=== PATIENT | male | born 1965 | race Caucasian/White ===

== ENCOUNTER 2016-11-13 10:00 | Emergency (ER) | payer OTHER ==
[~2016-11-13] VITALS: Ht 175.3 cm; Wt 70.5 kg
[~2016-11-13 10:00] MED LIST: ALBUAER2 INH; CLC100 PO; DXY100 PO; FLUT0.15 NAE; GLIP5TAB11 PO; IPRASOL4 INH; METF500T PO; METO25TA3 PO; PRD20 PO; PRED20TA PO; RXC5 PO; ZOLP10TA6 PO
[2016-11-13] MEDS ORDERED: VNTHFA/IN INH (10:03)
[2016-11-13 10:04] VITALS: TEMP 36.8; Ht 175.3 cm; Wt 70.5 kg
[2016-11-13] MEDS ORDERED: SODIUM CHLORIDE 0.9% 1000ML 1,000 ML IV STA ×2 (10:20→12:25)
[2016-11-13 10:32] LABS: BASO % 0.1 %; BASO ABS # 0.02 K/uL (0-0.2); COMPLETE YES; EOS % 1.1 %; HEMATOCRIT 50.4 % (42-52); IG% 0.7 %; LYMPH % 2.1 %; LYMPH ABS # 0.29 K/uL (1.2-3.4); MEAN CELL VOLUME 89.5 fL (80-100); MEAN CORPUSCULAR HEMOGLOBIN 30.2 pg (25-34); MEAN CORPUSCULAR HGB CONC 33.7 g/dl (32-36); MEAN PLATELET VOLUME 9.2 fL (7.4-10.4); MONO % 2.4 %; NEUT % 93.6 %; PLATELET COUNT 340 K/uL (130-400); RED BLOOD COUNT 5.63 M/uL (4.7-6.1); WHITE BLOOD COUNT 13.79 K/uL (4.8-10.8)
[2016-11-13 10:53] LABS: BUN/CREATININE RATIO 13.2 (10-20); CALCIUM 9.1 mg/dl (8.5-10.1); CREATININE 0.74 mg/dl (0.60-1.40); POTASSIUM 3.5 mmol/L (3.5-5.1)
[2016-11-13] MEDS ORDERED: VANCOMYCIN HCL 250 MG/5 ML SOLN PO STA (12:25)
[2016-11-13] MEDS ORDERED: RASPBERRY SYRUP 5 ML UDP PO ONE (12:45)
[2016-11-13] MEDS ORDERED: VANC5CAP PO (15:38)
--- NOTE | 2016-11-13 15:39 | EMERGENCY ROOM VISIT NOTE ---
History Report prepared by Nickie: Tamra Aguirre Under the Supervision of: Dr. Peter Sparks M.D. First contact with patient: 10:10 Chief Complaint: DIARRHEA Stated Complaint: DIARRHEA X 1 WEEK, DEHYDRATION, WEAKNESS Nursing Triage Summary: Pt reports diarrhea. Pt states, "I have some type of bacterial infection in my stomach. Now I have diarrhea. I am just so run down that I can hardly move. I got this infection when I was in the hospital in Dec and I haven't gotten rid of it since." History of Present Illness The patient is a 51 year old male who presents to the Emergency Room with complaints of persistent diarrhea over the past week. He has had diarrhea every hour. The patient just finished a course of Flagyl 500 mg TID for C diff. The diarrhea never completely resolved. He has been having diarrhea for the past 6 months. He reports RUQ pain. He reports that he has had that pain since he had a lung biopsy in December 2015. He denies any bloody stools, nausea, vomiting, or fever. He has been trying to drink a lot of water. He denies any well water or stream water. He denies any history of abdominal surgery. He is on prednisone and took 20 mg this morning. He is chronically on oxygen and on the list for a lung transplant. It is normal for his heart rate to be elevated at times. He notes that he was admitted at [facility] last week. He had CTs at that time. Source of History: patient Onset: past week Position: other (global) Quality: other (diarrhea) Timing: other (persistent) Associated Symptoms: + abdominal pain, No fevers, No nausea, No vomiting, No melena, No hematochezia Review of Systems See HPI for pertinent positives & negatives. A total of 10 systems reviewed and were otherwise negative. Past Medical & Surgical Medical Problems: (1) DM2 (diabetes mellitus, type 2) (2) GERD (gastroesophageal reflux disease) (3) HTN (hypertension) (4) Hypoxia (5) Pneumothorax of right lung after biopsy Surgical Problems: (1) H/O colonoscopy (2) H/O esophagogastroduodenoscopy (3) History of nasal surgery Family History No pertinent family history Social History Smoking Status: Current Every Day Smoker Alcohol Use: none Drug Use: none Marital Status: single, in relationship Housing Status: lives with significant other Occupation Status: employed Current/Historical Medications Scheduled Albuterol Hfa (Ventolin Hfa), 2-4 PUFFS INH Q6H Docusate Sodium (Docusate Sodium), 100 MG PO BID Fluticasone Propionate (Nasal) (Flonase Allergy Relief), 2 SPRAYS MELISSA QAM Glipizide (Glucotrol), 5 MG PO QAM Metformin Hcl (Glucophage), 1,000 MG PO BID Metoprolol Succ (Toprol Xl) (Toprol-Xl), 25 MG PO DAILY Prednisone (Prednisone), 20 MG PO DAILY Vancomycin Hcl (Vancomycin), 1 TAB PO DIRECTED Scheduled PRN Ipratropium-Albuterol (Duoneb), 1 TREATMENT INH QID PRN for Severe Dyspnea Oxycodone HCl (Oxycodone HCl), 5 MG PO Q6 PRN for Pain Zolpidem Tartrate (Zolpidem Tartrate), 10 MG PO HS PRN for Sleep Allergies Coded Allergies: Omeprazole (Verified Allergy, Unknown, TOLERATES PROTONIX, 11/13/16) Paroxetine (Verified Adverse Reaction, Mild, GI UPSET, 11/13/16) Physical Exam Vital Signs Date Time Temp Pulse Resp B/P (MAP) Pulse Ox O2 Delivery O2 Flow Rate FiO2 11/13/16 15:49 72 18 128/84 98 11/13/16 15:05 84 18 118/88 96 Room Air 11/13/16 13:12 94 11/13/16 12:55 92 18 146/90 99 Room Air 11/13/16 10:34 102 12 128/86 94 Nasal Cannula 2.0 11/13/16 10:17 112 11/13/16 10:04 36.8 117 24 149/91 87 Room Air Physical Exam GENERAL: Patient is chronically unwell appearing and in no acute distress. HEENT: No acute trauma, normocephalic atraumatic, mucous membranes dry, no nasal congestion, no scleral icterus. NECK: No stridor, no adenopathy, no meningismus, trachea is midline. LUNGS: Poor air movement throughout, minimally dyspneic which patient states is baseline. HEART: Tachycardic rate and regular rhythm. No murmurs, rubs, gallops appreciated. ABDOMEN: Soft, point tenderness to the RUQ which he states is chronic, bowel sounds positive, no masses appreciated, no peritonitis. BACK: No midline tenderness, no CVA tenderness EXTREMITIES: Normal motion all extremities, no cyanosis, no edema. NEUROLOGIC: Alert and oriented, no acute motor or sensory deficits, no focal weakness, cranial nerves grossly intact. SKIN: Dry with poor turgor, also consistent with chronic prednisone use. Medical Decision & Procedures Laboratory Results 11/13/16 10:15 Red Blood Count 5.63, Mean Corpuscular Volume 89.5, Mean Corpuscular Hemoglobin 30.2, Mean Corpuscular Hemoglobin Concent 33.7, Mean Platelet Volume 9.2, Neutrophils (%) (Auto) 93.6, Lymphocytes (%) (Auto) 2.1, Monocytes (%) (Auto) 2.4, Eosinophils (%) (Auto) 1.1, Basophils (%) (Auto) 0.1, Neutrophils # (Auto) 12.91, Lymphocytes # (Auto) 0.29, Monocytes # (Auto) 0.33, Eosinophils # (Auto) 0.15, Basophils # (Auto) 0.02 11/13/16 10:15 Test 11/13/16 10:15 White Blood Count 13.79 K/uL (4.8-10.8) Red Blood Count 5.63 M/uL (4.7-6.1) Hemoglobin 17.0 g/dL (14.0-18.0) Hematocrit 50.4 % (42-52) Mean Corpuscular Volume 89.5 fL (80-100) Mean Corpuscular Hemoglobin 30.2 pg (25-34) Mean Corpuscular Hemoglobin Concent 33.7 g/dl (32-36) Platelet Count 340 K/uL (130-400) Mean Platelet Volume 9.2 fL (7.4-10.4) Neutrophils (%) (Auto) 93.6 % Lymphocytes (%) (Auto) 2.1 % Monocytes (%) (Auto) 2.4 % Eosinophils (%) (Auto) 1.1 % Basophils (%) (Auto) 0.1 % Neutrophils # (Auto) 12.91 K/uL (1.4-6.5) Lymphocytes # (Auto) 0.29 K/uL (1.2-3.4) Monocytes # (Auto) 0.33 K/uL (0.11-0.59) Eosinophils # (Auto) 0.15 K/uL (0-0.5) Basophils # (Auto) 0.02 K/uL (0-0.2) RDW Standard Deviation 47.6 fL (36.4-46.3) RDW Coefficient of Variation 14.6 % (11.5-14.5) Immature Granulocyte % (Auto) 0.7 % Immature Granulocyte # (Auto) 0.09 K/uL (0.00-0.02) Anion Gap 6.0 mmol/L (3-11) Est Creatinine Clear Calc Drug Dose 115.1 ml/min Estimated GFR () 122.1 Estimated GFR (Non- 105.3 BUN/Creatinine Ratio 13.2 (10-20) Calcium Level 9.1 mg/dl (8.5-10.1) Total Bilirubin 0.5 mg/dl (0.2-1) Direct Bilirubin 0.1 mg/dl (0-0.2) Aspartate Amino Transf (AST/SGOT) 24 U/L (15-37) Alanine Aminotransferase (ALT/SGPT) 39 U/L (12-78) Alkaline Phosphatase 78 U/L (45-117) Total Creatine Kinase 46 U/L (39-308) Total Protein 6.6 gm/dl (6.4-8.2) Albumin 3.0 gm/dl (3.4-5.0) Lipase 79 U/L (73-393) Date/Time Source Procedure Growth Status 11/13/16 00:00 Stool C.difficile Toxin B Gene (PCR) - Final Positive for C. difficile toxin B gene Complete Laboratory results as reviewed by me. Medications Administered Medications (Trade) Dose Ordered Sig/Abigail Route Start Time Stop Time Status Last Admin Dose Admin Sodium Chloride 1,000 ml @ 999 mls/hr Q1H1M STAT IV 11/13/16 10:20 11/13/16 11:20 DC 11/13/16 10:33 999 MLS/HR Vancomycin HCl (Vancomycin Oral Soln) 250 mg NOW STAT PO 11/13/16 12:25 11/13/16 12:27 DC 11/13/16 12:53 250 MG Sodium Chloride 1,000 ml @ 999 mls/hr Q1H1M STAT IV 11/13/16 12:25 11/13/16 13:25 DC 11/13/16 12:31 999 MLS/HR Raspberry (Raspberry Syrup 5ml Cup) 5 ml ONE ONCE PO 11/13/16 12:45 11/13/16 12:46 DC 11/13/16 12:53 5 ML ED Course 1012: The patient was evaluated in room A10. A complete history and physical exam was performed. 1020: NSS 1000 ml @ 999 mls/hr IV. 1113: I reevaluated the patient. He feels much better. 1139: I discussed the patient's case with RYAN Ramírez gastroenterology. She recommends a vancomycin taper if C diff is positive. 1224: I reevaluated the patient. He is feeling better. He needs more fluids. He has not had a bowel movement yet. I discussed the pros and cons of antibiotics empirically for C diff and he says he would like to just start antibiotics. His is leaving and will not be able to return until 1600. He will receive more fluids and wait until then. 1225: NSS 1000 ml @ 999 mls/hr IV, Vancomycin HCl 250 mg PO. 1245: Raspberry 5 mg PO. 1541: I reevaluated the patient. I discussed results and discharge instructions : He verbalized understanding and agreement. The patient is ready for discharge. Medical Decision Differential: Viral, Bacterial, Parasitic, Iatrogenic, C-Diff, Malabsorption, Irritable Bowel Disease, IBS, Ischemic Bowel, amongst other pathologies entertained. 51 yr old male arrives with diarrhea starting 1 week post stopping Flagyl for his persistent cdiff infection. He's been treated twice with abx for cdiff thus far. He is dehydrated and feels much better after 2 L. Eventually gave stool sample which is positive. Feeling well and looks comfortable. Discussed with GI who gave advice on intermediate project manager taper Vanco. Patient comfortable with this plan. In ED for many hours secondary to awaiting his mother to return to take him home. Contact precautions in place. Medication Reconcilliation Current Medication List: was personally reviewed by me Blood Pressure Screening Patient's blood pressure: Normal blood pressure Blood pressure disposition: Did not require urgent referral Consults Time Called: 1052 Consulting Physician: RYAN Ramírez gastroenterology Returned Call: [phone] I discussed the patient's case with her. She recommends a vancomycin taper if C diff is positive. Impression Primary Impression: Clostridium difficile diarrhea Additional Impression: Dehydration Scribe Attestation The scribe's documentation has been prepared under my direction and personally reviewed by me in its entirety. I confirm that the note above accurately reflects all work, treatment, procedures, and medical decision making performed by me. Departure Information Dispostion Home / Self-Care Prescriptions Vancomycin Hcl (Vancomycin) 125 Mg Cap 1 TAB PO DIRECTED, #88 TAB Take 1 tab; QID 2 wks, BID 1 wk, 1 daily for 1 wk, 1 every other day 1 wk, 1 every 3rd day 2 wks. Prov: Peter Sparks M.D. 11/13/16 Referrals Suzanne Bautista CRNP Patient Instructions Clostridium Difficile Infec, My [facility] Additional Instructions Your prescription should be at the Pharmacy. Problem Qualifiers
[2016-11-13 15:49] VITALS: BP 128/84; PULSE 72; O2SAT 98
[2016-12-04] MEDS ORDERED: SULF-183 PO (09:38)
[2016-12-04] MEDS ORDERED: PRZ1 PO (09:38)
[2016-12-04] MEDS ORDERED: POTTAB2 PO (09:38)
[2016-12-04] MEDS ORDERED: CRD60 PO (09:38)
[2016-12-04] MEDS ORDERED: CALCTAB7 PO (09:38)
[2016-12-04] MEDS ORDERED: FURO-85 PO (09:44)
[2016-12-04] MEDS ORDERED: MCRK20 PO (09:44)
[2016-12-04] MEDS ORDERED: OXGN (09:47)
== END 2016-11-13 15:52 | disposition home or self-care (01) ==
LOC: C.EDB 10:01 → C.EDA 15:52
DX: A04.7 Enterocolitis due to Clostridium difficile (principal); E86.0 Dehydration; E11.9 Type 2 diabetes mellitus without complications; K21.9 Gastro-esophageal reflux disease without esophagitis; I10 Essential (primary) hypertension; F17.210 Nicotine dependence, cigarettes, uncomplicated; Z79.2 Long term (current) use of antibiotics; Z79.52 Long term (current) use of systemic steroids; Z79.899 Other long term (current) drug therapy; Z99.81 Dependence on supplemental oxygen

== ENCOUNTER 2016-11-25 13:58 | Inpatient (IN) | payer OTHER ==
[2016-11-25] VITALS (19 sets, daily range): BP systolic 100–201; BP diastolic 58–116; PULSE 88–128; TEMP 36.5; O2SAT 50–99; Ht 172.7 cm; Wt 75.2 kg
[~2016-11-25] VITALS: Ht 172.7 cm; Wt 75.2 kg
[~2016-11-25 13:58] MED LIST changes: -ALBUAER2 INH; -DXY100 PO; +ETOMIDATE 2 MG/ML 20 ML VIAL IV ONE; +MIDAZOLAM HCL 5 MG/ML 1 ML VIAL IV ONE; -PRD20 PO; +SUCCINYLCHOLINE CHLORIDE 20 MG/ML 10 ML VIAL IV ONE; +VANC5CAP PO; +VNTHFA/IN INH
[2016-11-25] MEDS ORDERED: ALBUT/IPRATROP 3MG/0.5MG NEB 3 ML VIAL INH STA (14:15)
[2016-11-25] MEDS ORDERED: METHYLPREDNISOLONE 125 MG VIAL IV STA (14:15)
[2016-11-25] MEDS ORDERED: SODIUM CHLORIDE 0.9% 1000ML 1,000 ML IV STA ×2 (14:15→16:39)
--- NOTE | 2016-11-25 14:23 | EMERGENCY ROOM VISIT NOTE ---
History Report prepared by Topheribabdulaziz: Angi Nguyễn Under the Supervision of: Dr. Sanjya Patel D.O. First contact with patient: 14:11 Chief Complaint: SHORTNESS OF BREATH Stated Complaint: SHORTNESS OF BREATH History of Present Illness The patient is a 51 year old male who presents to the Emergency Room with complaints of worsening shortness of breath for the past 3 days. He was brought to the ED via EMS. He has a history of COPD and emphysema. He was 88% on 2.5 L at home and notes he has been short of breath even at rest. Oxygen has provided minimal relief. He also complains of increased pain with breathing. The patient admits to experiencing recent fevers as well as a productive cough with yellow sputum. He denies any abdominal pain. History is limited secondary to respiratory distress. Source of History: patient, EMS Onset: 3 days [employer]CH[employer]IC[employer] Position: chest Quality: other (shortness of breath) Timing: worsening Modifying Factors (Relieving): oxygen Associated Symptoms: + fevers, + cough, No abdominal pain Review of Systems See HPI for pertinent positives & negatives. ROS is limited secondary to respiratory distress. Past Medical & Surgical Medical Problems: (1) DM2 (diabetes mellitus, type 2) (2) GERD (gastroesophageal reflux disease) (3) HTN (hypertension) (4) Hypoxia (5) Pneumothorax of right lung after biopsy Surgical Problems: (1) H/O colonoscopy (2) H/O esophagogastroduodenoscopy (3) History of nasal surgery Family History No pertinent family history Social History Smoking Status: Current Every Day Smoker Alcohol Use: none Drug Use: none Marital Status: single, in relationship Housing Status: lives with significant other Occupation Status: employed Current/Historical Medications Scheduled Albuterol Hfa (Ventolin Hfa), 2-4 PUFFS INH Q6H Docusate Sodium (Docusate Sodium), 100 MG PO BID Fluticasone Propionate (Nasal) (Flonase Allergy Relief), 2 SPRAYS MELISSA QAM Glipizide (Glucotrol), 5 MG PO QAM Metformin Hcl (Glucophage), 1,000 MG PO BID Metoprolol Succ (Toprol Xl) (Toprol-Xl), 25 MG PO DAILY Prednisone (Prednisone), 20 MG PO DAILY Vancomycin Hcl (Vancomycin), 1 TAB PO DIRECTED Scheduled PRN Ipratropium-Albuterol (Duoneb), 1 TREATMENT INH QID PRN for Severe Dyspnea Oxycodone HCl (Oxycodone HCl), 5 MG PO Q6 PRN for Pain Zolpidem Tartrate (Zolpidem Tartrate), 10 MG PO HS PRN for Sleep Allergies Coded Allergies: Omeprazole (Verified Allergy, Unknown, TOLERATES PROTONIX, 11/25/16) Paroxetine (Verified Adverse Reaction, Mild, GI UPSET, 11/25/16) Physical Exam Vital Signs Date Time Temp Pulse Resp B/P (MAP) Pulse Ox O2 Delivery O2 Flow Rate FiO2 11/25/16 17:09 128 98 50 11/25/16 17:06 128 20 50 BiPAP/CPAP 11/25/16 17:00 101 26 140/76 100 Mechanical Ventilator 50 11/25/16 16:57 101 26 98/73 99 Mechanical Ventilator 50 11/25/16 16:27 112/75 11/25/16 16:05 104/71 11/25/16 16:00 111 102/69 97 Mechanical Ventilator 50 11/25/16 15:55 118/78 11/25/16 15:50 124/77 11/25/16 15:45 110 135/87 99 11/25/16 15:43 129/88 11/25/16 15:40 124/97 11/25/16 15:35 158/108 11/25/16 15:30 120 196/119 99 11/25/16 15:25 155/97 11/25/16 15:21 155/101 11/25/16 15:15 126 100 11/25/16 15:14 157/104 11/25/16 15:11 157/133 11/25/16 15:00 130 99 11/25/16 14:52 128 38 151/97 99 BiPAP 40 11/25/16 14:48 128 38 99 BiPAP 40 11/25/16 14:47 BiPAP 11/25/16 14:47 BiPAP 11/25/16 14:13 96 Non-Rebreather 4.0 11/25/16 14:11 88 11/25/16 14:11 36.4 122 38 159/99 88 Nasal Cannula 11/25/16 14:08 133 11/25/16 14:06 132 Physical Exam GENERAL: Patient is awake, alert, very anxious appearing, and appears to be in significant distress. History is limited secondary to respiratory distress. EYES: The conjunctivae are clear. The pupils are round and reactive. EARS, NOSE, MOUTH AND THROAT: The nose is without any evidence of any deformity. Mucous membranes are dry, tongue is midline NECK: The neck is nontender and supple. RESPIRATORY: Shallow respirations were noted with severe tachypnea and conversational dyspnea. Shallow and ineffective respirations were noted. CARDIOVASCULAR: Heart sounds were tachycardic but regular. No definite murmur noted to auscultation. GASTROINTESTINAL: The abdomen is soft. Bowel sounds are present in all quadrants. Abdomen is nontender MUSCULOSKELETAL/EXTREMITIES: There is no evidence of gross deformity full range of motion is noted in the hips and shoulders SKIN: Skin is warm and dry. Pedal edema bilaterally. There is no obvious evidence of any rash. There are no petechiae, pallor or cyanosis noted. NEUROLOGIC: Patient is awake alert and oriented x3 Medical Decision & Procedures ER Provider Diagnostic Interpretation: Radiology results as stated below per my review and radiologist interpretation: CHEST ONE VIEW PORTABLE CLINICAL HISTORY: Respiratory distress COMPARISON STUDY: 01/17/2016 FINDINGS: The heart is normal in size. There is underlying pulmonary emphysema. There is right midlung zone interstitial scarring. There is interstitial thickening, similar to the prior study. There is no lobar consolidation. There are no pleural effusions. IMPRESSION: Right midlung zone scarring. Interstitial thickening likely chronic. No evidence of acute lobar consolidation. Electronically signed by: Jeremi Garzon M.D. 11/25/2016 2:41 PM CHEST ONE VIEW PORTABLE CLINICAL HISTORY: S/P intubation RESPIRATORY FAILURE COMPARISON STUDY: 11/25/2016 FINDINGS: The cardiac and mediastinal contours remain stable. There is been interval insertion of the endotracheal tube 52 mm above the td. There is persistent interstitial thickening. There is no lobar consolidation. There is a linear scarlike opacity within the right midlung zone. There are no significant pleural effusions. IMPRESSION: Interval insertion of an endotracheal tube 52 mm above the td. Electronically signed by: Jeremi Garzon M.D. 11/25/2016 4:[address] ANGIOGRAM OF THE CHEST CLINICAL HISTORY: Shortness of breath. Respiratory failure. COMPARISON STUDY: 12/27/2015, chest x-ray dated 11/25/2016 TECHNIQUE: Following the IV administration of 116 mL of Optiray-320, CT angiogram of the thorax was performed from the thoracic inlet to the lung bases utilizing the pulmonary embolus protocol. Images are reviewed in the axial, sagittal, and coronal planes. IV contrast was administered without complication. MIP imaging was performed. A dose lowering technique was utilized adhering to the principles of ALARA. CT DOSE: 556.46 mGy.cm FINDINGS: No pathologically enlarged axillary mediastinal or hilar lymph nodes were visualized. There was no evidence of thoracic aortic dilatation. There were no pulmonary artery filling defects to indicate acute pulmonary embolism. No pleural effusions are visualized. There is respiratory motion artifact. There are multiple lung cysts, slightly progressive when compared to the prior study. This again has a wide differential but again lymphocytic interstitial pneumonitis must be considered. There is a tubular structure within the right middle lobe, likely representing a fluid-filled bronchus. There is scattered bilateral pulmonary nodules, likely inflammatory. The largest left lung nodule measures 1 cm and is visualized in image #230/[id number]. The largest right lung nodule measures 9 mm and is visualized on image #[id number]. There is an indwelling endotracheal tube. There are multiple thoracic compression deformities. IMPRESSION: 1. No evidence of acute pulmonary embolism 2. Multiple bilateral lung cysts, slightly progressive when compared the prior study 3. Scattered bilateral pulmonary nodules. These are statistically inflammatory/infectious. A 1-2 month follow-up study subsequent to antibiotic therapy is recommended. Electronically signed by: Jeremi Garzon M.D. 11/25/2016 4:33 PM Laboratory Results 11/25/16 14:52 Red Blood Count 5.42, Mean Corpuscular Volume 90.4, Mean Corpuscular Hemoglobin 29.2, Mean Corpuscular Hemoglobin Concent 32.2, Mean Platelet Volume 9.0, Neutrophils (%) (Auto) 83.0, Lymphocytes (%) (Auto) 8.2, Monocytes (%) (Auto) 4.0, Eosinophils (%) (Auto) 3.4, Basophils (%) (Auto) 0.4, Neutrophils # (Auto) 23.77, Lymphocytes # (Auto) 2.36, Monocytes # (Auto) 1.14, Eosinophils # (Auto) 0.96, Basophils # (Auto) 0.11 11/25/16 14:52 Test 11/25/16 14:52 11/25/16 16:33 11/25/16 16:38 White Blood Count 28.63 K/uL (4.8-10.8) Red Blood Count 5.42 M/uL (4.7-6.1) Hemoglobin 15.8 g/dL (14.0-18.0) Hematocrit 49.0 % (42-52) Mean Corpuscular Volume 90.4 fL (80-100) Mean Corpuscular Hemoglobin 29.2 pg (25-34) Mean Corpuscular Hemoglobin Concent 32.2 g/dl (32-36) Platelet Count 357 K/uL (130-400) Mean Platelet Volume 9.0 fL (7.4-10.4) Neutrophils (%) (Auto) 83.0 % Lymphocytes (%) (Auto) 8.2 % Monocytes (%) (Auto) 4.0 % Eosinophils (%) (Auto) 3.4 % Basophils (%) (Auto) 0.4 % Neutrophils # (Auto) 23.77 K/uL (1.4-6.5) Lymphocytes # (Auto) 2.36 K/uL (1.2-3.4) Monocytes # (Auto) 1.14 K/uL (0.11-0.59) Eosinophils # (Auto) 0.96 K/uL (0-0.5) Basophils # (Auto) 0.11 K/uL (0-0.2) RDW Standard Deviation 45.3 fL (36.4-46.3) RDW Coefficient of Variation 13.8 % (11.5-14.5) Immature Granulocyte % (Auto) 1.0 % Immature Granulocyte # (Auto) 0.29 K/uL (0.00-0.02) Red Blood Cell Morphology Unremarkable Anion Gap 9.0 mmol/L (3-11) Est Creatinine Clear Calc Drug Dose 100.8 ml/min Estimated GFR () 117.0 Estimated GFR (Non- 101.0 BUN/Creatinine Ratio 17.1 (10-20) Calcium Level 8.7 mg/dl (8.5-10.1) Magnesium Level 1.7 mg/dl (1.8-2.4) Total Bilirubin 0.6 mg/dl (0.2-1) Aspartate Amino Transf (AST/SGOT) 33 U/L (15-37) Alanine Aminotransferase (ALT/SGPT) 38 U/L (12-78) Alkaline Phosphatase 112 U/L (45-117) Total Creatine Kinase 289 U/L (39-308) Creatine Kinase MB 9.5 ng/ml (0.5-3.6) Creatine Kinase MB Ratio 3.3 (0-3.0) Troponin I 0.072 ng/ml (0-0.045) Pro-B-Type Natriuretic Peptide 192 pg/ml (0-900) Total Protein 6.7 gm/dl (6.4-8.2) Albumin 3.0 gm/dl (3.4-5.0) Globulin 3.7 gm/dl (2.5-4.0) Albumin/Globulin Ratio 0.8 (0.9-2) Bedside Blood Gas pH (LAB) 7.21 (7.35-7.45) Bedside Blood Gas pCO2 (LAB) 82 mmHg (35-46) Bedside Blood Gas pO2 (LAB) 109 mmHg (80-95) Bedside Blood Gas HCO3 (LAB) 33 meq/L (19-24) Bedside Blood Gas Total CO2 35 mEq/l (24-31) Bedside Blood Gas Base Excess (LAB) 5.0 meq/L (-9-1.8) Bedside Blood Gas O2 Saturation 97.0 % (90-95) Urine Color DK YELLOW Urine Appearance CLOUDY (CLEAR) Urine pH 5.0 (4.5-7.5) Urine Specific [place] 1.045 (1.000-1.030) Urine Protein 2+ (NEG) Urine Glucose (UA) 1+ (NEG) Urine Ketones 1+ (NEG) Urine Occult Blood TRACE (NEG) Urine Nitrite NEG (NEG) Urine Bilirubin 2+ (NEG) Urine Urobilinogen NEG (NEG) Urine Leukocyte Esterase NEG (NEG) Laboratory results per my review. Medications Administered Medications (Trade) Dose Ordered Sig/Abigail Route Start Time Stop Time Status Last Admin Dose Admin Methylprednisolone Sodium Succinate (Solu-Medrol IV) 125 mg NOW STAT IV 11/25/16 14:15 11/25/16 14:17 DC 11/25/16 14:21 125 MG Sodium Chloride 1,000 ml @ 999 mls/hr Q1H1M STAT IV 11/25/16 14:15 11/25/16 15:15 DC 11/25/16 14:21 999 MLS/HR Albuterol/ Ipratropium (Duoneb) 3 ml NOW STAT INH 11/25/16 14:15 11/25/16 14:17 DC 11/25/16 14:21 3 ML Levofloxacin (Levaquin / D5W) 750 mg NOW STAT IV 11/25/16 15:11 11/25/16 15:13 DC 11/25/16 15:33 750 MG Propofol (Diprivan Iv Emulsion 100ml Vial) 1 dose STK-MED ONCE IV 11/25/16 15:25 11/25/16 15:26 DC 11/25/16 15:32 1 DOSE Morphine Sulfate (MoRPHine SULFATE INJ) 8 mg NOW STAT IV 11/25/16 15:38 11/25/16 15:39 DC 11/25/16 15:53 8 MG Midazolam HCl (Versed Inj) 4 mg NOW STAT IV 11/25/16 15:38 11/25/16 15:47 DC 11/25/16 15:52 4 MG Sodium Chloride 1,000 ml @ 999 mls/hr Q1H1M STAT IV 11/25/16 16:39 11/25/16 17:39 11/25/16 16:46 999 MLS/HR Magnesium Sulfate (Magnesium Sulfate) 2 gm NOW STAT IV 11/25/16 16:39 11/25/16 16:40 DC 11/25/16 16:50 2 GM Procedure Endotracheal Intubation Indication: Respiratory Failure The patient was on 100% oxygen via NRB prior to the procedure. Suction, airway equipment, RSI drugs, respiratory equipment, and appropriate personnel were prepared prior to the initiation of the procedure. A time out was taken. Induction was performed with Etomidate and Succinylcholine. After observing the clinical benefit of the medications, the airway was easily visualized utilizing a glide scope. A 7.5 size ETT tube was placed atraumatically to 22 cm using standard technique. The cuff inflated without signs of malfunction. There were bilateral breath sounds, positive colormetric change, no gastric sounds, a good capnography waveform, and post procedure pulse oximetry was 99%. Post intubation sedation and paralysis was administered using Propofol. There were no complications. ECG Indication: SOB/dyspnea Rate (beats per minute): 131 Rhythm: sinus tachycardia Findings: nonspecific-ST abn (Diffuse ST segment abnormalities noted), PVC ( Frequent PVC noted), other Comparison ECG Date: Changes are new when compared to EKG from December 28, 2015 ED Course 1414: The patient was evaluated in room B4. A complete history and physical examination were performed. 1415: DuoNeb 3 ml INH, NSS 1000 ml @ 999 mls/hr IV, Solu-Medrol 125 mg IV. 1525: Propofol 100 ml IV. 1538: Versed 4 mg IV, Morphine Sulfate 8 mg IV. 1639: Magnesium Sulfate 2 gm IV, NSS 1000 ml @ 999 mls/hr IV. 1647: I discussed the patients case with Dr. Miranda [facility] Pul[facility]. He recommends I contact the hospital medicine team. 1650: I reevaluated the patient. He is resting. I discussed his results with the family and my recommendation he remain in the hospital for further evaluation and management and they verbalized complete understanding and agreement. 1652: I discussed the patients case with Dr. Richards, [facility]. The patient will be further evaluated. 1653: I discussed the [facility] The patient will be further evaluated. Medical Decision Prior records/ancillary studies reviewed. Triage Nursing notes reviewed. Additional history obtained from the family. The patient's history was concerning for respiratory difficulties. Differential diagnosis: Etiologies such as infections, reactive airway disease, pneumonia, pneumothorax , COPD, CHF, cardiac ischemia, pulmonary embolism, musculoskeletal, gastrointestinal, as well as others were entertained. The patient is a 51-year-old male who presented to the emergency department with severe respiratory distress. 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 He is currently managed by one of our pulmonary physician. The patient had a DuoNeb prior to arrival. He received IV steroids and a continuous DuoNeb in the emergency department. His condition continued to worsen so he was placed on BiPAP. The patient was not able to tolerate BiPAP well. He was treated with sedation in the emergency department but he still continued to tolerate the BiPAP poorly. The decision was made to intubate the patient. I discussed his case with his primary global sales director. I also discussed his case with the vice principal as well as the on-call [facility] is. The patient was treated with IV fluids. He was also given IV antibiotics for presumed pulmonary infection. I discussed his case with his family members. They're aware of his significant condition at this time. Medication Reconcilliation Current Medication List: was personally reviewed by me Blood Pressure Screening Patient's blood pressure: Elevated blood pressure Blood pressure disposition: Elevated BP felt to be situational Consults Time Called: 1600 Consulting Physician: [facility] Returned Call: 164 I discussed the patients case with CLEMENTE Thomas Pulmonology. He recommends I contact the hospital medicine team. Additional Consults: Time Called: 1650 Consulted Physician: Dr. Richards [facility] Returned Call: 165 Additional Comments: I discussed the patients case with Dr. Richards [facility]. The patient will be further evaluated. Time Called: 165 Consulted Physician: RYAN Serrano [facility] Returned Call: 165 Additional Comments: I discussed the patients case with RYAN Serrano [facility]ist. The patient will be further evaluated. Impression Primary Impression: Respiratory failure Additional Impressions: Bronchitis Respiratory acidosis Hypoxia Critical Care I have personally spent greater than 60 minutes of critical care time in the direct management of this patient. This includes bedside care, interpretation of diagnostic studies, and testing, discussion with consultants, patient, and family members, and other required patient management activities. This 60 minutes is in excess of all separately billable procedures. Scribe Attestation The scribe's documentation has been prepared under my direction and personally reviewed by me in its entirety. I confirm that the note above accurately reflects all work, treatment, procedures, and medical decision making performed by me. Departure Information Dispostion Being Evaluated By Hospitalist Referrals Cj Butt M.D.([facility]) (PCP) Patient Instructions My [facility] Problem Qualifiers Primary Impression: Respiratory failure Chronicity: acute Respiratory failure complication: hypoxia and hypercapnia Qualified Codes: J96.01 - Acute respiratory failure with hypoxia; J96.02 - Acute respiratory failure with hypercapnia
[2016-11-25] MEDS ORDERED: RAPID SEQUENCE INDUCTION BAG ONE (14:34)
--- NOTE | 2016-11-25 14:43 | DIAGNOSTIC IMAGING REPORT ---
CHEST ONE VIEW PORTABLE CLINICAL HISTORY: Respiratory distress COMPARISON STUDY: 01/17/2016 FINDINGS: The heart is normal in size. There is underlying pulmonary emphysema. There is right midlung zone interstitial scarring. There is interstitial thickening, similar to the prior study. There is no lobar consolidation. There are no pleural effusions.[ IMPRESSION: Right midlung zone scarring. Interstitial thickening likely chronic. No evidence of acute lobar consolidation. Electronically signed by: Jeremi Garzon M.D. 11/25/2016 2:41 PM Dictated Date/Time: 11/25/2016 2:40 PM
[2016-11-25] MEDS ORDERED: KETAMINE HCL INJ 500 MG in SODIUM CHLORIDE 0.9% 500ML 490 ML IV PRN (15:00)
[2016-11-25 15:07] LABS: MEAN CELL VOLUME 90.4 fL (80-100); MEAN CORPUSCULAR HEMOGLOBIN 29.2 pg (25-34); MEAN CORPUSCULAR HGB CONC 32.2 g/dl (32-36); PLATELET COUNT 357 K/uL (130-400); RED BLOOD COUNT 5.42 M/uL (4.7-6.1); WHITE BLOOD COUNT 28.63 K/uL (4.8-10.8)
[2016-11-25 15:08] LABS: ISTAT ARTERIAL BLOOD GAS HCO3 35 meq/L (19-24); ISTAT ARTERIAL BLOOD GAS PCO2 83 mmHg (35-46); ISTAT ARTERIAL BLOOD GAS PO2 109 mmHg (80-95); ISTAT ARTERIAL BLOOD GAS pH 7.23 (7.35-7.45); ISTAT CARBON DIOXIDE 37 mEq/l (24-31)
[2016-11-25] MEDS ORDERED: LEVAQUIN 750MG / 150ML D5W IV STA (15:11)
[2016-11-25 15:24] LABS: BUN/CREATININE RATIO 17.1 (10-20); CALCIUM 8.7 mg/dl (8.5-10.1); CREATININE 0.82 mg/dl (0.60-1.40); POTASSIUM 3.5 mmol/L (3.5-5.1)
[2016-11-25] MEDS ORDERED: PROPOFOL IV EMULSION 10 MG/ML 100 ML VIAL IV ONE (15:25)
[2016-11-25 15:33] LABS: ALB/GLOB RATIO 0.8 (0.9-2); CKMB/CK RATIO 3.3 (0-3.0)
[2016-11-25] MEDS ORDERED: MoRPHine SULFATE 10 MG/ML CARP/VIAL IV STA (15:38)
[2016-11-25] MEDS ORDERED: MIDAZOLAM HCL 5 MG/ML 1 ML VIAL IV STA (15:38)
[2016-11-25] MEDS ORDERED: MIDAZOLAM HCL 5 MG/ML 2ML VIAL IV STA (15:38)
[2016-11-25 15:41] LABS: BASO % 0.4 %; BASO ABS # 0.11 K/uL (0-0.2); COMPLETE YES; EOS % 3.4 %; LYMPH % 8.2 %; LYMPH ABS # 2.36 K/uL (1.2-3.4)
[2016-11-25] MEDS ORDERED: OPTIRAY 320 IV PRN (15:45)
--- NOTE | 2016-11-25 16:03 | DIAGNOSTIC IMAGING REPORT ---
CHEST ONE VIEW PORTABLE CLINICAL HISTORY: S/P intubation RESPIRATORY FAILURE COMPARISON STUDY: 11/25/2016 FINDINGS: The cardiac and mediastinal contours remain stable. There is been interval insertion of the endotracheal tube 52 mm above the td. There is persistent interstitial thickening. There is no lobar consolidation. There is a linear scarlike opacity within the right midlung zone. There are no significant pleural effusions.[ IMPRESSION: Interval insertion of an endotracheal tube 52 mm above the td. Electronically signed by: Jeremi Garzon M.D. 11/25/2016 4:02 PM Dictated Date/Time: 11/25/2016 4:00 PM
[2016-11-25] MEDS: PROPOFOL IV EMULSION 10 MG/ML 100 ML VIAL IV PRN (16:05)
--- NOTE | 2016-11-25 16:35 | DIAGNOSTIC IMAGING REPORT ---
CT ANGIOGRAM OF THE CHEST CLINICAL HISTORY: Shortness of breath. Respiratory failure. COMPARISON STUDY: 12/27/2015, chest x-ray dated 11/25/2016 TECHNIQUE: Following the IV administration of 116 mL of Optiray-320, CT angiogram of the thorax was performed from the thoracic inlet to the lung bases utilizing the pulmonary embolus protocol. Images are reviewed in the axial, sagittal, and coronal planes. IV contrast was administered without complication. MIP imaging was performed. A dose lowering technique was utilized adhering to the principles of ALARA. CT DOSE: 556.46 mGy.cm FINDINGS: No pathologically enlarged axillary mediastinal or hilar lymph nodes were visualized. There was no evidence of thoracic aortic dilatation. There were no pulmonary artery filling defects to indicate acute pulmonary embolism. No pleural effusions are visualized. There is respiratory motion artifact. There are multiple lung cysts, slightly progressive when compared to the prior study. This again has a wide differential but again lymphocytic interstitial pneumonitis must be considered. There is a tubular structure within the right middle lobe, likely representing a fluid-filled bronchus. There is scattered bilateral pulmonary nodules, likely inflammatory. The largest left lung nodule measures 1 cm and is visualized in image #230/[id number]. The largest right lung nodule measures 9 mm and is visualized on image #219/[id number]. There is an indwelling endotracheal tube. There are multiple thoracic compression deformities. IMPRESSION: 1. No evidence of acute pulmonary embolism 2. Multiple bilateral lung cysts, slightly progressive when compared the prior study 3. Scattered bilateral pulmonary nodules. These are statistically inflammatory/infectious. A 1-2 month follow-up study subsequent to antibiotic therapy is recommended. Electronically signed by: Jeremi Garzon M.D. 11/25/2016 4:33 PM Dictated Date/Time: 11/25/2016 4:25 PM
[2016-11-25] MEDS ORDERED: MAGNESIUM SULFATE 1GM / D5W 1 GM BAG IV STA (16:39)
[2016-11-25 17:06] LABS: URINE APPEARANCE CLOUDY (CLEAR); URINE COLOR DK YELLOW; URINE EPITHELIAL CELL AUTO >30 /lpf (0-5); URINE NITRITE NEG (NEG); URINE SPECIFIC GRAVITY 1.045 (1.000-1.030); UROBILINOGEN NEG (NEG)
[2016-11-25 17:11] LABS: ISTAT ARTERIAL BLOOD GAS HCO3 33 meq/L (19-24); ISTAT ARTERIAL BLOOD GAS PCO2 82 mmHg (35-46); ISTAT ARTERIAL BLOOD GAS PO2 109 mmHg (80-95); ISTAT ARTERIAL BLOOD GAS pH 7.21 (7.35-7.45); ISTAT CARBON DIOXIDE 35 mEq/l (24-31)
[2016-11-25 17:13] LABS: MANUAL MICROSCOPIC REQUIRED? NO; REVIEW REQ? YES
[2016-11-25 17:21] LABS: URINE BILIRUBIN NEG (NEG)
[2016-11-25 17:40] LABS: URINE MUCUS PRESENT (NONE PRSENT)
[2016-11-25 17:41] LABS: URINE PATH CASTS 0-3 GRANULAR CASTS /lpf (0)
[2016-11-25 17:44] LABS: ZZURINE CULT IF INDIC CATH YES
[2016-11-25] MEDS ORDERED: VECURONIUM BROMIDE 10 MG VIAL IV STA (18:03)
[2016-11-25 18:04] LABS: ISTAT ARTERIAL BLOOD GAS HCO3 31 meq/L (19-24); ISTAT ARTERIAL BLOOD GAS PCO2 85 mmHg (35-46); ISTAT ARTERIAL BLOOD GAS PO2 222 mmHg (80-95); ISTAT ARTERIAL BLOOD GAS pH 7.18 (7.35-7.45); ISTAT CARBON DIOXIDE 34 mEq/l (24-31)
[2016-11-25] MEDS ORDERED: VECURONIUM BROMIDE 10 MG VIAL ONE (18:04)
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
--- NOTE | 2016-11-25 20:03 | History and Physical ---
History & Physical Date & Time of Service: Nov 25, 2016 at ~ 17:30 Chief Complaint: Shortness of Breath Primary Care Physician: Cj Butt M.D.(ZINA) History of Present Illness 51 year old male who presented to the ER with shortness of breath. History is limited since patient is currently intubated and sedated. Information obtained from ED documentation and review of outpatient records. Patient has history of very severe COPD, currently being followed at [facility] for possible lung transplant. Also history of QUOC lung infection, unclear if patient is taking antibiotics. Patient was diagnosed with C. Diff a couple of weeks ago, currently on vancomycin. Patient presenting today with worsening shortness of breath x 3 days. In the ED, was in severe respiratory distress requiring intubation. Past Medical/Surgical History Medical Problems: (1) C. difficile diarrhea Status: Chronic (2) COPD, very severe Status: Chronic (3) Depressive disorder Status: Chronic (4) DM2 (diabetes mellitus, type 2) Status: Chronic (5) GERD (gastroesophageal reflux disease) Status: Chronic (6) HTN (hypertension) Status: Chronic (7) QUOC (mycobacterium avium-intracellulare) Status: Chronic (8) Pneumothorax of right lung after biopsy Status: Chronic Surgical Problems: (1) H/O adenoidectomy Status: Chronic (2) History of nasal surgery Status: Chronic Family History CVA GRANDFATHER FH: myocardial infarction GRANDFATHER Social History Smoking Status: Unknown if Ever Smoked Alcohol Use: unknown Immunizations History of Influenza Vaccine: Yes Influenza Vaccine Date: Feb 12, 2012 History of Tetanus Vaccine?: Yes Tetanus Immunization Date: Feb 25, 2008 History of Pneumococcal: Yes Pneumococcal Date: Jan 22, 2011 History of Hepatitis B Vaccine: No Multi-Drug Resistant Organisms History of MDRO: No Allergies Coded Allergies: Omeprazole (Verified Allergy, Unknown, TOLERATES PROTONIX, 11/25/16) Paroxetine (Verified Adverse Reaction, Mild, GI UPSET, 11/25/16) Home Medications Scheduled Albuterol Hfa (Ventolin Hfa), 2-4 PUFFS INH Q6H Docusate Sodium (Docusate Sodium), 100 MG PO BID Fluticasone Propionate (Nasal) (Flonase Allergy Relief), 2 SPRAYS MELISSA QAM Glipizide (Glucotrol), 5 MG PO QAM Metformin Hcl (Glucophage), 1,000 MG PO BID Metoprolol Succ (Toprol Xl) (Toprol-Xl), 25 MG PO DAILY Prednisone (Prednisone), 20 MG PO DAILY Vancomycin Hcl (Vancomycin), 1 TAB PO DIRECTED Scheduled PRN Ipratropium-Albuterol (Duoneb), 1 TREATMENT INH QID PRN for Severe Dyspnea Oxycodone HCl (Oxycodone HCl), 5 MG PO Q6 PRN for Pain Zolpidem Tartrate (Zolpidem Tartrate), 10 MG PO HS PRN for Sleep Review of Systems unable to be completed with patient due to sedation Physical Exam Vital Signs Date Time Temp Pulse Resp B/P (MAP) Pulse Ox O2 Delivery O2 Flow Rate FiO2 11/25/16 18:25 90 28 102/77 100 11/25/16 17:59 93 28 110/80 100 Mechanical Ventilator 50 11/25/16 17:00 101 26 140/76 100 Mechanical Ventilator 50 11/25/16 16:57 101 26 98/73 99 Mechanical Ventilator 50 11/25/16 16:27 112/75 11/25/16 16:05 104/71 11/25/16 16:00 111 102/69 97 Mechanical Ventilator 50 11/25/16 15:55 118/78 11/25/16 15:50 50 11/25/16 15:50 124/77 11/25/16 15:45 110 135/87 99 11/25/16 15:43 129/88 11/25/16 15:40 124/97 11/25/16 15:35 158/108 11/25/16 15:30 128 20 50 BiPAP/CPAP 11/25/16 15:30 128 98 50 11/25/16 15:30 120 196/119 99 11/25/16 15:25 155/97 11/25/16 15:21 155/101 11/25/16 15:15 126 100 11/25/16 15:14 157/104 11/25/16 15:11 157/133 11/25/16 15:00 130 99 11/25/16 14:52 128 38 151/97 99 BiPAP 40 11/25/16 14:48 128 38 99 BiPAP 40 11/25/16 14:47 BiPAP 11/25/16 14:47 BiPAP 11/25/16 14:13 96 Non-Rebreather 4.0 8/15/17 14:11 88 11/25/16 14:11 36.4 122 38 159/99 88 Nasal Cannula 11/25/16 14:08 133 11/25/16 14:06 132 General Appearance: + pertinent finding (resting in bed, currently intubated and sedated) Head: normocephalic Eyes: normal inspection Neck: supple, no JVD Respiratory/Chest: + crackles (BL bases), + wheezing (expiratory), + pertinent finding (intubated; PS 34, TV 250, 50%FiO2, 15 PEEP) Cardiovascular: regular rate, rhythm, + pertinent finding (+2 pitting edema BLLE) Abdomen/GI: normal bowel sounds, non tender, soft, + distended Genitourinary - Male: + pertinent finding (hsu in place draining dark yellow urine) Extremities/Musculoskelatal: normal inspection, no calf tenderness Neurologic/Psych: + pertinent finding (sedated) Skin: normal color, warm/dry Diagnostics Laboratory Results Results Past 24 Hours Test 11/25/16 14:52 11/25/16 14:54 11/25/16 16:33 11/25/16 16:38 Range/Units White Blood Count 28.63 4.8-10.8 K/uL Red Blood Count 5.42 4.7-6.1 M/uL Hemoglobin 15.8 14.0-18.0 g/dL Hematocrit 49.0 42-52 % Mean Corpuscular Volume 90.4 80-100 fL Mean Corpuscular Hemoglobin 29.2 25-34 pg Mean Corpuscular Hemoglobin Concent 32.2 32-36 g/dl Platelet Count 357 130-400 K/uL Mean Platelet Volume 9.0 7.4-10.4 fL Neutrophils (%) (Auto) 83.0 % Lymphocytes (%) (Auto) 8.2 % Monocytes (%) (Auto) 4.0 % Eosinophils (%) (Auto) 3.4 % Basophils (%) (Auto) 0.4 % Neutrophils # (Auto) 23.77 1.4-6.5 K/uL Lymphocytes # (Auto) 2.36 1.2-3.4 K/uL Monocytes # (Auto) 1.14 0.11-0.59 K/uL Eosinophils # (Auto) 0.96 0-0.5 K/uL Basophils # (Auto) 0.11 0-0.2 K/uL RDW Standard Deviation 45.3 36.4-46.3 fL RDW Coefficient of Variation 13.8 11.5-14.5 % Immature Granulocyte % (Auto) 1.0 % Immature Granulocyte # (Auto) 0.29 0.00-0.02 K/uL Red Blood Cell Morphology Unremarkable Sodium Level 137 136-145 mmol/L Potassium Level 3.5 3.5-5.1 mmol/L Chloride Level 97 98-107 mmol/L Carbon Dioxide Level 31 21-32 mmol/L Anion Gap 9.0 3-11 mmol/L Blood Urea Nitrogen 14 7-18 mg/dl Creatinine 0.82 0.60-1.40 mg/dl Est Creatinine Clear Calc Drug Dose 100.8 ml/min Estimated GFR () 117.0 Estimated GFR (Non- 101.0 BUN/Creatinine Ratio 17.1 10-20 Random Glucose 212 70-99 mg/dl Calcium Level 8.7 8.5-10.1 mg/dl Magnesium Level 1.7 1.8-2.4 mg/dl Total Bilirubin 0.6 0.2-1 mg/dl Aspartate Amino Transf (AST/SGOT) 33 15-37 U/L Alanine Aminotransferase (ALT/SGPT) 38 12-78 U/L Alkaline Phosphatase 112 45-117 U/L Total Creatine Kinase 289 39-308 U/L Creatine Kinase MB 9.5 0.5-3.6 ng/ml Creatine Kinase MB Ratio 3.3 0-3.0 Troponin I 0.072 0-0.045 ng/ml Pro-B-Type Natriuretic Peptide 192 0-900 pg/ml Total Protein 6.7 6.4-8.2 gm/dl Albumin 3.0 3.4-5.0 gm/dl Globulin 3.7 2.5-4.0 gm/dl Albumin/Globulin Ratio 0.8 0.9-2 Bedside Blood Gas pH (LAB) 7.23 7.21 7.35-7.45 Bedside Blood Gas pCO2 (LAB) 83 82 35-46 mmHg Bedside Blood Gas pO2 (LAB) 109 109 80-95 mmHg Bedside Blood Gas HCO3 (LAB) 35 33 19-24 meq/L Bedside Blood Gas Total CO2 37 35 24-31 mEq/l Bedside Blood Gas Base Excess (LAB) 7.0 5.0 -9-1.8 meq/L Bedside Blood Gas O2 Saturation 97.0 97.0 90-95 % Urine Color DK YELLOW Urine Appearance CLOUDY CLEAR Urine pH 5.0 4.5-7.5 Urine Specific [place] 1.045 1.000-1.030 Urine Protein 2+ NEG Urine Glucose (UA) 1+ NEG Urine Ketones 1+ NEG Urine Occult Blood TRACE NEG Urine Nitrite NEG NEG Urine Bilirubin NEG NEG Urine Urobilinogen NEG NEG Urine Leukocyte Esterase NEG NEG Urine WBC (Auto) 5-10 0-5 /hpf Urine RBC (Auto) 0-4 0-4 /hpf Urine Hyaline Casts (Auto) >30 0-5 /lpf Urine Epithelial Cells (Auto) >30 0-5 /lpf Urine Bacteria (Auto) 1+ NEG Urine Renal Epithelial Cells 0-5 /lpf Urine Pathogenic Casts 0-3 GRANULAR CASTS 0 /lpf Urine Mucus PRESENT NONE PRSENT Test 11/25/16 17:42 11/25/16 19:00 Range/Units Bedside Blood Gas pH (LAB) 7.18 7.35-7.45 Bedside Blood Gas pCO2 (LAB) 85 35-46 mmHg Bedside Blood Gas pO2 (LAB) 222 80-95 mmHg Bedside Blood Gas HCO3 (LAB) 31 19-24 meq/L Bedside Blood Gas Total CO2 34 24-31 mEq/l Bedside Blood Gas Base Excess (LAB) 3.0 -9-1.8 meq/L Bedside Blood Gas O2 Saturation 100.0 90-95 % Microbiology Results 11/25/16 Blood Culture, Received Pending 11/25/16 Blood Culture, Received Pending 11/25/16 MRSA DNA Surveillance Screen, Received Pending 11/25/16 Urine Culture, Received Pending Diagnostic Radiology CXR IMPRESSION: Right midlung zone scarring. Interstitial thickening likely chronic. No evidence of acute lobar consolidation. CXR IMPRESSION: Interval insertion of an endotracheal tube 52 mm above the td. CTA CHEST IMPRESSION: 1. No evidence of acute pulmonary embolism 2. Multiple bilateral lung cysts, slightly progressive when compared the prior study 3. Scattered bilateral pulmonary nodules. These are statistically inflammatory/infectious. A 1-2 month follow-up study subsequent to antibiotic therapy is recommended. Impression Assessment and Plan RESPIRATORY FAILURE, SEVERE COPD, HX QUOC INFECTION - admit to ICU - patient presenting with 3 days of worsening shortness of breath; in severe respiratory distress in the ED requiring intubation, ABG demonstrates respiratory acidosis - management as per commissary steward - noted hx of QUOC infection - patient had been on azithromycin and ethambutol in the past - unclear when the last doses were; follows with Dr. Doyle - follows with Dr. Miranda and [facility] for transplant evaluation C. DIFF - second occurrence diagnosed 11/12 - currently on vanco taper - vanco via NG vs. IV Flagyl as per commissary steward DM - hgb a1c 9.3 07/2016 - hold oral agents and utilize SSI HTN - on metoprolol - BP stable DVT PROPHYLAXIS - SQ Lovenox DISPO - In my clinical judgment this beneficiary meets acute admission criteria, established by [facility], that includes being hospitalized through two midnights. VTE Prophylaxis VTE Risk Assessment Done? Y/N: Yes Risk Level: Moderate Given or contraindicated: Enoxaparin (Lovenox)SQ Note ATTENDING ADDENDUM Record reviewed. Patient examined in ED. Care coordinated with RYAN Serrano. Please refer to her documentation for patient's history. Briefly, 51 YO male with severe steroid-dependent COPD, QUOC, currently being treated for C diff. Presented to ED with respiratory distress and required intubation + mechanical ventilation EXAM: General- sedated, appears to be comfortable VS- as noted HEENT- PERRL, EOMI, anicteric; oral ETT Neck- supple; + JVD Lungs- diffuse wheezing Heart- RRR Abdomen- soft, nontender Extremities- 2+ pretibial edema Neuro- sedated DATA: Item Value Date Time Bedside Blood Gas pO2 (LAB) 109 mmHg H 11/25/16 1454 Bedside Blood Gas pCO2 (LAB) 83 mmHg H 11/25/16 1454 Bedside Blood Gas HCO3 (LAB) 35 meq/L H 11/25/16 1454 Bedside Blood Gas pH (LAB) 7.23 L 11/25/16 1454 Other lab studies as noted. CXR- no acute infiltrates, no pneumothorax. CTA chest- (1) negative for PE, (2) progressive cystic disease, (3) scattered bilateral pulmonary nodules. ASSESSMENT AND PLAN: Acute on chronic hypoxic and hypercapnic respiratory failure. Hx of QUOC. No apparent infiltrates on chest x-ray. Intubated in ED. Received IV steroids and antibiotics. Critical Care Medicine consulted and evaluated patient in ED. Please refer to BURT Garland's documentation for discussion of other issues. Rush Panda MD .
--- NOTE | 2016-11-25 20:38 | Procedure Note ---
Procedure Note Procedure Date Nov 25, 2016. Procedure Description Procedure Name: Right Radial Arterial Catheterization Procedure time out: side/site verified, patient ID confirmed, correct procedure Consent obtained: written Time of procedure: 20:30 Performed by: physician service station helper Indications: diagnostic, therapeutic Contraindications: none Description: Using sterile technique; the right radial artery was cleaned with a chloro- hexadine scrub after adequate palpation and visualization with the ultrasound, a finder needle with overlaying catheter was then used with approach at a 45* angle until a flash was obtained with direct visualization on ultrasound. Using Seldinger technique, there was initially no difficulty passing the guide wire, on the second attempt the guide wire was then passed successfully into the artery and the catheter was threaded over the guide wire; which was then removed intact. Arterial blood was seen pulsating from catheter tip and a luer lock valve was attached to the catheter. The A-line catheter was then secured using a stat-lock and covered with a sterile surgical dressing. Pt was reassessed and no evidence of hematoma was appreciated. The tubing was placed between the first and second fingers and taped to the forearm. Pt tolerated the procedure well with no complications. Consent was obtained by Dr. Jere Richards Complications: none Patient tolerated procedure: well Post-procedure vital signs: reviewed and stable
[2016-11-25 20:54] LABS: PROTHROMBIN TIME (PATIENT) 10.6 SECONDS (9.0-12.0)
--- NOTE | 2016-11-25 21:34 | DIAGNOSTIC IMAGING REPORT ---
CHEST ONE VIEW PORTABLE CLINICAL HISTORY: Og Tube Placement tube position COMPARISON STUDY: 11/25/2016 at 3:52 PM FINDINGS: Nasogastric gastric tube positioned in the mid stomach. Study is otherwise similar. IMPRESSION: Nasogastric tube placed in the mid stomach. The above report was generated using voice recognition software. It may contain grammatical, syntax or spelling errors. Electronically signed by: Neal Blesdoe M.D. 11/25/2016 9:32 PM Dictated Date/Time: 11/25/2016 9:32 PM
[2016-11-25 21:47] LABS: ISTAT ARTERIAL BLOOD GAS HCO3 30 meq/L (19-24); ISTAT ARTERIAL BLOOD GAS PCO2 74 mmHg (35-46); ISTAT ARTERIAL BLOOD GAS PO2 90 mmHg (80-95); ISTAT ARTERIAL BLOOD GAS pH 7.21 (7.35-7.45); ISTAT CARBON DIOXIDE 32 mEq/l (24-31); ISTAT DELIVERY SYSTEM Ventilator; ISTAT FIO2 50 %; ISTAT PEEP 10; ISTAT RATE 28; ISTAT SITE Art Line; Vt 400
[2016-11-25] MEDS: VANCOMYCIN HCL 125 MG/2.5ML SOLN PO SCH (22:47)
[2016-11-25] MEDS: METRONIDAZOLE / NSS 500 MG in PREMIXED NSS 100 ML IV SCH (22:47)
[2016-11-25] MEDS: METHYLPREDNISOLONE IV 40 MG in SYRINGE 0 ML IV SCH (22:47)
[2016-11-26] VITALS (43 sets, daily range): BP systolic 21–181; BP diastolic 20–108; PULSE 62–190; TEMP 36.4–37.1; O2SAT 30–100
[2016-11-26] MEDS: LINEZOLID / D5W 600 MG in PREMIXED IN D5W 300 ML IV SCH ×3 (00:04→22:17)
[2016-11-26] MEDS: PROPOFOL IV EMULSION 10 MG/ML 100 ML VIAL IV PRN ×3 (00:10→06:04)
[2016-11-26] MEDS: CISATRACURIUM BESYLATE IV SOLN 2 MG/ML 10 ML VIAL IV PRN ×3 (00:12→06:03)
[2016-11-26 00:26] LABS: ISTAT ARTERIAL BLOOD GAS HCO3 32 meq/L (19-24); ISTAT ARTERIAL BLOOD GAS PCO2 67 mmHg (35-46); ISTAT ARTERIAL BLOOD GAS PO2 132 mmHg (80-95); ISTAT ARTERIAL BLOOD GAS pH 7.28 (7.35-7.45); ISTAT CARBON DIOXIDE 34 mEq/l (24-31); ISTAT DELIVERY SYSTEM Ventilator; ISTAT FIO2 50 %; ISTAT PEEP 10; ISTAT RATE 28; ISTAT SITE R Radial; Vt 400
[2016-11-26] MEDS ORDERED: DEXTROSE 50% 50 ML SYR IV PRN (01:00)
[2016-11-26] MEDS ORDERED: GLUCAGON FOR INJ 1 MG VIAL SQ PRN (01:00)
[2016-11-26] MEDS ORDERED: GLUCOSE 40% GEL 15 GM TUBE PO PRN (01:00)
[2016-11-26] MEDS ORDERED: GLUCOSE 10 TABS/TUBE PO PRN (01:00)
[2016-11-26] MEDS ORDERED: PHARMACY GLYCEMIC MGMT CONSULT PRN (01:23)
[2016-11-26] MEDS ORDERED: INSULIN GLARGINE SOLOSTAR 100 UNITS/ML 3 ML PEN SC SCH (01:30)
[2016-11-26] MEDS: INSULIN ASPART 100 UNITS/ML 3 ML PEN SC SCH ×6 (01:47→21:00)
[2016-11-26] MEDS ORDERED: FENTANYL CITRATE INJ 50 MCG/1 ML 2 ML VIAL IV PRN (02:15)
[2016-11-26] MEDS ORDERED: FENTANYL CITRATE INJ 50 MCG/1 ML 2 ML VIAL ONE (02:17)
[2016-11-26] MEDS: RANITIDINE IV 50 MG in DEXTROSE 5% 100ML 100 ML IV SCH ×3 (03:35→19:41)
[2016-11-26] MEDS: ALBUTEROL HFA 8 GM INHALER INH SCH ×6 (03:35→23:38)
[2016-11-26] MEDS: IPRATROPIUM BROMIDE HFA INHALER INH SCH ×6 (03:35→23:38)
[2016-11-26 04:03] LABS: ISTAT ARTERIAL BLOOD GAS HCO3 31 meq/L (19-24); ISTAT ARTERIAL BLOOD GAS PCO2 90 mmHg (35-46); ISTAT ARTERIAL BLOOD GAS PO2 128 mmHg (80-95); ISTAT ARTERIAL BLOOD GAS pH 7.15 (7.35-7.45); ISTAT CARBON DIOXIDE 34 mEq/l (24-31); ISTAT DELIVERY SYSTEM Ventilator; ISTAT FIO2 40 %; ISTAT PEEP 10; ISTAT RATE 28; ISTAT SITE Art Line; Vt 400
[2016-11-26] MEDS ORDERED: SODIUM BICARB 8.4% INJ 50 MEQ/50 ML SYR IV STA (04:52)
[2016-11-26] MEDS ORDERED: SODIUM BICARB 8.4% INJ 50 MEQ/50 ML SYR IV ONE (04:55)
[2016-11-26 05:07] LABS: HEMATOCRIT 43.3 % (42-52); MEAN CELL VOLUME 89.5 fL (80-100); MEAN CORPUSCULAR HEMOGLOBIN 29.8 pg (25-34); MEAN CORPUSCULAR HGB CONC 33.3 g/dl (32-36); MEAN PLATELET VOLUME 8.7 fL (7.4-10.4); PLATELET COUNT 302 K/uL (130-400); RED BLOOD COUNT 4.84 M/uL (4.7-6.1)
[2016-11-26 05:12] LABS: ISTAT ARTERIAL BLOOD GAS HCO3 34 meq/L (19-24); ISTAT ARTERIAL BLOOD GAS PCO2 95 mmHg (35-46); ISTAT ARTERIAL BLOOD GAS PO2 339 mmHg (80-95); ISTAT ARTERIAL BLOOD GAS pH 7.16 (7.35-7.45); ISTAT CARBON DIOXIDE 37 mEq/l (24-31); ISTAT DELIVERY SYSTEM Ventilator; ISTAT FIO2 100 %; ISTAT PEEP 10; ISTAT RATE 28; ISTAT SITE Art Line; Vt 440
[2016-11-26] MEDS: ENOXAPARIN 40 MG/0.4 ML SYR SQ SCH (05:20)
[2016-11-26] MEDS: METRONIDAZOLE / NSS 500 MG in PREMIXED NSS 100 ML IV SCH ×3 (05:25→21:33)
[2016-11-26] MEDS: METHYLPREDNISOLONE IV 40 MG in SYRINGE 0 ML IV SCH ×3 (05:25→22:17)
[2016-11-26 05:31] LABS: BASO ABS # 0.01 K/uL (0-0.2); COMPLETE YES; IG% 0.5 %; LYMPH % 1.4 %; LYMPH ABS # 0.35 K/uL (1.2-3.4); MONO % 2.2 %; NEUT % 95.9 %
[2016-11-26 05:46] LABS: BUN/CREATININE RATIO 16.1 (10-20); CALCIUM 7.9 mg/dl (8.5-10.1); CREATININE 0.63 mg/dl (0.60-1.40); PHOSPHORUS 3.7 mg/dl (2.5-4.9); POTASSIUM 4.2 mmol/L (3.5-5.1)
[2016-11-26 06:21] LABS: ISTAT ARTERIAL BLOOD GAS HCO3 35 meq/L (19-24); ISTAT ARTERIAL BLOOD GAS PCO2 67 mmHg (35-46); ISTAT ARTERIAL BLOOD GAS PO2 183 mmHg (80-95); ISTAT ARTERIAL BLOOD GAS pH 7.33 (7.35-7.45); ISTAT CARBON DIOXIDE 37 mEq/l (24-31); ISTAT DELIVERY SYSTEM Ventilator; ISTAT FIO2 100 %; ISTAT PEEP 10; ISTAT RATE 30; ISTAT SITE Art Line; Vt 440
--- NOTE | 2016-11-26 06:35 | DIAGNOSTIC IMAGING REPORT ---
CHEST ONE VIEW PORTABLE CLINICAL HISTORY: Respiratory failure COMPARISON STUDY: 11/25/2016 FINDINGS: There is an endotracheal tube 73 mm above the td. There is a nasogastric tube which passes into the stomach. The heart is normal in size. There is stable interstitial thickening. There is area of presumed atelectasis/scarring within the right midlung zone. There is no lobar consolidation.[ IMPRESSION: 1. Endotracheal tube 73 mm above the td 2. Interstitial thickening. 3. No evidence of lobar consolidation Electronically signed by: Jeremi Garzon M.D. 11/26/2016 6:34 AM Dictated Date/Time: 11/26/2016 6:33 AM
[2016-11-26] MEDS ORDERED: INSULIN HUMAN REGULAR IV BOLUS 2.5 UNIT in SYRINGE 0 ML IV SCH (07:45)
[2016-11-26] MEDS: INSULIN REGULAR 250 UNITS in SODIUM CHLORIDE 0.9% 250ML 250 ML IV SCH (07:57)
[2016-11-26] MEDS ORDERED: LEVAQUIN 750MG / 150ML D5W IV STA (08:25)
[2016-11-26] MEDS: NORMOSOL R 1,000 ML IV SCH ×2 (08:30→18:58)
--- NOTE | 2016-11-26 08:35 | Progress Note ---
Internal Med Progress Note Date of Service: Nov 26, 2016. Provider Documentation: SUBJECTIVE: Seen and examined at bedside. Currently sedated and intubated No diarrhea per staff Afebrile No family at bedside OBJECTIVE: Vital Signs-as noted below Physical Exam: General Appearance:Moderately built and nourished, sedated and intubated Head: normocephalic, Atraumatic Eyes: normal inspection, Anicteric Respiratory/Chest: Decreased breath sounds, B/L wheezing Cardiovascular: S1, S2, +Tachycardia, No murmur Abdomen/GI:Soft, Non tender, Bowel sounds present Extremities/Musculoskelatal:normal inspection, 2+ edema Neurologic/Psych:Sedated and Intubated Skin: normal color, warm Lab data as noted below. ASSESSMENT & PLAN: Acute on chronic hypoxic and hypercapnic respiratory failure H/O Steroid dependent COPD H/O QUOC follows with as outpatient (Treated with zithromycin and ethambutol) S/P wedge resection of R middle, upper and lower lobes by Dr. Andreas Estrella on 01/02/16 S/P Bronchoscopy on 11/25/16 CTA: negative for PE. Showed multiple b/l lung cysts and pulmonary nodules likely infectious process Continue IV solu-medrol, Bronchodilators IV antibiotics: Zyvox, Levaquin. also on Vanco and IV flagyl Bronchial washings studies pending Blood/Urine culture pending MRSA screen negative Vent management per ICU team Also follows with Dr. Miranda and [facility] for transplant evaluation Pulmonology consulted Poor prognosis C. diff colitis second occurrence diagnosed 11/12: On vancomycin taper as outpatient Continue PO vanco and IV flagyl ID consulted DM II A1C: 9.3 07/2016 hold oral agents SSI, Accu checks HTN metoprolol on hold On Cardizem monitor Hypomagnesemia: Monitor DVT Px: SQ Lovenox Code Status: DNR PROCEDURES: CTA: 1. No evidence of acute pulmonary embolism 2. Multiple bilateral lung cysts, slightly progressive when compared the prior study 3. Scattered bilateral pulmonary nodules. These are statistically inflammatory/infectious. A 1-2 month follow-up study subsequent to antibiotic therapy is recommended. Vital Signs: Date Time Temp Pulse Resp B/P (MAP) Pulse Ox O2 Delivery O2 Flow Rate FiO2 11/26/16 06:30 92 30 90/66 (75) 100 97/65 11/26/16 06:26 40 11/26/16 06:23 92 30 84/61 (64) 100 84/55 11/26/16 06:00 96 6 82/69 (87) 99 112/73 11/26/16 05:30 101 30 107/71 (83) 100 11/26/16 05:30 101 30 109/80 (83) 100 107/71 11/26/16 05:00 108 28 141/88 (105) 97 11/26/16 05:00 108 28 141/88 (98) 97 179/87 11/26/16 04:30 92 25 99/73 (80) 98 111/67 11/26/16 04:30 92 25 111/67 (82) 98 11/26/16 04:30 92 25 111/67 (82) 98 11/26/16 04:00 96 Mechanical Ventilator 50 11/26/16 04:00 40 11/26/16 04:00 36.4 97 24 125/72 (89) 96 Mechanical Ventilator 40 11/26/16 04:00 97 24 116/82 (88) 96 125/72 11/26/16 03:37 40 11/26/16 03:30 91 28 103/63 (76) 96 11/26/16 03:30 91 28 100/66 (74) 96 103/63 11/26/16 03:00 91 28 91/61 (71) 95 95/61 11/26/16 03:00 91 28 95/61 (72) 95 11/26/16 02:39 93 28 92/61 (71) 94 11/26/16 02:39 93 28 92/61 (68) 94 87/55 11/26/16 02:39 93 28 92/61 (68) 94 87/55 11/26/16 02:30 92 28 78/55 (56) 93 74/48 11/26/16 02:30 92 28 74/48 (57) 93 11/26/16 02:28 92 28 69/44 (52) 93 11/26/16 02:28 92 28 75/53 (52) 93 69/44 11/26/16 02:00 103 28 140/94 (110) 94 159/85 11/26/16 02:00 103 28 140/94 (110) 94 159/85 11/26/16 02:00 103 28 159/85 (109) 94 Mechanical Ventilator 40 11/26/16 01:30 105 28 172/99 (123) 95 11/26/16 01:30 105 28 149/105 (127) 95 172/99 11/26/16 01:30 105 28 149/105 (127) 95 172/99 11/26/16 01:00 104 28 155/108 (124) 96 169/96 11/26/16 01:00 104 28 155/108 (124) 96 169/96 11/26/16 01:00 104 28 169/96 (120) 96 Mechanical Ventilator 40 11/26/16 00:57 40 11/26/16 00:30 106 28 160/106 (124) 98 175/95 11/26/16 00:30 106 28 160/106 (124) 98 175/95 11/26/16 00:30 106 28 175/95 (121) 98 Mechanical Ventilator 40 11/26/16 00:15 40 11/26/16 00:00 36.5 91 29 105/60 (75) 98 Mechanical Ventilator 50 11/26/16 00:00 91 29 100/72 (73) 98 105/60 11/26/16 00:00 91 29 100/72 (73) 98 105/60 11/25/16 23:59 96 Mechanical Ventilator 50 11/25/16 23:59 50 11/25/16 23:30 92 29 110/62 (78) 98 Mechanical Ventilator 50 11/25/16 23:30 92 29 101/75 (76) 98 110/62 11/25/16 23:15 95 29 (77) 98 119/62 11/25/16 23:00 102 15 138/116 (123) 96 Mechanical Ventilator 50 11/25/16 22:45 92 28 (75) 97 108/63 11/25/16 22:30 92 28 106/61 (76) 96 Mechanical Ventilator 50 11/25/16 22:30 92 28 100/75 (73) 96 106/61 11/25/16 22:15 92 28 (74) 95 106/61 11/25/16 22:00 93 28 102/58 (73) 95 Mechanical Ventilator 50 11/25/16 22:00 93 28 104/78 (70) 95 102/58 11/25/16 21:45 92 28 (80) 95 118/66 8/15/17 21:45 92 28 118/66 (83) 95 Mechanical Ventilator 50 8/15/17 21:30 97 28 114/64 (81) 96 Mechanical Ventilator 50 8/15/17 21:30 97 28 104/77 (78) 96 114/64 8/15/17 21:15 100 28 126/64 (84) 98 Mechanical Ventilator 50 8/15/17 21:00 106 28 157/97 (121) 99 201/93 8/15/17 21:00 106 28 201/93 (129) 99 Mechanical Ventilator 50 8/15/17 20:46 50 8/15/17 20:33 102 28 151/99 (120) 96 195/91 8/15/17 20:33 102 28 195/91 (125) 96 Mechanical Ventilator 50 8/15/17 20:30 100 28 145/89 (118) 94 8/15/17 20:30 100 28 145/89 (107) 94 Mechanical Ventilator 50 8/15/17 20:00 96 28 147/95 (120) 97 8/15/17 20:00 36.5 96 28 147/95 (112) 97 Mechanical Ventilator 100 815/17 20:00 50 8/15/17 20:00 97 Mechanical Ventilator 50 815/17 19:49 50 8/15/17 19:23 88 28 115/83 97 Mechanical Ventilator 815/17 18:25 90 28 102/77 100 815/17 17:59 93 28 110/80 100 Mechanical Ventilator 50 8/15/17 17:00 101 26 140/76 100 Mechanical Ventilator 50 815/17 16:57 101 26 98/73 99 Mechanical Ventilator 50 815/17 16:27 112/75 815/17 16:05 104/71 815/17 16:00 111 102/69 97 Mechanical Ventilator 50 8/15/17 15:55 118/78 815/17 15:50 50 8/15/17 15:50 124/77 815/17 15:45 110 135/87 99 8/15/17 15:43 129/88 15/17 15:40 124/97 815/17 15:35 158/108 815/17 15:30 128 20 50 BiPAP/CPAP 815/17 15:30 128 98 50 8/15/17 15:30 120 196/119 99 11/25/16 15:25 155/97 11/25/16 15:21 155/101 11/25/16 15:15 126 100 11/25/16 15:14 157/104 11/25/16 15:11 157/133 11/25/16 15:00 130 99 11/25/16 14:52 128 38 151/97 99 BiPAP 40 11/25/16 14:48 128 38 99 BiPAP 40 11/25/16 14:47 BiPAP 11/25/16 14:47 BiPAP 11/25/16 14:13 96 Non-Rebreather 4.0 11/25/16 14:11 88 11/25/16 14:11 36.4 122 38 159/99 88 Nasal Cannula 11/25/16 14:08 133 11/25/16 14:06 132 Lab Results: Results Past 24 Hours Test 11/25/16 14:51 11/25/16 14:52 11/25/16 14:54 11/25/16 16:33 Range/Units Prothrombin Time 10.6 9.0-12.0 SECONDS Prothromb Time International Ratio 1.0 0.9-1.1 White Blood Count 28.63 4.8-10.8 K/uL Red Blood Count 5.42 4.7-6.1 M/uL Hemoglobin 15.8 14.0-18.0 g/dL Hematocrit 49.0 42-52 % Mean Corpuscular Volume 90.4 80-100 fL Mean Corpuscular Hemoglobin 29.2 25-34 pg Mean Corpuscular Hemoglobin Concent 32.2 32-36 g/dl Platelet Count 357 130-400 K/uL Mean Platelet Volume 9.0 7.4-10.4 fL Neutrophils (%) (Auto) 83.0 % Lymphocytes (%) (Auto) 8.2 % Monocytes (%) (Auto) 4.0 % Eosinophils (%) (Auto) 3.4 % Basophils (%) (Auto) 0.4 % Neutrophils # (Auto) 23.77 1.4-6.5 K/uL Lymphocytes # (Auto) 2.36 1.2-3.4 K/uL Monocytes # (Auto) 1.14 0.11-0.59 K/uL Eosinophils # (Auto) 0.96 0-0.5 K/uL Basophils # (Auto) 0.11 0-0.2 K/uL RDW Standard Deviation 45.3 36.4-46.3 fL RDW Coefficient of Variation 13.8 11.5-14.5 % Immature Granulocyte % (Auto) 1.0 % Immature Granulocyte # (Auto) 0.29 0.00-0.02 K/uL Red Blood Cell Morphology Unremarkable Sodium Level 137 136-145 mmol/L Potassium Level 3.5 3.5-5.1 mmol/L Chloride Level 97 98-107 mmol/L Carbon Dioxide Level 31 21-32 mmol/L Anion Gap 9.0 3-11 mmol/L Blood Urea Nitrogen 14 7-18 mg/dl Creatinine 0.82 0.60-1.40 mg/dl Est Creatinine Clear Calc Drug Dose 100.8 ml/min Estimated GFR () 117.0 Estimated GFR (Non- 101.0 BUN/Creatinine Ratio 17.1 10-20 Random Glucose 212 70-99 mg/dl Calcium Level 8.7 8.5-10.1 mg/dl Magnesium Level 1.7 1.8-2.4 mg/dl Total Bilirubin 0.6 0.2-1 mg/dl Aspartate Amino Transf (AST/SGOT) 33 15-37 U/L Alanine Aminotransferase (ALT/SGPT) 38 12-78 U/L Alkaline Phosphatase 112 45-117 U/L Total Creatine Kinase 289 39-308 U/L Creatine Kinase MB 9.5 0.5-3.6 ng/ml Creatine Kinase MB Ratio 3.3 0-3.0 Troponin I 0.072 0-0.045 ng/ml Pro-B-Type Natriuretic Peptide 192 0-900 pg/ml Total Protein 6.7 6.4-8.2 gm/dl Albumin 3.0 3.4-5.0 gm/dl Globulin 3.7 2.5-4.0 gm/dl Albumin/Globulin Ratio 0.8 0.9-2 Bedside Blood Gas pH (LAB) 7.23 7.21 7.35-7.45 Bedside Blood Gas pCO2 (LAB) 83 82 35-46 mmHg Bedside Blood Gas pO2 (LAB) 109 109 80-95 mmHg Bedside Blood Gas HCO3 (LAB) 35 33 19-24 meq/L Bedside Blood Gas Total CO2 37 35 24-31 mEq/l Bedside Blood Gas Base Excess (LAB) 7.0 5.0 -9-1.8 meq/L Bedside Blood Gas O2 Saturation 97.0 97.0 90-95 % Test 11/25/16 16:38 11/25/16 17:42 11/25/16 21:33 11/26/16 00:14 Range/Units Urine Color DK YELLOW Urine Appearance CLOUDY CLEAR Urine pH 5.0 4.5-7.5 Urine Specific [place] 1.045 1.000-1.030 Urine Protein 2+ NEG Urine Glucose (UA) 1+ NEG Urine Ketones 1+ NEG Urine Occult Blood TRACE NEG Urine Nitrite NEG NEG Urine Bilirubin NEG NEG Urine Urobilinogen NEG NEG Urine Leukocyte Esterase NEG NEG Urine WBC (Auto) 5-10 0-5 /hpf Urine RBC (Auto) 0-4 0-4 /hpf Urine Hyaline Casts (Auto) >30 0-5 /lpf Urine Epithelial Cells (Auto) >30 0-5 /lpf Urine Bacteria (Auto) 1+ NEG Urine Renal Epithelial Cells 0-5 /lpf Urine Pathogenic Casts 0-3 GRANULAR CASTS 0 /lpf Urine Mucus PRESENT NONE PRSENT Bedside Blood Gas pH (LAB) 7.18 7.21 7.28 7.35-7.45 Bedside Blood Gas pCO2 (LAB) 85 74 67 35-46 mmHg Bedside Blood Gas pO2 (LAB) 222 90 132 80-95 mmHg Bedside Blood Gas HCO3 (LAB) 31 30 32 19-24 meq/L Bedside Blood Gas Total CO2 34 32 34 24-31 mEq/l Bedside Blood Gas Base Excess (LAB) 3.0 2.0 5.0 -9-1.8 meq/L Bedside Blood Gas O2 Saturation 100.0 95.0 98.0 90-95 % Blood Gas Sample Site Art Line R Radial Jose Test NA NA Oxygen Delivery Device Ventilator Ventilator Bedside Oxygen Rate (breaths/min) 28 28 Bedside FiO2 50 50 % Blood Gas Tidal Volume 400 400 Blood Gas PEEP 10 10 Test 11/26/16 00:43 11/26/16 01:38 11/26/16 03:51 11/26/16 04:58 Range/Units Bedside Glucose 240 70-99 mg/dl Troponin I 0.034 0-0.045 ng/ml Procalcitonin 1.31 0-0.5 ng/ml Blood Gas Sample Site Art Line Art Line Bedside Blood Gas pH (LAB) 7.15 7.16 7.35-7.45 Bedside Blood Gas pCO2 (LAB) 90 95 35-46 mmHg Bedside Blood Gas pO2 (LAB) 128 339 80-95 mmHg Bedside Blood Gas HCO3 (LAB) 31 34 19-24 meq/L Bedside Blood Gas Total CO2 34 37 24-31 mEq/l Bedside Blood Gas Base Excess (LAB) 2.0 6.0 -9-1.8 meq/L Bedside Blood Gas O2 Saturation 98.0 100.0 90-95 % Jose Test NA NA Oxygen Delivery Device Ventilator Ventilator Bedside Oxygen Rate (breaths/min) 28 28 Bedside FiO2 40 100 % Blood Gas Tidal Volume 400 440 Blood Gas PEEP 10 10 Test 11/26/16 05:00 11/26/16 06:10 11/26/16 08:58 Range/Units White Blood Count 25.50 4.8-10.8 K/uL Red Blood Count 4.84 4.7-6.1 M/uL Hemoglobin 14.4 14.0-18.0 g/dL Hematocrit 43.3 42-52 % Mean Corpuscular Volume 89.5 80-100 fL Mean Corpuscular Hemoglobin 29.8 25-34 pg Mean Corpuscular Hemoglobin Concent 33.3 32-36 g/dl Platelet Count 302 130-400 K/uL Mean Platelet Volume 8.7 7.4-10.4 fL Neutrophils (%) (Auto) 95.9 % Lymphocytes (%) (Auto) 1.4 % Monocytes (%) (Auto) 2.2 % Eosinophils (%) (Auto) 0.0 % Basophils (%) (Auto) 0.0 % Neutrophils # (Auto) 24.46 1.4-6.5 K/uL Lymphocytes # (Auto) 0.35 1.2-3.4 K/uL Monocytes # (Auto) 0.56 0.11-0.59 K/uL Eosinophils # (Auto) 0.00 0-0.5 K/uL Basophils # (Auto) 0.01 0-0.2 K/uL RDW Standard Deviation 45.2 36.4-46.3 fL RDW Coefficient of Variation 13.7 11.5-14.5 % Immature Granulocyte % (Auto) 0.5 % Immature Granulocyte # (Auto) 0.12 0.00-0.02 K/uL Sodium Level 147 136-145 mmol/L Potassium Level 4.2 3.5-5.1 mmol/L Chloride Level 102 98-107 mmol/L Carbon Dioxide Level 42 21-32 mmol/L Anion Gap 3.0 3-11 mmol/L Blood Urea Nitrogen 10 7-18 mg/dl Creatinine 0.63 0.60-1.40 mg/dl Est Creatinine Clear Calc Drug Dose 131.2 ml/min Estimated GFR () 130.4 Estimated GFR (Non- 112.5 BUN/Creatinine Ratio 16.1 10-20 Random Glucose 224 70-99 mg/dl Calcium Level 7.9 8.5-10.1 mg/dl Phosphorus Level 3.7 2.5-4.9 mg/dl Magnesium Level 2.1 1.8-2.4 mg/dl Blood Gas Sample Site Art Line Bedside Blood Gas pH (LAB) 7.33 7.35-7.45 Bedside Blood Gas pCO2 (LAB) 67 35-46 mmHg Bedside Blood Gas pO2 (LAB) 183 80-95 mmHg Bedside Blood Gas HCO3 (LAB) 35 19-24 meq/L Bedside Blood Gas Total CO2 37 24-31 mEq/l Bedside Blood Gas Base Excess (LAB) 9.0 -9-1.8 meq/L Bedside Blood Gas O2 Saturation 99.0 90-95 % Jose Test NA Oxygen Delivery Device Ventilator Bedside Oxygen Rate (breaths/min) 30 Bedside FiO2 100 % Blood Gas Tidal Volume 440 Blood Gas PEEP 10 Microbiology Results 11/25/16 Blood Culture, Received Pending 11/25/16 Blood Culture, Received Pending 11/25/16 Gram Stain - Final, Resulted 11/25/16 Bronchoalveolar Lavage Culture, Resulted Pending 11/25/16 Fungal Smear - Final, Resulted 11/25/16 Fungal Culture, Resulted Pending 11/25/16 Acid Fast Stain, Received Pending 11/25/16 Mycobacterial Culture, Received Pending 11/25/16 Gram Stain - Final, Resulted 11/25/16 Bronchoalveolar Lavage Culture, Resulted Pending 11/25/16 Urine Culture, Received Pending
[2016-11-26] MEDS: DILTIAZEM HCL 30 MG TAB PO SCH ×4 (09:00→21:33)
[2016-11-26] MEDS ORDERED: MIDAZOLAM 125MG/250ML D5W 250 ML IV PRN (09:00)
[2016-11-26] MEDS: VANCOMYCIN HCL 125 MG/2.5ML SOLN PO SCH ×4 (09:00→21:34)
--- NOTE | 2016-11-26 10:14 | Medical Consult ---
Consultation Date of Consultation: Nov 26, 2016. Attending Physician: Dominic Garcia MD Reason for Consultation: Pulmonary consult with Zyvox History of Present Illness 51-year-old male with long history of steroid-dependent COPD, O2 dependent, with more recently diagnosed chronic QUOC infection being treated with combination of azithromycin and ethambutol, although compliance unclear. He was admitted with relatively acute onset of acute respiratory failure with severe shortness of breath, and has required intubation for management. He has undergone bronchoscopy with results pending. Patient has been started on combination of Zyvox and levofloxacin. AFB smears are pending. No other history obtainable from patient as he is sedated on ventilator. Past Medical/Surgical History Medical Problems: (1) Clostridium difficile diarrhea Status: Acute (2) COPD exacerbation Status: Acute (3) Dehydration Status: Acute (4) Elevated white blood cell count Status: Acute (5) Hypoxemia Status: Acute (6) Non-cardiac chest pain Status: Acute Social History Problems: (1) Cellulitis of hand, right Status: Acute (2) Cellulitis of hand, right Status: Acute Medical Problems: (1) C. difficile diarrhea (2) Compensated respiratory acidosis (3) COPD, very severe (4) Depressive disorder (5) DM2 (diabetes mellitus, type 2) (6) GERD (gastroesophageal reflux disease) (7) HTN (hypertension) (8) QUOC (mycobacterium avium-intracellulare) (9) Pneumothorax of right lung after biopsy (10) Respiratory distress Surgical Problems: (1) H/O adenoidectomy (2) History of nasal surgery Family History CVA GRANDFATHER FH: myocardial infarction GRANDFATHER Social History Smoking Status: Unknown if Ever Smoked Smokeless Tobacco Use: Yes Alcohol Use: unknown Housing Status: lives with significant other Allergies Coded Allergies: Omeprazole (Verified Allergy, Unknown, TOLERATES PROTONIX, 11/25/16) Paroxetine (Verified Adverse Reaction, Mild, GI UPSET, 11/25/16) Current Inpatient Medications Current Inpatient Medications Medications (Trade) Dose Ordered Sig/Abigail Route Start Time Stop Time Status Last Admin Dose Admin Ioversol (Optiray 320) 100 ml UD PRN IV 11/25/16 15:45 11/29/16 15:44 Propofol (Diprivan Iv Emulsion 100ml Vial) 1 dose UD PRN IV 11/25/16 16:00 11/28/16 15:59 11/26/16 06:04 1 DOSE Enoxaparin Sodium (Lovenox Inj) 40 mg Q24H SQ 11/26/16 06:00 12/26/16 05:59 11/26/16 05:20 40 MG Vancomycin HCl (Vancomycin Oral Soln) 125 mg QID PO 11/25/16 22:00 12/09/16 21:59 11/25/16 22:47 125 MG Methylprednisolone Sodium Succinate 40 mg/Syringe 0.64 ml @ 1.5 mls/min Q8H IV 11/25/16 22:00 12/25/16 21:59 11/26/16 05:25 1.5 MLS/MIN Metronidazole 500 mg/Prmx 100 ml @ 100 mls/hr Q8H IV 11/25/16 22:00 12/09/16 21:59 11/26/16 05:25 100 MLS/HR Linezolid 600 mg/ Prmx 300 ml @ 300 mls/hr Q12H IV 11/25/16 23:00 12/02/16 22:59 11/26/16 00:04 300 MLS/HR Glucose (Glucose 40% Gel) 15-30 GRAMS 15 GRAMS... UD PRN PO 11/26/16 01:00 12/26/16 00:59 Glucose (Glucose Chew Tab) 4-8 Tablets 4 Tabl... UD PRN PO 11/26/16 01:00 12/26/16 00:59 Dextrose (Dextrose 50% 50ML Syringe) 25-50ML OF 50% DW IV FOR... UD PRN IV 11/26/16 01:00 12/26/16 00:59 Glucagon (Glucagon Inj) 1 mg UD PRN SQ 11/26/16 01:00 12/26/16 00:59 Miscellaneous Information (Consult Glycemic Management Pharmacy) 1 ea UD PRN N/A 11/26/16 01:23 12/26/16 01:22 Ranitidine HCl 50 mg/Dextrose 102 ml @ 200 mls/hr Q8H IV 11/26/16 02:00 12/26/16 01:59 11/26/16 03:35 200 MLS/HR Albuterol (Ventolin Hfa Inhaler) 4 puffs Q4R INH 11/26/16 04:00 12/26/16 03:59 11/26/16 07:22 4 PUFFS Ipratropium [place] (Atrovent Hfa Inhaler) 4 puffs Q4R INH 11/26/16 04:00 12/26/16 03:59 11/26/16 07:22 4 PUFFS Fentanyl Citrate (Fentanyl Inj) 50 mcg Q1H PRN IV 11/26/16 02:15 12/10/16 02:14 11/26/16 03:54 25 MCG Insulin Human Regular 250 units/ Sodium Chloride 252.5 ml @ 0 mls/hr DAILY@1130 IV 11/26/16 07:45 12/26/16 07:44 11/26/16 07:57 2.9 MLS/HR Insulin Aspart (novoLOG ASPART) SLIDING SCALE PCHS SC 11/26/16 08:00 12/26/16 07:59 Diltiazem HCl (Cardizem Tab) 30 mg QID PO 11/26/16 09:00 12/26/16 08:59 Parenteral Electrolyte Solution 1,000 ml @ 100 mls/hr Q10H IV 11/26/16 08:30 12/26/16 08:29 Magnesium Sulfate 1 gm/Prmx 100 ml @ 100 mls/hr Q1H IV 11/26/16 09:00 11/26/16 10:59 Levofloxacin 750 mg/Prmx 150 ml @ 100 mls/hr Q24H IV 11/26/16 16:00 12/03/16 15:59 Midazolam HCl 250 ml @ 0 mls/hr Q0M PRN IV 11/26/16 09:00 12/26/16 08:59 Enteral Nutritional Formula (Peptamen Intense VHP) 1,000 ml UD PRN OG 11/26/16 10:00 12/26/16 09:59 Review of Systems Not obtainable because patient is sedated on ventilator Physical Exam Date Time Temp Pulse Resp B/P (MAP) Pulse Ox O2 Delivery O2 Flow Rate FiO2 11/26/16 09:44 Mechanical Ventilator 40 11/26/16 06:30 92 30 90/66 (75) 100 97/65 11/26/16 06:26 40 11/26/16 06:23 92 30 84/61 (64) 100 84/55 11/26/16 06:00 96 6 82/69 (87) 99 112/73 11/26/16 05:30 101 30 107/71 (83) 100 11/26/16 05:30 101 30 109/80 (83) 100 107/71 11/26/16 05:00 108 28 141/88 (105) 97 11/26/16 05:00 108 28 141/88 (98) 97 179/87 11/26/16 04:30 92 25 99/73 (80) 98 111/67 11/26/16 04:30 92 25 111/67 (82) 98 11/26/16 04:30 92 25 111/67 (82) 98 11/26/16 04:00 96 Mechanical Ventilator 50 11/26/16 04:00 40 11/26/16 04:00 36.4 97 24 125/72 (89) 96 Mechanical Ventilator 40 11/26/16 04:00 97 24 116/82 (88) 96 125/72 11/26/16 03:37 40 11/26/16 03:30 91 28 103/63 (76) 96 11/26/16 03:30 91 28 100/66 (74) 96 103/63 11/26/16 03:00 91 28 91/61 (71) 95 95/61 11/26/16 03:00 91 28 95/61 (72) 95 11/26/16 02:39 93 28 92/61 (71) 94 11/26/16 02:39 93 28 92/61 (68) 94 87/55 11/26/16 02:39 93 28 92/61 (68) 94 87/55 11/26/16 02:30 92 28 78/55 (56) 93 74/48 11/26/16 02:30 92 28 74/48 (57) 93 11/26/16 02:28 92 28 69/44 (52) 93 11/26/16 02:28 92 28 75/53 (52) 93 69/44 11/26/16 02:00 103 28 140/94 (110) 94 159/85 11/26/16 02:00 103 28 140/94 (110) 94 159/85 11/26/16 02:00 103 28 159/85 (109) 94 Mechanical Ventilator 40 11/26/16 01:30 105 28 172/99 (123) 95 11/26/16 01:30 105 28 149/105 (127) 95 172/99 8/16/17 01:30 105 28 149/105 (127) 95 172/99 11/26/16 01:00 104 28 155/108 (124) 96 169/96 11/26/16 01:00 104 28 155/108 (124) 96 169/96 11/26/16 01:00 104 28 169/96 (120) 96 Mechanical Ventilator 40 11/26/16 00:57 40 11/26/16 00:30 106 28 160/106 (124) 98 175/95 11/26/16 00:30 106 28 160/106 (124) 98 175/95 11/26/16 00:30 106 28 175/95 (121) 98 Mechanical Ventilator 40 11/26/16 00:15 40 11/26/16 00:00 36.5 91 29 105/60 (75) 98 Mechanical Ventilator 50 11/26/16 00:00 91 29 100/72 (73) 98 105/60 11/26/16 00:00 91 29 100/72 (73) 98 105/60 11/25/16 23:59 96 Mechanical Ventilator 50 11/25/16 23:59 50 11/25/16 23:30 92 29 110/62 (78) 98 Mechanical Ventilator 50 11/25/16 23:30 92 29 101/75 (76) 98 110/62 11/25/16 23:15 95 29 (77) 98 119/62 11/25/16 23:00 102 15 138/116 (123) 96 Mechanical Ventilator 50 11/25/16 22:45 92 28 (75) 97 108/63 11/25/16 22:30 92 28 106/61 (76) 96 Mechanical Ventilator 50 11/25/16 22:30 92 28 100/75 (73) 96 106/61 11/25/16 22:15 92 28 (74) 95 106/61 11/25/16 22:00 93 28 102/58 (73) 95 Mechanical Ventilator 50 11/25/16 22:00 93 28 104/78 (70) 95 102/58 11/25/16 21:45 92 28 (80) 95 118/66 11/25/16 21:45 92 28 118/66 (83) 95 Mechanical Ventilator 50 11/25/16 21:30 97 28 114/64 (81) 96 Mechanical Ventilator 50 8/15/17 21:30 97 28 104/77 (78) 96 114/64 8/15/17 21:15 100 28 126/64 (84) 98 Mechanical Ventilator 50 815/17 21:00 106 28 157/97 (121) 99 201/93 8/15/17 21:00 106 28 201/93 (129) 99 Mechanical Ventilator 50 815/17 20:46 50 815/17 20:33 102 28 151/99 (120) 96 195/91 8/15/17 20:33 102 28 195/91 (125) 96 Mechanical Ventilator 50 815/17 20:30 100 28 145/89 (118) 94 8/15/17 20:30 100 28 145/89 (107) 94 Mechanical Ventilator 50 815/17 20:00 96 28 147/95 (120) 97 8/15/17 20:00 36.5 96 28 147/95 (112) 97 Mechanical Ventilator 100 15/17 20:00 50 815/17 20:00 97 Mechanical Ventilator 50 11/25/17 19:49 50 815/17 19:23 88 28 115/83 97 Mechanical Ventilator 815/17 18:25 90 28 102/77 100 815/17 17:59 93 28 110/80 100 Mechanical Ventilator 50 15/17 17:00 101 26 140/76 100 Mechanical Ventilator 50 15/17 16:57 101 26 98/73 99 Mechanical Ventilator 50 15/17 16:27 112/75 15/17 16:05 104/71 15/17 16:00 111 102/69 97 Mechanical Ventilator 50 15/17 15:55 118/78 15/17 15:50 50 15/17 15:50 124/77 815/17 15:45 110 135/87 99 15/17 15:43 129/88 15/17 15:40 124/97 815/17 15:35 158/108 815/17 15:30 128 20 50 BiPAP/CPAP 15/17 15:30 128 98 50 815/17 15:30 120 196/119 99 15/17 15:25 155/97 815/17 15:21 155/101 15/17 15:15 126 100 8/15/17 15:14 157/104 11/25/16 15:11 157/133 11/25/16 15:00 130 99 11/25/16 14:52 128 38 151/97 99 BiPAP 40 11/25/16 14:48 128 38 99 BiPAP 40 11/25/16 14:47 BiPAP 11/25/16 14:47 BiPAP 11/25/16 14:13 96 Non-Rebreather 4.0 11/25/16 14:11 88 11/25/16 14:11 36.4 122 38 159/99 88 Nasal Cannula 11/25/16 14:08 133 11/25/16 14:06 132 General Appearance: WD/WN, + pertinent finding (Sedated on ventilator) Head: normocephalic, atraumatic Eyes: normal inspection, sclerae normal ENT: normal ENT inspection, + pertinent finding (Endotracheal tube in place) Neck: supple, no adenopathy, trachea midline Respiratory/Chest: chest non-tender, no respiratory distress, + wheezing Cardiovascular: regular rate, rhythm, no gallop, no murmur Abdomen/GI: normal bowel sounds, non tender, soft, no organomegaly Extremities/Musculoskelatal: no calf tenderness, normal capillary refill Neurologic/Psych: + pertinent finding (Sedated on ventilator, no obvious focal deficits) Skin: normal color, warm/dry, no rash Lymphatic: no adenopathy Laboratory Results Date/Time Source Procedure Growth Status 11/25/16 14:25 Blood Blood Culture Pending Received 11/25/16 14:25 Blood Blood Culture Pending Received 11/25/16 18:30 Bronchial Washings Right Lower Lobe Gram Stain - Final Resulted 11/25/16 18:30 Bronchial Washings Right Lower Lobe Bronchoalveolar Lavage Culture Pending Resulted 11/25/16 18:30 Bronchial Washings Right Middle Lobe Fungal Smear - Final Resulted 11/25/16 18:30 Bronchial Washings Right Middle Lobe Fungal Culture Pending Resulted 11/25/16 18:30 Bronchial Washings Right Middle Lobe Acid Fast Stain Pending Received 11/25/16 18:30 Bronchial Washings Right Middle Lobe Mycobacterial Culture Pending Received 11/25/16 18:30 Bronchial Washings Right Middle Lobe Gram Stain - Final Resulted 11/25/16 18:30 Bronchial Washings Right Middle Lobe Bronchoalveolar Lavage Culture Pending Resulted 11/25/16 16:38 Urine,Catheterized Urine Culture Pending Received Last 24 Hours Test 11/25/16 14:51 11/25/16 14:52 11/25/16 14:54 11/25/16 16:33 Prothrombin Time 10.6 SECONDS Prothromb Time International Ratio 1.0 White Blood Count 28.63 K/uL Red Blood Count 5.42 M/uL Hemoglobin 15.8 g/dL Hematocrit 49.0 % Mean Corpuscular Volume 90.4 fL Mean Corpuscular Hemoglobin 29.2 pg Mean Corpuscular Hemoglobin Concent 32.2 g/dl Platelet Count 357 K/uL Mean Platelet Volume 9.0 fL Neutrophils (%) (Auto) 83.0 % Lymphocytes (%) (Auto) 8.2 % Monocytes (%) (Auto) 4.0 % Eosinophils (%) (Auto) 3.4 % Basophils (%) (Auto) 0.4 % Neutrophils # (Auto) 23.77 K/uL Lymphocytes # (Auto) 2.36 K/uL Monocytes # (Auto) 1.14 K/uL Eosinophils # (Auto) 0.96 K/uL Basophils # (Auto) 0.11 K/uL RDW Standard Deviation 45.3 fL RDW Coefficient of Variation 13.8 % Immature Granulocyte % (Auto) 1.0 % Immature Granulocyte # (Auto) 0.29 K/uL Red Blood Cell Morphology Unremarkable Sodium Level 137 mmol/L Potassium Level 3.5 mmol/L Chloride Level 97 mmol/L Carbon Dioxide Level 31 mmol/L Anion Gap 9.0 mmol/L Blood Urea Nitrogen 14 mg/dl Creatinine 0.82 mg/dl Est Creatinine Clear Calc Drug Dose 100.8 ml/min Estimated GFR () 117.0 Estimated GFR (Non- 101.0 BUN/Creatinine Ratio 17.1 Random Glucose 212 mg/dl Calcium Level 8.7 mg/dl Magnesium Level 1.7 mg/dl Total Bilirubin 0.6 mg/dl Aspartate Amino Transf (AST/SGOT) 33 U/L Alanine Aminotransferase (ALT/SGPT) 38 U/L Alkaline Phosphatase 112 U/L Total Creatine Kinase 289 U/L Creatine Kinase MB 9.5 ng/ml Creatine Kinase MB Ratio 3.3 Troponin I 0.072 ng/ml Pro-B-Type Natriuretic Peptide 192 pg/ml Total Protein 6.7 gm/dl Albumin 3.0 gm/dl Globulin 3.7 gm/dl Albumin/Globulin Ratio 0.8 Bedside Blood Gas pH (LAB) 7.23 7.21 Bedside Blood Gas pCO2 (LAB) 83 mmHg 82 mmHg Bedside Blood Gas pO2 (LAB) 109 mmHg 109 mmHg Bedside Blood Gas HCO3 (LAB) 35 meq/L 33 meq/L Bedside Blood Gas Total CO2 37 mEq/l 35 mEq/l Bedside Blood Gas Base Excess (LAB) 7.0 meq/L 5.0 meq/L Bedside Blood Gas O2 Saturation 97.0 % 97.0 % Test 11/25/16 16:38 11/25/16 17:42 11/25/16 21:33 11/26/16 00:14 Urine Color DK YELLOW Urine Appearance CLOUDY Urine pH 5.0 Urine Specific [place] 1.045 Urine Protein 2+ Urine Glucose (UA) 1+ Urine Ketones 1+ Urine Occult Blood TRACE Urine Nitrite NEG Urine Bilirubin NEG Urine Urobilinogen NEG Urine Leukocyte Esterase NEG Urine WBC (Auto) 5-10 /hpf Urine RBC (Auto) 0-4 /hpf Urine Hyaline Casts (Auto) >30 /lpf Urine Epithelial Cells (Auto) >30 /lpf Urine Bacteria (Auto) 1+ Urine Renal Epithelial Cells /lpf Urine Pathogenic Casts 0-3 GRANULAR CASTS /lpf Urine Mucus PRESENT Bedside Blood Gas pH (LAB) 7.18 7.21 7.28 Bedside Blood Gas pCO2 (LAB) 85 mmHg 74 mmHg 67 mmHg Bedside Blood Gas pO2 (LAB) 222 mmHg 90 mmHg 132 mmHg Bedside Blood Gas HCO3 (LAB) 31 meq/L 30 meq/L 32 meq/L Bedside Blood Gas Total CO2 34 mEq/l 32 mEq/l 34 mEq/l Bedside Blood Gas Base Excess (LAB) 3.0 meq/L 2.0 meq/L 5.0 meq/L Bedside Blood Gas O2 Saturation 100.0 % 95.0 % 98.0 % Blood Gas Sample Site Art Line R Radial Jose Test NA NA Oxygen Delivery Device Ventilator Ventilator Bedside Oxygen Rate (breaths/min) 28 28 Bedside FiO2 50 % 50 % Blood Gas Tidal Volume 400 400 Blood Gas PEEP 10 10 Test 11/26/16 00:43 11/26/16 01:38 11/26/16 03:51 11/26/16 04:58 Bedside Glucose 240 mg/dl Troponin I 0.034 ng/ml Procalcitonin 1.31 ng/ml Blood Gas Sample Site Art Line Art Line Bedside Blood Gas pH (LAB) 7.15 7.16 Bedside Blood Gas pCO2 (LAB) 90 mmHg 95 mmHg Bedside Blood Gas pO2 (LAB) 128 mmHg 339 mmHg Bedside Blood Gas HCO3 (LAB) 31 meq/L 34 meq/L Bedside Blood Gas Total CO2 34 mEq/l 37 mEq/l Bedside Blood Gas Base Excess (LAB) 2.0 meq/L 6.0 meq/L Bedside Blood Gas O2 Saturation 98.0 % 100.0 % Jose Test NA NA Oxygen Delivery Device Ventilator Ventilator Bedside Oxygen Rate (breaths/min) 28 28 Bedside FiO2 40 % 100 % Blood Gas Tidal Volume 400 440 Blood Gas PEEP 10 10 Test 11/26/16 05:00 11/26/16 06:10 11/26/16 08:58 White Blood Count 25.50 K/uL Red Blood Count 4.84 M/uL Hemoglobin 14.4 g/dL Hematocrit 43.3 % Mean Corpuscular Volume 89.5 fL Mean Corpuscular Hemoglobin 29.8 pg Mean Corpuscular Hemoglobin Concent 33.3 g/dl Platelet Count 302 K/uL Mean Platelet Volume 8.7 fL Neutrophils (%) (Auto) 95.9 % Lymphocytes (%) (Auto) 1.4 % Monocytes (%) (Auto) 2.2 % Eosinophils (%) (Auto) 0.0 % Basophils (%) (Auto) 0.0 % Neutrophils # (Auto) 24.46 K/uL Lymphocytes # (Auto) 0.35 K/uL Monocytes # (Auto) 0.56 K/uL Eosinophils # (Auto) 0.00 K/uL Basophils # (Auto) 0.01 K/uL RDW Standard Deviation 45.2 fL RDW Coefficient of Variation 13.7 % Immature Granulocyte % (Auto) 0.5 % Immature Granulocyte # (Auto) 0.12 K/uL Sodium Level 147 mmol/L Potassium Level 4.2 mmol/L Chloride Level 102 mmol/L Carbon Dioxide Level 42 mmol/L Anion Gap 3.0 mmol/L Blood Urea Nitrogen 10 mg/dl Creatinine 0.63 mg/dl Est Creatinine Clear Calc Drug Dose 131.2 ml/min Estimated GFR () 130.4 Estimated GFR (Non- 112.5 BUN/Creatinine Ratio 16.1 Random Glucose 224 mg/dl Calcium Level 7.9 mg/dl Phosphorus Level 3.7 mg/dl Magnesium Level 2.1 mg/dl Blood Gas Sample Site Art Line Bedside Blood Gas pH (LAB) 7.33 Bedside Blood Gas pCO2 (LAB) 67 mmHg Bedside Blood Gas pO2 (LAB) 183 mmHg Bedside Blood Gas HCO3 (LAB) 35 meq/L Bedside Blood Gas Total CO2 37 mEq/l Bedside Blood Gas Base Excess (LAB) 9.0 meq/L Bedside Blood Gas O2 Saturation 99.0 % Jose Test NA Oxygen Delivery Device Ventilator Bedside Oxygen Rate (breaths/min) 30 Bedside FiO2 100 % Blood Gas Tidal Volume 440 Blood Gas PEEP 10 Troponin I 0.021 ng/ml Patient Name: FRANCISCO CHAN Unit Number: [id number] Dictated: 11/25/161624 Transcribed: 11/25/161624 ARG Printed Date/Time: [~ rep prt dt]/[~ rep prt tm] [~ rep ct labl] - [~ rep ct ivnm] [facility] [place] [address] Dictated: 11/25/161624 Transcribed: 11/25/161624 ARG Printed Date/Time: [~ rep prt dt]/[~ rep prt tm] [~ rep ct labl] - [~ rep ct ivnm] CT ANGIOGRAM OF THE CHEST CLINICAL HISTORY: Shortness of breath. Respiratory failure. COMPARISON STUDY: 12/27/2015, chest x-ray dated 11/25/2016 TECHNIQUE: Following the IV administration of 116 mL of Optiray-320, CT angiogram of the thorax was performed from the thoracic inlet to the lung bases utilizing the pulmonary embolus protocol. Images are reviewed in the axial, sagittal, and coronal planes. IV contrast was administered without complication. MIP imaging was performed. A dose lowering technique was utilized adhering to the principles of ALARA. CT DOSE: 556.46 mGy.cm FINDINGS: No pathologically enlarged axillary mediastinal or hilar lymph nodes were visualized. There was no evidence of thoracic aortic dilatation. There were no pulmonary artery filling defects to indicate acute pulmonary embolism. No pleural effusions are visualized. There is respiratory motion artifact. There are multiple lung cysts, slightly progressive when compared to the prior study. This again has a wide differential but again lymphocytic interstitial pneumonitis must be considered. There is a tubular structure within the right middle lobe, likely representing a fluid-filled bronchus. There is scattered bilateral pulmonary nodules, likely inflammatory. The largest left lung nodule measures 1 cm and is visualized in image #[id number]. The largest right lung nodule measures 9 mm and is visualized on image #[id number]. There is an indwelling endotracheal tube. There are multiple thoracic compression deformities. IMPRESSION: 1. No evidence of acute pulmonary embolism 2. Multiple bilateral lung cysts, slightly progressive when compared the prior study 3. Scattered bilateral pulmonary nodules. These are statistically inflammatory/infectious. A 1-2 month follow-up study subsequent to antibiotic therapy is recommended. Electronically signed by: Jeremi Garzon M.D. 11/25/2016 4:33 PM Dictated Date/Time: 11/25/2016 4:25 PM The status of this report is Signed. Draft = Not yet reviewed or approved by Radiologist. Signed = Reviewed and approved by Radiologist. <AttendingPhy></AttendingPhy> <FamilyPhy>Cj Butt M.D.(ZINA)</ FamilyPhy> <PrimaryPhy>Cj Butt M.D.(ZINA)</PrimaryPhy> <UnitNumber> [id number]</UnitNumber> <VisitNumber>[id number]</VisitNumber> <PatientName> FRANCISCO CHAN</PatientName> <DateOfBirth>1965</DateOfBirth> <Location> C.EDB</Location> <ServiceDate>11/25/16</ServiceDate> <MNE>ESINDI</MNE> < OrderingPhy>Sanjay Patel D.O.</OrderingPhy> <OrderingPhyMNE>f rep ord dr cole</OrderingPhyMNE> <DictatingPhyMNE>f rep dict dr cole</DictatingPhyMNE> < CCListMNE>f rep ct kelsey</CCListMNE> <AdmittingPhyMNE>f pt admit dr cole</ AdmittingPhyMNE> <AttendingPhyMNE>f pt attend dr cole</AttendingPhyMNE> <ConsultingPhyMNE>f pt consult dr cole</ConsultingPhyMNE> <FamilyPhyMNE>f pt fam dr cole</FamilyPhyMNE> <OtherPhyMNE>f pt other dr mne</OtherPhyMNE> < PrimaryPhyMNE>f pt prim care dr cole</PrimaryPhyMNE> <ReferringPhyMNE>f pt referring dr cole</ReferringPhyMNE> Assessment & Plan acute respiratory failure in patient with longstanding steroid dependent COPD as well as chronic QUOC infection. Agree with withholding QUOC therapy until results of bronchoscopy are available. Continue on broad-spectrum antibiotics until cultures are available. Will follow.
[2016-11-26] MEDS: MAGNESIUM SULFATE 1GM / D5W 1 GM in PREMIXED IN D5W 100 ML IV SCH ×2 (11:04→11:07)
[2016-11-26] MEDS: PEPTAMEN INTENSE VHP 1000ML BAG OG PRN (11:04)
[2016-11-26 11:06] LABS: ISTAT ARTERIAL BLOOD GAS HCO3 33 meq/L (19-24); ISTAT ARTERIAL BLOOD GAS PCO2 55 mmHg (35-46); ISTAT ARTERIAL BLOOD GAS PO2 74 mmHg (80-95); ISTAT ARTERIAL BLOOD GAS pH 7.39 (7.35-7.45); ISTAT CARBON DIOXIDE 35 mEq/l (24-31); ISTAT DELIVERY SYSTEM Ventilator; ISTAT FIO2 30 %; ISTAT PEEP 10; ISTAT RATE 30; ISTAT SITE Art Line; VE 12.5; Vt 440
--- NOTE | 2016-11-26 12:34 | Pharmacy Progress Note ---
Glycemic Control Intl Consult Date of Service Nov 26, 2016. Scope Glycemic Pharmacist consulted by Mirna Mcbride PA-C on 11/26/16 for glycemic control and to write orders per [facility] inpatient glycemic control protocol Objective Weight (Kilograms): 71.000 Accuchecks BSG (last 24hrs): Test 11/25/16 14:52 11/26/16 00:43 11/26/16 05:00 Random Glucose 212 mg/dl (70-99) 224 mg/dl (70-99) Bedside Glucose 240 mg/dl (70-99) Laboratory Data (last 24hrs) Test 11/25/16 14:52 11/26/16 05:00 Anion Gap 9.0 mmol/L 3.0 mmol/L BUN/Creatinine Ratio 17.1 16.1 Blood Urea Nitrogen 14 mg/dl 10 mg/dl Creatinine 0.82 mg/dl 0.63 mg/dl Potassium Level 3.5 mmol/L 4.2 mmol/L Sodium Level 137 mmol/L 147 mmol/L White Blood Count 28.63 K/uL 25.50 K/uL Red Blood Count 5.42 M/uL 4.84 M/uL Hemoglobin 15.8 g/dL 14.4 g/dL Hematocrit 49.0 % 43.3 % Mean Corpuscular Volume 90.4 fL 89.5 fL Mean Corpuscular Hemoglobin 29.2 pg 29.8 pg Mean Corpuscular Hemoglobin Concent 32.2 g/dl 33.3 g/dl Platelet Count 357 K/uL 302 K/uL Mean Platelet Volume 9.0 fL 8.7 fL Neutrophils (%) (Auto) 83.0 % 95.9 % Lymphocytes (%) (Auto) 8.2 % 1.4 % Monocytes (%) (Auto) 4.0 % 2.2 % Eosinophils (%) (Auto) 3.4 % 0.0 % Basophils (%) (Auto) 0.4 % 0.0 % Neutrophils # (Auto) 23.77 K/uL 24.46 K/uL Lymphocytes # (Auto) 2.36 K/uL 0.35 K/uL Monocytes # (Auto) 1.14 K/uL 0.56 K/uL Eosinophils # (Auto) 0.96 K/uL 0.00 K/uL Basophils # (Auto) 0.11 K/uL 0.01 K/uL Recent Pertinent Medications Outpatient Anti-diabetic Regimen: * Oral agents only * A1c = 7.4 % 12/28/15 The patient is currently receiving: * Basal insulin: Lantus 18 units every 12 hours * Correctional Insulin: Novolog Correction per scale ACHS Goal Range: Low 140 mg/dL - High 180 mg/dL Correction Factor: 25 mg/dL/unit * Prandial insulin: Per carb ratio of 1 unit per 8 grams CHO consumed Risk Factors for Insulin Resistance: * Steroids: Solumedrol 40 mg IV Q8hr * Infection: Zyvox, Flagyl, Levaquin, Vanco PO (Pulmonary source + Cdiff trx) * IVF: Normosol * Diet: NPO; trickle feeds possibly to start today * Mechanical Ventilation: YES Assessment & Plan ASSESSMENT: * 51 yo M admitted to ICU with significant pulmonary history, intubated and initiated on high dose steroids and broad spectrum antibiotics * Patient is a diabetic at baseline, with last A1c in 2016 indicative of good glycemic control on oral agents only * Repeat A1c pending for tomorrow with AM labs * We have followed his BSGs during past admissions, most recently in 2016, and patient was insulin sensitive, requiring wt-based/stress of 1 for IV steroids at that time * With the initiation of steroids, BSGs climbed as expected and since BSGs > 180 mg/dL X 2, basal/bolus regimen discontinued this AM and patient started on insulin drip per high stress protocol * Per nurse, patient is already within goal range at lunch time * Given current critical status requiring ongoing steroids, antibiotics, mechanical ventilation and tube feeds, I prefer to maintain insulin drip for at least 24 hours * ADA & AACE recommend a goal blood sugar range 140-180 mg/dl for the majority of critically ill & non-critically ill patients. However, more stringent targets may be selected in individual cases. I will loosen drip goal range to 100-200 mg/dL in attempt to lessen BSGs checks. PLAN FOR INPATIENT GLYCEMIC CONTROL: * Starting IV insulin infusion per severe stress protocol * Goal Range 100 - 200 mg/dl * In the critical care setting, continuous IV insulin infusion has been shown to be the best method for achieving glycemic targets. * Holding outpatient oral diabetes medications * A1c pending with AM labs * Please note that the plan above was derived based on current level of insulin resistance and hospital stress. These recommendations are appropriate for inpatient admission only. Plan of care upon discharge will need to be reassessed to avoid potential outpatient hypo/hyperglycemia. Thank you.
[2016-11-26] MEDS ORDERED: DEXTROSE 50% 50 ML SYR IV STA (12:50)
[2016-11-26] MEDS ORDERED: LEVOFLOXACIN 750MG / D5W IV SCH (16:00)
--- NOTE | 2016-11-26 16:17 | Critical Care Progress Note ---
Critical Care Progress Note Date of Service Nov 26, 2016. ICU Day ICU Day Number: [address] Richards Subjective Patient is a 51 year-old that was admitted to the ICU overnight secondary to respiratory distress requiring intubation. The patient has a long-standing history of chronic lung disease. Overnight, the patient did have difficulty with ventilator settings. Eventually, this morning, a balanced setting was achieved which provided adequate ventilatory support and improvement of patient' s respiratory acidosis. He has been provided sedation in the form of Versed most recently as well as fentanyl as needed. In conversation with pulmonology, they were to discuss the case the patient's senior assistant manager at [facility] for further guidance. He has had no fevers. There were no other significant events overnight. Patient unable to contribute to history of present illness secondary to current state of intubation and sedation. Objective VITAL SIGNS - Vital signs and nursing notes were reviewed. GENERAL - 51-year-old male appearing his stated age. Intubated and sedated. Will spontaneously open his eyes. MOUTH/OROPHARYNX - Endotracheal tube in place. Without perioral cyanosis. NECK - Neck with FROM. Supple to palpation. LUNGS - Intubated. Chest wall symmetric without accessory muscle use. Breath sounds decreased throughout. CARDIAC - RRR with S1/S2. No murmur, rubs, or gallops appreciated. ABDOMEN - Abdominal contour flat and without pulsations or visible masses. BS normoactive all four quadrants. No tenderness, palpable masses, hepatosplenomegaly, or ascites noted. EXTREMITIES - No clubbing or peripheral cyanosis. NEUROLOGIC/PSYCHIATRIC - Unable to assess secondary to sedation. Current SOFA Score SOFA Score Response (Comments) Value PaO2/FiO2 (mmHg) < 300 2 SaO2 / FIO2 221 - 301 1 Platelets (x10) > 150 0 Bilirubin (mg/dL) < 1.2 0 [place] Coma Score 6 - 9 3 Level of Hypotension No Hypotension 0 Creatinine (mg/dL) < 1.2 0 Total 6 Assessment & Plan (1) Respiratory distress (2) Compensated respiratory acidosis (3) QUOC (mycobacterium avium-intracellulare) (4) DM2 (diabetes mellitus, type 2) (5) C. difficile diarrhea (6) COPD, very severe (7) GERD (gastroesophageal reflux disease) (8) HTN (hypertension) (9) Depressive disorder Reason Critically Ill: 51-year-old male in acute hypercapnic respiratory distress requiring intubation and continued sedation. Neuro - * CAM ICU: POSITIVE * Sedation - Discontinued Propofol * Will Add Versed gtt titrated to a RASS of -1. * Fentanyl PRN Cardiac - * Elevated Troponin: * Have since normalized (0.021). * A.M. EKG demonstrates normal sinus rhythm at a rate of 93 bpm with a QT of 842. No acute ischemic findings otherwise per my interpretation. * In the setting of an otherwise normal EKG, this may represent demand ischemia. * Last Echo 2010 - Will repeat today. * Hypertension * Added Diltiazem. * Will avoid BBs at this point. * Will continue to monitor on telemetry. Respiratory - * Acute on Chronic Hypercapnic Respiratory Failure. * Remains intubated * PRVC - 440/30/10/30% * Will continue to treat COPD Exacerbation: * Solu-Medrol 40mp IV TID * DuoNebs q3h * Bronch cultures pending. Will treat as necessary. * Conversation with Dr. Miranda: * Dr. Miranda spoke with the patient's senior assistant manager at [facility], Dr. Ashley Gottlieb. The patient is not currently on the transplant list, however he is going through the process of doing so. His current condition as well as C. difficile infection and QUOC infections DO NOT exclude him from being added to the list, however, his infections will need to be treated prior to receiving transplantation. It was recommended that the patient remain on antibiotics for management of his infections. They will follow with him in the outpatient setting and set him up with infectious disease at [facility] for continued treatment as needed. * QUOC * Bronch washings pending. * Will continue treatment with Linezolid/Levaquin. * Of note -- will monitor daily EKGs while on Levaquin with his QTc of 482. * Will Keep Mag above 2.2. * C. diff - Continue Vancomycin/Flagyl combination. * Will titrate O2 to 88-92% w/ PCO2 in the 50s. * Continue to monitor ABGs closely. GI - * C, diff infection - See ID section. * Trickle feeds started. Will continue as tolerated through OG tube. * Continue Zantac IV q8 for GI prophylaxis. Will reassess when extubated. RENAL/LYTES - * Will monitor Lytes daily - Will correct appropriately. * 2 g Mag provided this AM * Currently receiving 100 mL/hr of Normosol. * 3L Positive Cumulatively. - * Villanueva Catheter in place for strict I&Os. ENDO - * T2DM. * ISS with Lantus. * Patient had episode of hypoglycemia with BSG of 45. Was added 1/2Amp Dextrose. Will continue to monitor. HEME - * Stable H&H. * Will monitor daily. ID - * QUOC infection in the setting of possible transplant patient. * Will treat with Linezolid and Levaquin as discussed previously. * This infection will need to be treated to eradication prior to the patient being eligible for transplantation. * C. Diff infection. * Continue Vancomycin/Flagyl. * Appreciate ID consultation. * Will trend daily Procalcitonin. LINES/IV ACCESS - * PIVs intact. * PICC line in place in LUE. * RIGHT Radial Artery Line Intact DVT PROPHYLAXIS - * Lovenox 40mg sq daily. I have personally spent 60 minutes of critical care time in the direct management of this patient. This is a life/limb threatening event. This includes time spent evaluating patient, direct bedside care, chart review, placing orders, interpretation of diagnostic studies, discussion with consultants, patient, and family members, as well as other required patient management activities. This time is exclusive of all separately billable procedures, and teaching time and separate from and in addition to any other critical care service time. Of note, I did speak with the patient's daughter, Andreea ([phone]) at 1308 , in regards to her father's care. She did accurately provide the patient's code word. She is the patient's caregiver for coordination planning. She provided me the name of the patient's preliminary coordinator for lung transplantation at [facility]. I did speak with the transplant services and Tanmay was paged. He did confirm that the patient is not currently on any transplantation list. He confirms that the patient does follow with Dr. Ashley Gottlieb at [facility]. At this point, the patient will be treated for his acute respiratory distress and likely COPD exacerbation. His QUOC and C. difficile infections will be managed acutely in the ICU setting. Further treatments if required. Will be provided by [facility] per Dr. Miranda's input. Thank you for this consultation allow us to be part of this patient's care. Please refer to my attending physician's documentation for any further recommendations. ADDENDUM At 1640, I did speak with the patient's daughter Andreea again. I explained the patient's situation and his current state of respiratory failure. I discussed the conversations that were had with specialists from [facility] concerning continued treatment of underlying infections prior to being considered for a surgical candidate. Explained that we will continue to treat these infections and aggressively manage his respiratory status. I did have a jaclyn conversation with her concerning patient's wishes if he were to be extubated. She reports that he would not wish to be reintubated. In addition, I did ask the daughter if he would wish to have a tracheostomy placed for chronicity of treatment which she adamantly declined. At this point, I did encourage the daughter, Andreea, to present to this facility so she might be able to see her father's current state and participate actively in planning. She reports that she will be in route to the hospital by tomorrow morning at the latest. I have personally evaluated and examined this patient. I agree with assessment and plan of Cedrick Villagran PA-C. Improvement in patient's ventilation, appears to be less reactive component. Would move towards extubation as patient appears to become agitated with decreasing sedation, however and concern the patient is at high risk for recurrence of respiratory failure. Given the above conversations with family, sitting terrific and needs of antibiotic treatment prior to being eligible for lung transplantation we will refrain from extubation until the patient's daughter has the ability to presents at this [facility]. At that time the plan to confirm post extubation plans which may include expectant management should the patient decompensate. Consults & Procedures Consultants: Dr. Villanueva - Pulmonology Dr. Lobo - Infectious Disease Procedures: PICC - LUE Rad Art Line - RUE Echo Pending. Data Medications: Current Inpatient Medications Medications (Trade) Dose Ordered Sig/Abigail Route Start Time Stop Time Status Last Admin Dose Admin Ioversol (Optiray 320) 100 ml UD PRN IV 11/25/16 15:45 11/29/16 15:44 Propofol (Diprivan Iv Emulsion 100ml Vial) 1 dose UD PRN IV 11/25/16 16:00 11/28/16 15:59 11/26/16 06:04 1 DOSE Enoxaparin Sodium (Lovenox Inj) 40 mg Q24H SQ 11/26/16 06:00 12/26/16 05:59 11/26/16 05:20 40 MG Vancomycin HCl (Vancomycin Oral Soln) 125 mg QID PO 11/25/16 22:00 12/09/16 21:59 11/26/16 12:38 125 MG Methylprednisolone Sodium Succinate 40 mg/Syringe 0.64 ml @ 1.5 mls/min Q8H IV 11/25/16 22:00 12/25/16 21:59 11/26/16 12:38 1.5 MLS/MIN Metronidazole 500 mg/Prmx 100 ml @ 100 mls/hr Q8H IV 11/25/16 22:00 12/09/16 21:59 11/26/16 12:38 100 MLS/HR Linezolid 600 mg/ Prmx 300 ml @ 300 mls/hr Q12H IV 11/25/16 23:00 12/02/16 22:59 11/26/16 11:04 300 MLS/HR Glucose (Glucose 40% Gel) 15-30 GRAMS 15 GRAMS... UD PRN PO 11/26/16 01:00 12/26/16 00:59 Glucose (Glucose Chew Tab) 4-8 Tablets 4 Tabl... UD PRN PO 11/26/16 01:00 12/26/16 00:59 Dextrose (Dextrose 50% 50ML Syringe) 25-50ML OF 50% DW IV FOR... UD PRN IV 11/26/16 01:00 12/26/16 00:59 Glucagon (Glucagon Inj) 1 mg UD PRN SQ 11/26/16 01:00 12/26/16 00:59 Miscellaneous Information (Consult Glycemic Management Pharmacy) 1 ea UD PRN N/A 11/26/16 01:23 12/26/16 01:22 Ranitidine HCl 50 mg/Dextrose 102 ml @ 200 mls/hr Q8H IV 11/26/16 02:00 12/26/16 01:59 11/26/16 11:05 200 MLS/HR Albuterol (Ventolin Hfa Inhaler) 4 puffs Q4R INH 11/26/16 04:00 12/26/16 03:59 11/26/16 10:55 4 PUFFS Ipratropium [place] (Atrovent Hfa Inhaler) 4 puffs Q4R INH 11/26/16 04:00 12/26/16 03:59 11/26/16 10:55 4 PUFFS Insulin Human Regular 250 units/ Sodium Chloride 252.5 ml @ 0 mls/hr DAILY@1130 IV 11/26/16 07:45 12/26/16 07:44 11/26/16 07:57 2.9 MLS/HR Insulin Aspart (novoLOG ASPART) SLIDING SCALE PCHS SC 11/26/16 08:00 12/26/16 07:59 Diltiazem HCl (Cardizem Tab) 30 mg QID PO 11/26/16 09:00 12/26/16 08:59 11/26/16 12:37 30 MG Parenteral Electrolyte Solution 1,000 ml @ 100 mls/hr Q10H IV 11/26/16 08:30 12/26/16 08:29 11/26/16 08:30 100 MLS/HR Levofloxacin 750 mg/Prmx 150 ml @ 100 mls/hr Q24H IV 11/26/16 16:00 12/03/16 15:59 Midazolam HCl 250 ml @ 0 mls/hr Q0M PRN IV 11/26/16 09:00 12/26/16 08:59 Enteral Nutritional Formula (Peptamen Intense VHP) 1,000 ml UD PRN OG 11/26/16 10:00 12/26/16 09:59 11/26/16 11:04 1,000 ML Fentanyl Citrate (Fentanyl Inj) 100 mcg Q1H PRN IV 11/26/16 13:15 12/10/16 02:14 Heparin Sodium (Porcine) (Heparin 10 Unit/ ml 5 ml Flush) 5 ml PRN PRN FLUSH 11/26/16 13:00 12/26/16 12:59 I & O: 24-Hour Column 11/27/16 08:00 Intake Total 1391 ml Output Total 100 ml Balance 1291 ml Vital Signs: Date Time Temp Pulse Resp B/P (MAP) Pulse Ox O2 Delivery O2 Flow Rate FiO2 11/26/16 14:00 36.4 97 17 103/73 (72) 94 102/58 11/26/16 14:00 74 24 84/56 (61) 96 21/20 11/26/16 13:45 79 24 (64) 95 97/51 11/26/16 13:30 95 20 143/85 (108) 95 142/83 11/26/16 13:15 82 24 (72) 95 113/57 11/26/16 13:00 85 97/63 (70) 90 105/55 11/26/16 13:00 36.4 97 17 103/73 (72) 94 102/58 17 12:30 97 103/73 (72) 94 102/58 11/26/16 12:00 95 Mechanical Ventilator 40 11/26/16 12:00 105 17 146/81 (113) 92 180/82 11/26/16 11:36 40 11/26/16 11:30 103 19 136/90 (105) 93 168/76 11/26/16 11:24 99 18 131/82 (96) 152/71 11/26/16 11:00 190 (47) 93 62/41 11/26/16 10:55 40 11/26/16 10:30 87 (46) 99 60/40 11/26/16 10:00 95 (74) 100 91/66 11/26/16 09:44 Mechanical Ventilator 40 11/26/16 09:30 97 30 (86) 92 112/75 11/26/16 09:00 93 30 105/79 (82) 100 113/69 11/26/16 08:30 93 30 107/71 (81) 98 111/69 11/26/16 08:00 40 11/26/16 08:00 92 30 97/75 (80) 98 110/68 11/26/16 08:00 97 Mechanical Ventilator 40 11/26/16 07:57 40 11/26/16 07:30 93 30 110/83 (91) 98 121/76 11/26/16 07:00 90 30 89/62 (75) 99 100/63 1617 06:30 92 30 90/66 (75) 100 97/65 11/26/16 06:26 40 11/26/16 06:23 92 30 84/61 (64) 100 84/55 11/26/16 06:00 96 6 82/69 (87) 99 112/73 11/26/16 05:30 101 30 107/71 (83) 100 11/26/16 05:30 101 30 109/80 (83) 100 107/71 11/26/16 05:00 108 28 141/88 (105) 97 11/26/16 05:00 108 28 141/88 (98) 97 179/87 11/26/16 04:30 92 25 99/73 (80) 98 111/67 11/26/16 04:30 92 25 111/67 (82) 98 11/26/16 04:30 92 25 111/67 (82) 98 11/26/16 04:00 96 Mechanical Ventilator 50 11/26/16 04:00 40 11/26/16 04:00 36.4 97 24 125/72 (89) 96 Mechanical Ventilator 40 11/26/16 04:00 97 24 116/82 (88) 96 125/72 11/26/16 03:37 40 11/26/16 03:30 91 28 103/63 (76) 96 11/26/16 03:30 91 28 100/66 (74) 96 103/63 11/26/16 03:00 91 28 91/61 (71) 95 95/61 11/26/16 03:00 91 28 95/61 (72) 95 11/26/16 02:39 93 28 92/61 (71) 94 11/26/16 02:39 93 28 92/61 (68) 94 87/55 11/26/16 02:39 93 28 92/61 (68) 94 87/55 11/26/16 02:30 92 28 78/55 (56) 93 74/48 11/26/16 02:30 92 28 74/48 (57) 93 11/26/16 02:28 92 28 69/44 (52) 93 11/26/16 02:28 92 28 75/53 (52) 93 69/44 11/26/16 02:00 103 28 140/94 (110) 94 159/85 11/26/16 02:00 103 28 140/94 (110) 94 159/85 11/26/16 02:00 103 28 159/85 (109) 94 Mechanical Ventilator 40 11/26/16 01:30 105 28 172/99 (123) 95 11/26/16 01:30 105 28 149/105 (127) 95 172/99 11/26/16 01:30 105 28 149/105 (127) 95 172/99 11/26/16 01:00 104 28 155/108 (124) 96 169/96 8/16/17 01:00 104 28 155/108 (124) 96 169/96 11/26/16 01:00 104 28 169/96 (120) 96 Mechanical Ventilator 40 11/26/16 00:57 40 11/26/16 00:30 106 28 160/106 (124) 98 175/95 11/26/16 00:30 106 28 160/106 (124) 98 175/95 11/26/16 00:30 106 28 175/95 (121) 98 Mechanical Ventilator 40 11/26/16 00:15 40 11/26/16 00:00 36.5 91 29 105/60 (75) 98 Mechanical Ventilator 50 11/26/16 00:00 91 29 100/72 (73) 98 105/60 11/26/16 00:00 91 29 100/72 (73) 98 105/60 11/25/16 23:59 96 Mechanical Ventilator 50 11/25/16 23:59 50 11/25/16 23:30 92 29 110/62 (78) 98 Mechanical Ventilator 50 11/25/16 23:30 92 29 101/75 (76) 98 110/62 11/25/16 23:15 95 29 (77) 98 119/62 11/25/16 23:00 102 15 138/116 (123) 96 Mechanical Ventilator 50 11/25/16 22:45 92 28 (75) 97 108/63 11/25/16 22:30 92 28 106/61 (76) 96 Mechanical Ventilator 50 11/25/16 22:30 92 28 100/75 (73) 96 106/61 11/25/16 22:15 92 28 (74) 95 106/61 11/25/16 22:00 93 28 102/58 (73) 95 Mechanical Ventilator 50 11/25/16 22:00 93 28 104/78 (70) 95 102/58 11/25/16 21:45 92 28 (80) 95 118/66 11/25/16 21:45 92 28 118/66 (83) 95 Mechanical Ventilator 50 11/25/16 21:30 97 28 114/64 (81) 96 Mechanical Ventilator 50 11/25/16 21:30 97 28 104/77 (78) 96 114/64 11/25/16 21:15 100 28 126/64 (84) 98 Mechanical Ventilator 50 8/15/17 21:00 106 28 157/97 (121) 99 201/93 815/17 21:00 106 28 201/93 (129) 99 Mechanical Ventilator 50 815/17 20:46 50 815/17 20:33 102 28 151/99 (120) 96 195/91 815/17 20:33 102 28 195/91 (125) 96 Mechanical Ventilator 50 815/17 20:30 100 28 145/89 (118) 94 815/17 20:30 100 28 145/89 (107) 94 Mechanical Ventilator 50 815/17 20:00 96 28 147/95 (120) 97 815/17 20:00 36.5 96 28 147/95 (112) 97 Mechanical Ventilator 100 15/17 20:00 50 815/17 20:00 97 Mechanical Ventilator 50 15/17 19:49 50 15/17 19:23 88 28 115/83 97 Mechanical Ventilator 15/17 18:25 90 28 102/77 100 15/17 17:59 93 28 110/80 100 Mechanical Ventilator 50 15/17 17:00 101 26 140/76 100 Mechanical Ventilator 50 15/17 16:57 101 26 98/73 99 Mechanical Ventilator 50 15/17 16:27 112/75 15/17 16:05 104/71 15/17 16:00 111 102/69 97 Mechanical Ventilator 50 15/17 15:55 118/78 15/17 15:50 50 15/17 15:50 124/77 15/17 15:45 110 135/87 99 15/17 15:43 129/88 15/17 15:40 124/97 15/17 15:35 158/108 15/17 15:30 128 20 50 BiPAP/CPAP 15/17 15:30 128 98 50 15/17 15:30 120 196/119 99 15/17 15:25 155/97 15/17 15:21 155/101 15/17 15:15 126 100 15/17 15:14 157/104 15/17 15:11 157/133 15/17 15:00 130 99 15/17 14:52 128 38 151/97 99 BiPAP 40 Laboratory Results: Last 24 Hours Test 11/25/16 14:51 11/25/16 14:52 11/25/16 14:54 11/25/16 16:33 Prothrombin Time 10.6 SECONDS Prothromb Time International Ratio 1.0 White Blood Count 28.63 K/uL Red Blood Count 5.42 M/uL Hemoglobin 15.8 g/dL Hematocrit 49.0 % Mean Corpuscular Volume 90.4 fL Mean Corpuscular Hemoglobin 29.2 pg Mean Corpuscular Hemoglobin Concent 32.2 g/dl Platelet Count 357 K/uL Mean Platelet Volume 9.0 fL Neutrophils (%) (Auto) 83.0 % Lymphocytes (%) (Auto) 8.2 % Monocytes (%) (Auto) 4.0 % Eosinophils (%) (Auto) 3.4 % Basophils (%) (Auto) 0.4 % Neutrophils # (Auto) 23.77 K/uL Lymphocytes # (Auto) 2.36 K/uL Monocytes # (Auto) 1.14 K/uL Eosinophils # (Auto) 0.96 K/uL Basophils # (Auto) 0.11 K/uL RDW Standard Deviation 45.3 fL RDW Coefficient of Variation 13.8 % Immature Granulocyte % (Auto) 1.0 % Immature Granulocyte # (Auto) 0.29 K/uL Red Blood Cell Morphology Unremarkable Sodium Level 137 mmol/L Potassium Level 3.5 mmol/L Chloride Level 97 mmol/L Carbon Dioxide Level 31 mmol/L Anion Gap 9.0 mmol/L Blood Urea Nitrogen 14 mg/dl Creatinine 0.82 mg/dl Est Creatinine Clear Calc Drug Dose 100.8 ml/min Estimated GFR () 117.0 Estimated GFR (Non- 101.0 BUN/Creatinine Ratio 17.1 Random Glucose 212 mg/dl Calcium Level 8.7 mg/dl Magnesium Level 1.7 mg/dl Total Bilirubin 0.6 mg/dl Aspartate Amino Transf (AST/SGOT) 33 U/L Alanine Aminotransferase (ALT/SGPT) 38 U/L Alkaline Phosphatase 112 U/L Total Creatine Kinase 289 U/L Creatine Kinase MB 9.5 ng/ml Creatine Kinase MB Ratio 3.3 Troponin I 0.072 ng/ml Pro-B-Type Natriuretic Peptide 192 pg/ml Total Protein 6.7 gm/dl Albumin 3.0 gm/dl Globulin 3.7 gm/dl Albumin/Globulin Ratio 0.8 Bedside Blood Gas pH (LAB) 7.23 7.21 Bedside Blood Gas pCO2 (LAB) 83 mmHg 82 mmHg Bedside Blood Gas pO2 (LAB) 109 mmHg 109 mmHg Bedside Blood Gas HCO3 (LAB) 35 meq/L 33 meq/L Bedside Blood Gas Total CO2 37 mEq/l 35 mEq/l Bedside Blood Gas Base Excess (LAB) 7.0 meq/L 5.0 meq/L Bedside Blood Gas O2 Saturation 97.0 % 97.0 % Test 11/25/16 16:38 11/25/16 17:42 11/25/16 21:33 11/26/16 00:14 Urine Color DK YELLOW Urine Appearance CLOUDY Urine pH 5.0 Urine Specific [place] 1.045 Urine Protein 2+ Urine Glucose (UA) 1+ Urine Ketones 1+ Urine Occult Blood TRACE Urine Nitrite NEG Urine Bilirubin NEG Urine Urobilinogen NEG Urine Leukocyte Esterase NEG Urine WBC (Auto) 5-10 /hpf Urine RBC (Auto) 0-4 /hpf Urine Hyaline Casts (Auto) >30 /lpf Urine Epithelial Cells (Auto) >30 /lpf Urine Bacteria (Auto) 1+ Urine Renal Epithelial Cells /lpf Urine Pathogenic Casts 0-3 GRANULAR CASTS /lpf Urine Mucus PRESENT Bedside Blood Gas pH (LAB) 7.18 7.21 7.28 Bedside Blood Gas pCO2 (LAB) 85 mmHg 74 mmHg 67 mmHg Bedside Blood Gas pO2 (LAB) 222 mmHg 90 mmHg 132 mmHg Bedside Blood Gas HCO3 (LAB) 31 meq/L 30 meq/L 32 meq/L Bedside Blood Gas Total CO2 34 mEq/l 32 mEq/l 34 mEq/l Bedside Blood Gas Base Excess (LAB) 3.0 meq/L 2.0 meq/L 5.0 meq/L Bedside Blood Gas O2 Saturation 100.0 % 95.0 % 98.0 % Blood Gas Sample Site Art Line R Radial Jose Test NA NA Oxygen Delivery Device Ventilator Ventilator Bedside Oxygen Rate (breaths/min) 28 28 Bedside FiO2 50 % 50 % Blood Gas Tidal Volume 400 400 Blood Gas PEEP 10 10 Test 11/26/16 00:43 11/26/16 01:38 11/26/16 03:51 11/26/16 04:58 Bedside Glucose 240 mg/dl Troponin I 0.034 ng/ml Procalcitonin 1.31 ng/ml Blood Gas Sample Site Art Line Art Line Bedside Blood Gas pH (LAB) 7.15 7.16 Bedside Blood Gas pCO2 (LAB) 90 mmHg 95 mmHg Bedside Blood Gas pO2 (LAB) 128 mmHg 339 mmHg Bedside Blood Gas HCO3 (LAB) 31 meq/L 34 meq/L Bedside Blood Gas Total CO2 34 mEq/l 37 mEq/l Bedside Blood Gas Base Excess (LAB) 2.0 meq/L 6.0 meq/L Bedside Blood Gas O2 Saturation 98.0 % 100.0 % Jose Test NA NA Oxygen Delivery Device Ventilator Ventilator Bedside Oxygen Rate (breaths/min) 28 28 Bedside FiO2 40 % 100 % Blood Gas Tidal Volume 400 440 Blood Gas PEEP 10 10 Test 11/26/16 05:00 11/26/16 06:10 11/26/16 08:57 11/26/16 08:58 White Blood Count 25.50 K/uL Red Blood Count 4.84 M/uL Hemoglobin 14.4 g/dL Hematocrit 43.3 % Mean Corpuscular Volume 89.5 fL Mean Corpuscular Hemoglobin 29.8 pg Mean Corpuscular Hemoglobin Concent 33.3 g/dl Platelet Count 302 K/uL Mean Platelet Volume 8.7 fL Neutrophils (%) (Auto) 95.9 % Lymphocytes (%) (Auto) 1.4 % Monocytes (%) (Auto) 2.2 % Eosinophils (%) (Auto) 0.0 % Basophils (%) (Auto) 0.0 % Neutrophils # (Auto) 24.46 K/uL Lymphocytes # (Auto) 0.35 K/uL Monocytes # (Auto) 0.56 K/uL Eosinophils # (Auto) 0.00 K/uL Basophils # (Auto) 0.01 K/uL RDW Standard Deviation 45.2 fL RDW Coefficient of Variation 13.7 % Immature Granulocyte % (Auto) 0.5 % Immature Granulocyte # (Auto) 0.12 K/uL Sodium Level 147 mmol/L Potassium Level 4.2 mmol/L Chloride Level 102 mmol/L Carbon Dioxide Level 42 mmol/L Anion Gap 3.0 mmol/L Blood Urea Nitrogen 10 mg/dl Creatinine 0.63 mg/dl Est Creatinine Clear Calc Drug Dose 131.2 ml/min Estimated GFR () 130.4 Estimated GFR (Non- 112.5 BUN/Creatinine Ratio 16.1 Random Glucose 224 mg/dl Calcium Level 7.9 mg/dl Phosphorus Level 3.7 mg/dl Magnesium Level 2.1 mg/dl Blood Gas Sample Site Art Line Art Line Bedside Blood Gas pH (LAB) 7.33 7.39 Bedside Blood Gas pCO2 (LAB) 67 mmHg 55 mmHg Bedside Blood Gas pO2 (LAB) 183 mmHg 74 mmHg Bedside Blood Gas HCO3 (LAB) 35 meq/L 33 meq/L Bedside Blood Gas Total CO2 37 mEq/l 35 mEq/l Bedside Blood Gas Base Excess (LAB) 9.0 meq/L 8.0 meq/L Bedside Blood Gas O2 Saturation 99.0 % 94.0 % Jose Test NA NA Oxygen Delivery Device Ventilator Ventilator Bedside Oxygen Rate (breaths/min) 30 30 Bedside FiO2 100 % 30 % Blood Gas Tidal Volume 440 440 Blood Gas PEEP 10 10 Blood Gas Minute Ventilation 12.5 Troponin I 0.021 ng/ml Test 11/26/16 09:03 11/26/16 11:23 11/26/16 12:47 11/26/16 13:21 Bedside Glucose (other) 204 mg/dl 101 mg/dl 45 mg/dl 273 mg/dl
[2016-11-26] MEDS: FENTANYL CITRATE INJ 50 MCG/1 ML 2 ML VIAL IV PRN ×2 (16:47→23:24)
--- NOTE | 2016-11-26 18:05 | ECHOCARDIOGRAM REPORT ---
*NOTICE TO RECEIVING [employer] This information is strictly Confidential and protected under [place] law. [place] law prohibits you from making any further disclosure of this information unless further disclosure is expressly permitted by the written consent of the person to whom it pertains or is authorized by law. A general authorization for the release of medical or other information is not sufficient for this purpose. Hospital accepts no responsibility if the information is made available to any other person, INCLUDING THE PATIENT. Interpretation Summary * Name: FRANCISCO CHAN Study Date: 11/26/2016 03:00 PM BP: 97/65 mmHg * Patient Location: .[facility]ICU\S\E110\S\1 HR: 92 * : 1965 (M/d/yyyy) Gender: Male Height: 68 in * Age: 51 yrs Ethnicity: CA Weight: 156 lb * Ordering Physician: Beck Villagran * Referring Physician: Self, Referred * Performed By: Berna Rhodes RDCS * * Reason For Study: Chest pain * BSA: 1.8 m2 * The study was technically difficult. * -- Conclusions -- * The left ventricular wall motion is normal. * Left ventricular systolic function is normal. * The LV Ejection Fraction = 55-60%. * The right ventricle is mildly dilated. * The right ventricular systolic function is mild to moderately reduced. * Dilated inferior vena cava with reduced collapsability with sniff indicates an elevated right atrial pressure of 15 mmHg * There is no significant tricuspid regurgitation, and therefore the pulmonary artery systolic pressure cannot be calculated. * The aortic valve was not visualized sufficiently to determine the number of cusps. * The prior echocardiogram report dated 10/05/10, described possible bicuspid AV. * There is no significant aortic regurgitation. * Aortic stenosis is absent. Procedure Details * A complete two-dimensional transthoracic echocardiogram was performed (2D, M-mode, Doppler and color flow Doppler). * The study was technically limited. * The study was technically difficult. * There were technical limitations due to patient'ssupine positioning while on mechanical ventilation * A contrast injection of Definity was performed to improve assessment of LV function. * Contrast was injected into an intravenous site in the left arm. * One vial of Definity ultrasound contrast was diluted in normal saline to a total volume of 10 ml. A total of '3' ml of solution was administered during imaging. * Lot # [id number] of Definity utilized for procedure. * Expiration date NOV 28. * The attending nurse who injected the contrast agent was Kadie Borja RN. Left Ventricle * The left ventricle is normal in size. * There is normal left ventricular wall thickness. * Left ventricular systolic function is normal. * Ejection Fraction = 55-60%. * The left ventricular wall motion is normal. Right Ventricle * The right ventricle is mildly dilated. * The right ventricular systolic function is mild to moderately reduced. Atria * The left atrial size is normal. * Right atrial size is normal. * There is no evidence of atrial septal defect, but resolution does not allow assessment for a patent foramen ovale. Mitral Valve * The mitral valve is normal. * There is no mitral valve stenosis. * Significant mitral regurgitation is absent. Tricuspid Valve * The tricuspid valve is normal. * There is no tricuspid stenosis. * Significant tricuspid regurgitation is absent. * There is no significant tricuspid regurgitation, and therefore the pulmonary artery systolic pressure cannot be calculated. Aortic Valve * The aortic valve was not visualized sufficiently to determine the number of cusps. The prior echocardiogram report dated 10/05/10, described possible bicuspid AV. * Aortic stenosis is absent. * There is no significant aortic regurgitation. Pulmonic Valve * The pulmonary valve is not well seen, but the Doppler examination is normal without significant regurgitation or stenosis. Great Vessels * The aortic root and proximal ascending aorta are normal sized. Pericardium/Pleural * There is an echodensity in the pericardial space consistent with pericardial fat. * There is no pericardial effusion. Great Vessels * Dilated inferior vena cava with reduced collapsability with sniff indicates an elevated right atrial pressure of 15 mmHg Left Ventricular Diastolic Function * Grade I diastolic dysfunction, (abnormal relaxation pattern). MMode 2D Measurements and Calculations IVSd 0.99 cm LVIDd 3.6 cm LVIDs 2.4 cm LVPWd 1.2 cm IVS/LVPW 0.79 FS 33.8 % EDV(Teich) 54.8 ml ESV(Teich) 19.9 ml EF(Teich) 63.7 % EDV(cubed) 47.1 ml ESV(cubed) 13.6 ml EF(cubed) 71.1 % LV mass(C)d 128.0 grams LV mass(C)dI 69.6 grams/m\S\2 SV(Teich) 34.9 ml SI(Teich) 19.0 ml/m\S\2 SV(cubed) 33.5 ml SI(cubed) 18.2 ml/m\S\2 Ao root diam 4.0 cm Ao root area 12.8 cm\S\2 ACS 1.9 cm asc Aorta Diam 3.2 cm LVOT diam 2.0 cm LVOT area 3.2 cm\S\2 LVAd ap4 31.0 cm\S\2 LVLd ap4 8.3 cm EDV(MOD-sp4) 93.9 ml EDV(sp4-el) 97.8 ml LVAs ap4 15.4 cm\S\2 LVLs ap4 6.4 cm ESV(MOD-sp4) 30.3 ml ESV(sp4-el) 31.7 ml EF(MOD-sp4) 67.8 % EF(sp4-el) 67.5 % LVAd ap2 29.2 cm\S\2 LVLd ap2 7.5 cm EDV(MOD-sp2) 92.3 ml EDV(sp2-el) 96.7 ml LVAs ap2 14.9 cm\S\2 LVLs ap2 5.9 cm ESV(MOD-sp2) 30.3 ml ESV(sp2-el) 32.1 ml EF(MOD-sp2) 67.2 % EF(sp2-el) 66.8 % LVLd %diff -11.35 % EDV(MOD-bp) 93.5 ml LVLs %diff -8.34 % ESV(MOD-bp) 31.3 ml EF(MOD-bp) 66.5 % SV(MOD-sp4) 63.6 ml SI(MOD-sp4) 34.6 ml/m\S\2 SV(MOD-sp2) 62.0 ml SI(MOD-sp2) 33.7 ml/m\S\2 SV(MOD-bp) 62.2 ml SI(MOD-bp) 33.8 ml/m\S\2 SV(sp4-el) 66.0 ml SI(sp4-el) 35.9 ml/m\S\2 SV(sp2-el) 64.6 ml SI(sp2-el) 35.1 ml/m\S\2 Doppler Measurements and Calculations MV E max petra 58.2 cm/sec MV A max petra 69.6 cm/sec MV E/A 0.84 MV dec time 0.23 sec Ao V2 max 88.4 cm/sec Ao max PG 3.1 mmHg Ao max PG (full) 1.7 mmHg SYLVIA(V,A) 2.2 cm\S\2 SYLVIA(V,D) 2.2 cm\S\2 LV V1 max PG 1.4 mmHg LV V1 max 59.7 cm/sec PA V2 max 58.4 cm/sec PA max PG 1.4 mmHg PA acc slope 227.8 cm/sec\S\2 PA acc time 0.17 sec PA pr(Accel) 2.9 mmHg
--- NOTE | 2016-11-26 19:02 | Pulmonary Consultation ---
History General Date of Service: Nov 26, 2016. Stated Complaint: Respiratory Failure HPI The patient is a 51 year old male who presents to [facility] with complaints of Respiratory Failure. The patient's primary care provider is Cj Butt M.D.(ZINA). Patient intubated and sedated. History obtained from chart review and discussion with care providers Mr. Jordan is a 51 year old male who holds the diagnosis of very Severe COPD ( FEV1 21%, 11/06/2016) and QUOC who was brought to [facility] via ambulance on 11/25/2016 with 3 day history of worsening shortness of breath. He noted to be 88% on 2.5 L of home oxygen with increased dyspnea at rest. Oxygen provided minimal relieve and breathing was associated with pleuritic chest pain. He also was recently diagnosed with c.difficile infection and was on oral vancomycin. Per chart, he was experiencing fevers as well as increasing cough with productive yellow sputum. Upon arrival to the ER his VS were 36.4, P 133, RR 38, BP 159/99 , SaO2 88% on nasal canula. He was switched over to NRM and then to BIPAP 40% with improvement of SaO2 to 99%. CXR showed right midlung zone scarring and chronic interstitial changes. In the ER, his respiratory further decompensated and he was intubated. Initial labs were significant for WBC 28, HGB 15.8, Platelet count 357, Na 137, K 3,7m Cl 97, HCO3 31, BUN 14, Cr 0.14, and Glucose of 212. ABG 7.23/83/109/35/ 97%. CT chest was done for further evaluation of the lung parenchyma and to rule out pulmonary embolism. It showed no evidence of pulmonary embolic, however showed multiple bilateral lung cysts that had slightly progressed associated with scatter bilateral pulmonary nodules. He was continued on vancomycin po, levoquin, linezolid and flagyl for empirically for sepsis and he was admitted to ICU for further management of acute on chronic hypercapnic respiratory failure secondary to pneumonia. He underwent bedside bronchoscopy which is now growing gram negative bacilli from bronchial washings of the right middle lobe. AFB is pending. From a pulmonary standpoint, his pulmonary symptoms initially started in the early 1999. He was being followed by Dr. Meade, now doctor Dr. Miranda from a pulmonary standpoint. CT scan of chest from 2010 showed emphysematous changes with minimal cystic changes along right middle lobe. Previous bronchoscopy done in November 2006 grew rodo albicans. Due to his age and severity of his disease , his history of nonsmoking he underwent right thoroscopy with wedge biopsies of right middle, right lower and right upper lobes, by Dr. Estrella for possible tissue diagnosis. Pathology was consistent with emphysematous changes, scatter dilated bronchi with mucous plugging. Microbiology grew mycobacterium avium complex from AFB culture. He was being treated with ethambutol and azithromycin per Infectious Disease, his compliance with antibiotic therapy is questionable. His home medications include albuterol 2-4 puffs inh q6h, fluticase proprionate 2 sprays MELISSA QAM, Duoneb inh q4h prn, Prednisone 20 mg tab, Vancomycin 125 mg, Zolipdem 10 mg . He is a nonsmoker. 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 His overall functional status has been declining and he is currently being worked up by [facility] for Lung transplantation. Outpatient records from [facility] include spirometry and a 6 minute walk on 11/06/2016. Spirometry: FVC: Predicted 4.63 / Pre 1.29 / % Pre Predicted 28 / FVC Post 1.87 / % Post Predicted 40 / % Change 45 FEV1: Predicted 3.38 / Pre 0.59 / % Pre Predicted 17 / FEV1 Post 0.72 / % Post Predicted 21 / % Change 22 FEV1/FVC: Predicted 73 / Pre 46 / % / FEV1/FVC Post 38 / % Change -17 6MWT: Pt walked 415 feet, resting twice, SPO2 fell to 81% on room air and pt was placed on 2.4L. SPO2 was 87% at conclusion of six minutes and heart rate was 125. Pt was noted to be very short of breath. Onset: yesterday Severity: severe Complaint Status: worsened Quality of Pain: other (unknown) Method of Injury: unknown Modifying Factors: other (oxygen) Review of Systems Constitutional: reports: as stated in HPI Eyes: reports: as stated in HPI ENT: reports: as stated in HPI Cardiovascular: reports: as stated in HPI Respiratory: reports: as stated in HPI Gastrointestinal: reports: as stated in HPI Genitourinary - Male: reports: as stated in HPI Musculoskeletal: reports: as stated in HPI Integumentary: reports: as stated in HPI Neurologic: reports: as stated in HPI Endocrine: as stated in HPI Hematologic / Lymphatic: as stated in HPI Allergic / Immunologic: as stated in HPI Past Medical History Past Medical History: 1. Acid fast bacillus (A31.9) 2. Acid reflux disease (K21.9) 3. COPD, very severe (J44.9) 4. Depressive disorder (F32.9) 5. DM type 2 (diabetes mellitus, type 2) (E11.9) 6. Hypertension (I10) 7. Hypoxemia (R09.02) 8. Leukocytosis (D72.829) 9. Lumbago (M54.5) 10. 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 Personal history of nicotine dependence (Z87.891) 12. Pneumonitis (J18.9) 13. Pulmonary emphysema (J43.9) 14. Restrictive lung disease (J98.4) 15. Wound infection (T14.8,L08.9) 16. C. difficile infection Past Surgical History: 1. History of Lung Surgery 2. History of Sinus Surgery Family History CVA GRANDFATHER FH: myocardial infarction GRANDFATHER CVA and HI in grandfather. Social History Current Smokeless Tobacco User ?? Never smoker Hx Tobacco Use In Past Year?: Yes Smoking Status: Unknown if Ever Smoked Alcohol: occasional Drug Use: none Immunizations History of Influenza Vaccine: Yes Influenza Vaccine Date: Feb 12, 2012 History of Tetanus Vaccine?: Yes Tetanus Immunization Date: Feb 25, 2008 History of Pneumococcal: Yes Pneumococcal Date: Jan 22, 2011 History of Hepatitis B Vaccine: No History of MDRO History of MDRO: No Allergies Coded Allergies: Omeprazole (Verified Allergy, Unknown, TOLERATES PROTONIX, 11/25/16) Paroxetine (Verified Adverse Reaction, Mild, GI UPSET, 11/25/16) Current Medications Reported Home Medications Medications Dose Route/Sig Max Daily Dose Days Date Category Dose Instructions Vancomycin (Vancomycin HCl) 125 Mg Cap 1 Tab PO DIRECTED 11/13/16 Rx Take 1 tab; QID 2 wks, BID 1 wk, 1 daily for 1 wk, 1 every other day 1 wk, 1 every 3rd day 2 wks. Ventolin Hfa (Albuterol) 200 Puffs/96077 Mcg Aers 2-4 Puffs INH Q6H 11/13/16 Reported Oxycodone HCl 5 Mg Tab 5 Mg PO Q6 PRN 01/07/16 Rx Docusate Sodium 100 Mg Cap 100 Mg PO BID 01/05/16 Rx over the counter while taking narcotic pain medications Duoneb (Ipratropium-Albuterol) 3 Ml Nebu 1 Treatment INH QID PRN 12/27/15 Reported Flonase Allergy Relief (Fluticasone Propionate (Nasal)) 50 Mcg/Act Spr 2 Sprays MELISSA QAM 12/27/15 Reported Zolpidem Tartrate 10 Mg Tab 10 Mg PO HS PRN 12/27/15 Reported TAKE THIS MEDICATION 30-60 MINUTES BEFORE SLEEP Toprol-Xl (Metoprolol Succinate) 25 Mg Tabcr 25 Mg PO DAILY 12/27/15 Reported Glucotrol (Glipizide) 5 Mg Tab 5 Mg PO QAM 12/27/15 Reported TAKE THIS MEDICATION WITH FOOD Glucophage (Metformin Hcl) 500 Mg Tab 1,000 Mg PO BID 02/25/15 Reported Prednisone 20 Mg Tab 20 Mg PO DAILY 07/03/12 Reported Physical Physical Exam Vital Signs: Date Time Temp Pulse Resp B/P (MAP) Pulse Ox O2 Delivery O2 Flow Rate FiO2 11/26/16 14:20 30 11/26/16 14:00 36.4 97 17 103/73 (72) 94 102/58 11/26/16 14:00 74 24 84/56 (61) 96 21/20 11/26/16 13:45 79 24 (64) 95 97/51 11/26/16 13:30 95 20 143/85 (108) 95 142/83 11/26/16 13:15 82 24 (72) 95 113/57 11/26/16 13:00 85 97/63 (70) 90 105/55 11/26/16 13:00 36.4 97 17 103/73 (72) 94 102/58 11/26/16 12:30 97 103/73 (72) 94 102/58 11/26/16 12:00 95 Mechanical Ventilator 40 11/26/16 12:00 105 17 146/81 (113) 92 180/82 11/26/16 11:36 30 11/26/16 11:30 103 19 136/90 (105) 93 168/76 11/26/16 11:24 99 18 131/82 (96) 152/71 8/16/17 11:00 190 (47) 93 62/41 11/26/16 10:55 40 11/26/16 10:30 87 (46) 99 60/40 11/26/16 10:00 95 (74) 100 91/66 11/26/16 09:44 Mechanical Ventilator 40 11/26/16 09:30 97 30 (86) 92 112/75 11/26/16 09:00 93 30 105/79 (82) 100 113/69 11/26/16 08:30 93 30 107/71 (81) 98 111/69 11/26/16 08:00 40 11/26/16 08:00 92 30 97/75 (80) 98 110/68 11/26/16 08:00 97 Mechanical Ventilator 40 11/26/16 07:57 30 11/26/16 07:30 93 30 110/83 (91) 98 121/76 11/26/16 07:00 90 30 89/62 (75) 99 100/63 11/26/16 06:30 92 30 90/66 (75) 100 97/65 11/26/16 06:26 40 11/26/16 06:23 92 30 84/61 (64) 100 84/55 11/26/16 06:00 96 6 82/69 (87) 99 112/73 11/26/16 05:30 101 30 107/71 (83) 100 11/26/16 05:30 101 30 109/80 (83) 100 107/71 11/26/16 05:00 108 28 141/88 (105) 97 11/26/16 05:00 108 28 141/88 (98) 97 179/87 11/26/16 04:30 92 25 99/73 (80) 98 111/67 11/26/16 04:30 92 25 111/67 (82) 98 11/26/16 04:30 92 25 111/67 (82) 98 11/26/16 04:00 96 Mechanical Ventilator 50 11/26/16 04:00 40 11/26/16 04:00 36.4 97 24 125/72 (89) 96 Mechanical Ventilator 40 11/26/16 04:00 97 24 116/82 (88) 96 125/72 11/26/16 03:37 40 11/26/16 03:30 91 28 103/63 (76) 96 11/26/16 03:30 91 28 100/66 (74) 96 103/63 11/26/16 03:00 91 28 91/61 (71) 95 95/61 11/26/16 03:00 91 28 95/61 (72) 95 11/26/16 02:39 93 28 92/61 (71) 94 11/26/16 02:39 93 28 92/61 (68) 94 87/55 11/26/16 02:39 93 28 92/61 (68) 94 87/55 11/26/16 02:30 92 28 78/55 (56) 93 74/48 11/26/16 02:30 92 28 74/48 (57) 93 11/26/16 02:28 92 28 69/44 (52) 93 11/26/16 02:28 92 28 75/53 (52) 93 69/44 11/26/16 02:00 103 28 140/94 (110) 94 159/85 11/26/16 02:00 103 28 140/94 (110) 94 159/85 11/26/16 02:00 103 28 159/85 (109) 94 Mechanical Ventilator 40 11/26/16 01:30 105 28 172/99 (123) 95 11/26/16 01:30 105 28 149/105 (127) 95 172/99 11/26/16 01:30 105 28 149/105 (127) 95 172/99 11/26/16 01:00 104 28 155/108 (124) 96 169/96 11/26/16 01:00 104 28 155/108 (124) 96 169/96 11/26/16 01:00 104 28 169/96 (120) 96 Mechanical Ventilator 40 11/26/16 00:57 40 11/26/16 00:30 106 28 160/106 (124) 98 175/95 11/26/16 00:30 106 28 160/106 (124) 98 175/95 11/26/16 00:30 106 28 175/95 (121) 98 Mechanical Ventilator 40 11/26/16 00:15 40 11/26/16 00:00 36.5 91 29 105/60 (75) 98 Mechanical Ventilator 50 11/26/16 00:00 91 29 100/72 (73) 98 105/60 11/26/16 00:00 91 29 100/72 (73) 98 105/60 8 23:59 96 Mechanical Ventilator 50 11/25/16 23:59 50 8 23:30 92 29 110/62 (78) 98 Mechanical Ventilator 50 1517 23:30 92 29 101/75 (76) 98 110/62 81517 23:15 95 29 (77) 98 119/62 11/25/16 23:00 102 15 138/116 (123) 96 Mechanical Ventilator 50 11/25/16 22:45 92 28 (75) 97 108/63 11/25/16 22:30 92 28 106/61 (76) 96 Mechanical Ventilator 50 11/25/16 22:30 92 28 100/75 (73) 96 106/61 11/25/16 22:15 92 28 (74) 95 106/61 11/25/16 22:00 93 28 102/58 (73) 95 Mechanical Ventilator 50 11/25/16 22:00 93 28 104/78 (70) 95 102/58 11/25/16 21:45 92 28 (80) 95 118/66 11/25/16 21:45 92 28 118/66 (83) 95 Mechanical Ventilator 50 11/25/16 21:30 97 28 114/64 (81) 96 Mechanical Ventilator 50 11/25/16 21:30 97 28 104/77 (78) 96 114/64 11/25/16 21:15 100 28 126/64 (84) 98 Mechanical Ventilator 50 11/25/16 21:00 106 28 157/97 (121) 99 201/93 11/25/16 21:00 106 28 201/93 (129) 99 Mechanical Ventilator 50 11/25/16 20:46 50 11/25/16 20:33 102 28 151/99 (120) 96 195/91 11/25/16 20:33 102 28 195/91 (125) 96 Mechanical Ventilator 50 11/25/16 20:30 100 28 145/89 (118) 94 15 20:30 100 28 145/89 (107) 94 Mechanical Ventilator 50 11/25/16 20:00 96 28 147/95 (120) 97 11/25/16 20:00 36.5 96 28 147/95 (112) 97 Mechanical Ventilator 100 11/25/16 20:00 50 11/25/16 20:00 97 Mechanical Ventilator 50 11/25/16 19:49 50 11/25/16 19:23 88 28 115/83 97 Mechanical Ventilator 11/25/16 18:25 90 28 102/77 100 11/25/16 17:59 93 28 110/80 100 Mechanical Ventilator 50 General Appearance: other (Intubated and sedated) Head: NORMOCEPHALIC, ATRAUMATIC Eyes: PERRLA (pinpoint), EOMI, SCLERAE NORMAL, CONJUNCTIVAE NORMAL ENT: other (ET tube and OG tube in place) Neck: NO TENDERNESS Respiratory: other (Coarse breath sounds bilaterally, no crackles, no wheezes) Cardiovasular: REGULAR RATE/RHYTHM, NORMAL S1S2, NO M/G/R Abdomen: NON TENDER, NORMAL BOWEL SOUNDS Genitourinary - Male: EXTERNAL GENITALIA NORMAL Edema: Bilateral LE (2+) Pulses: dorsalis pedis (R) (2+), dorsalis pedis (L) (2+) Neuro: other (Sedated) Psychiatric: other (unable to access) Diagnostics Labs Results Past 24 Hours Test 11/25/16 17:42 11/25/16 21:33 11/26/16 00:14 11/26/16 00:43 Range/Units Bedside Blood Gas pH (LAB) 7.18 7.21 7.28 7.35-7.45 Bedside Blood Gas pCO2 (LAB) 85 74 67 35-46 mmHg Bedside Blood Gas pO2 (LAB) 222 90 132 80-95 mmHg Bedside Blood Gas HCO3 (LAB) 31 30 32 19-24 meq/L Bedside Blood Gas Total CO2 34 32 34 24-31 mEq/l Bedside Blood Gas Base Excess (LAB) 3.0 2.0 5.0 -9-1.8 meq/L Bedside Blood Gas O2 Saturation 100.0 95.0 98.0 90-95 % Blood Gas Sample Site Art Line R Radial Jose Test NA NA Oxygen Delivery Device Ventilator Ventilator Bedside Oxygen Rate (breaths/min) 28 28 Bedside FiO2 50 50 % Blood Gas Tidal Volume 400 400 Blood Gas PEEP 10 10 Bedside Glucose 240 70-99 mg/dl Test 11/26/16 01:38 11/26/16 03:51 11/26/16 04:58 11/26/16 05:00 Range/Units Troponin I 0.034 0-0.045 ng/ml Procalcitonin 1.31 0-0.5 ng/ml Blood Gas Sample Site Art Line Art Line Bedside Blood Gas pH (LAB) 7.15 7.16 7.35-7.45 Bedside Blood Gas pCO2 (LAB) 90 95 35-46 mmHg Bedside Blood Gas pO2 (LAB) 128 339 80-95 mmHg Bedside Blood Gas HCO3 (LAB) 31 34 19-24 meq/L Bedside Blood Gas Total CO2 34 37 24-31 mEq/l Bedside Blood Gas Base Excess (LAB) 2.0 6.0 -9-1.8 meq/L Bedside Blood Gas O2 Saturation 98.0 100.0 90-95 % Jose Test NA NA Oxygen Delivery Device Ventilator Ventilator Bedside Oxygen Rate (breaths/min) 28 28 Bedside FiO2 40 100 % Blood Gas Tidal Volume 400 440 Blood Gas PEEP 10 10 White Blood Count 25.50 4.8-10.8 K/uL Red Blood Count 4.84 4.7-6.1 M/uL Hemoglobin 14.4 14.0-18.0 g/dL Hematocrit 43.3 42-52 % Mean Corpuscular Volume 89.5 80-100 fL Mean Corpuscular Hemoglobin 29.8 25-34 pg Mean Corpuscular Hemoglobin Concent 33.3 32-36 g/dl Platelet Count 302 130-400 K/uL Mean Platelet Volume 8.7 7.4-10.4 fL Neutrophils (%) (Auto) 95.9 % Lymphocytes (%) (Auto) 1.4 % Monocytes (%) (Auto) 2.2 % Eosinophils (%) (Auto) 0.0 % Basophils (%) (Auto) 0.0 % Neutrophils # (Auto) 24.46 1.4-6.5 K/uL Lymphocytes # (Auto) 0.35 1.2-3.4 K/uL Monocytes # (Auto) 0.56 0.11-0.59 K/uL Eosinophils # (Auto) 0.00 0-0.5 K/uL Basophils # (Auto) 0.01 0-0.2 K/uL RDW Standard Deviation 45.2 36.4-46.3 fL RDW Coefficient of Variation 13.7 11.5-14.5 % Immature Granulocyte % (Auto) 0.5 % Immature Granulocyte # (Auto) 0.12 0.00-0.02 K/uL Sodium Level 147 136-145 mmol/L Potassium Level 4.2 3.5-5.1 mmol/L Chloride Level 102 98-107 mmol/L Carbon Dioxide Level 42 21-32 mmol/L Anion Gap 3.0 3-11 mmol/L Blood Urea Nitrogen 10 7-18 mg/dl Creatinine 0.63 0.60-1.40 mg/dl Est Creatinine Clear Calc Drug Dose 131.2 ml/min Estimated GFR () 130.4 Estimated GFR (Non- 112.5 BUN/Creatinine Ratio 16.1 10-20 Random Glucose 224 70-99 mg/dl Calcium Level 7.9 8.5-10.1 mg/dl Phosphorus Level 3.7 2.5-4.9 mg/dl Magnesium Level 2.1 1.8-2.4 mg/dl Test 11/26/16 06:10 11/26/16 08:57 11/26/16 08:58 11/26/16 09:03 Range/Units Blood Gas Sample Site Art Line Art Line Bedside Blood Gas pH (LAB) 7.33 7.39 7.35-7.45 Bedside Blood Gas pCO2 (LAB) 67 55 35-46 mmHg Bedside Blood Gas pO2 (LAB) 183 74 80-95 mmHg Bedside Blood Gas HCO3 (LAB) 35 33 19-24 meq/L Bedside Blood Gas Total CO2 37 35 24-31 mEq/l Bedside Blood Gas Base Excess (LAB) 9.0 8.0 -9-1.8 meq/L Bedside Blood Gas O2 Saturation 99.0 94.0 90-95 % Jose Test NA NA Oxygen Delivery Device Ventilator Ventilator Bedside Oxygen Rate (breaths/min) 30 30 Bedside FiO2 100 30 % Blood Gas Tidal Volume 440 440 Blood Gas PEEP 10 10 Blood Gas Minute Ventilation 12.5 Troponin I 0.021 0-0.045 ng/ml Bedside Glucose (other) 204 70-99 mg/dl Test 11/26/16 11:23 11/26/16 12:47 11/26/16 13:21 11/26/16 14:40 Range/Units Bedside Glucose (other) 101 45 273 193 70-99 mg/dl Test 11/26/16 16:02 11/26/16 16:53 11/26/16 16:56 Range/Units Bedside Glucose 146 155 70-99 mg/dl Microbiology Results 11/25/16 Gram Stain - Final, Resulted 11/25/16 Bronchoalveolar Lavage Culture - Preliminary, Resulted Gram Negative Bacilli 11/25/16 Fungal Smear - Final, Resulted 11/25/16 Fungal Culture, Resulted Pending 11/25/16 Acid Fast Stain, Received Pending 11/25/16 Mycobacterial Culture, Received Pending 11/25/16 Gram Stain - Final, Resulted 11/25/16 Bronchoalveolar Lavage Culture - Preliminary, Resulted Gram Negative Bacilli Diagnostic Radiology CXR 11/26/2016 IMPRESSION: 1. Endotracheal tube 73 mm above the td 2. Interstitial thickening. 3. No evidence of lobar consolidation CTA chest 11/25/2016 IMPRESSION: 1. No evidence of acute pulmonary embolism 2. Multiple bilateral lung cysts, slightly progressive when compared the prior study 3. Scattered bilateral pulmonary nodules. These are statistically inflammatory/infectious. A 1-2 month follow-up study subsequent to antibiotic therapy is recommended. 12/27/2015 IMPRESSION: 1. No CT evidence of acute pulmonary embolism 2. No evidence of pathologic adenopathy 3. Multiple lung cysts, a finding which is progressive. This has a wide differential, but certainly lymphocytic interstitial pneumonitis must be considered 4. Right lung pulmonary nodules, the largest of which measures 12 mm. Nonemergent pelvic consultation is recommended. Impression Assessment and Plan Acute on chronic hypoxic respiratory failure Vent dependent respiratory failure Severe COPD Bronchiectasis Pneumonia Mr. Jordan has had progressive decline in his respiratory status over the last several years. Despite his young age and nonsmoking history he has very severe obstructive lung disease. He does have exposures to other gases and noxious fumes which may have contributed to his symptoms. Alpha anti-trypsin is negative on previous work up. Biopsy confirmed emphysematous changes. He does have bronchiectasis on imaging with mucous plugging, which may be secondary to recurrent infections in childhood, but most recent imaging shows a nodularity pattern as well. The differential still does include LIP, Brimson-Barry Juan Daniel, Langerhans cell histiocytosis. I have had long discussions today with, Dr. Garcia, Hospitalist, Dr. Richards, regulation supervisor and ICU PA Beck Villagran and Dr. Miranda, outpatient manager track regarding his care. At the present time, preliminary gram stain is growing gram negative bacilli. I would treat this as pneumonia. Due to his chronic steroid use and decompensated respiratory state I would continue to cover for MRSA and Pseudomonas. AFB is still pending and ID is on board. Continue with IV corticosteroid. His mechanical ventilation is being managed by Dr. Richards. Respiratory acidosis has improved with current vent settings. In regards to his transplantation at [facility], Dr. Miranda,who was in contact with Dr. Ashley Gottlieb at [facility], has informed me that despite his current infections he still remains a possible candidate for lung transplantation, once his infections are treated and gets over this critical illness. He is currently not on the list at this time. He will be re-evaluated at [facility] pending his discharge. His overall prognosis at this time is guarded. I will leave all other care to the management of the ICU team. I appreciate the consult. Advanced Directives Living Will: none Durable Power of Reconciling Clerk: none
[2016-11-27] VITALS (22 sets, daily range): BP systolic 82–195; BP diastolic 54–100; PULSE 54–102; TEMP 36.4–37.1; O2SAT 30–99
[2016-11-27] MEDS: FENTANYL CITRATE INJ 50 MCG/1 ML 2 ML VIAL IV PRN ×5 (01:03→21:50)
[2016-11-27] MEDS: RANITIDINE IV 50 MG in DEXTROSE 5% 100ML 100 ML IV SCH ×3 (02:31→18:12)
[2016-11-27] MEDS: IPRATROPIUM BROMIDE HFA INHALER INH SCH ×6 (02:50→23:13)
[2016-11-27] MEDS: ALBUTEROL HFA 8 GM INHALER INH SCH ×6 (02:50→23:13)
[2016-11-27] MEDS: NORMOSOL R 1,000 ML IV SCH ×3 (04:46→23:47)
--- NOTE | 2016-11-27 05:17 | Procedure Note ---
Procedure Note Date of Service Nov 25, 2016. Procedure Note Procedure date: 11/25/2016 Procedure: fiberoptic bronchoscopy Pre-procedure Diagnosis: Street of chronic QUOC infection, acute on chronic respiratory failure Post-procedure Diagnosis: same as above Prior to Procedure: Informed Consent: The risks, benefits, indications, potential complications, and alternatives were explained to the patient/family, patient's mother, and informed consent obtained. Attending Staff: Laron Richards DO Resident/APC: Johny Mcbride Skin Prep: Not applicable Anesthesia: 10 ML's of 1% lidocaine, Versed and fentanyl Indications: Patient is a 51-year-old male with a significant history for end- stage COPD who is being worked up by [facility] for lung transplantation. He has a history of QUOC who has not completed a full treatment course.. The identity of the patient was confirmed and a bedside time out was performed. Description of Procedure: Fiberoptic bronchoscopy was performed via endotracheal tube. Bronchioalveolar lavage of the right middle and lower lobes were performed. Findings included: Significant dynamic airway collapse during exhalation, minimal secretions were obtained from the right middle lobe however there is significant collapse of the airways with lavage. There were minimal amounts of thick mucopurulent secretions of the right lower lobe. Complications: None Specimens: Bronchial washings sent for culture and Gram stain, cytology, fungal elements, and AFB stain and culture, from both the right middle and right lower lobes Estimated blood loss: Zero
[2016-11-27 06:05] LABS: HEMATOCRIT 39.8 % (42-52); MEAN CORPUSCULAR HEMOGLOBIN 28.7 pg (25-34); MEAN CORPUSCULAR HGB CONC 31.9 g/dl (32-36); MEAN PLATELET VOLUME 8.9 fL (7.4-10.4); PLATELET COUNT 296 K/uL (130-400); RED BLOOD COUNT 4.42 M/uL (4.7-6.1); WHITE BLOOD COUNT 28.88 K/uL (4.8-10.8)
[2016-11-27] MEDS: METHYLPREDNISOLONE IV 40 MG in SYRINGE 0 ML IV SCH ×3 (06:07→21:26)
[2016-11-27] MEDS: ENOXAPARIN 40 MG/0.4 ML SYR SQ SCH (06:07)
[2016-11-27] MEDS: METRONIDAZOLE / NSS 500 MG in PREMIXED NSS 100 ML IV SCH (06:07)
[2016-11-27 06:08] LABS: ISTAT ARTERIAL BLOOD GAS HCO3 35 meq/L (19-24); ISTAT ARTERIAL BLOOD GAS PCO2 56 mmHg (35-46); ISTAT ARTERIAL BLOOD GAS PO2 77 mmHg (80-95); ISTAT CARBON DIOXIDE 36 mEq/l (24-31); ISTAT HEMATOCRIT 36 % (42-52); ISTAT HEMOGLOBIN 12.2 g/dl (14.0-18.0); ISTAT SODIUM 138 mEq/L (135-144)
[2016-11-27 06:38] LABS: BUN/CREATININE RATIO 25.3 (10-20); CALCIUM 8.2 mg/dl (8.5-10.1); CREATININE 0.49 mg/dl (0.60-1.40); MAGNESIUM 2.5 mg/dl (1.8-2.4); POTASSIUM 3.8 mmol/L (3.5-5.1)
[2016-11-27 06:39] LABS: BASO ABS # 0.01 K/uL (0-0.2); COMPLETE YES; IG% 0.5 %; LYMPH % 2.2 %; LYMPH ABS # 0.63 K/uL (1.2-3.4); MONO % 0.7 %; NEUT % 96.6 %; PHOSPHORUS 2.6 mg/dl (2.5-4.9)
--- NOTE | 2016-11-27 07:11 | DIAGNOSTIC IMAGING REPORT ---
CHEST ONE VIEW PORTABLE CLINICAL HISTORY: intubated tube position COMPARISON STUDY: 11/26/2016 FINDINGS: Endotracheal tube 5 cm above the td. Prominent pulmonary vasculature. Diaphragms are smooth. Central catheters superior vena cava. IMPRESSION: Endotracheal tube 5 cm above the td. Prominent pulmonary vasculature. No focal infiltrate. The above report was generated using voice recognition software. It may contain grammatical, syntax or spelling errors. Electronically signed by: Neal Bledsoe M.D. 11/27/2016 7:10 AM Dictated Date/Time: 11/27/2016 7:09 AM
--- NOTE | 2016-11-27 07:58 | Critical Care Progress Note ---
Critical Care Progress Note Date of Service Nov 27, 2016. ICU Day ICU Day Number: [address] Richards Subjective Patient is a 51-year-old male admitted for respiratory failure. He remained on the ventilator throughout the night 2/2 continued need for support. No noted events throughout the night. Patient's daughter and mother should present to the ICU as discussed yesterday for conversation regarding continued care. Patient unable to contribute to HPI 2/2 current state of intubation with sedation. Objective VITAL SIGNS - Vital signs and nursing notes were reviewed. GENERAL - 51-year-old male appearing his stated age. Intubated and sedated. MOUTH/OROPHARYNX - Endotracheal tube in place. Without perioral cyanosis. NECK - Neck with FROM. Supple to palpation. LUNGS - Intubated. Chest wall symmetric without accessory muscle use. Breath sounds decreased throughout. CARDIAC - RRR with S1/S2. No murmur, rubs, or gallops appreciated. ABDOMEN - Abdominal contour flat and without pulsations or visible masses. BS normoactive all four quadrants. No tenderness, palpable masses, hepatosplenomegaly, or ascites noted. EXTREMITIES - No clubbing or peripheral cyanosis. NEUROLOGIC/PSYCHIATRIC - Unable to assess secondary to sedation. Current SOFA Score SOFA Score Response (Comments) Value PaO2/FiO2 (mmHg) < 300 2 SaO2 / FIO2 221 - 301 1 Platelets (x10) > 150 0 Bilirubin (mg/dL) < 1.2 0 Dex Coma Score 6 - 9 3 Level of Hypotension No Hypotension 0 Creatinine (mg/dL) < 1.2 0 Total 6 Previous SOFA Scores 6 Assessment & Plan (1) Respiratory distress (2) Compensated respiratory acidosis (3) QUOC (mycobacterium avium-intracellulare) (4) DM2 (diabetes mellitus, type 2) (5) C. difficile diarrhea (6) COPD, very severe (7) GERD (gastroesophageal reflux disease) (8) HTN (hypertension) (9) Depressive disorder Reason Critically Ill: 51-year-old male in acute hypercapnic respiratory distress requiring intubation and continued sedation. Neuro - * CAM ICU: POSITIVE * RASS: -3 * Continue sedation with Versed and occasional for all as needed. * After conversation with family this morning, will convert to Precedex drip to help wean sedation for attempt at extubation. Cardiac - * Elevated Troponin: * Have since normalized (0.021). * QTc Prolongation of 475 secondary to Medication (Levaquin). * Echo Report: * -- Conclusions -- * The left ventricular wall motion is normal. * Left ventricular systolic function is normal. * The LV Ejection Fraction = 55-60%. * The right ventricle is mildly dilated. * The right ventricular systolic function is mild to moderately reduced. * Dilated inferior vena cava with reduced collapsability with sniff indicates an elevated right atrial pressure of 15 mmHg * There is no significant tricuspid regurgitation, and therefore the pulmonary artery systolic pressure cannot be calculated. * The aortic valve was not visualized sufficiently to determine the number of cusps. * The prior echocardiogram report dated 10/05/10, described possible bicuspid AV. * There is no significant aortic regurgitation. * Aortic stenosis is absent. * Hypertension * Increased Diltiazem dose to 60 mg QID. * Will avoid BBs at this point. * Will continue to monitor on telemetry. Respiratory - * Acute on Chronic Hypercapnic Respiratory Failure. * Remains intubated * PRVC - 440/30/8/30% * Will continue to treat COPD Exacerbation: * Solu-Medrol 40mp IV TID * DuoNebs q3h * Bronch cultures - Gram NEGATIVE Bacilli, E Coli, Staph Aureus, Strep Pneumoniae. * Will treat with PRIMAXIN for the next 14 days (of note, PICC line in place). Due to local pseudomonal sensitivities and lack of multidrug resistant pseudomonal infections in the community, we will not dual cover for pseudomonas at this time. * Continue to await further sensitivities. Will adjust antibiotic regime as needed. * QUOC * Bronch washings pending. * Will discontinue Levaquin at this point. * C. diff - Continue Vancomycin/Flagyl combination. * Will titrate O2 to 88-92% w/ PCO2 in the 50s. * Continue to monitor ABGs closely. GI - * C. diff infection - See ID section. * Trickle feeds continue via OG - tolerating well. * Continue Zantac IV q8 for GI prophylaxis. Will reassess when extubated. * Senokot added as no BM for >24 hours. RENAL/LYTES - * Will monitor Lytes daily - Will correct appropriately. * Decreased Normosol to 75 mL/hr. * 4563 mL Positive Cumulatively. - * Villanueva Catheter in place for strict I&Os. ENDO - * T2DM. * ISS with Lantus. * Transient episode of hypoglycemia. No further issues overnight. HEME - * Stable H&H. * Will monitor daily. ID - * QUOC infection in the setting of possible transplant patient. * Will treat with Linezolid and Levaquin per Dr. Miranda's recommendation. * This infection will need to be treated to eradication prior to the patient being eligible for transplantation. * C. Diff infection. * Continue Vancomycin/Flagyl. * Appreciate ID consultation. * Procalcitonin decreasing. LINES/IV ACCESS - * PIVs intact. * PICC line in place in LUE. * RIGHT Radial Artery Line Intact. * OG in place. DVT PROPHYLAXIS - * Lovenox 40mg sq daily. We had an extensive discussion with the patient's family. His daughter, Andreea , was present for this conversation. She explains that currently, her mother ( the patient's ex-) is the POA. The ex- did present to the hospital and deferred her decision-making capacity to her daughter Andreea. The patient's mother is present and is in agreement with the daughter making decisions. There was no paperwork in place at this time. Andreea will be making any further decisions for the patient's care. We had a lengthy conversation regarding the patient's wishes. At this point, it was felt that the patient would not wish to undergo repeat intubation or insertion of tracheostomy. We had a discussion regarding continued treatment with aggressive antibiotics as well as attempting to maximize the patient's baseline poor capacity. They were in agreement with treatment plan outlined above. All questions were addressed and answered appropriately. Case management and palliative care were crucial in decision making process. At this time, we will attempt to wean the patient on Precedex, however this is unlikely today. We will attempt to achieve ideal conditions given patient's lung disease for extubation as this will only be attempted one time. I have personally spent 60 minutes of critical care time in the direct management of this patient. This is a life/limb threatening event. This includes time spent evaluating patient, direct bedside care, chart review, placing orders, interpretation of diagnostic studies, discussion with consultants, patient, and family members, as well as other required patient management activities. This time is exclusive of all separately billable procedures, and teaching time and separate from and in addition to any other critical care service time. Thank you for this consultation allow us to be part of this patient's care. Please refer to my attending physician's documentation for any further recommendations. I have personally evaluated and examined this patient. I agree with assessment and plan of Cedrick Villagran PA-C. Extensive family discussion as noted above. Our current goal is to extubate the patient and we will not re-intubate the patient, therefore we are trying to achieve the best possible conditions for success of liberation for mechanical ventilation. This is discussed with the patient's eldest daughter, mother, and ex- who is legally from the patient. The ex- does not want to be involved in the ultimate medical decisions. Consults & Procedures Consultants: Dr. Villanueva - Pulmonology Dr. Lobo - Infectious Disease Procedures: PICC - GURINDER Banks Line - RUE Echo Pending. Data Medications: Current Inpatient Medications Medications (Trade) Dose Ordered Sig/Abigail Route Start Time Stop Time Status Last Admin Dose Admin Ioversol (Optiray 320) 100 ml UD PRN IV 11/25/16 15:45 11/29/16 15:44 Propofol (Diprivan Iv Emulsion 100ml Vial) 1 dose UD PRN IV 11/25/16 16:00 11/28/16 15:59 11/26/16 06:04 1 DOSE Enoxaparin Sodium (Lovenox Inj) 40 mg Q24H SQ 11/26/16 06:00 12/26/16 05:59 11/27/16 06:07 40 MG Vancomycin HCl (Vancomycin Oral Soln) 125 mg QID PO 11/25/16 22:00 12/09/16 21:59 11/26/16 21:34 125 MG Methylprednisolone Sodium Succinate 40 mg/Syringe 0.64 ml @ 1.5 mls/min Q8H IV 11/25/16 22:00 12/25/16 21:59 11/27/16 06:07 1.5 MLS/MIN Metronidazole 500 mg/Prmx 100 ml @ 100 mls/hr Q8H IV 11/25/16 22:00 12/09/16 21:59 11/27/16 06:07 100 MLS/HR Linezolid 600 mg/ Prmx 300 ml @ 300 mls/hr Q12H IV 11/25/16 23:00 12/02/16 22:59 11/26/16 22:17 300 MLS/HR Glucose (Glucose 40% Gel) 15-30 GRAMS 15 GRAMS... UD PRN PO 11/26/16 01:00 12/26/16 00:59 Glucose (Glucose Chew Tab) 4-8 Tablets 4 Tabl... UD PRN PO 11/26/16 01:00 12/26/16 00:59 Dextrose (Dextrose 50% 50ML Syringe) 25-50ML OF 50% DW IV FOR... UD PRN IV 11/26/16 01:00 12/26/16 00:59 Glucagon (Glucagon Inj) 1 mg UD PRN SQ 11/26/16 01:00 12/26/16 00:59 Miscellaneous Information (Consult Glycemic Management Pharmacy) 1 ea UD PRN N/A 11/26/16 01:23 12/26/16 01:22 Ranitidine HCl 50 mg/Dextrose 102 ml @ 200 mls/hr Q8H IV 11/26/16 02:00 12/26/16 01:59 11/27/16 02:31 200 MLS/HR Albuterol (Ventolin Hfa Inhaler) 4 puffs Q4R INH 11/26/16 04:00 12/26/16 03:59 11/27/16 07:00 4 PUFFS Ipratropium Breese (Atrovent Hfa Inhaler) 4 puffs Q4R INH 11/26/16 04:00 12/26/16 03:59 11/27/16 07:00 4 PUFFS Insulin Human Regular 250 units/ Sodium Chloride 252.5 ml @ 0 mls/hr DAILY@1130 IV 11/26/16 07:45 12/26/16 07:44 11/26/16 07:57 2.9 MLS/HR Insulin Aspart (novoLOG ASPART) SLIDING SCALE HS SC 11/26/16 08:00 12/26/16 07:59 Diltiazem HCl (Cardizem Tab) 30 mg QID PO 11/26/16 09:00 12/26/16 08:59 11/26/16 21:33 30 MG Parenteral Electrolyte Solution 1,000 ml @ 100 mls/hr Q10H IV 11/26/16 08:30 12/26/16 08:29 11/27/16 04:46 100 MLS/HR Levofloxacin 750 mg/Prmx 150 ml @ 100 mls/hr Q24H IV 11/26/16 16:00 12/03/16 15:59 11/26/16 16:15 100 MLS/HR Midazolam HCl 250 ml @ 0 mls/hr Q0M PRN IV 11/26/16 09:00 12/26/16 08:59 11/27/16 03:57 16 MLS/HR Enteral Nutritional Formula (Peptamen Intense VHP) 1,000 ml UD PRN OG 11/26/16 10:00 12/26/16 09:59 11/26/16 11:04 1,000 ML Fentanyl Citrate (Fentanyl Inj) 100 mcg Q1H PRN IV 11/26/16 13:15 12/10/16 02:14 11/27/16 04:39 25 MCG Heparin Sodium (Porcine) (Heparin 10 Unit/ ml 5 ml Flush) 5 ml PRN PRN FLUSH 11/26/16 13:00 12/26/16 12:59 Vital Signs: Date Time Temp Pulse Resp B/P (MAP) Pulse Ox O2 Delivery O2 Flow Rate FiO2 11/27/16 07:00 30 11/27/16 06:01 30 11/27/16 06:00 84 30 112/74 (87) 95 Mechanical Ventilator 30 11/27/16 06:00 84 30 112/74 (84) 95 105/66 11/27/16 05:00 102 28 (128) 88 195/94 11/27/16 04:00 30 11/27/16 04:00 37.1 92 25 171/89 (116) 94 Mechanical Ventilator 30 11/27/16 04:00 92 25 158/99 (119) 94 171/89 11/27/16 04:00 30 Mechanical Ventilator 11/27/16 03:00 72 30 (91) 97/84 11/27/16 02:50 30 11/27/16 02:00 64 30 87/59 (68) 99 Mechanical Ventilator 30 11/27/16 02:00 64 30 83/60 (67) 99 87/59 11/27/16 01:00 97 30 161/93 (106) 91 186/100 11/27/16 00:01 37.0 70 30 82/54 (63) 96 Mechanical Ventilator 30 11/27/16 00:01 70 30 (62) 96 82/54 11/26/16 23:59 30 Mechanical Ventilator 11/26/16 23:59 30 11/26/16 23:38 30 11/26/16 23:00 92 30 125/79 (98) 95 42/39 11/26/16 22:00 101 29 181/85 (117) 91 11/26/16 20:36 83 30 139/78 (98) 98 11/26/16 20:22 30 11/26/16 20:00 40 11/26/16 20:00 97 Mechanical Ventilator 40 11/26/16 20:00 37.1 62 30 81/56 (64) 96 Mechanical Ventilator 40 11/26/16 18:35 30 11/26/16 18:00 67 30 91/60 (70) 97 Mechanical Ventilator 40 11/26/16 17:00 76 30 87/64 (72) 92 11/26/16 16:00 92 Mechanical Ventilator 40 11/26/16 16:00 36.9 98 30 173/81 (111) 92 Mechanical Ventilator 40 11/26/16 16:00 40 11/26/16 14:20 30 11/26/16 14:00 36.4 97 17 103/73 (72) 94 102/58 11/26/16 14:00 74 24 84/56 (61) 96 21/20 11/26/16 13:45 79 24 (64) 95 97/51 11/26/16 13:30 95 20 143/85 (108) 95 142/83 11/26/16 13:15 82 24 (72) 95 113/57 11/26/16 13:00 85 97/63 (70) 90 105/55 11/26/16 13:00 36.4 97 17 103/73 (72) 94 102/58 11/26/16 12:30 97 103/73 (72) 94 102/58 11/26/16 12:00 95 Mechanical Ventilator 40 11/26/16 12:00 105 17 146/81 (113) 92 180/82 11/26/16 11:36 30 11/26/16 11:30 103 19 136/90 (105) 93 168/76 11/26/16 11:24 99 18 131/82 (96) 152/71 11/26/16 11:00 190 (47) 93 62/41 11/26/16 10:55 40 11/26/16 10:30 87 (46) 99 60/40 11/26/16 10:00 95 (74) 100 91/66 11/26/16 09:44 Mechanical Ventilator 40 11/26/16 09:30 97 30 (86) 92 112/75 11/26/16 09:00 93 30 105/79 (82) 100 113/69 11/26/16 08:30 93 30 107/71 (81) 98 111/69 11/26/16 08:00 40 11/26/16 08:00 92 30 97/75 (80) 98 110/68 11/26/16 08:00 97 Mechanical Ventilator 40 11/26/16 07:57 30 Laboratory Results: Last 24 Hours Test 11/26/16 08:57 11/26/16 08:58 11/26/16 09:03 11/26/16 11:23 Blood Gas Sample Site Art Line Bedside Blood Gas pH (LAB) 7.39 Bedside Blood Gas pCO2 (LAB) 55 mmHg Bedside Blood Gas pO2 (LAB) 74 mmHg Bedside Blood Gas HCO3 (LAB) 33 meq/L Bedside Blood Gas Total CO2 35 mEq/l Bedside Blood Gas Base Excess (LAB) 8.0 meq/L Bedside Blood Gas O2 Saturation 94.0 % Jose Test NA Oxygen Delivery Device Ventilator Bedside Oxygen Rate (breaths/min) 30 Blood Gas Minute Ventilation 12.5 Bedside FiO2 30 % Blood Gas Tidal Volume 440 Blood Gas PEEP 10 Troponin I 0.021 ng/ml Bedside Glucose (other) 204 mg/dl 101 mg/dl Test 11/26/16 12:47 11/26/16 13:21 11/26/16 14:40 11/26/16 16:02 Bedside Glucose (other) 45 mg/dl 273 mg/dl 193 mg/dl Bedside Glucose 146 mg/dl Test 11/26/16 16:53 11/26/16 16:56 11/26/16 18:08 11/26/16 19:10 Troponin I 0.016 ng/ml Bedside Glucose 155 mg/dl 172 mg/dl 148 mg/dl Test 11/26/16 21:02 11/26/16 22:57 11/27/16 01:09 11/27/16 03:20 Bedside Glucose 148 mg/dl 136 mg/dl 126 mg/dl 122 mg/dl Test 11/27/16 05:39 11/27/16 05:57 White Blood Count 28.88 K/uL Red Blood Count 4.42 M/uL Hemoglobin 12.7 g/dL Hematocrit 39.8 % Mean Corpuscular Volume 90.0 fL Mean Corpuscular Hemoglobin 28.7 pg Mean Corpuscular Hemoglobin Concent 31.9 g/dl Platelet Count 296 K/uL Mean Platelet Volume 8.9 fL Neutrophils (%) (Auto) 96.6 % Lymphocytes (%) (Auto) 2.2 % Monocytes (%) (Auto) 0.7 % Eosinophils (%) (Auto) 0.0 % Basophils (%) (Auto) 0.0 % Neutrophils # (Auto) 27.89 K/uL Lymphocytes # (Auto) 0.63 K/uL Monocytes # (Auto) 0.20 K/uL Eosinophils # (Auto) 0.01 K/uL Basophils # (Auto) 0.01 K/uL RDW Standard Deviation 45.2 fL RDW Coefficient of Variation 13.8 % Immature Granulocyte % (Auto) 0.5 % Immature Granulocyte # (Auto) 0.14 K/uL Sodium Level 140 mmol/L Potassium Level 3.8 mmol/L Chloride Level 102 mmol/L Carbon Dioxide Level 35 mmol/L Anion Gap 3.0 mmol/L Blood Urea Nitrogen 12 mg/dl Creatinine 0.49 mg/dl Est Creatinine Clear Calc Drug Dose 168.7 ml/min Estimated GFR () 144.6 Estimated GFR (Non- 124.8 BUN/Creatinine Ratio 25.3 Random Glucose 153 mg/dl Calcium Level 8.2 mg/dl Phosphorus Level 2.6 mg/dl Magnesium Level 2.5 mg/dl Procalcitonin 0.56 ng/ml Bedside Hemoglobin 12.2 g/dl Bedside Hematocrit 36 % Bedside Blood Gas pH (LAB) 7.40 Bedside Blood Gas pCO2 (LAB) 56 mmHg Bedside Blood Gas pO2 (LAB) 77 mmHg Bedside Blood Gas HCO3 (LAB) 35 meq/L Bedside Blood Gas Total CO2 36 mEq/l Bedside Blood Gas Base Excess (LAB) 10.0 meq/L Bedside Blood Gas O2 Saturation 95.0 % Bedside Sodium 138 mEq/L Bedside Potassium 3.8 mEq/L
[2016-11-27 07:59] LABS: ESTIMATED AVERAGE GLUCOSE 163 mg/dl; HA1C FLAG Normal (Normal)
[2016-11-27] MEDS: INSULIN ASPART 100 UNITS/ML 3 ML PEN SC SCH ×4 (08:00→21:00)
[2016-11-27] MEDS: VANCOMYCIN HCL 125 MG/2.5ML SOLN PO SCH ×4 (08:02→21:25)
[2016-11-27] MEDS: DILTIAZEM HCL 30 MG TAB PO SCH (08:03)
--- NOTE | 2016-11-27 08:49 | Progress Note ---
Internal Med Progress Note Date of Service: Nov 27, 2016. Provider Documentation: SUBJECTIVE: Seen and examined at bedside. Remains Intubated No diarrhea, Afebrile On trickle tube feeds No family at bedside May consider weaning trial per staff OBJECTIVE: Vital Signs-as noted below Physical Exam: General Appearance:Moderately built and nourished, sedated and intubated Head: normocephalic, Atraumatic Eyes: normal inspection, Anicteric Respiratory/Chest: Decreased breath sounds, B/L wheezing Cardiovascular: S1, S2, +Tachycardia, No murmur Abdomen/GI:Firm, Non tender, Bowel sounds diminished Extremities/Musculoskelatal:normal inspection, +edema Neurologic/Psych:Sedated and Intubated Skin: normal color, warm Lab data as noted below. ASSESSMENT & PLAN: Acute on chronic hypoxic and hypercapnic respiratory failure H/O Steroid dependent COPD Bronchiectasis H/O QUOC follows with as outpatient (Treated with zithromycin and ethambutol) S/P wedge resection of R middle, upper and lower lobes by Dr. Andreas Estrella on 01/02/16 S/P Bronchoscopy on 11/25/16 CTA: negative for PE. Showed multiple b/l lung cysts and pulmonary nodules likely infectious process Continue IV solu-medrol, Bronchodilators IV antibiotics: Zyvox, Levaquin. also on Vanco and IV flagyl Bronchial washings studies: Gram negative bacilli Blood/Urine culture: No growth to date AFB pending Procalcitonin trending down MRSA screen negative Vent management per ICU team Also follows with Dr. Miranda and [facility] for transplant evaluation Appreciate Pulmonology, ID Input Prognosis is guarded Needs reevaluation at [facility], for possible lung transplantation upon discharge QUOC C. diff colitis second occurrence diagnosed 11/12: On vancomycin taper as outpatient Continue PO vanco and IV flagyl Appreciate ID Input withholding QUOC therapy pending bronchoscopy results Abdomen firm: check KUB DM II A1C: 9.3 07/2016 hold oral agents SSI, Accu checks HTN metoprolol on hold On Cardizem monitor Hypomagnesemia: Resolved Monitor DVT Px: SQ Lovenox Code Status: DNR PROCEDURES: CTA: 1. No evidence of acute pulmonary embolism 2. Multiple bilateral lung cysts, slightly progressive when compared the prior study 3. Scattered bilateral pulmonary nodules. These are statistically inflammatory/infectious. A 1-2 month follow-up study subsequent to antibiotic therapy is recommended. ECHO: * The left ventricular wall motion is normal. * Left ventricular systolic function is normal. * The LV Ejection Fraction = 55-60%. * The right ventricle is mildly dilated. * The right ventricular systolic function is mild to moderately reduced. * Dilated inferior vena cava with reduced collapsability with sniff indicates an elevated right atrial pressure of 15 mmHg * There is no significant tricuspid regurgitation, and therefore the pulmonary artery systolic pressure cannot be calculated. * The aortic valve was not visualized sufficiently to determine the number of cusps. * The prior echocardiogram report dated 10/05/10, described possible bicuspid AV. * There is no significant aortic regurgitation. * Aortic stenosis is absent. Vital Signs: Date Time Temp Pulse Resp B/P (MAP) Pulse Ox O2 Delivery O2 Flow Rate FiO2 11/27/16 07:00 30 11/27/16 06:01 30 11/27/16 06:00 84 30 112/74 (87) 95 Mechanical Ventilator 30 11/27/16 06:00 84 30 112/74 (84) 95 105/66 11/27/16 05:00 102 28 (128) 88 195/94 11/27/16 04:00 30 11/27/16 04:00 37.1 92 25 171/89 (116) 94 Mechanical Ventilator 30 11/27/16 04:00 92 25 158/99 (119) 94 171/89 11/27/16 04:00 30 Mechanical Ventilator 11/27/16 03:00 72 30 (91) 97/84 11/27/16 02:50 30 11/27/16 02:00 64 30 87/59 (68) 99 Mechanical Ventilator 30 11/27/16 02:00 64 30 83/60 (67) 99 87/59 11/27/16 01:00 97 30 161/93 (106) 91 186/100 11/27/16 00:01 37.0 70 30 82/54 (63) 96 Mechanical Ventilator 30 11/27/16 00:01 70 30 (62) 96 82/54 11/26/16 23:59 30 Mechanical Ventilator 11/26/16 23:59 30 11/26/16 23:38 30 11/26/16 23:00 92 30 125/79 (98) 95 42/39 11/26/16 22:00 101 29 181/85 (117) 91 11/26/16 20:36 83 30 139/78 (98) 98 11/26/16 20:22 30 11/26/16 20:00 40 11/26/16 20:00 97 Mechanical Ventilator 40 11/26/16 20:00 37.1 62 30 81/56 (64) 96 Mechanical Ventilator 40 11/26/16 18:35 30 11/26/16 18:00 67 30 91/60 (70) 97 Mechanical Ventilator 40 11/26/16 17:00 76 30 87/64 (72) 92 11/26/16 16:00 92 Mechanical Ventilator 40 11/26/16 16:00 36.9 98 30 173/81 (111) 92 Mechanical Ventilator 40 11/26/16 16:00 40 11/26/16 14:20 30 11/26/16 14:00 36.4 97 17 103/73 (72) 94 102/58 11/26/16 14:00 74 24 84/56 (61) 96 21/20 11/26/16 13:45 79 24 (64) 95 97/51 11/26/16 13:30 95 20 143/85 (108) 95 142/83 11/26/16 13:15 82 24 (72) 95 113/57 11/26/16 13:00 85 97/63 (70) 90 105/55 11/26/16 13:00 36.4 97 17 103/73 (72) 94 102/58 11/26/16 12:30 97 103/73 (72) 94 102/58 11/26/16 12:00 95 Mechanical Ventilator 40 11/26/16 12:00 105 17 146/81 (113) 92 180/82 11/26/16 11:36 30 11/26/16 11:30 103 19 136/90 (105) 93 168/76 11/26/16 11:24 99 18 131/82 (96) 152/71 11/26/16 11:00 190 (47) 93 62/41 11/26/16 10:55 40 11/26/16 10:30 87 (46) 99 60/40 11/26/16 10:00 95 (74) 100 91/66 Lab Results: Results Past 24 Hours Test 11/26/16 11:23 11/26/16 12:47 11/26/16 13:21 11/26/16 14:40 Range/Units Bedside Glucose (other) 101 45 273 193 70-99 mg/dl Test 11/26/16 16:02 11/26/16 16:53 11/26/16 16:56 11/26/16 18:08 Range/Units Bedside Glucose 146 155 172 70-99 mg/dl Troponin I 0.016 0-0.045 ng/ml Test 11/26/16 19:10 11/26/16 21:02 11/26/16 22:57 11/27/16 01:09 Range/Units Bedside Glucose 148 148 136 126 70-99 mg/dl Test 11/27/16 03:20 11/27/16 05:39 11/27/16 05:57 11/27/16 07:55 Range/Units Bedside Glucose 122 112 70-99 mg/dl White Blood Count 28.88 4.8-10.8 K/uL Red Blood Count 4.42 4.7-6.1 M/uL Hemoglobin 12.7 14.0-18.0 g/dL Hematocrit 39.8 42-52 % Mean Corpuscular Volume 90.0 80-100 fL Mean Corpuscular Hemoglobin 28.7 25-34 pg Mean Corpuscular Hemoglobin Concent 31.9 32-36 g/dl Platelet Count 296 130-400 K/uL Mean Platelet Volume 8.9 7.4-10.4 fL Neutrophils (%) (Auto) 96.6 % Lymphocytes (%) (Auto) 2.2 % Monocytes (%) (Auto) 0.7 % Eosinophils (%) (Auto) 0.0 % Basophils (%) (Auto) 0.0 % Neutrophils # (Auto) 27.89 1.4-6.5 K/uL Lymphocytes # (Auto) 0.63 1.2-3.4 K/uL Monocytes # (Auto) 0.20 0.11-0.59 K/uL Eosinophils # (Auto) 0.01 0-0.5 K/uL Basophils # (Auto) 0.01 0-0.2 K/uL RDW Standard Deviation 45.2 36.4-46.3 fL RDW Coefficient of Variation 13.8 11.5-14.5 % Immature Granulocyte % (Auto) 0.5 % Immature Granulocyte # (Auto) 0.14 0.00-0.02 K/uL Sodium Level 140 136-145 mmol/L Potassium Level 3.8 3.5-5.1 mmol/L Chloride Level 102 98-107 mmol/L Carbon Dioxide Level 35 21-32 mmol/L Anion Gap 3.0 3-11 mmol/L Blood Urea Nitrogen 12 7-18 mg/dl Creatinine 0.49 0.60-1.40 mg/dl Est Creatinine Clear Calc Drug Dose 168.7 ml/min Estimated GFR () 144.6 Estimated GFR (Non- 124.8 BUN/Creatinine Ratio 25.3 10-20 Random Glucose 153 70-99 mg/dl Estimated Average Glucose 163 mg/dl Hemoglobin A1c 7.3 4.5-5.6 % Calcium Level 8.2 8.5-10.1 mg/dl Phosphorus Level 2.6 2.5-4.9 mg/dl Magnesium Level 2.5 1.8-2.4 mg/dl Procalcitonin 0.56 0-0.5 ng/ml Bedside Hemoglobin 12.2 14.0-18.0 g/dl Bedside Hematocrit 36 42-52 % Bedside Blood Gas pH (LAB) 7.40 7.35-7.45 Bedside Blood Gas pCO2 (LAB) 56 35-46 mmHg Bedside Blood Gas pO2 (LAB) 77 80-95 mmHg Bedside Blood Gas HCO3 (LAB) 35 19-24 meq/L Bedside Blood Gas Total CO2 36 24-31 mEq/l Bedside Blood Gas Base Excess (LAB) 10.0 -9-1.8 meq/L Bedside Blood Gas O2 Saturation 95.0 90-95 % Bedside Sodium 138 135-144 mEq/L Bedside Potassium 3.8 3.3-5.0 mEq/L
--- NOTE | 2016-11-27 10:17 | DIAGNOSTIC IMAGING REPORT ---
KUB HISTORY: Firm abdomen, decreased bowel sounds COMPARISON: KUB 02/25/2015. FINDINGS: NG tube terminates in the body of the stomach. The lung bases are clear. A few gas-filled nondilated loops of bowel within the abdomen. Small bowel measures up to 2.9 cm in diameter. No renal calculi. No ureteral calculi. No pneumoperitoneum or pneumatosis. Old, healed right lower rib fractures. IMPRESSION: 1. The NG tube terminates in the body of the stomach. 2. A few nondilated gas-filled loops of large and small bowel seen within the abdomen. No evidence for bowel obstruction. Electronically signed by: Andreas Godinez M.D. 11/27/2016 10:16 AM Dictated Date/Time: 11/27/2016 10:14 AM
[2016-11-27] MEDS ORDERED: SENNA 8.8 MG/5 ML UDP PO ONE (11:42)
[2016-11-27] MEDS: LINEZOLID / D5W 600 MG in PREMIXED IN D5W 300 ML IV SCH ×2 (12:12→22:43)
[2016-11-27] MEDS ORDERED: IMIPENEM/CILASTATIN IV 500 MG in DEXTROSE 5% 100ML 100 ML IV ONE (12:30)
[2016-11-27] MEDS: INSULIN REGULAR 250 UNITS in SODIUM CHLORIDE 0.9% 250ML 250 ML IV SCH (12:35)
[2016-11-27] MEDS: DexMEDEtomidine HCL INJ 200 MCG in SODIUM CHLORIDE 0.9% 50ML 48 ML IV PRN ×3 (12:44→21:26)
[2016-11-27] MEDS ORDERED: DILTIAZEM HCL 30 MG TAB PO SCH (13:00)
--- NOTE | 2016-11-27 14:22 | Palliative Care Consultation ---
Consultation Date of Consultation: Nov 27, 2016. Requesting Physician: Beck Villagran PA-C Attending Physician: Dr. Garcia, Dr. Richards Reason for Consultation: Goals of care History of Present Illness This 51 year old male patient with a history of end-stage COPD, QUOC, C. difficile colitis and many others listed below, presented to the ED two days ago with worsening SOB. This patient is unfortunately quite debilitated from his chronic and severe disease, even has difficulty ambulating. He has been following with [facility] for possible lung transplant, recently was in [place] with his daughter for work-up. In the ED here, was in respiratory distress requiring intubation. Imaging results from 11/25/16: "CXR IMPRESSION: Right midlung zone scarring. Interstitial thickening likely chronic. No evidence of acute lobar consolidation. CXR IMPRESSION: Interval insertion of an endotracheal tube 52 mm above the td. CTA CHEST IMPRESSION: 1. No evidence of acute pulmonary embolism 2. Multiple bilateral lung cysts, slightly progressive when compared the prior study 3. Scattered bilateral pulmonary nodules. These are statistically inflammatory/infectious. A 1-2 month follow-up study subsequent to antibiotic therapy is recommended." Patient admitted to ICU with respiratory failure, severe COPD exacerbation and hx QUOC. Being followed by infectious disease, pulmonology and cardiology. Given patient's advanced lung disease, proper management of his illness would require trach. Patient's family is adamant that patient would not want a trach. Patient has verbalized to his family several times over the years that he would not want a trach or to be living on machines. Palliative care consulted to be extra layer of care for patient and family. I met with the patient and family in room 110. Patient intubated and sedated. Family at bedside- daughter Andreea, mother Lis, aunt Windy. The goal at this point is to continue full treatment. When/if patient is able to be extubated, there will be NO REINTUBATION. There was some question of who is the decision maker/POA, as there is an ex- Avi Reich who was his POA during marriage. It was determined and agreed upon by all family members, including Avi, that Andreea would now be the primary decision maker. See plan below. Past Medical/Surgical History Medical History: C. difficile diarrhea COPD, very severe Depressive disorder DM2 (diabetes mellitus, type 2) GERD (gastroesophageal reflux disease) HTN (hypertension) QUOC (mycobacterium avium-intracellulare) Pneumothorax of right lung after biopsy Nicotine addiction secondary to oral tobacco Surgical Problems: H/O adenoidectomy History of nasal surgery History of right upper, lower, and middle pulmonary wedge resection History of right thoracostomy with biopsy Social History Smoking Status: Unknown if Ever Smoked History of Alcohol Use: No Review of Systems unable to obtain ROS Allergies Coded Allergies: Omeprazole (Verified Allergy, Unknown, TOLERATES PROTONIX, 11/25/16) Paroxetine (Verified Adverse Reaction, Mild, GI UPSET, 11/25/16) Medications Current Inpatient Medications Medications (Trade) Dose Ordered Sig/Abigail Route Start Time Stop Time Status Last Admin Dose Admin Ioversol (Optiray 320) 100 ml UD PRN IV 11/25/16 15:45 11/29/16 15:44 Propofol (Diprivan Iv Emulsion 100ml Vial) 1 dose UD PRN IV 11/25/16 16:00 11/28/16 15:59 11/26/16 06:04 1 DOSE Enoxaparin Sodium (Lovenox Inj) 40 mg Q24H SQ 11/26/16 06:00 12/26/16 05:59 11/27/16 06:07 40 MG Vancomycin HCl (Vancomycin Oral Soln) 125 mg QID PO 11/25/16 22:00 12/09/16 21:59 11/27/16 12:36 125 MG Methylprednisolone Sodium Succinate 40 mg/Syringe 0.64 ml @ 1.5 mls/min Q8H IV 11/25/16 22:00 11/27/16 23:59 11/27/16 12:37 1.5 MLS/MIN Linezolid 600 mg/ Prmx 300 ml @ 300 mls/hr Q12H IV 11/25/16 23:00 12/02/16 22:59 11/27/16 12:12 300 MLS/HR Glucose (Glucose 40% Gel) 15-30 GRAMS 15 GRAMS... UD PRN PO 11/26/16 01:00 12/26/16 00:59 Glucose (Glucose Chew Tab) 4-8 Tablets 4 Tabl... UD PRN PO 11/26/16 01:00 12/26/16 00:59 Dextrose (Dextrose 50% 50ML Syringe) 25-50ML OF 50% DW IV FOR... UD PRN IV 11/26/16 01:00 12/26/16 00:59 Glucagon (Glucagon Inj) 1 mg UD PRN SQ 11/26/16 01:00 12/26/16 00:59 Miscellaneous Information (Consult Glycemic Management Pharmacy) 1 ea UD PRN N/A 11/26/16 01:23 12/26/16 01:22 Ranitidine HCl 50 mg/Dextrose 102 ml @ 200 mls/hr Q8H IV 11/26/16 02:00 12/26/16 01:59 11/27/16 08:26 200 MLS/HR Albuterol (Ventolin Hfa Inhaler) 4 puffs Q4R INH 11/26/16 04:00 12/26/16 03:59 11/27/16 11:49 4 PUFFS Ipratropium [place] (Atrovent Hfa Inhaler) 4 puffs Q4R INH 11/26/16 04:00 12/26/16 03:59 11/27/16 11:49 4 PUFFS Insulin Human Regular 250 units/ Sodium Chloride 252.5 ml @ 0 mls/hr DAILY@1130 IV 11/26/16 07:45 12/26/16 07:44 11/27/16 12:35 0.9 MLS/HR Insulin Aspart (novoLOG ASPART) SLIDING SCALE HS SC 11/26/16 08:00 12/26/16 07:59 Parenteral Electrolyte Solution 1,000 ml @ 100 mls/hr Q10H IV 11/26/16 08:30 12/26/16 08:29 11/27/16 12:37 100 MLS/HR Midazolam HCl 250 ml @ 0 mls/hr Q0M PRN IV 11/26/16 09:00 12/26/16 08:59 11/27/16 03:57 16 MLS/HR Enteral Nutritional Formula (Peptamen Intense VHP) 1,000 ml UD PRN OG 11/26/16 10:00 12/26/16 09:59 11/26/16 11:04 1,000 ML Fentanyl Citrate (Fentanyl Inj) 100 mcg Q1H PRN IV 11/26/16 13:15 12/10/16 02:14 11/27/16 07:56 100 MCG Heparin Sodium (Porcine) (Heparin 10 Unit/ ml 5 ml Flush) 5 ml PRN PRN FLUSH 11/26/16 13:00 12/26/16 12:59 Diltiazem HCl (Cardizem Tab) 60 mg QID PO 11/27/16 13:00 12/26/16 08:59 Future Hold Imipenem/ Cilastatin Sodium 500 mg/Dextrose 110 ml @ 100 mls/hr Q6H IV 11/27/16 18:00 12/11/16 17:59 Methylprednisolone Sodium Succinate 40 mg/Syringe 0.64 ml @ 1.5 mls/min BID IV 11/28/16 09:00 12/28/16 08:59 Senna (Senokot Syrup) 8.8 mg QAM PO 11/28/16 09:00 12/28/16 08:59 Dexmedetomidine HCl 200 mcg/ Sodium Chloride 50 ml @ 0 mls/hr Q0M PRN IV 11/27/16 12:30 12/01/16 12:29 11/27/16 12:44 3.5 MLS/HR Physical Exam Date Time Temp Pulse Resp B/P (MAP) Pulse Ox O2 Delivery O2 Flow Rate FiO2 11/27/16 11:49 30 11/27/16 09:37 Mechanical Ventilator 30 11/27/16 09:00 86 30 159/94 (115) 98 Mechanical Ventilator 30 11/27/16 08:30 76 30 131/75 (93) 93 Mechanical Ventilator 30 11/27/16 08:03 80 30 135/71 (92) 93 Mechanical Ventilator 30 11/27/16 08:00 Mechanical Ventilator 30 11/27/16 08:00 30 11/27/16 08:00 36.4 94 30 179/94 (122) 93 Mechanical Ventilator 30 11/27/16 07:00 30 11/27/16 06:01 30 11/27/16 06:00 84 30 112/74 (87) 95 Mechanical Ventilator 30 11/27/16 06:00 84 30 112/74 (84) 95 105/66 11/27/16 05:00 102 28 (128) 88 195/94 11/27/16 04:00 30 11/27/16 04:00 37.1 92 25 171/89 (116) 94 Mechanical Ventilator 30 11/27/16 04:00 92 25 158/99 (119) 94 171/89 11/27/16 04:00 30 Mechanical Ventilator 11/27/16 03:00 72 30 (91) 97/84 11/27/16 02:50 30 11/27/16 02:00 64 30 87/59 (68) 99 Mechanical Ventilator 30 11/27/16 02:00 64 30 83/60 (67) 99 87/59 11/27/16 01:00 97 30 161/93 (106) 91 186/100 11/27/16 00:01 37.0 70 30 82/54 (63) 96 Mechanical Ventilator 30 11/27/16 00:01 70 30 (62) 96 82/54 11/26/16 23:59 30 Mechanical Ventilator 11/26/16 23:59 30 11/26/16 23:38 30 11/26/16 23:00 92 30 125/79 (98) 95 42/39 11/26/16 22:00 101 29 181/85 (117) 91 11/26/16 20:36 83 30 139/78 (98) 98 11/26/16 20:22 30 11/26/16 20:00 40 11/26/16 20:00 97 Mechanical Ventilator 40 11/26/16 20:00 37.1 62 30 81/56 (64) 96 Mechanical Ventilator 40 11/26/16 18:35 30 11/26/16 18:00 67 30 91/60 (70) 97 Mechanical Ventilator 40 11/26/16 17:00 76 30 87/64 (72) 92 11/26/16 16:00 92 Mechanical Ventilator 40 11/26/16 16:00 36.9 98 30 173/81 (111) 92 Mechanical Ventilator 40 11/26/16 16:00 40 11/26/16 14:20 30 11/26/16 14:00 36.4 97 17 103/73 (72) 94 102/58 11/26/16 14:00 74 24 84/56 (61) 96 21/20 General Appearance: no apparent distress Neck: no JVD Respiratory: no respiratory distress, no accessory muscle use, + pertinent finding (on mechanical ventilator) Cardiovascular: regular rate, rhythm, + pertinent finding (trace edema to bilatral feet and ankles) Abdomen: normal bowel sounds, + distended Neurologic/Psychiatric: + pertinent finding (sedated on ventilator) Skin: normal color Laboratory Results Last 24 Hours Test 11/26/16 14:40 11/26/16 16:02 11/26/16 16:53 11/26/16 16:56 Bedside Glucose (other) 193 mg/dl Bedside Glucose 146 mg/dl 155 mg/dl Troponin I 0.016 ng/ml Test 11/26/16 18:08 11/26/16 19:10 11/26/16 21:02 11/26/16 22:57 Bedside Glucose 172 mg/dl 148 mg/dl 148 mg/dl 136 mg/dl Test 11/27/16 01:09 11/27/16 03:20 11/27/16 05:39 11/27/16 05:57 Bedside Glucose 126 mg/dl 122 mg/dl White Blood Count 28.88 K/uL Red Blood Count 4.42 M/uL Hemoglobin 12.7 g/dL Hematocrit 39.8 % Mean Corpuscular Volume 90.0 fL Mean Corpuscular Hemoglobin 28.7 pg Mean Corpuscular Hemoglobin Concent 31.9 g/dl Platelet Count 296 K/uL Mean Platelet Volume 8.9 fL Neutrophils (%) (Auto) 96.6 % Lymphocytes (%) (Auto) 2.2 % Monocytes (%) (Auto) 0.7 % Eosinophils (%) (Auto) 0.0 % Basophils (%) (Auto) 0.0 % Neutrophils # (Auto) 27.89 K/uL Lymphocytes # (Auto) 0.63 K/uL Monocytes # (Auto) 0.20 K/uL Eosinophils # (Auto) 0.01 K/uL Basophils # (Auto) 0.01 K/uL RDW Standard Deviation 45.2 fL RDW Coefficient of Variation 13.8 % Immature Granulocyte % (Auto) 0.5 % Immature Granulocyte # (Auto) 0.14 K/uL Sodium Level 140 mmol/L Potassium Level 3.8 mmol/L Chloride Level 102 mmol/L Carbon Dioxide Level 35 mmol/L Anion Gap 3.0 mmol/L Blood Urea Nitrogen 12 mg/dl Creatinine 0.49 mg/dl Est Creatinine Clear Calc Drug Dose 168.7 ml/min Estimated GFR () 144.6 Estimated GFR (Non- 124.8 BUN/Creatinine Ratio 25.3 Random Glucose 153 mg/dl Estimated Average Glucose 163 mg/dl Hemoglobin A1c 7.3 % Calcium Level 8.2 mg/dl Phosphorus Level 2.6 mg/dl Magnesium Level 2.5 mg/dl Procalcitonin 0.56 ng/ml Bedside Hemoglobin 12.2 g/dl Bedside Hematocrit 36 % Bedside Blood Gas pH (LAB) 7.40 Bedside Blood Gas pCO2 (LAB) 56 mmHg Bedside Blood Gas pO2 (LAB) 77 mmHg Bedside Blood Gas HCO3 (LAB) 35 meq/L Bedside Blood Gas Total CO2 36 mEq/l Bedside Blood Gas Base Excess (LAB) 10.0 meq/L Bedside Blood Gas O2 Saturation 95.0 % Bedside Sodium 138 mEq/L Bedside Potassium 3.8 mEq/L Test 11/27/16 07:55 11/27/16 12:11 11/27/16 13:12 Bedside Glucose 112 mg/dl 82 mg/dl 86 mg/dl Assessment & Plan Problem list: Acute respiratory failure- intubated/ventilated at this time COPD, steroid-dependent Bronchiectasis H/o QUOC S/p right wedge resection 01/02/16 Bilateral lung cysts/nodules C. diff colitis Goals of care (Z51.5) Palliative care recs: discussed with patient's daughter, Andreea, mother Lis, aunt Windy. Also in room during conversation- Marilee RN, case making machine operator; Jossy RN , in room providing patient care. -Most of conversation was focused on deciding who was primary medical decision maker. Andreea stated that her mother Avi Wray, who is now the patient's ex -, was the POA when they were . However, Avi now does not want to be the POA. -According to law, decision making automatically defers to the next-of-kin, Andreea, who is the patient's oldest child. -Avi Wray was called and put on speaker phone with all the above people in the room. Avi confirmed that she once was the POA when she was , but show now is willfully revoking her POA and DOES NOT want to make decisions for the patient. She confirmed that the decision maker will now be Andreea. Andreea accepted this responsibility. The patient's mother, Lis, also agreed with this. -It was explained to family that if patient does wake up and is oriented enough to make decisions, we would then ask him to formally name a surrogate decision maker/POA/health care agent. -Pranay asked if this was a "hospice situation." We discussed and she verbalized understanding that we were still fully treating patient's medical conditions. the current goal is to find a window to be able to extubate patient. She confirmed that patient would not want to be reintubated or have trach placed. -If patient decompensates after extubation, patient will likely be converted to comfort measures only as family states, "He wouldn't want to live this way." -Further goals of care will be established during hospitalization according to patient's course. Thank you kindly for this consult. I will follow.
[2016-11-27] MEDS: IMIPENEM/CILASTATIN IV 500 MG in DEXTROSE 5% 100ML 100 ML IV SCH ×2 (18:12→23:47)
--- NOTE | 2016-11-27 20:50 | Infectious Disease Progress Nt ---
Progress Note Date of Service Nov 27, 2016. Subjective Pt evaluation today including: physical exam, chart review, lab review, review of studies, conversation w/ middleware consultant, review of inpatient medication list Patient remains on ventilator. No obvious change overnight. BAL cultures growing Staph, E coli, pneumococcus. Additional Comments: Not obtainable because of patient's mental status Medications Current Inpatient Medications Medications (Trade) Dose Ordered Sig/Abigail Route Start Time Stop Time Status Last Admin Dose Admin Ioversol (Optiray 320) 100 ml UD PRN IV 11/25/16 15:45 11/29/16 15:44 Propofol (Diprivan Iv Emulsion 100ml Vial) 1 dose UD PRN IV 11/25/16 16:00 11/28/16 15:59 11/26/16 06:04 1 DOSE Enoxaparin Sodium (Lovenox Inj) 40 mg Q24H SQ 11/26/16 06:00 12/26/16 05:59 11/27/16 06:07 40 MG Vancomycin HCl (Vancomycin Oral Soln) 125 mg QID PO 11/25/16 22:00 12/09/16 21:59 11/27/16 18:13 125 MG Methylprednisolone Sodium Succinate 40 mg/Syringe 0.64 ml @ 1.5 mls/min Q8H IV 11/25/16 22:00 11/27/16 23:59 11/27/16 12:37 1.5 MLS/MIN Linezolid 600 mg/ Prmx 300 ml @ 300 mls/hr Q12H IV 11/25/16 23:00 12/02/16 22:59 11/27/16 12:12 300 MLS/HR Glucose (Glucose 40% Gel) 15-30 GRAMS 15 GRAMS... UD PRN PO 11/26/16 01:00 12/26/16 00:59 Glucose (Glucose Chew Tab) 4-8 Tablets 4 Tabl... UD PRN PO 11/26/16 01:00 12/26/16 00:59 Dextrose (Dextrose 50% 50ML Syringe) 25-50ML OF 50% DW IV FOR... UD PRN IV 11/26/16 01:00 12/26/16 00:59 Glucagon (Glucagon Inj) 1 mg UD PRN SQ 11/26/16 01:00 12/26/16 00:59 Miscellaneous Information (Consult Glycemic Management Pharmacy) 1 ea UD PRN N/A 11/26/16 01:23 12/26/16 01:22 Ranitidine HCl 50 mg/Dextrose 102 ml @ 200 mls/hr Q8H IV 11/26/16 02:00 12/26/16 01:59 11/27/16 18:12 200 MLS/HR Albuterol (Ventolin Hfa Inhaler) 4 puffs Q4R INH 11/26/16 04:00 12/26/16 03:59 11/27/16 18:58 4 PUFFS Ipratropium [place] (Atrovent Hfa Inhaler) 4 puffs Q4R INH 11/26/16 04:00 12/26/16 03:59 11/27/16 18:57 4 PUFFS Insulin Human Regular 250 units/ Sodium Chloride 252.5 ml @ 0 mls/hr DAILY@1130 IV 11/26/16 07:45 12/26/16 07:44 11/27/16 12:35 0.9 MLS/HR Insulin Aspart (novoLOG ASPART) SLIDING SCALE HS SC 11/26/16 08:00 12/26/16 07:59 Parenteral Electrolyte Solution 1,000 ml @ 100 mls/hr Q10H IV 11/26/16 08:30 12/26/16 08:29 11/27/16 12:37 100 MLS/HR Midazolam HCl 250 ml @ 0 mls/hr Q0M PRN IV 11/26/16 09:00 12/26/16 08:59 11/27/16 03:57 16 MLS/HR Enteral Nutritional Formula (Peptamen Intense VHP) 1,000 ml UD PRN OG 11/26/16 10:00 12/26/16 09:59 11/26/16 11:04 1,000 ML Fentanyl Citrate (Fentanyl Inj) 100 mcg Q1H PRN IV 11/26/16 13:15 12/10/16 02:14 11/27/16 07:56 100 MCG Heparin Sodium (Porcine) (Heparin 10 Unit/ ml 5 ml Flush) 5 ml PRN PRN FLUSH 11/26/16 13:00 12/26/16 12:59 Diltiazem HCl (Cardizem Tab) 60 mg QID PO 11/27/16 13:00 12/26/16 08:59 Future Hold Imipenem/ Cilastatin Sodium 500 mg/Dextrose 110 ml @ 100 mls/hr Q6H IV 11/27/16 18:00 12/11/16 17:59 11/27/16 18:12 100 MLS/HR Methylprednisolone Sodium Succinate 40 mg/Syringe 0.64 ml @ 1.5 mls/min BID IV 11/28/16 09:00 12/28/16 08:59 Senna (Senokot Syrup) 8.8 mg QAM PO 11/28/16 09:00 12/28/16 08:59 Dexmedetomidine HCl 200 mcg/ Sodium Chloride 50 ml @ 0 mls/hr Q0M PRN IV 11/27/16 12:30 12/01/16 12:29 11/27/16 16:12 10.7 MLS/HR Objective Vital Signs Date Time Temp Pulse Resp B/P (MAP) Pulse Ox O2 Delivery O2 Flow Rate FiO2 11/27/16 20:00 36.9 57 30 158/84 (108) 97 Mechanical Ventilator 30 11/27/16 20:00 97 Mechanical Ventilator 30 11/27/16 20:00 30 11/27/16 18:58 30 11/27/16 18:00 58 30 154/87 (109) 97 Mechanical Ventilator 30 11/27/16 16:25 30 11/27/16 16:00 30 11/27/16 16:00 97 Mechanical Ventilator 30 11/27/16 16:00 36.6 58 30 128/78 (95) 97 Mechanical Ventilator 30 11/27/16 14:09 30 11/27/16 14:00 68 30 130/80 (97) 96 Mechanical Ventilator 30 11/27/16 13:00 93 30 140/87 (104) 97 Mechanical Ventilator 30 11/27/16 12:00 Mechanical Ventilator 30 11/27/16 12:00 36.5 83 30 131/94 (106) 98 Mechanical Ventilator 30 11/27/16 12:00 30 11/27/16 11:49 30 11/27/16 11:00 68 30 94/60 (71) 98 Mechanical Ventilator 30 11/27/16 10:00 76 30 108/61 (77) 96 Mechanical Ventilator 30 11/27/16 09:37 Mechanical Ventilator 30 11/27/16 09:00 86 30 159/94 (115) 98 Mechanical Ventilator 30 11/27/16 08:30 76 30 131/75 (93) 93 Mechanical Ventilator 30 11/27/16 08:03 80 30 135/71 (92) 93 Mechanical Ventilator 30 11/27/16 08:00 Mechanical Ventilator 30 11/27/16 08:00 30 11/27/16 08:00 36.4 94 30 179/94 (122) 93 Mechanical Ventilator 30 11/27/16 07:00 30 11/27/16 06:01 30 11/27/16 06:00 84 30 112/74 (87) 95 Mechanical Ventilator 30 11/27/16 06:00 84 30 112/74 (84) 95 105/66 11/27/16 05:00 102 28 (128) 88 195/94 11/27/16 04:00 30 11/27/16 04:00 37.1 92 25 171/89 (116) 94 Mechanical Ventilator 30 11/27/16 04:00 92 25 158/99 (119) 94 171/89 11/27/16 04:00 30 Mechanical Ventilator 11/27/16 03:00 72 30 (91) 97/84 11/27/16 02:50 30 11/27/16 02:00 64 30 87/59 (68) 99 Mechanical Ventilator 30 11/27/16 02:00 64 30 83/60 (67) 99 87/59 11/27/16 01:00 97 30 161/93 (106) 91 186/100 11/27/16 00:01 37.0 70 30 82/54 (63) 96 Mechanical Ventilator 30 11/27/16 00:01 70 30 (62) 96 82/54 11/26/16 23:59 30 Mechanical Ventilator 11/26/16 23:59 30 11/26/16 23:38 30 11/26/16 23:00 92 30 125/79 (98) 95 42/39 11/26/16 22:00 101 29 181/85 (117) 91 Physical Exam General Appearance: WD/WN, no apparent distress Eyes: normal inspection, sclerae normal ENT: normal ENT inspection, pharynx normal Neck: supple, no adenopathy, trachea midline Respiratory/Chest: chest non-tender, lungs clear, normal breath sounds, no respiratory distress Cardiovascular: regular rate, rhythm, no gallop, no murmur Abdomen: normal bowel sounds, non tender, soft, no organomegaly Extremities: non-tender, no calf tenderness Neurologic/Psychiatric: + pertinent finding (No obvious new deficits) Skin: normal color, warm/dry, no rash Lymphatic: no adenopathy Laboratory Results RUN DATE: 11/27/16 [facility] LAB PAGE 1 RUN TIME: 937 Specimen Inquiry PATIENT: FRANCISCO CHAN LOC: [facility] U # : [id number] AGE/SX: 51/M ROOM: E110 REG : 11/25/[address]: Dominic Garcia MD : [id number] BED: 1 DIS : STATUS: ADM IN TLOC: SPEC #: [id number] ALLAN: 11/25/16 STATUS: COMP REQ #: [id number] RECD: 11/25/[address]: Jere Richards D.OUna SOURCE: [facility] WASH ENTR: 11/25/[address] [facility] [address]: Rush Panda M.D. [facility]: Idalia Goddard ., RYAN Butt,Cj BUSTILLOS M.D.(ZINA) Dominic Garcia MD ORDERED: BRIDGER CASTRO/SM Procedure Result Verified Site GRAM STAIN Final 11/26/16 RESULT RARE EPITHELIAL CELLS MODERATE POLYS FEW GRAM POSITIVE COCCI BRONCH WASH CULTURE Final 11/27/16 Organism 1 ESCHERICHIA COLI QUANITY MODERATE SENS SENSITIVITY TO FOLLOW NORMAL JENNIFER LIGHT NORMAL JENNIFER Organism 2 STREP. PNEUMO - PENIC SUSCEPT QUANITY MODERATE SENS NO SENSITIVITY TO FOLLOW 1. ESCHERICHIA COLI Target Route Dose RX AB Cost M.I.C. IQ ------ ----- ------ -- ------ -------- - ------ TRIMET/SULFA R >2/38 AMPICILLIN R >16 AMPICILLIN/SUL I 16/8 CEFAZOLIN S <=8 CEFOTAXIME S <=2 CEFTRIAXONE S <=1 CEFEPIME S <=4 CEFUROXIME S 8 IMIPENEM S <=1 GENTAMICIN S <=4 TOBRAMYCIN R >8 AMIKACIN S <=16 CIPROFLOXACIN R >2 LEVOFLOXACIN R >4 ERTAPENEM S <=1 PIP/TAZO S <=16 S = SENSITIVE I = INTERMEDIATE R = RESISTANT END OF REPORT Last 24 Hours Test 11/26/16 21:02 11/26/16 22:57 11/27/16 01:09 11/27/16 03:20 Bedside Glucose 148 mg/dl 136 mg/dl 126 mg/dl 122 mg/dl Test 11/27/16 05:39 11/27/16 05:57 11/27/16 07:55 11/27/16 12:11 White Blood Count 28.88 K/uL Red Blood Count 4.42 M/uL Hemoglobin 12.7 g/dL Hematocrit 39.8 % Mean Corpuscular Volume 90.0 fL Mean Corpuscular Hemoglobin 28.7 pg Mean Corpuscular Hemoglobin Concent 31.9 g/dl Platelet Count 296 K/uL Mean Platelet Volume 8.9 fL Neutrophils (%) (Auto) 96.6 % Lymphocytes (%) (Auto) 2.2 % Monocytes (%) (Auto) 0.7 % Eosinophils (%) (Auto) 0.0 % Basophils (%) (Auto) 0.0 % Neutrophils # (Auto) 27.89 K/uL Lymphocytes # (Auto) 0.63 K/uL Monocytes # (Auto) 0.20 K/uL Eosinophils # (Auto) 0.01 K/uL Basophils # (Auto) 0.01 K/uL RDW Standard Deviation 45.2 fL RDW Coefficient of Variation 13.8 % Immature Granulocyte % (Auto) 0.5 % Immature Granulocyte # (Auto) 0.14 K/uL Sodium Level 140 mmol/L Potassium Level 3.8 mmol/L Chloride Level 102 mmol/L Carbon Dioxide Level 35 mmol/L Anion Gap 3.0 mmol/L Blood Urea Nitrogen 12 mg/dl Creatinine 0.49 mg/dl Est Creatinine Clear Calc Drug Dose 168.7 ml/min Estimated GFR () 144.6 Estimated GFR (Non- 124.8 BUN/Creatinine Ratio 25.3 Random Glucose 153 mg/dl Estimated Average Glucose 163 mg/dl Hemoglobin A1c 7.3 % Calcium Level 8.2 mg/dl Phosphorus Level 2.6 mg/dl Magnesium Level 2.5 mg/dl Procalcitonin 0.56 ng/ml Bedside Hemoglobin 12.2 g/dl Bedside Hematocrit 36 % Bedside Blood Gas pH (LAB) 7.40 Bedside Blood Gas pCO2 (LAB) 56 mmHg Bedside Blood Gas pO2 (LAB) 77 mmHg Bedside Blood Gas HCO3 (LAB) 35 meq/L Bedside Blood Gas Total CO2 36 mEq/l Bedside Blood Gas Base Excess (LAB) 10.0 meq/L Bedside Blood Gas O2 Saturation 95.0 % Bedside Sodium 138 mEq/L Bedside Potassium 3.8 mEq/L Bedside Glucose 112 mg/dl 82 mg/dl Test 11/27/16 13:12 11/27/16 15:03 11/27/16 16:17 11/27/16 18:09 Bedside Glucose 86 mg/dl 92 mg/dl 117 mg/dl 125 mg/dl Test 11/27/16 20:38 Bedside Glucose 112 mg/dl Assessment and Plan (1) Respiratory distress Status: Acute (2) Compensated respiratory acidosis Status: Acute (3) QUOC (mycobacterium avium-intracellulare) Status: Chronic (4) DM2 (diabetes mellitus, type 2) Status: Chronic (5) C. difficile diarrhea Status: Chronic (6) COPD, very severe Status: Chronic (7) GERD (gastroesophageal reflux disease) Status: Chronic (8) HTN (hypertension) Status: Chronic (9) Depressive disorder Status: Chronic Onset: 02/11/2011 acute respiratory failure in patient with longstanding steroid dependent COPD as well as chronic QUOC infection, With cultures now growing resistant E coli and pneumococcus. Agree with the use of imipenem pending further culture results and clinical response. Continue to hold therapy for QUOC.
[2016-11-28] VITALS (29 sets, daily range): BP systolic 33–240; BP diastolic 31–127; PULSE 49–134; TEMP 36.2–37.2; O2SAT 83–100
[2016-11-28] MEDS: DexMEDEtomidine HCL INJ 200 MCG in SODIUM CHLORIDE 0.9% 50ML 48 ML IV PRN ×3 (01:28→09:29)
[2016-11-28] MEDS: RANITIDINE IV 50 MG in DEXTROSE 5% 100ML 100 ML IV SCH ×3 (01:32→17:13)
[2016-11-28] MEDS: ALBUTEROL HFA 8 GM INHALER INH SCH ×3 (02:23→11:52)
[2016-11-28] MEDS: IPRATROPIUM BROMIDE HFA INHALER INH SCH ×3 (02:23→11:52)
[2016-11-28] MEDS: IMIPENEM/CILASTATIN IV 500 MG in DEXTROSE 5% 100ML 100 ML IV SCH ×3 (05:38→17:12)
[2016-11-28] MEDS: ENOXAPARIN 40 MG/0.4 ML SYR SQ SCH (05:38)
[2016-11-28 06:25] LABS: VEN BLOOD GAS BASE EXCESS 5.1 mEq/L
[2016-11-28 06:26] LABS: HEMATOCRIT 39.5 % (42-52); MEAN CELL VOLUME 87.2 fL (80-100); MEAN CORPUSCULAR HEMOGLOBIN 28.9 pg (25-34); MEAN CORPUSCULAR HGB CONC 33.2 g/dl (32-36); MEAN PLATELET VOLUME 8.9 fL (7.4-10.4); PLATELET COUNT 256 K/uL (130-400); RED BLOOD COUNT 4.53 M/uL (4.7-6.1); WHITE BLOOD COUNT 19.85 K/uL (4.8-10.8)
[2016-11-28 07:02] LABS: BUN/CREATININE RATIO 40.2 (10-20); CALCIUM 8.3 mg/dl (8.5-10.1); CREATININE 0.46 mg/dl (0.60-1.40); MAGNESIUM 2.5 mg/dl (1.8-2.4); PHOSPHORUS 2.4 mg/dl (2.5-4.9); POTASSIUM 3.4 mmol/L (3.5-5.1)
--- NOTE | 2016-11-28 07:15 | DIAGNOSTIC IMAGING REPORT ---
CHEST ONE VIEW PORTABLE CLINICAL HISTORY: intubated tube position COMPARISON STUDY: 11/27/2016 FINDINGS: Endotracheal tube 5 cm above the td. Nasogastric tube within the stomach. Pulmonary vasculature remains prominent but slightly improved from the prior date. Mild mid to superior mediastinal fullness is again noted and appears stable. IMPRESSION: Endotracheal tube 5 cm above the td. Some improved pulmonary vasculature. Nasogastric tube within the stomach. The above report was generated using voice recognition software. It may contain grammatical, syntax or spelling errors. Electronically signed by: Neal Bledsoe M.D. 11/28/2016 7:14 AM Dictated Date/Time: 11/28/2016 7:13 AM
[2016-11-28] MEDS: INSULIN ASPART 100 UNITS/ML 3 ML PEN SC SCH ×4 (08:00→21:00)
--- NOTE | 2016-11-28 08:40 | Progress Note ---
Internal Med Progress Note Date of Service: Nov 28, 2016. Provider Documentation: SUBJECTIVE: Seen and examined at bedside. Sedated and Intubated Has semiformed BM overnight No family at bedside Weaning trial per ICU team OBJECTIVE: Vital Signs-as noted below Physical Exam: General Appearance:Moderately built and nourished, sedated and intubated Head: normocephalic, Atraumatic Eyes: normal inspection, Anicteric Respiratory/Chest: Decreased breath sounds, CTA Cardiovascular: S1, S2, No murmur Abdomen/GI:Soft, Non tender, Bowel sounds diminished Extremities/Musculoskelatal:normal inspection, +edema Neurologic/Psych:Sedated and Intubated Skin: normal color, warm Lab data as noted below. ASSESSMENT & PLAN: Acute on chronic hypoxic and hypercapnic respiratory failure H/O Steroid dependent COPD Bronchiectasis H/O QUOC follows with as outpatient (Treated with zithromycin and ethambutol) S/P wedge resection of R middle, upper and lower lobes by Dr. Andreas Estrella on 01/02/16 S/P Bronchoscopy on 11/25/16 CTA: negative for PE. Showed multiple b/l lung cysts and pulmonary nodules likely infectious process Continue IV solu-medrol, Bronchodilators IV antibiotics:Imipenem, Vanco, Zyvox Bronchial washings studies: Multiple organisms:E.coli, Strep.Pneumo, Staph Blood/Urine culture: No growth to date AFB pending Leukocytosis trending down MRSA screen negative Vent management per ICU team Also follows with Dr. Miranda and [facility] for transplant evaluation Appreciate Pulmonology, ID Input Prognosis is guarded Needs reevaluation at [facility], for possible lung transplantation upon discharge Planned to be extubated as able No plan for reintubation Palliative care following QUOC C. diff colitis second occurrence diagnosed 11/12: On vancomycin taper as outpatient Continue PO vanco IV flagyl discontinued Appreciate ID Input withholding QUOC therapy pending bronchoscopy results DM II A1C: 9.3 07/2016 hold oral agents SSI, Accu checks HTN metoprolol on hold Cardizem on hold secondary to relative bradycardia monitor Hypokalemia Monitor Replaced DVT Px: SQ Lovenox Code Status: DNR PROCEDURES: CTA: 1. No evidence of acute pulmonary embolism 2. Multiple bilateral lung cysts, slightly progressive when compared the prior study 3. Scattered bilateral pulmonary nodules. These are statistically inflammatory/infectious. A 1-2 month follow-up study subsequent to antibiotic therapy is recommended. ECHO: * The left ventricular wall motion is normal. * Left ventricular systolic function is normal. * The LV Ejection Fraction = 55-60%. * The right ventricle is mildly dilated. * The right ventricular systolic function is mild to moderately reduced. * Dilated inferior vena cava with reduced collapsability with sniff indicates an elevated right atrial pressure of 15 mmHg * There is no significant tricuspid regurgitation, and therefore the pulmonary artery systolic pressure cannot be calculated. * The aortic valve was not visualized sufficiently to determine the number of cusps. * The prior echocardiogram report dated 10/05/10, described possible bicuspid AV. * There is no significant aortic regurgitation. * Aortic stenosis is absent. Vital Signs: Date Time Temp Pulse Resp B/P (MAP) Pulse Ox O2 Delivery O2 Flow Rate FiO2 11/28/16 08:01 36.4 54 30 163/106 (125) 100 Mechanical Ventilator 30 162/94 (116) 11/28/16 08:00 100 Mechanical Ventilator 30 11/28/16 08:00 30 11/28/16 07:32 30 11/28/16 05:20 30 11/28/16 05:00 57 30 198/109 (138) 11/28/16 04:00 30 11/28/16 04:00 98 Mechanical Ventilator 30 11/28/16 04:00 36.4 55 30 157/72 (100) 97 11/28/16 03:00 56 30 157/82 (107) 94 11/28/16 02:23 30 11/28/16 02:00 49 30 168/82 (110) 98 11/28/16 01:01 57 30 149/83 (105) 96 11/28/16 01:00 59 30 33/31 (32) 96 11/28/16 00:07 99 30 199/111 (140) 83 11/28/16 00:00 98 Mechanical Ventilator 30 11/28/16 00:00 30 11/28/16 00:00 36.2 56 30 186/103 (130) 97 Mechanical Ventilator 30 11/27/16 23:14 57 30 98 Mechanical Ventilator 30 11/27/16 23:00 54 30 170/99 (122) 98 11/27/16 22:00 56 30 157/87 (110) 98 Mechanical Ventilator 30 11/27/16 21:30 30 11/27/16 20:00 36.9 57 30 158/84 (108) 97 Mechanical Ventilator 30 11/27/16 20:00 97 Mechanical Ventilator 30 11/27/16 20:00 30 11/27/16 18:58 30 11/27/16 18:00 58 30 154/87 (109) 97 Mechanical Ventilator 30 11/27/16 16:25 30 11/27/16 16:00 30 11/27/16 16:00 97 Mechanical Ventilator 30 11/27/16 16:00 36.6 58 30 128/78 (95) 97 Mechanical Ventilator 30 11/27/16 14:09 30 11/27/16 14:00 68 30 130/80 (97) 96 Mechanical Ventilator 30 11/27/16 13:00 93 30 140/87 (104) 97 Mechanical Ventilator 30 11/27/16 12:00 Mechanical Ventilator 30 11/27/16 12:00 36.5 83 30 131/94 (106) 98 Mechanical Ventilator 30 11/27/16 12:00 30 11/27/16 11:49 30 11/27/16 11:00 68 30 94/60 (71) 98 Mechanical Ventilator 30 11/27/16 10:00 76 30 108/61 (77) 96 Mechanical Ventilator 30 11/27/16 09:37 Mechanical Ventilator 30 Lab Results: Results Past 24 Hours Test 11/27/16 12:11 11/27/16 13:12 11/27/16 15:03 11/27/16 16:17 Range/Units Bedside Glucose 82 86 92 117 70-99 mg/dl Test 11/27/16 18:09 11/27/16 20:38 11/27/16 23:57 11/28/16 04:18 Range/Units Bedside Glucose 125 112 164 144 70-99 mg/dl Test 11/28/16 06:11 Range/Units White Blood Count 19.85 4.8-10.8 K/uL Red Blood Count 4.53 4.7-6.1 M/uL Hemoglobin 13.1 14.0-18.0 g/dL Hematocrit 39.5 42-52 % Mean Corpuscular Volume 87.2 80-100 fL Mean Corpuscular Hemoglobin 28.9 25-34 pg Mean Corpuscular Hemoglobin Concent 33.2 32-36 g/dl RDW Standard Deviation 44.2 36.4-46.3 fL RDW Coefficient of Variation 13.8 11.5-14.5 % Platelet Count 256 130-400 K/uL Mean Platelet Volume 8.9 7.4-10.4 fL Venous Blood pH 7.44 7.36-7.41 Venous Blood Partial Pressure CO2 45 38.0-50.0 mmHg Venous Blood Partial Pressure O2 137 mmHg Venous Blood HCO3 30 mmol/L Venous Blood Oxygen Saturation 99.0 % Venous Blood Base Excess 5.1 mEq/L Sodium Level 141 136-145 mmol/L Potassium Level 3.4 3.5-5.1 mmol/L Chloride Level 105 98-107 mmol/L Carbon Dioxide Level 29 21-32 mmol/L Anion Gap 7.0 3-11 mmol/L Blood Urea Nitrogen 19 7-18 mg/dl Creatinine 0.46 0.60-1.40 mg/dl Est Creatinine Clear Calc Drug Dose 179.7 ml/min Estimated GFR () 148.4 Estimated GFR (Non- 128.0 BUN/Creatinine Ratio 40.2 10-20 Random Glucose 169 70-99 mg/dl Calcium Level 8.3 8.5-10.1 mg/dl Phosphorus Level 2.4 2.5-4.9 mg/dl Magnesium Level 2.5 1.8-2.4 mg/dl
[2016-11-28] MEDS: SENNA 8.8 MG/5 ML UDP PO SCH (08:54)
[2016-11-28] MEDS: VANCOMYCIN HCL 125 MG/2.5ML SOLN PO SCH ×4 (08:56→20:24)
[2016-11-28] MEDS: METHYLPREDNISOLONE IV 40 MG in SYRINGE 0 ML IV SCH ×2 (08:57→20:24)
[2016-11-28] MEDS ORDERED: DexMEDEtomidine HCL INJ 200 MCG in SODIUM CHLORIDE 0.9% 50ML 48 ML IV PRN (09:15)
--- NOTE | 2016-11-28 09:30 | Pharmacy Progress Note ---
Glycemic Control Progress Note Date of Service Nov 28, 2016. Scope Glycemic Pharmacist consulted for glycemic control to write orders per [facility] inpatient glycemic control protocol. Objective Accuchecks BSG (last 24hrs): Test 11/27/16 12:11 11/27/16 13:12 11/27/16 15:03 11/27/16 16:17 Bedside Glucose 82 mg/dl (70-99) 86 mg/dl (70-99) 92 mg/dl (70-99) 117 mg/dl (70-99) Test 11/27/16 18:09 11/27/16 20:38 11/27/16 23:57 11/28/16 04:18 Bedside Glucose 125 mg/dl (70-99) 112 mg/dl (70-99) 164 mg/dl (70-99) 144 mg/dl (70-99) Test 11/28/16 06:11 Random Glucose 169 mg/dl (70-99) HbA1c: Test 11/27/16 05:39 Hemoglobin A1c 7.3 % (4.5-5.6) H Recent Pertinent Medications Outpatient Anti-diabetic Regimen: * Oral agents only The patient is currently receiving: * Insulin drip per protocol Risk Factors for Insulin Resistance: * Steroids * Infection * Tube feeds * Mechanical Ventilation Outpatient Anti-Diabetic Meds Oral agents Assessment & Plan ASSESSMENT: * 51 yo M admitted to ICU with significant pulmonary history, intubated and initiated on high dose steroids and broad spectrum antibiotics * Patient is a diabetic at baseline, with last A1c in 2016 indicative of good glycemic control on oral agents only * Repeat A1c 7.3 % this admission * We have followed his BSGs during past admissions, most recently in 2016, and patient was insulin sensitive, requiring wt-based/stress of 1 for IV steroids at that time * With the initiation of steroids, BSGs climbed as expected and since BSGs > 180 mg/dL X 2 patient was started on insulin drip per high stress protocol * Given current critical status requiring ongoing steroids, antibiotics, mechanical ventilation and tube feeds, insulin drip will be continued * ADA & AACE recommend a goal blood sugar range 140-180 mg/dl for the majority of critically ill & non-critically ill patients. However, more stringent targets may be selected in individual cases. I will loosen drip goal range to 100-200 mg/dL in attempt to lessen BSGs checks. PLAN FOR INPATIENT GLYCEMIC CONTROL: * Continue IV insulin infusion per severe stress protocol * Goal Range 100 - 200 mg/dl * In the critical care setting, continuous IV insulin infusion has been shown to be the best method for achieving glycemic targets. * Holding outpatient oral diabetes medications * Please note that the plan above was derived based on current level of insulin resistance and hospital stress. These recommendations are appropriate for inpatient admission only. Plan of care upon discharge will need to be reassessed to avoid potential outpatient hypo/hyperglycemia. Thank you.
[2016-11-28] MEDS ORDERED: POTASSIUM CHLORIDE 20 MEQ/15 ML UDC PO ONE (10:00)
--- NOTE | 2016-11-28 10:09 | DIAGNOSTIC IMAGING REPORT ---
KEE CLINICAL HISTORY: Verify position of Core Safe NGT tube position COMPARISON STUDY: 11/27/2016 FINDINGS: Core safe tube placed gastroesophageal junction. This should be advanced several centimeters. Unchanged nasogastric tube position distal stomach. IMPRESSION: Core safe placed at the gastro-esophageal junction. This should be advanced. The above report was generated using voice recognition software. It may contain grammatical, syntax or spelling errors. Electronically signed by: Neal Bledsoe M.D. 11/28/2016 10:08 AM Dictated Date/Time: 11/28/2016 10:07 AM
[2016-11-28] MEDS: LINEZOLID / D5W 600 MG in PREMIXED IN D5W 300 ML IV SCH (10:22)
[2016-11-28] MEDS: INSULIN REGULAR 250 UNITS in SODIUM CHLORIDE 0.9% 250ML 250 ML IV SCH (11:23)
[2016-11-28] MEDS: DILTIAZEM HCL 30 MG TAB PO SCH ×2 (12:59→16:57)
--- NOTE | 2016-11-28 13:32 | Critical Care Progress Note ---
Critical Care Progress Note Date of Service Nov 28, 2016. ICU Day ICU Day Number: [address] Richards Subjective Patient is a 50-year-old male presenting with acute on chronic hypercapnic respiratory failure. No events overnight. Plan wean trout today with attempt to extubate if patient capable. Objective VITAL SIGNS - Vital signs and nursing notes were reviewed. GENERAL - 51-year-old male appearing his stated age. Intubated and lightly sedated. Will open his eyes in response to pain/verbal stimuli. MOUTH/OROPHARYNX - Endotracheal tube in place. Without perioral cyanosis. NECK - Neck with FROM. Supple to palpation. LUNGS - Intubated. Chest wall symmetric without accessory muscle use. Breath sounds decreased throughout. CARDIAC - RRR with S1/S2. No murmur, rubs, or gallops appreciated. ABDOMEN - Abdominal contour flat and without pulsations or visible masses. BS normoactive all four quadrants. No tenderness, palpable masses, hepatosplenomegaly, or ascites noted. EXTREMITIES - No clubbing or peripheral cyanosis. Mild peripheral edema noted to upper and lower extremities. NEUROLOGIC/PSYCHIATRIC - Will open eyes to verbal/noxious stimuli. Current SOFA Score SOFA Score Response (Comments) Value PaO2/FiO2 (mmHg) < 300 2 SaO2 / FIO2 221 - 301 1 Platelets (x10) > 150 0 Bilirubin (mg/dL) < 1.2 0 [place] Coma Score 6 - 9 3 Level of Hypotension No Hypotension 0 Creatinine (mg/dL) < 1.2 0 Total 6 Previous SOFA Scores 6 Assessment & Plan (1) Respiratory distress (2) Compensated respiratory acidosis (3) QUOC (mycobacterium avium-intracellulare) (4) DM2 (diabetes mellitus, type 2) (5) C. difficile diarrhea (6) COPD, very severe (7) GERD (gastroesophageal reflux disease) (8) HTN (hypertension) (9) Depressive disorder Reason Critically Ill: 51-year-old male in acute hypercapnic respiratory distress requiring intubation and continued sedation. Neuro - * CAM ICU: POSITIVE * RASS: -1 * Will continue to wean down the Precedex to perform wean trial and possible extubation. Cardiac - * Elevated Troponin: Resolved - likely demand ischemia. * Hypertension * Continue Diltiazem dose of 60 mg QID. * Will continue to avoid BBs. * Will continue to monitor on telemetry. Respiratory - * Acute on Chronic Hypercapnic Respiratory Failure. * Remains intubated * PRVC - 440/30/8/30% * Attempted CPAP trial initially - reported episode of apnea per nursing staff. * His respiratory rate was decreased and he began breathing over the ventilator. A repeat CPAP trial at 12/8 was successful. Patient was weaned off of his Precedex to a CAM NEGATIVE status. Patient was extubated and placed immediately on BiPAP at 12/8/30%. * Will continue to wean non-invasive techniques to close to the patient's home O2 requirements, keeping in mind that these might have certainly increased given the patient's current episode. * Will continue to treat COPD Exacerbation: * Solu-Medrol 40mp IV TID * DuoNebs q4h - 2h prn. * Bronch cultures - Gram NEGATIVE Bacilli, E Coli, Staph Aureus, Strep Pneumoniae. * Will treat with PRIMAXIN for the next 14 days (of note, PICC line in place). Due to local pseudomonal sensitivities and lack of multidrug resistant pseudomonal infections in the community, we will not dual cover for pseudomonas at this time. * Will d/c Linezolid as PRIMAXIN alone will adequately cover. * QUOC * Bronch washings pending. * Hold treatment pending washings. * C. diff - Continue Vancomycin alone. GI - * C. diff infection - See ID section. * CORSAFE in place for supplemental feedings as needed. * Diet will be dependent on patients improvement from a respiratory status. * Continue Zantac IV q8 for GI prophylaxis. Will reassess when extubated. * BM overnight - Continue Senokot as needed. RENAL/LYTES - * Will monitor Lytes daily - Will correct appropriately. * Normosol discontinued. - * Plan to d/c Villanueva catheter as activity tolerates. ENDO - * T2DM. * ISS with Lantus. HEME - * Stable H&H. * Will monitor daily. ID - * QUOC infection in the setting of possible transplant patient. * Will hold treatment at this point. * C. Diff infection. * Continue Vancomycin. * Appreciate ID consultation. LINES/IV ACCESS - * PIVs intact. * PICC line in place in LUE. * RIGHT Radial Artery Line Intact. * CORESAFE in place. DVT PROPHYLAXIS - * Lovenox 40mg sq daily. We had a lengthy conversation with the family in regards to extubation today. The patient's respiratory status has improved. After conversation, they were in agreement with extubation today. They are still in agreement that the patient will not undergo repeat intubation or tracheostomy placement at this point. I have personally spent 60 minutes of critical care time in the direct management of this patient. This is a life/limb threatening event. This includes time spent evaluating patient, direct bedside care, chart review, placing orders, interpretation of diagnostic studies, discussion with consultants, patient, and family members, as well as other required patient management activities. This time is exclusive of all separately billable procedures, and teaching time and separate from and in addition to any other critical care service time. Thank you for this consultation allow us to be part of this patient's care. Please refer to my attending physician's documentation for any further recommendations. I have personally evaluated and examined this patient. I agree with assessment and plan of Cedrick Villagran PA-C. Mental status and respiratory mechanics improved that patient was able to be extubated to Bipap and slowly weaned. At this time patient would NOT be reintubated for acute respiratory failure. Consults & Procedures Consultants: Dr. Villanueva - Pulmonology Dr. Lobo - Infectious Disease Procedures: PICC - LUE Rad Art Line - RUE CORESAFE in place. Data Medications: Current Inpatient Medications Medications (Trade) Dose Ordered Sig/Abigail Route Start Time Stop Time Status Last Admin Dose Admin Ioversol (Optiray 320) 100 ml UD PRN IV 11/25/16 15:45 11/29/16 15:44 Enoxaparin Sodium (Lovenox Inj) 40 mg Q24H SQ 11/26/16 06:00 12/26/16 05:59 11/28/16 05:38 40 MG Vancomycin HCl (Vancomycin Oral Soln) 125 mg QID PO 11/25/16 22:00 12/09/16 21:59 11/28/16 08:56 125 MG Glucose (Glucose 40% Gel) 15-30 GRAMS 15 GRAMS... UD PRN PO 11/26/16 01:00 12/26/16 00:59 Glucose (Glucose Chew Tab) 4-8 Tablets 4 Tabl... UD PRN PO 11/26/16 01:00 12/26/16 00:59 Dextrose (Dextrose 50% 50ML Syringe) 25-50ML OF 50% DW IV FOR... UD PRN IV 11/26/16 01:00 12/26/16 00:59 Glucagon (Glucagon Inj) 1 mg UD PRN SQ 11/26/16 01:00 12/26/16 00:59 Miscellaneous Information (Consult Glycemic Management Pharmacy) 1 ea UD PRN N/A 11/26/16 01:23 12/26/16 01:22 Ranitidine HCl 50 mg/Dextrose 102 ml @ 200 mls/hr Q8H IV 11/26/16 02:00 12/26/16 01:59 11/28/16 08:57 200 MLS/HR Albuterol (Ventolin Hfa Inhaler) 4 puffs Q4R INH 11/26/16 04:00 12/26/16 03:59 11/28/16 11:52 4 PUFFS Ipratropium Peak (Atrovent Hfa Inhaler) 4 puffs Q4R INH 11/26/16 04:00 12/26/16 03:59 11/28/16 11:52 4 PUFFS Insulin Human Regular 250 units/ Sodium Chloride 252.5 ml @ 0 mls/hr DAILY@1130 IV 11/26/16 07:45 12/26/16 07:44 11/28/16 11:23 0.9 MLS/HR Insulin Aspart (novoLOG ASPART) [facility] 11/26/16 08:00 12/26/16 07:59 Enteral Nutritional Formula (Peptamen Intense VHP) 1,000 ml UD PRN OG 11/26/16 10:00 12/26/16 09:59 11/26/16 11:04 1,000 ML Fentanyl Citrate (Fentanyl Inj) 100 mcg Q1H PRN IV 11/26/16 13:15 12/10/16 02:14 11/27/16 21:50 100 MCG Heparin Sodium (Porcine) (Heparin 10 Unit/ ml 5 ml Flush) 5 ml PRN PRN FLUSH 11/26/16 13:00 12/26/16 12:59 Imipenem/ Cilastatin Sodium 500 mg/Dextrose 110 ml @ 100 mls/hr Q6H IV 11/27/16 18:00 12/11/16 17:59 11/28/16 11:24 100 MLS/HR Methylprednisolone Sodium Succinate 40 mg/Syringe 0.64 ml @ 1.5 mls/min BID IV 11/28/16 09:00 9/17/17 08:59 11/28/16 08:57 1.5 MLS/MIN Senna (Senokot Syrup) 8.8 mg QAM PO 11/28/16 09:00 12/28/16 08:59 11/28/16 08:54 8.8 MG Dexmedetomidine HCl 200 mcg/ Sodium Chloride 50 ml @ 0 mls/hr Q0M PRN IV 11/27/16 12:30 12/01/16 12:29 11/28/16 09:29 0.4 MLS/HR Diltiazem HCl (Cardizem Tab) 60 mg QID PO 11/28/16 13:00 12/28/16 12:59 Vital Signs: Date Time Temp Pulse Resp B/P (MAP) Pulse Ox O2 Delivery O2 Flow Rate FiO2 11/28/16 10:00 36.4 66 30 162/98 (119) 100 Mechanical Ventilator 30 177/91 (119) 11/28/16 09:25 30 11/28/16 08:01 36.4 54 30 163/106 (125) 100 Mechanical Ventilator 30 162/94 (116) 11/28/16 08:00 100 Mechanical Ventilator 30 11/28/16 08:00 30 11/28/16 07:32 30 11/28/16 05:20 30 11/28/16 05:00 57 30 198/109 (138) 11/28/16 04:00 30 11/28/16 04:00 98 Mechanical Ventilator 30 11/28/16 04:00 36.4 55 30 157/72 (100) 97 11/28/16 03:00 56 30 157/82 (107) 94 11/28/16 02:23 30 11/28/16 02:00 49 30 168/82 (110) 98 11/28/16 01:01 57 30 149/83 (105) 96 11/28/16 01:00 59 30 33/31 (32) 96 11/28/16 00:07 99 30 199/111 (140) 83 11/28/16 00:00 98 Mechanical Ventilator 30 11/28/16 00:00 30 11/28/16 00:00 36.2 56 30 186/103 (130) 97 Mechanical Ventilator 30 11/27/16 23:14 57 30 98 Mechanical Ventilator 30 11/27/16 23:00 54 30 170/99 (122) 98 11/27/16 22:00 56 30 157/87 (110) 98 Mechanical Ventilator 30 11/27/16 21:30 30 11/27/16 20:00 36.9 57 30 158/84 (108) 97 Mechanical Ventilator 30 11/27/16 20:00 97 Mechanical Ventilator 30 11/27/16 20:00 30 11/27/16 18:58 30 11/27/16 18:00 58 30 154/87 (109) 97 Mechanical Ventilator 30 11/27/16 16:25 30 11/27/16 16:00 30 11/27/16 16:00 97 Mechanical Ventilator 30 11/27/16 16:00 36.6 58 30 128/78 (95) 97 Mechanical Ventilator 30 11/27/16 14:09 30 11/27/16 14:00 68 30 130/80 (97) 96 Mechanical Ventilator 30 11/27/16 13:00 93 30 140/87 (104) 97 Mechanical Ventilator 30 Laboratory Results: Last 24 Hours Test 11/27/16 13:12 11/27/16 15:03 11/27/16 16:17 11/27/16 18:09 Bedside Glucose 86 mg/dl 92 mg/dl 117 mg/dl 125 mg/dl Test 11/27/16 20:38 11/27/16 23:57 11/28/16 04:18 11/28/16 06:11 Bedside Glucose 112 mg/dl 164 mg/dl 144 mg/dl White Blood Count 19.85 K/uL Red Blood Count 4.53 M/uL Hemoglobin 13.1 g/dL Hematocrit 39.5 % Mean Corpuscular Volume 87.2 fL Mean Corpuscular Hemoglobin 28.9 pg Mean Corpuscular Hemoglobin Concent 33.2 g/dl RDW Standard Deviation 44.2 fL RDW Coefficient of Variation 13.8 % Platelet Count 256 K/uL Mean Platelet Volume 8.9 fL Venous Blood pH 7.44 Venous Blood Partial Pressure CO2 45 mmHg Venous Blood Partial Pressure O2 137 mmHg Venous Blood HCO3 30 mmol/L Venous Blood Oxygen Saturation 99.0 % Venous Blood Base Excess 5.1 mEq/L Sodium Level 141 mmol/L Potassium Level 3.4 mmol/L Chloride Level 105 mmol/L Carbon Dioxide Level 29 mmol/L Anion Gap 7.0 mmol/L Blood Urea Nitrogen 19 mg/dl Creatinine 0.46 mg/dl Est Creatinine Clear Calc Drug Dose 179.7 ml/min Estimated GFR () 148.4 Estimated GFR (Non- 128.0 BUN/Creatinine Ratio 40.2 Random Glucose 169 mg/dl Calcium Level 8.3 mg/dl Phosphorus Level 2.4 mg/dl Magnesium Level 2.5 mg/dl Test 11/28/16 07:56 11/28/16 11:31 Bedside Glucose 139 mg/dl 127 mg/dl
[2016-11-28] MEDS ORDERED: ALBUT/IPRATROP 3MG/0.5MG NEB 3 ML VIAL INH PRN (14:00)
[2016-11-28] MEDS: ALBUT/IPRATROP 3MG/0.5MG NEB 3 ML VIAL INH SCH ×2 (15:15→19:31)
[2016-11-28] MEDS ORDERED: FENTANYL CITRATE INJ 50 MCG/1 ML 2 ML VIAL IV PRN (16:15)
[2016-11-28] MEDS ORDERED: DILTIAZEM HCL 5 MG/ML 5 ML VIAL IV STA (17:17)
[2016-11-28] MEDS ORDERED: DILTIAZEM BOLUS / DRIP IV SCH (17:19)
[2016-11-28] MEDS: DILTIAZEM HCL INJ 125 MG in DEXTROSE 5% 100ML IV PRN (17:41)
--- NOTE | 2016-11-28 18:39 | Critical Care Progress Note ---
Critical Care Progress Note Date of Service Nov 28, 2016. Critical Care Progress Note 182 Called patient's daughter, TAMMI Doran to inform her that we placed patient back on BiPAP 2/2 increasing work of breathing. Explained that we provided medications for blood pressure/heart rate control. She acknowledged understanding. All questions were addressed and answered to the daughter's satisfaction.
[2016-11-28] MEDS: PEPTAMEN INTENSE VHP 1000ML BAG OG PRN (20:24)
[2016-11-28] MEDS ORDERED: AMIODARONE IV BOLUS / DRIP IV STA (21:48)
[2016-11-28] MEDS ORDERED: AMIODARONE / D5W 100 ML IV SCH (22:00)
[2016-11-28] MEDS ORDERED: AMIODARONE / D5W 200 ML IV SCH (22:10)
[2016-11-28 22:49] LABS: BUN/CREATININE RATIO 29.5 (10-20); CALCIUM 8.4 mg/dl (8.5-10.1); CREATININE 0.64 mg/dl (0.60-1.40); MAGNESIUM 2.3 mg/dl (1.8-2.4)
[2016-11-28 22:58] LABS: PHOSPHORUS 1.3 mg/dl (2.5-4.9)
[2016-11-28 22:59] LABS: POTASSIUM 4.2 mmol/L (3.5-5.1)
[2016-11-28] MEDS ORDERED: POT PHOSPHATE MONOBASIC W/ SOD TAB PO ONE (23:43)
[2016-11-29] VITALS (41 sets, daily range): BP systolic 136–210; BP diastolic 63–112; PULSE 76–105; TEMP 36.8–37.4; O2SAT 92–100
[2016-11-29] MEDS: IMIPENEM/CILASTATIN IV 500 MG in DEXTROSE 5% 100ML 100 ML IV SCH ×5 (00:21→23:30)
[2016-11-29] MEDS: DILTIAZEM HCL INJ 125 MG in DEXTROSE 5% 100ML IV PRN (01:11)
[2016-11-29] MEDS: RANITIDINE IV 50 MG in DEXTROSE 5% 100ML 100 ML IV SCH ×3 (02:47→19:43)
[2016-11-29] MEDS ORDERED: AMIODARONE / D5W 200 ML IV SCH (04:11)
[2016-11-29] MEDS: ENOXAPARIN 40 MG/0.4 ML SYR SQ SCH (05:29)
[2016-11-29 06:17] LABS: COMPLETE YES; HEMATOCRIT 40.3 % (42-52); IG% 0.2 %; LYMPH % 4.1 %; LYMPH ABS # 0.78 K/uL (1.2-3.4); MEAN CELL VOLUME 89.8 fL (80-100); MEAN CORPUSCULAR HEMOGLOBIN 28.3 pg (25-34); MEAN CORPUSCULAR HGB CONC 31.5 g/dl (32-36); MEAN PLATELET VOLUME 8.9 fL (7.4-10.4); MONO % 1.9 %; NEUT % 93.8 %; PLATELET COUNT 283 K/uL (130-400); RED BLOOD COUNT 4.49 M/uL (4.7-6.1); WHITE BLOOD COUNT 18.82 K/uL (4.8-10.8)
[2016-11-29 06:52] LABS: BUN/CREATININE RATIO 33.9 (10-20); CALCIUM 8.1 mg/dl (8.5-10.1); CREATININE 0.56 mg/dl (0.60-1.40); MAGNESIUM 2.2 mg/dl (1.8-2.4); POTASSIUM 3.8 mmol/L (3.5-5.1)
[2016-11-29 07:02] LABS: PHOSPHORUS 2.4 mg/dl (2.5-4.9)
[2016-11-29] MEDS: ALBUT/IPRATROP 3MG/0.5MG NEB 3 ML VIAL INH SCH ×4 (07:26→19:21)
[2016-11-29] MEDS: INSULIN ASPART 100 UNITS/ML 3 ML PEN SC SCH (08:00)
[2016-11-29] MEDS: SENNA 8.8 MG/5 ML UDP PO SCH (08:35)
--- NOTE | 2016-11-29 08:36 | Progress Note ---
Internal Med Progress Note Date of Service: Nov 29, 2016. Provider Documentation: SUBJECTIVE: Seen and examined at bedside. Currently on BiPAP Less SOB Denies chest pain, Abd pain No family at bedside On amiodarone and Cardizem ggt OBJECTIVE: Vital Signs-as noted below Physical Exam: General Appearance:Moderately built and nourished, No distress Head: normocephalic, Atraumatic Eyes: normal inspection, Anicteric Respiratory/Chest: Decreased breath sounds, CTA Cardiovascular: S1, S2, No murmur Abdomen/GI:Soft, Non tender, Bowel sounds diminished Extremities/Musculoskelatal:normal inspection, +2 b/l edema Neurologic/Psych:Grossly no focal deficits Skin: normal color, warm Lab data as noted below. ASSESSMENT & PLAN: Acute on chronic hypoxic and hypercapnic respiratory failure H/O Steroid dependent COPD Bronchiectasis H/O QUOC follows with as outpatient (Treated with zithromycin and ethambutol) S/P wedge resection of R middle, upper and lower lobes by Dr. Andreas Estrella on 01/02/16 S/P Bronchoscopy on 11/25/16 S/P extubation on 11/28/16 CTA: negative for PE. Showed multiple b/l lung cysts and pulmonary nodules likely infectious process Continue IV solu-medrol, Bronchodilators IV antibiotics:Primaxin, Vanco Zyvox discontinued Bronchial washings studies: Multiple organisms:E.coli, Strep.Pneumo, Staph, Achromobacter Blood/Urine culture: No growth to date AFB pending Leukocytosis trending down MRSA screen negative Also follows with Dr. Miranda and [facility] for transplant evaluation Appreciate Web Master, Pulmonology, ID Input Prognosis is guarded Needs reevaluation at [facility], for possible lung transplantation upon discharge Palliative care following QUOC C. diff colitis second occurrence diagnosed 11/12: On vancomycin taper as outpatient Continue PO vanco IV flagyl discontinued Appreciate ID Input withholding QUOC therapy pending bronchoscopy results DM II A1C: 9.3 07/2016 hold oral agents SSI, Accu checks HTN NSVT On Amiodarone, Cardizem ggt metoprolol on hold monitor Hypokalemia Resolved Monitor DVT Px: SQ Lovenox Code Status: DNR PROCEDURES: CTA: 1. No evidence of acute pulmonary embolism 2. Multiple bilateral lung cysts, slightly progressive when compared the prior study 3. Scattered bilateral pulmonary nodules. These are statistically inflammatory/infectious. A 1-2 month follow-up study subsequent to antibiotic therapy is recommended. ECHO: * The left ventricular wall motion is normal. * Left ventricular systolic function is normal. * The LV Ejection Fraction = 55-60%. * The right ventricle is mildly dilated. * The right ventricular systolic function is mild to moderately reduced. * Dilated inferior vena cava with reduced collapsability with sniff indicates an elevated right atrial pressure of 15 mmHg * There is no significant tricuspid regurgitation, and therefore the pulmonary artery systolic pressure cannot be calculated. * The aortic valve was not visualized sufficiently to determine the number of cusps. * The prior echocardiogram report dated 10/05/10, described possible bicuspid AV. * There is no significant aortic regurgitation. * Aortic stenosis is absent. Vital Signs: Date Time Temp Pulse Resp B/P (MAP) Pulse Ox O2 Delivery O2 Flow Rate FiO2 11/29/16 07:30 BiPAP 30 11/29/16 07:30 37.4 78 22 141/79 (99) 96 BiPAP 30 11/29/16 07:26 80 95 30 11/29/16 07:26 80 20 95 BiPAP/CPAP 30 11/29/16 05:35 37.2 83 153/71 (98) 95 BiPAP 30 11/29/16 04:00 92 BiPAP 30 11/29/16 04:00 76 149/70 (96) 96 BiPAP 30 11/29/16 03:00 80 145/66 (92) 94 BiPAP 30 11/29/16 02:00 85 150/66 (94) 94 BiPAP 30 11/29/16 00:00 37.2 88 147/64 (91) 94 BiPAP 30 11/28/16 23:59 92 BiPAP 30 11/28/16 22:05 89 94 30 11/28/16 22:00 88 20 145/70 (95) 93 BiPAP 30 11/28/16 21:30 92 22 156/63 (94) 95 BiPAP 30 152/78 (102) 11/28/16 21:00 102 26 182/82 (115) 94 BiPAP 30 11/28/16 20:30 107 24 167/70 (102) 91 BiPAP 30 11/28/16 20:00 37.2 100 24 163/68 (99) 92 BiPAP 30 11/28/16 20:00 92 BiPAP 30 11/28/16 19:31 111 31 95 BiPAP/CPAP 30 11/28/16 19:30 111 24 174/74 (107) 92 BiPAP 30 11/28/16 19:00 115 23 168/76 (106) 95 BiPAP 30 11/28/16 18:40 114 96 30 11/28/16 18:00 36.4 117 32 153/97 (115) 97 Oxymask 4.0 168/74 (105) 11/28/16 16:00 36.5 128 26 169/109 (129) 96 Oxymask 4.0 197/110 (139) 11/28/16 16:00 96 Oxymask 11/28/16 14:00 36.4 119 28 159/101 (120) 96 Oxymask 4.0 195/83 (120) 11/28/16 13:25 118 24 97 Mask 6.0 11/28/16 13:05 134 91 11/28/16 12:00 36.4 121 28 180/127 (144) 94 BiPAP 30 240/104 (149) 11/28/16 12:00 94 BiPAP 30 11/28/16 11:40 100 95 30 11/28/16 10:30 30 11/28/16 10:00 36.4 66 30 162/98 (119) 100 Mechanical Ventilator 30 177/91 (119) 11/28/16 09:25 30 Lab Results: Results Past 24 Hours Test 11/28/16 11:31 11/28/16 17:48 11/28/16 20:32 11/28/16 21:59 Range/Units Bedside Glucose 127 114 99 70-99 mg/dl Sodium Level 142 136-145 mmol/L Potassium Level 4.2 3.5-5.1 mmol/L Chloride Level 106 98-107 mmol/L Carbon Dioxide Level 34 21-32 mmol/L Anion Gap 2.0 3-11 mmol/L Blood Urea Nitrogen 19 7-18 mg/dl Creatinine 0.64 0.60-1.40 mg/dl Est Creatinine Clear Calc Drug Dose 129.1 ml/min Estimated GFR () 129.6 Estimated GFR (Non- 111.8 BUN/Creatinine Ratio 29.5 10-20 Random Glucose 97 70-99 mg/dl Calcium Level 8.4 8.5-10.1 mg/dl Phosphorus Level 1.3 2.5-4.9 mg/dl Magnesium Level 2.3 1.8-2.4 mg/dl Chemistry Specimen Hemolysis Test 11/28/16 23:45 11/29/16 04:32 11/29/16 06:00 11/29/16 08:03 Range/Units Bedside Glucose 87 126 127 70-99 mg/dl White Blood Count 18.82 4.8-10.8 K/uL Red Blood Count 4.49 4.7-6.1 M/uL Hemoglobin 12.7 14.0-18.0 g/dL Hematocrit 40.3 42-52 % Mean Corpuscular Volume 89.8 80-100 fL Mean Corpuscular Hemoglobin 28.3 25-34 pg Mean Corpuscular Hemoglobin Concent 31.5 32-36 g/dl Platelet Count 283 130-400 K/uL Mean Platelet Volume 8.9 7.4-10.4 fL Neutrophils (%) (Auto) 93.8 % Lymphocytes (%) (Auto) 4.1 % Monocytes (%) (Auto) 1.9 % Eosinophils (%) (Auto) 0.0 % Basophils (%) (Auto) 0.0 % Neutrophils # (Auto) 17.65 1.4-6.5 K/uL Lymphocytes # (Auto) 0.78 1.2-3.4 K/uL Monocytes # (Auto) 0.36 0.11-0.59 K/uL Eosinophils # (Auto) 0.00 0-0.5 K/uL Basophils # (Auto) 0.00 0-0.2 K/uL RDW Standard Deviation 46.5 36.4-46.3 fL RDW Coefficient of Variation 14.1 11.5-14.5 % Immature Granulocyte % (Auto) 0.2 % Immature Granulocyte # (Auto) 0.03 0.00-0.02 K/uL Sodium Level 143 136-145 mmol/L Potassium Level 3.8 3.5-5.1 mmol/L Chloride Level 105 98-107 mmol/L Carbon Dioxide Level 31 21-32 mmol/L Anion Gap 7.0 3-11 mmol/L Blood Urea Nitrogen 19 7-18 mg/dl Creatinine 0.56 0.60-1.40 mg/dl Est Creatinine Clear Calc Drug Dose 147.6 ml/min Estimated GFR () 136.9 Estimated GFR (Non- 118.1 BUN/Creatinine Ratio 33.9 10-20 Random Glucose 137 70-99 mg/dl Calcium Level 8.1 8.5-10.1 mg/dl Phosphorus Level 2.4 2.5-4.9 mg/dl Magnesium Level 2.2 1.8-2.4 mg/dl
[2016-11-29] MEDS: METHYLPREDNISOLONE IV 40 MG in SYRINGE 0 ML IV SCH ×2 (08:44→20:48)
[2016-11-29] MEDS: POT PHOSPHATE MONOBASIC W/ SOD TAB PO SCH ×2 (08:44→20:46)
[2016-11-29] MEDS: VANCOMYCIN HCL 125 MG/2.5ML SOLN PO SCH ×4 (08:44→20:48)
[2016-11-29] MEDS ORDERED: INSULIN ASPART 100 UNITS/ML 3 ML PEN SC SCH (11:00)
[2016-11-29] MEDS: INSULIN REGULAR 250 UNITS in SODIUM CHLORIDE 0.9% 250ML 250 ML IV SCH (11:26)
[2016-11-29] MEDS ORDERED: INSULIN GLARGINE SOLOSTAR 100 UNITS/ML 3 ML PEN SC ONE ×2 (11:30→21:45)
[2016-11-29] MEDS: INSULIN HUMAN REGULAR SC SCH ×3 (12:00→23:52)
--- NOTE | 2016-11-29 12:06 | Critical Care Progress Note ---
Critical Care Progress Note Date of Service Nov 29, 2016. ICU Day ICU Day Number: [address] Richards Subjective Patient is feeling better, denies pain aside from the discomfort of his Bipap mask, which had broken seal and was blowing air into his eye. Relieved after I adjusted mask. Patient had a run of v.tach overnight, but denies any symptoms associated with it at that time. Currently denies chest pain, dyspnea, palpitation. Denies fevers or chills. Has hsu in situ. Has had a few BM. No abdo pain, N/V. Addendum: Did have episode of flushing and diaphoresis post increase of tube feed. Became transiently tachycardic (max 110 bpm) with elevated BP (SBP 160), however they were improving at time of assessment. Otherwise continued to deny CP, palpitations, SOB, nausea, pleurisy, neck/jaw/arm pain, and stating even his symptoms were started to decrease. EKG showed mild changes in R wave progression and diminished T waves in V3 and V4, compared to previous EKG. Likely related to lead attachment, but troponin also ordered. Objective VITAL SIGNS - Vital signs and nursing notes were reviewed. GENERAL: Alert, well nourished, lying in bed, no acute distress, non-toxic HEAD: Normocephalic, atraumatic. No sinus tenderness. EYES: PERRL, EOMI, normal conjunctiva and sclera OROPHARYNX: unable to assess do to Bipap mask in place. No perioral cyanosis. NECK: Supple, full ROM, no adenopathy, non-tender LUNGS: Clear to auscultation. Normal chest wall mechanics, diminished air entry. No respiratory distress or accessory muscle use. Diffuse wheezing bilaterally. HEART: RRR, S1 and S2 normal. No murmur, rubs, or gallops appreciated. CHEST: No reproducible tenderness. ABDOMEN: abdomen soft, non-tender, normo-active bowel sounds, no ascites or masses, no rebound or guarding. BACK: Back is symmetrical on inspection, no deformities, no midline tenderness, no CVA tenderness. EXTREMITIES: Grossly normal. No clubbing or peripheral cyanosis. Mild peripheral edema noted to upper and lower extremities. Calves non tender. NEURO: Alert, Ox3. No focal deficits. Normal sensorium, cranial nerves II-XII grossly intact, normal speech. Current SOFA Score SOFA Score Response (Comments) Value PaO2/FiO2 (mmHg) < 300 2 SaO2 / FIO2 221 - 301 1 Platelets (x10) > 150 0 Bilirubin (mg/dL) < 1.2 0 Dex Coma Score 6 - 9 3 Level of Hypotension No Hypotension 0 Creatinine (mg/dL) < 1.2 0 Total 6 Previous SOFA Scores 6 Assessment & Plan Reason Critically Ill: 51-year-old male with hypercapnic respiratory distress recently extubated and being weaned from respiratory support on a background of severe lung disease. Neuro - * CAM ICU: negative * RASS: 0 * Continue to monitor mental status CVS - * Episode of v.tach overnight - patient was asymptomatic. Given amiodarone bolus followed by infusion + diltiazem drip. Heart rate has since normalized. * Discontinue amiodarone infusion. * Hypertension * Revert diltiazem drip to PO diltiazem 30mg QID. * Will continue to avoid BBs. * For episode of flushing and diaphoresis, initial troponin mildly elevated ( less than peak at time of admission). Likely demand ischemia, but serial trop ordered. * Continue to monitor on telemetry Resp - * Acute on Chronic Hypercapnic Respiratory Failure. * Extubated 11/28 and transitioned to Bipap 03/20/30%. Bipap converted to oxygen via mask at 5L flow rate on 11/29, sats 96% * Will continue non-invasive techniques to get close to the patient's home O2 requirements, keeping in mind that these might have certainly increased given the patient's current episode. At this time, will try high flow nasal cannula if higher O2 demands arise first, followed by Bipap. Patient has expressed that he would not like to be intubated again or given a tracheostomy. * Will continue to treat COPD Exacerbation: * Solu-Medrol 40mp IV TID for today, then convert to PO prednisone 40mg daily for a prolonged 14 day taper * DuoNebs q4h - 2h PRN * Pneumonia - See ID section. GI/Nutrition - * C. diff infection - See ID section. * CORSAFE in place for supplemental feedings as needed. * Plans to escalate diet to target 60cc/hr of Peptamen, to be increased by 15cc /hr q4h * If patient tolerating well, may escalate to sips in evening * Continue Zantac IV q8h for GI prophylaxis. Will reassess when full diet tolerated. * BM overnight - Continue Senokot as needed. RENAL/ - * Monitor BMP daily - will correct appropriately. * Normosol discontinued as feeds titrated up * D/c Hsu catheter. ID - * Bronch cultures - Gram NEGATIVE Bacilli, E Coli, Staph Aureus, Strep Pneumoniae, Achromobacter xylosoxidans * Will treat with Primaxin (Day 3 of 14) via PICC line in place. Due to local pseudomonal sensitivities and lack of multidrug resistant pseudomonal infections in the community, we will not dual cover for pseudomonas at this time. * QUOC infection in the setting of possible transplant patient. * Bronch washings pending. * Hold treatment pending washings. * C. diff - Continue PO Vancomycin alone * Appreciate ID consultation. ENDO - * T2DM. * Insulin drip discontinued. Started on basal/bolus regimen with Lantus 10units BID. Monitor BG per protocol HEME - * Stable H&H. * Will monitor daily. LINES/IV ACCESS - * PIVs intact. * PICC line in place in [facility] [place]. * RIGHT Radial Artery Line Intact. * CORESAFE in place. DVT PROPHYLAXIS - * Lovenox 40mg SC daily. * Encourage activity/ambulation as tolerated. PT/OT consulted. * * Resident Physician Supervision Note: Dr. Juarez was resident physician during care of patient. I separately evaluated patient and did history and exam. I discussed the case with the resident and generally agree with the findings and plan. D/C amiodarone today. Transition to oral diltiazem. continue tube feeding until improved pulmonary mechanics. Documented By: Jere Richards DO Consults & Procedures Consultants: Dr. Hsu - Pulmonology Dr. Lobo - Infectious Disease Procedures: PICC - LUE Rad Art Line - RUE CORESAFE in place. Data Medications: Current Inpatient Medications Medications (Trade) Dose Ordered Sig/Abigail Route Start Time Stop Time Status Last Admin Dose Admin Ioversol (Optiray 320) 100 ml UD PRN IV 11/25/16 15:45 11/29/16 15:44 Enoxaparin Sodium (Lovenox Inj) 40 mg Q24H SQ 11/26/16 06:00 12/26/16 05:59 11/29/16 05:29 40 MG Vancomycin HCl (Vancomycin Oral Soln) 125 mg QID PO 11/25/16 22:00 12/09/16 21:59 11/29/16 08:44 125 MG Glucose (Glucose 40% Gel) 15-30 GRAMS 15 GRAMS... UD PRN PO 11/26/16 01:00 12/26/16 00:59 Glucose (Glucose Chew Tab) 4-8 Tablets 4 Tabl... UD PRN PO 11/26/16 01:00 12/26/16 00:59 Dextrose (Dextrose 50% 50ML Syringe) 25-50ML OF 50% DW IV FOR... UD PRN IV 11/26/16 01:00 12/26/16 00:59 Glucagon (Glucagon Inj) 1 mg UD PRN SQ 11/26/16 01:00 12/26/16 00:59 Miscellaneous Information (Consult Glycemic Management Pharmacy) 1 ea UD PRN N/A 11/26/16 01:23 12/26/16 01:22 Ranitidine HCl 50 mg/Dextrose 102 ml @ 200 mls/hr Q8H IV 11/26/16 02:00 12/26/16 01:59 11/29/16 10:28 200 MLS/HR Insulin Human Regular 250 units/ Sodium Chloride 252.5 ml @ 0 mls/hr DAILY@1130 IV 11/26/16 07:45 12/26/16 07:44 11/28/16 11:23 0.9 MLS/HR Insulin Aspart (novoLOG ASPART) [facility] 11/26/16 08:00 12/26/16 07:59 Enteral Nutritional Formula (Peptamen Intense VHP) 1,000 ml UD PRN OG 11/26/16 10:00 12/26/16 09:59 11/28/16 20:24 1,000 ML Heparin Sodium (Porcine) (Heparin 10 Unit/ ml 5 ml Flush) 5 ml PRN PRN FLUSH 11/26/16 13:00 12/26/16 12:59 Imipenem/ Cilastatin Sodium 500 mg/Dextrose 110 ml @ 100 mls/hr Q6H IV 11/27/16 18:00 12/11/16 17:59 11/29/16 05:27 100 MLS/HR Methylprednisolone Sodium Succinate 40 mg/Syringe 0.64 ml @ 1.5 mls/min BID IV 11/28/16 09:00 12/28/16 08:59 11/29/16 08:44 1.5 MLS/MIN Senna (Senokot Syrup) 8.8 mg QAM PO 11/28/16 09:00 12/28/16 08:59 11/28/16 08:54 8.8 MG Dexmedetomidine HCl 200 mcg/ Sodium Chloride 50 ml @ 0 mls/hr Q0M PRN IV 11/27/16 12:30 12/01/16 12:29 11/28/16 09:29 0.4 MLS/HR Diltiazem HCl (Cardizem Tab) 60 mg QID PO 11/28/16 13:00 12/28/16 12:59 Future Hold 11/28/16 16:57 60 MG Albuterol/ Ipratropium (Duoneb) 3 ml QIDR INH 11/28/16 16:00 12/28/16 15:59 11/29/16 07:26 3 ML Albuterol/ Ipratropium (Duoneb) 3 ml Q2R PRN INH 11/28/16 14:00 12/28/16 13:59 Fentanyl Citrate (Fentanyl Inj) 25 mcg Q1H PRN IV 11/28/16 16:15 12/10/16 02:14 11/28/16 15:34 25 MCG Diltiazem HCl 125 mg/Dextrose 125 ml @ 0 mls/hr Q0M PRN IV 11/28/16 17:30 12/28/16 17:29 11/29/16 01:11 10 MLS/HR Amiodarone HCL/ Dextrose 200 ml @ 16.7 mls/hr Q23T30V IV 11/29/16 04:11 12/29/16 04:10 11/29/16 04:20 16.7 MLS/HR Potassium/ Phosphorus/Sodium (Phospha 250 Neutral 155-852-130 Mg) 2 tab BID PO 11/29/16 09:00 12/29/16 08:59 11/29/16 08:44 2 TAB Insulin Glargine (Lantus Solostar Pen) 10 units BID SC 11/29/16 21:00 12/29/16 20:59 UNV Insulin Glargine (Lantus Solostar Pen) 10 units 1033 ONCE SC 11/29/16 10:33 11/29/16 10:34 UNV Vital Signs: Date Time Temp Pulse Resp B/P (MAP) Pulse Ox O2 Delivery O2 Flow Rate FiO2 11/29/16 09:00 37.4 76 22 179/81 (113) 96 BiPAP 30 151/86 (107) 11/29/16 07:30 BiPAP 30 11/29/16 07:30 37.4 78 22 141/79 (99) 96 BiPAP 30 11/29/16 07:26 80 95 30 11/29/16 07:26 80 20 95 BiPAP/CPAP 30 11/29/16 05:35 37.2 83 153/71 (98) 95 BiPAP 30 11/29/16 04:00 92 BiPAP 30 11/29/16 04:00 76 149/70 (96) 96 BiPAP 30 11/29/16 03:00 80 145/66 (92) 94 BiPAP 30 11/29/16 02:00 85 150/66 (94) 94 BiPAP 30 11/29/16 00:00 37.2 88 147/64 (91) 94 BiPAP 30 11/28/16 23:59 92 BiPAP 30 11/28/16 22:05 89 94 30 11/28/16 22:00 88 20 145/70 (95) 93 BiPAP 30 11/28/16 21:30 92 22 156/63 (94) 95 BiPAP 30 152/78 (102) 11/28/16 21:00 102 26 182/82 (115) 94 BiPAP 30 11/28/16 20:30 107 24 167/70 (102) 91 BiPAP 30 11/28/16 20:00 37.2 100 24 163/68 (99) 92 BiPAP 30 11/28/16 20:00 92 BiPAP 30 11/28/16 19:31 111 31 95 BiPAP/CPAP 30 11/28/16 19:30 111 24 174/74 (107) 92 BiPAP 30 11/28/16 19:00 115 23 168/76 (106) 95 BiPAP 30 11/28/16 18:40 114 96 30 11/28/16 18:00 36.4 117 32 153/97 (115) 97 Oxymask 4.0 168/74 (105) 11/28/16 16:00 36.5 128 26 169/109 (129) 96 Oxymask 4.0 197/110 (139) 11/28/16 16:00 96 Oxymask 11/28/16 14:00 36.4 119 28 159/101 (120) 96 Oxymask 4.0 195/83 (120) 11/28/16 13:25 118 24 97 Mask 6.0 11/28/16 13:05 134 91 11/28/16 12:00 36.4 121 28 180/127 (144) 94 BiPAP 30 240/104 (149) 11/28/16 12:00 94 BiPAP 30 11/28/16 11:40 100 95 30 Laboratory Results: Last 24 Hours Test 11/28/16 11:31 11/28/16 17:48 11/28/16 20:32 11/28/16 21:59 Bedside Glucose 127 mg/dl 114 mg/dl 99 mg/dl Sodium Level 142 mmol/L Potassium Level 4.2 mmol/L Chloride Level 106 mmol/L Carbon Dioxide Level 34 mmol/L Anion Gap 2.0 mmol/L Blood Urea Nitrogen 19 mg/dl Creatinine 0.64 mg/dl Est Creatinine Clear Calc Drug Dose 129.1 ml/min Estimated GFR () 129.6 Estimated GFR (Non- 111.8 BUN/Creatinine Ratio 29.5 Random Glucose 97 mg/dl Calcium Level 8.4 mg/dl Phosphorus Level 1.3 mg/dl Magnesium Level 2.3 mg/dl Chemistry Specimen Hemolysis Test 11/28/16 23:45 11/29/16 04:32 11/29/16 06:00 11/29/16 08:03 Bedside Glucose 87 mg/dl 126 mg/dl 127 mg/dl White Blood Count 18.82 K/uL Red Blood Count 4.49 M/uL Hemoglobin 12.7 g/dL Hematocrit 40.3 % Mean Corpuscular Volume 89.8 fL Mean Corpuscular Hemoglobin 28.3 pg Mean Corpuscular Hemoglobin Concent 31.5 g/dl Platelet Count 283 K/uL Mean Platelet Volume 8.9 fL Neutrophils (%) (Auto) 93.8 % Lymphocytes (%) (Auto) 4.1 % Monocytes (%) (Auto) 1.9 % Eosinophils (%) (Auto) 0.0 % Basophils (%) (Auto) 0.0 % Neutrophils # (Auto) 17.65 K/uL Lymphocytes # (Auto) 0.78 K/uL Monocytes # (Auto) 0.36 K/uL Eosinophils # (Auto) 0.00 K/uL Basophils # (Auto) 0.00 K/uL RDW Standard Deviation 46.5 fL RDW Coefficient of Variation 14.1 % Immature Granulocyte % (Auto) 0.2 % Immature Granulocyte # (Auto) 0.03 K/uL Sodium Level 143 mmol/L Potassium Level 3.8 mmol/L Chloride Level 105 mmol/L Carbon Dioxide Level 31 mmol/L Anion Gap 7.0 mmol/L Blood Urea Nitrogen 19 mg/dl Creatinine 0.56 mg/dl Est Creatinine Clear Calc Drug Dose 147.6 ml/min Estimated GFR () 136.9 Estimated GFR (Non- 118.1 BUN/Creatinine Ratio 33.9 Random Glucose 137 mg/dl Calcium Level 8.1 mg/dl Phosphorus Level 2.4 mg/dl Magnesium Level 2.2 mg/dl Resident Tracking Resident Involvement: Resident Care Provided Care Provided: Adult Hospital Medicine
[2016-11-29] MEDS: DILTIAZEM HCL 30 MG TAB PO SCH ×2 (13:01→16:04)
--- NOTE | 2016-11-29 15:14 | Pharmacy Progress Note ---
Glycemic: Assessment & Plan Date of Service Nov 29, 2016. Assessment & Plan The patient is currently receiving 22 units of insulin per day. BSGs ranging 87 - 137 mg/dl over the past 24hrs. * Basal insulin: NONE * Correctional Insulin: NONE, patient has carbohydrate calculator from insulin infusion * Prandial insulin: None BSGs continue to improve. The patient has stabilized and tube feedings have been increased on Mr Nikki. Patient will be transitioned from IV insulin to subcutaneous insulin. Several changes happened to the patient's medications: * steroids decreased from Solu-Medrol 40 mg IV q12, ending tonight and PO prednisone starting tomorrow * cardiazem and amiodarone infusions discontinued (each mixed in dextrose) * peptamen will be increased as tolerated Patient's basal rate appears to be close to 20 units daily. Entire daily dose given as one dose with 6 hour overlap of insulin infusion. Lantus 10 units ordered for tonight and tomorrow morning. Do not expect decrease in insulin requirements today, but with IV steroids discontinuing tonight amounts may decrease. Started correctional insulin between weight based stress of 1 and 2. PLAN FOR INPATIENT CARE * START Lantus 10 units SQ BID tonight * Correctional insulin with Regular Insulin (chosen since on tube feedings) q6 hours secondary to tube feeds * correction factor of 30 mg/dL/unit * carbohydrate ratio of 1 unit per 10 grams of carbohydrates consumed ( carbohydrate rates contained in insulin order) Pharmacy will continue to monitor patient daily and write orders per [facility] inpatient glycemic control protocol. Thanks. * Please note that the plan above was derived based on current level of insulin resistance and hospital stress. These recommendations are appropriate for inpatient admission only. Plan of care upon discharge will need to be reassessed to avoid potential outpatient hypo/hyperglycemia.
[2016-11-29] MEDS: DILTIAZEM HCL 60 MG TAB PO SCH (20:45)
[2016-11-29] MEDS ORDERED: INSULIN GLARGINE SOLOSTAR 100 UNITS/ML 3 ML PEN SC SCH (21:00)
[2016-11-30] VITALS (28 sets, daily range): BP systolic 133–183; BP diastolic 55–105; PULSE 72–103; TEMP 36.4–36.8; O2SAT 91–99
[2016-11-30] MEDS: RANITIDINE IV 50 MG in DEXTROSE 5% 100ML 100 ML IV SCH (01:09)
--- NOTE | 2016-11-30 04:29 | Critical Care Progress Note ---
Critical Care Progress Note Date of Service Nov 30, 2016. ICU Day ICU Day Number: [address] Richards Subjective Patient well. Denies acute overnight events. He did fall asleep in his chair and states he is more comfortable this way. He has had ongoing diarrhea, but says he has been applying the protective skin cream, which has been helping. He denies fevers/chills, headaches, CP, SOB, abdo pain, N/V. No issues with voiding. Keen to start PO diet. Objective GENERAL: Alert, sitting out of bed, oxy mask place at 5L with 100% sats, no acute distress, non-toxic HEAD: Normocephalic, atraumatic. No sinus tenderness. EYES: PERRL, EOMI, normal conjunctiva and sclera OROPHARYNX: No exudate, no erythema. Lips, buccal mucosa, and tongue normal and mucous membranes are moist. No perioral cyanosis. NECK: Supple, full ROM, no adenopathy, non-tender LUNGS: Clear to auscultation. Normal chest wall mechanics, improved air entry/ movement. No respiratory distress or accessory muscle use. Diffuse wheezing bilaterally, but also improved. HEART: RRR, S1 and S2 normal. No murmur, rubs, or gallops appreciated. CHEST: No reproducible tenderness. ABDOMEN: abdomen soft, non-tender, normo-active bowel sounds, no ascites or masses, no rebound or guarding. BACK: Back is symmetrical on inspection, no deformities, no midline tenderness, no CVA tenderness. EXTREMITIES: Grossly normal. No clubbing or peripheral cyanosis. Mild peripheral edema noted to upper and lower extremities. Calves non tender. NEURO: Alert, Ox3. No focal deficits. Normal sensorium, cranial nerves II-XII grossly intact, normal speech. Current SOFA Score SOFA Score Response (Comments) Value Platelets (x10) > 150 0 Bilirubin (mg/dL) < 1.2 0 Dex Coma Score 15 0 Level of Hypotension No Hypotension 0 Creatinine (mg/dL) < 1.2 0 Total 0 Previous SOFA Scores 6 Assessment & Plan Reason Critically Ill: 51-year-old male with hypercapnic respiratory distress recently extubated and being weaned from respiratory support on a background of severe lung disease. Neuro - * CAM ICU: negative * RASS: 0 * Continue to monitor mental status CVS - * Hypertension * Continue PO diltiazem 60mg QID. * Add prazosin 1mg BID for improved control. * Post episode of flushing/diaphoresis, initial troponin mildly elevated (less than peak at time of admission). Likely demand ischemia. Serial trops unchanged. * Continue to monitor on telemetry Resp - * Acute on Chronic Hypercapnic Respiratory Failure. * Oxygenation via mask at 5L has been sufficient in. Given good sats, wean as tolerated. Attempts will be made to transition to nasal cannula * Will continue non-invasive techniques to get close to the patient's home O2 requirements, keeping in mind that these might have certainly increased given the patient's current episode. At this time, will try high flow nasal cannula if higher O2 demands arise first, followed by Bipap. Patient has expressed that he would not like to be intubated again or given a tracheostomy. * Will continue to treat COPD Exacerbation: * PO prednisone 40mg daily starting today for a prolonged 14 day taper * DuoNebs q4h - 2h PRN * Pneumonia - See ID section. GI/Nutrition - * C. diff infection - See ID section. * Coresafe dislodged last night. Patient passed bedside swallow evaluation and will be escalated to regular PO diet as tolerated. * Zantac for GI prophylaxis discontinued * Had several BM overnight, which worsened with onset of tube feedings (no severe diarrhea while intubate). Defer to primary team for further management of diarrheal symptoms if they persist despite discontinuation of tube feeds. RENAL/ - * Monitor BMP daily - will correct appropriately. * No IVF on board. No Villanueva catheter. ID - * Bronch cultures - Gram NEGATIVE Bacilli, E Coli, Staph Aureus, Strep Pneumoniae, Achromobacter xylosoxidans * Will treat with Primaxin (Day 4 of 14) via PICC line in place. Due to local pseudomonal sensitivities and lack of multidrug resistant pseudomonal infections in the community, we will not dual cover for pseudomonas at this time. * QUOC infection in the setting of possible transplant patient. * Bronch washings pending. * Hold treatment pending washings. * C. diff - Continue PO Vancomycin alone * Appreciate ID consultation. ENDO - * T2DM. * Continue basal/bolus insulin regimen with Lantus 10units BID. Restart metformin 100mg BID (home dose). Monitor BG per protocol HEME - * Stable H&H. * Will monitor daily. LINES/IV ACCESS - * PIVs intact. * PICC line in place in LUE. DVT PROPHYLAXIS - * Lovenox 40mg SC daily. * Encourage activity/ambulation as tolerated. PT/OT consulted. * * Resident Physician Supervision Note: Dr. Juarez was resident physician during care of patient. I separately evaluated patient and did history and exam. I discussed the case with the resident and generally agree with the findings and plan. Lost coresafe, will progress diet as tolerated. Pulmonary status continues to slowly improve. stable for transfer, d/w [place]. Documented By: Jere Richards DO Consults & Procedures Consultants: Dr. Villanueva - Pulmonology Dr. Lobo - Infectious Disease Procedures: PICC - LUE Rad Art Line - RUE CORESAFE and A line dislodged in place. Data Medications: Current Inpatient Medications Medications (Trade) Dose Ordered Sig/Abigail Route Start Time Stop Time Status Last Admin Dose Admin Enoxaparin Sodium (Lovenox Inj) 40 mg Q24H SQ 11/26/16 06:00 12/26/16 05:59 11/29/16 05:29 40 MG Vancomycin HCl (Vancomycin Oral Soln) 125 mg QID PO 11/25/16 22:00 12/09/16 21:59 11/29/16 20:48 125 MG Glucose (Glucose 40% Gel) 15-30 GRAMS 15 GRAMS... UD PRN PO 11/26/16 01:00 12/26/16 00:59 Glucose (Glucose Chew Tab) 4-8 Tablets 4 Tabl... UD PRN PO 11/26/16 01:00 12/26/16 00:59 Dextrose (Dextrose 50% 50ML Syringe) 25-50ML OF 50% DW IV FOR... UD PRN IV 11/26/16 01:00 12/26/16 00:59 Glucagon (Glucagon Inj) 1 mg UD PRN SQ 11/26/16 01:00 12/26/16 00:59 Miscellaneous Information (Consult Glycemic Management Pharmacy) 1 ea UD PRN N/A 11/26/16 01:23 12/26/16 01:22 Ranitidine HCl 50 mg/Dextrose 102 ml @ 200 mls/hr Q8H IV 11/26/16 02:00 12/26/16 01:59 11/30/16 01:09 200 MLS/HR Enteral Nutritional Formula (Peptamen Intense VHP) 1,000 ml UD PRN OG 11/26/16 10:00 12/26/16 09:59 Future Hold 11/28/16 20:24 1,000 ML Heparin Sodium (Porcine) (Heparin 10 Unit/ ml 5 ml Flush) 5 ml PRN PRN FLUSH 11/26/16 13:00 12/26/16 12:59 Imipenem/ Cilastatin Sodium 500 mg/Dextrose 110 ml @ 100 mls/hr Q6H IV 11/27/16 18:00 12/11/16 17:59 11/29/16 23:30 100 MLS/HR Senna (Senokot Syrup) 8.8 mg QAM PO 11/28/16 09:00 12/28/16 08:59 11/28/16 08:54 8.8 MG Dexmedetomidine HCl 200 mcg/ Sodium Chloride 50 ml @ 0 mls/hr Q0M PRN IV 11/27/16 12:30 12/01/16 12:29 11/28/16 09:29 0.4 MLS/HR Albuterol/ Ipratropium (Duoneb) 3 ml QIDR INH 11/28/16 16:00 12/28/16 15:59 11/29/16 19:21 3 ML Albuterol/ Ipratropium (Duoneb) 3 ml Q2R PRN INH 11/28/16 14:00 12/28/16 13:59 Fentanyl Citrate (Fentanyl Inj) 25 mcg Q1H PRN IV 11/28/16 16:15 12/10/16 02:14 11/28/16 15:34 25 MCG Potassium/ Phosphorus/Sodium (Phospha 250 Neutral 155-852-130 Mg) 2 tab BID PO 11/29/16 09:00 12/29/16 08:59 11/29/16 20:46 2 TAB Insulin Glargine (Lantus Solostar Pen) 10 units BID SC 11/29/16 21:00 12/29/16 20:59 Prednisone (PredniSONE TAB) 40 mg DAILY PO 11/30/16 09:00 12/30/16 08:59 Insulin Human Regular (novoLIN-R) SLIDING SCALE Q6 SC 11/29/16 12:00 12/29/16 11:59 Diltiazem HCl (Cardizem Tab) 60 mg QID PO 11/29/16 21:00 12/29/16 20:59 11/29/16 20:45 60 MG Raspberry (Raspberry Syrup 5ml Cup) 5 ml QID PO 11/30/16 09:00 12/09/16 21:59 Vital Signs: Date Time Temp Pulse Resp B/P (MAP) Pulse Ox O2 Delivery O2 Flow Rate FiO2 11/30/16 02:00 79 18 171/95 (120) 98 11/30/16 01:00 88 18 151/95 (113) 98 11/30/16 00:00 36.8 90 20 148/89 (108) 99 Oxymask 5.0 11/30/16 00:00 90 20 148/89 (108) 99 11/29/16 23:59 97 Oxymask 5.0 11/29/16 23:40 91 27 186/106 (132) 98 Oxymask 5.0 11/29/16 22:00 88 22 167/110 (129) 96 Oxymask 5.0 11/29/16 21:00 105 23 175/107 (129) 97 Oxymask 5.0 11/29/16 20:21 105 20 173/105 (127) 95 Oxymask 5.0 11/29/16 20:00 97 Oxymask 5.0 11/29/16 19:21 98 31 97 Mask 5.0 30 11/29/16 19:00 36.9 95 20 171/112 (131) 97 Oxymask 5.0 11/29/16 18:00 36.8 97 22 178/75 (109) 98 Oxymask 6.0 30 179/100 (126) 11/29/16 18:00 92 202/101 (134) 100 11/29/16 17:30 97 205/85 (125) 95 11/29/16 17:13 90 192/79 (116) 98 11/29/16 17:00 93 209/95 (133) 95 11/29/16 16:52 93 165/112 (129) 96 11/29/16 16:30 92 210/89 (129) 99 11/29/16 16:26 102 20 95 Mask 5.0 11/29/16 16:00 BiPAP 30 11/29/16 16:00 37.2 92 22 175/88 (117) 96 BiPAP 30 201/98 (132) 11/29/16 16:00 87 174/103 (126) 96 11/29/16 15:30 83 192/83 (119) 96 11/29/16 15:00 84 158/96 (116) 97 11/29/16 14:30 84 169/81 (110) 96 11/29/16 14:00 81 191/83 (119) 97 11/29/16 13:30 79 174/72 (106) 97 11/29/16 13:00 81 136/63 (87) 96 11/29/16 12:30 84 172/76 (108) 96 11/29/16 12:00 94 189/81 (117) 94 11/29/16 11:37 83 20 96 Mask 5.0 11/29/16 11:30 BiPAP 30 11/29/16 11:30 86 175/78 (110) 93 11/29/16 11:30 36.8 83 22 150/88 (108) 96 BiPAP 30 173/79 (110) 11/29/16 11:00 79 166/76 (106) 96 11/29/16 10:30 79 166/74 (104) 93 11/29/16 10:00 78 179/76 (110) 94 11/29/16 09:30 79 153/66 (95) 94 11/29/16 09:00 37.4 76 22 179/81 (113) 96 BiPAP 30 151/86 (107) 11/29/16 09:00 80 190/82 (118) 92 11/29/16 08:30 82 160/73 (102) 92 11/29/16 08:00 76 180/81 (114) 95 11/29/16 07:30 BiPAP 30 11/29/16 07:30 37.4 78 22 141/79 (99) 96 BiPAP 30 11/29/16 07:30 77 162/72 (102) 97 11/29/16 07:26 80 95 30 11/29/16 07:26 80 20 95 BiPAP/CPAP 30 11/29/16 07:00 76 169/74 (105) 94 11/29/16 05:35 37.2 83 153/71 (98) 95 BiPAP 30 Laboratory Results: Last 24 Hours Test 11/29/16 04:32 11/29/16 06:00 11/29/16 08:03 11/29/16 11:12 Bedside Glucose 126 mg/dl 127 mg/dl 115 mg/dl White Blood Count 18.82 K/uL Red Blood Count 4.49 M/uL Hemoglobin 12.7 g/dL Hematocrit 40.3 % Mean Corpuscular Volume 89.8 fL Mean Corpuscular Hemoglobin 28.3 pg Mean Corpuscular Hemoglobin Concent 31.5 g/dl Platelet Count 283 K/uL Mean Platelet Volume 8.9 fL Neutrophils (%) (Auto) 93.8 % Lymphocytes (%) (Auto) 4.1 % Monocytes (%) (Auto) 1.9 % Eosinophils (%) (Auto) 0.0 % Basophils (%) (Auto) 0.0 % Neutrophils # (Auto) 17.65 K/uL Lymphocytes # (Auto) 0.78 K/uL Monocytes # (Auto) 0.36 K/uL Eosinophils # (Auto) 0.00 K/uL Basophils # (Auto) 0.00 K/uL RDW Standard Deviation 46.5 fL RDW Coefficient of Variation 14.1 % Immature Granulocyte % (Auto) 0.2 % Immature Granulocyte # (Auto) 0.03 K/uL Sodium Level 143 mmol/L Potassium Level 3.8 mmol/L Chloride Level 105 mmol/L Carbon Dioxide Level 31 mmol/L Anion Gap 7.0 mmol/L Blood Urea Nitrogen 19 mg/dl Creatinine 0.56 mg/dl Est Creatinine Clear Calc Drug Dose 147.6 ml/min Estimated GFR () 136.9 Estimated GFR (Non- 118.1 BUN/Creatinine Ratio 33.9 Random Glucose 137 mg/dl Calcium Level 8.1 mg/dl Phosphorus Level 2.4 mg/dl Magnesium Level 2.2 mg/dl Test 11/29/16 12:53 11/29/16 13:45 11/29/16 15:49 11/29/16 17:29 Troponin I 0.052 ng/ml Bedside Glucose 110 mg/dl 92 mg/dl 93 mg/dl Test 11/29/16 20:39 11/29/16 20:55 11/29/16 23:43 Troponin I 0.050 ng/ml Bedside Glucose 119 mg/dl 111 mg/dl Resident Tracking Resident Involvement: Resident Care Provided Care Provided: Adult [facility]
[2016-11-30 04:54] LABS: COMPLETE YES; HEMATOCRIT 44.4 % (42-52); IG% 0.4 %; LYMPH ABS # 0.56 K/uL (1.2-3.4); MEAN CORPUSCULAR HEMOGLOBIN 28.7 pg (25-34); MEAN CORPUSCULAR HGB CONC 32.2 g/dl (32-36); MEAN PLATELET VOLUME 8.9 fL (7.4-10.4); MONO % 2.3 %; NEUT % 94.3 %; PLATELET COUNT 253 K/uL (130-400); RED BLOOD COUNT 4.99 M/uL (4.7-6.1)
[2016-11-30 05:20] LABS: BUN/CREATININE RATIO 40.1 (10-20); CALCIUM 8.4 mg/dl (8.5-10.1); CREATININE 0.49 mg/dl (0.60-1.40); POTASSIUM 3.8 mmol/L (3.5-5.1)
[2016-11-30] MEDS: INSULIN HUMAN REGULAR SC SCH ×4 (05:57→22:20)
[2016-11-30] MEDS: ENOXAPARIN 40 MG/0.4 ML SYR SQ SCH (06:15)
[2016-11-30] MEDS: IMIPENEM/CILASTATIN IV 500 MG in DEXTROSE 5% 100ML 100 ML IV SCH ×3 (06:15→18:14)
[2016-11-30] MEDS: ALBUT/IPRATROP 3MG/0.5MG NEB 3 ML VIAL INH SCH ×4 (07:32→18:56)
[2016-11-30] MEDS: SENNA 8.8 MG/5 ML UDP PO SCH ×2 (08:02→17:02)
[2016-11-30] MEDS: VANCOMYCIN HCL 125 MG/2.5ML SOLN PO SCH ×4 (08:24→22:19)
[2016-11-30] MEDS: DILTIAZEM HCL 60 MG TAB PO SCH ×4 (08:24→22:18)
[2016-11-30] MEDS: POT PHOSPHATE MONOBASIC W/ SOD TAB PO SCH ×2 (08:24→22:18)
[2016-11-30] MEDS: RASPBERRY SYRUP 5 ML UDP PO SCH ×4 (08:24→22:19)
[2016-11-30] MEDS ORDERED: INSULIN GLARGINE SOLOSTAR 100 UNITS/ML 3 ML PEN SC SCH ×2 (09:00→21:00)
[2016-11-30] MEDS ORDERED: PRAZOSIN HCL 1 MG CAP PO SCH (09:00)
--- NOTE | 2016-11-30 09:04 | Progress Note ---
Internal Med Progress Note Date of Service: Nov 30, 2016. Provider Documentation: SUBJECTIVE: Seen and examined at bedside. Saturating well on Oxymask Off BiPAP Denies SOB, chest pain, Abd pain No family at bedside Off amiodarone and Cardizem ggt Planned to be transferred to Tele OBJECTIVE: Vital Signs-as noted below Physical Exam: General Appearance:Moderately built and nourished, No distress Head: normocephalic, Atraumatic Eyes: normal inspection, Anicteric Respiratory/Chest: Decreased breath sounds, CTA Cardiovascular: S1, S2, No murmur Abdomen/GI:Non tender, Bowel sounds present Extremities/Musculoskelatal:normal inspection, +2 b/l edema Neurologic/Psych:Grossly no focal deficits Skin: normal color, warm Lab data as noted below. ASSESSMENT & PLAN: Acute on chronic hypoxic and hypercapnic respiratory failure H/O Steroid dependent COPD Bronchiectasis H/O QUOC follows with as outpatient (Treated with zithromycin and ethambutol) S/P wedge resection of R middle, upper and lower lobes by Dr. Andreas Estrella on 01/02/16 S/P Bronchoscopy on 11/25/16 S/P extubation on 11/28/16 CTA: negative for PE. Showed multiple b/l lung cysts and pulmonary nodules likely infectious process Continue Duonebs S/P IV solu-medrol >>> PO prednisone taper IV antibiotics:Primaxin, Vanco Zyvox discontinued Bronchial washings studies: Multiple organisms:E.coli, Strep.Pneumo, Staph, Achromobacter Blood/Urine culture: No growth to date AFB pending Leukocytosis better MRSA screen negative Follows with Dr. Miranda and [facility] for transplant evaluation Appreciate Manager Continuous Improvement, Pulmonology, ID Input Prognosis is guarded Needs reevaluation at [facility], for possible lung transplantation upon discharge Palliative care following QUOC C. diff colitis second occurrence diagnosed 11/12: On vancomycin taper as outpatient Continue PO vanco IV flagyl discontinued Appreciate ID Input withholding QUOC therapy pending bronchoscopy results DM II A1C: 9.3 07/2016 SSI, Lantus, Accu checks Started on Metformin HTN NSVT Amiodarone ggt discontinued Cardizem ggt>>> PO Cardizem On Prazosin On metoprolol at home monitor Hypokalemia Resolved Monitor DVT Px: SQ Lovenox Code Status: DNR PROCEDURES: CTA: 1. No evidence of acute pulmonary embolism 2. Multiple bilateral lung cysts, slightly progressive when compared the prior study 3. Scattered bilateral pulmonary nodules. These are statistically inflammatory/infectious. A 1-2 month follow-up study subsequent to antibiotic therapy is recommended. ECHO: * The left ventricular wall motion is normal. * Left ventricular systolic function is normal. * The LV Ejection Fraction = 55-60%. * The right ventricle is mildly dilated. * The right ventricular systolic function is mild to moderately reduced. * Dilated inferior vena cava with reduced collapsability with sniff indicates an elevated right atrial pressure of 15 mmHg * There is no significant tricuspid regurgitation, and therefore the pulmonary artery systolic pressure cannot be calculated. * The aortic valve was not visualized sufficiently to determine the number of cusps. * The prior echocardiogram report dated 10/05/10, described possible bicuspid AV. * There is no significant aortic regurgitation. * Aortic stenosis is absent. Vital Signs: Date Time Temp Pulse Resp B/P (MAP) Pulse Ox O2 Delivery O2 Flow Rate FiO2 11/30/16 07:32 86 18 97 Mask 5.0 11/30/16 07:30 36.8 82 22 167/96 (119) 96 Oxymask 5.0 11/30/16 06:42 79 12 155/100 (118) 96 11/30/16 05:00 36.8 89 15 177/105 (129) 96 11/30/16 04:00 73 18 148/87 (107) 97 11/30/16 04:00 97 Oxymask 5.0 11/30/16 02:00 79 18 171/95 (120) 98 11/30/16 01:00 88 18 151/95 (113) 98 11/30/16 00:00 36.8 90 20 148/89 (108) 99 Oxymask 5.0 11/30/16 00:00 90 20 148/89 (108) 99 11/29/16 23:59 97 Oxymask 5.0 11/29/16 23:40 91 27 186/106 (132) 98 Oxymask 5.0 11/29/16 22:00 88 22 167/110 (129) 96 Oxymask 5.0 11/29/16 21:00 105 23 175/107 (129) 97 Oxymask 5.0 11/29/16 20:21 105 20 173/105 (127) 95 Oxymask 5.0 11/29/16 20:00 97 Oxymask 5.0 11/29/16 19:21 98 31 97 Mask 5.0 30 11/29/16 19:00 36.9 95 20 171/112 (131) 97 Oxymask 5.0 11/29/16 18:00 36.8 97 22 178/75 (109) 98 Oxymask 6.0 30 179/100 (126) 11/29/16 18:00 92 202/101 (134) 100 11/29/16 17:30 97 205/85 (125) 95 11/29/16 17:13 90 192/79 (116) 98 11/29/16 17:00 93 209/95 (133) 95 11/29/16 16:52 93 165/112 (129) 96 11/29/16 16:30 92 210/89 (129) 99 11/29/16 16:26 102 20 95 Mask 5.0 11/29/16 16:00 BiPAP 30 11/29/16 16:00 37.2 92 22 175/88 (117) 96 BiPAP 30 201/98 (132) 11/29/16 16:00 87 174/103 (126) 96 11/29/16 15:30 83 192/83 (119) 96 11/29/16 15:00 84 158/96 (116) 97 11/29/16 14:30 84 169/81 (110) 96 11/29/16 14:00 81 191/83 (119) 97 11/29/16 13:30 79 174/72 (106) 97 11/29/16 13:00 81 136/63 (87) 96 11/29/16 12:30 84 172/76 (108) 96 11/29/16 12:00 94 189/81 (117) 94 11/29/16 11:37 83 20 96 Mask 5.0 11/29/16 11:30 BiPAP 30 11/29/16 11:30 86 175/78 (110) 93 11/29/16 11:30 36.8 83 22 150/88 (108) 96 BiPAP 30 173/79 (110) 11/29/16 11:00 79 166/76 (106) 96 11/29/16 10:30 79 166/74 (104) 93 11/29/16 10:00 78 179/76 (110) 94 11/29/16 09:30 79 153/66 (95) 94 Lab Results: Results Past 24 Hours Test 11/29/16 11:12 11/29/16 12:53 11/29/16 13:45 11/29/16 15:49 Range/Units Bedside Glucose 115 110 92 70-99 mg/dl Troponin I 0.052 0-0.045 ng/ml Test 11/29/16 17:29 11/29/16 20:39 11/29/16 20:55 11/29/16 23:43 Range/Units Bedside Glucose 93 119 111 70-99 mg/dl Troponin I 0.050 0-0.045 ng/ml Test 11/30/16 04:28 Range/Units White Blood Count 18.90 4.8-10.8 K/uL Red Blood Count 4.99 4.7-6.1 M/uL Hemoglobin 14.3 14.0-18.0 g/dL Hematocrit 44.4 42-52 % Mean Corpuscular Volume 89.0 80-100 fL Mean Corpuscular Hemoglobin 28.7 25-34 pg Mean Corpuscular Hemoglobin Concent 32.2 32-36 g/dl Platelet Count 253 130-400 K/uL Mean Platelet Volume 8.9 7.4-10.4 fL Neutrophils (%) (Auto) 94.3 % Lymphocytes (%) (Auto) 3.0 % Monocytes (%) (Auto) 2.3 % Eosinophils (%) (Auto) 0.0 % Basophils (%) (Auto) 0.0 % Neutrophils # (Auto) 17.83 1.4-6.5 K/uL Lymphocytes # (Auto) 0.56 1.2-3.4 K/uL Monocytes # (Auto) 0.43 0.11-0.59 K/uL Eosinophils # (Auto) 0.00 0-0.5 K/uL Basophils # (Auto) 0.00 0-0.2 K/uL RDW Standard Deviation 46.0 36.4-46.3 fL RDW Coefficient of Variation 14.0 11.5-14.5 % Immature Granulocyte % (Auto) 0.4 % Immature Granulocyte # (Auto) 0.08 0.00-0.02 K/uL Sodium Level 141 136-145 mmol/L Potassium Level 3.8 3.5-5.1 mmol/L Chloride Level 103 98-107 mmol/L Carbon Dioxide Level 35 21-32 mmol/L Anion Gap 3.0 3-11 mmol/L Blood Urea Nitrogen 20 7-18 mg/dl Creatinine 0.49 0.60-1.40 mg/dl Est Creatinine Clear Calc Drug Dose 168.7 ml/min Estimated GFR () 144.6 Estimated GFR (Non- 124.8 BUN/Creatinine Ratio 40.1 10-20 Random Glucose 130 70-99 mg/dl Calcium Level 8.4 8.5-10.1 mg/dl Troponin I 0.051 0-0.045 ng/ml
[2016-11-30] MEDS ORDERED: NURSING VERBAL MED ORDER ONE (10:30)
[2016-11-30] MEDS ORDERED: METFORMIN HCL 500 MG TAB PO SCH (10:30)
--- NOTE | 2016-11-30 13:22 | Pharmacy Progress Note ---
Glycemic Control Progress Note Date of Service Nov 30, 2016. Scope Glycemic Pharmacist consulted for glycemic control to write orders per [facility] inpatient glycemic control protocol. Objective Accuchecks BSG (last 24hrs): Test 11/29/16 13:45 11/29/16 15:49 11/29/16 17:29 11/29/16 20:55 Bedside Glucose 110 mg/dl (70-99) 92 mg/dl (70-99) 93 mg/dl (70-99) 119 mg/dl (70-99) Test 11/29/16 23:43 11/30/16 04:28 11/30/16 11:04 Bedside Glucose 111 mg/dl (70-99) 199 mg/dl (70-99) Random Glucose 130 mg/dl (70-99) HbA1c: Test 11/27/16 05:39 Hemoglobin A1c 7.3 % (4.5-5.6) H Recent Pertinent Medications The patient is currently receiving: * Basal insulin: Lantus 5 units every 12 hours * Correctional Insulin: Novolog Correction per scale ACHS Goal Range: Low 140 mg/dL - High 180 mg/dL Correction Factor: 30 mg/dL/unit * Prandial insulin: Per carb ratio of 1 unit per 10 grams CHO consumed Outpatient Anti-Diabetic Meds glipizide 5 mg daily + metformin 1000 mg PO BID Assessment & Plan ASSESSMENT: * See progress note from 11/30/16 for more background info, in short: * Pt receiving SQ basal bolus insulin regimen for hyperglycemia secondary to baseline DM (outpatient regimen on hold), numerous pulmonary infections + C difficile infection, and currently on prednisone 40 mg PO daily. * Patient is currently receiving an average of 20 units of insulin per day (0.9 units/hr from insulin infusion) * 25 units of basal insulin (received 25 units of Lantus yesterday in preparation for discontinuing infusion) * 0 units of prandial/correctional insulin * BSGs ranging 92 - 199 mg/dl over the past 24hrs * Changes needed to insulin regimen: * AM Fasting BSG = 130 mg/dl. This is within goal range for patient based on inpatient targets and co-morbidities. The patient received Lantus 5 units the night before as he was NPO due to tube feeding removal. Patient received 5 units again this morning; however, the patient was now ordered a diet so a sliding scale of Lantus will be ordered. * Post-prandial BSGs are in range therefore no changes needed to CF/CR. Will alter goal range to 110-140 mg/dL as patient no longer ICU status and this will improve infection healing. * Total daily dose = ~20 units. This dosing is yielding adequate glycemic control * Additional notes / comments: Whenever adequate oral intake is established, plan to restart metformin. PLAN FOR INPATIENT GLYCEMIC CONTROL: * START Lantus 5-10 units SQ BID (Lantus 5 units if blood sugar less than 140 mg /dL; Lantus 10 units if blood sugar 140 mg/dL or greater) * Continuing correction factor of 30 mg/dl/unit * Continuing carb ratio to 1 unit per 10 grams CHO consumed * CHANGING goal range to Low 110 mg/dL - High 140 mg/dL RECOMMENDATIONS FOR DISCHARGE: * Patient's HbA1C is relatively controlled for his age and co-morbidities. Reasonable to continue current home regimen. Thank you.
[2016-11-30] MEDS: INSULIN GLARGINE SOLOSTAR 100 UNITS/ML 3 ML PEN SC SCH (22:22)
[2016-11-30] MEDS: PRAZOSIN HCL 1 MG CAP PO SCH (22:23)
[2016-12-01] VITALS (10 sets, daily range): BP systolic 123–140; BP diastolic 74–91; PULSE 81–92; TEMP 36.6–37.2; O2SAT 93–97
[2016-12-01] MEDS: IMIPENEM/CILASTATIN IV 500 MG in DEXTROSE 5% 100ML 100 ML IV SCH ×4 (00:14→18:17)
[2016-12-01 04:25] LABS: HEMATOCRIT 39.6 % (42-52); MEAN CELL VOLUME 88.2 fL (80-100); MEAN CORPUSCULAR HEMOGLOBIN 28.7 pg (25-34); MEAN CORPUSCULAR HGB CONC 32.6 g/dl (32-36); MEAN PLATELET VOLUME 8.7 fL (7.4-10.4); PLATELET COUNT 199 K/uL (130-400); RED BLOOD COUNT 4.49 M/uL (4.7-6.1); WHITE BLOOD COUNT 18.14 K/uL (4.8-10.8)
[2016-12-01 04:44] LABS: BUN/CREATININE RATIO 32.1 (10-20); CALCIUM 7.7 mg/dl (8.5-10.1); CREATININE 0.46 mg/dl (0.60-1.40); POTASSIUM 3.3 mmol/L (3.5-5.1)
[2016-12-01 05:28] LABS: BASO % 0.1 %; BASO ABS # 0.01 K/uL (0-0.2); COMPLETE YES; EOS % 0.2 %; IG% 0.3 %; LYMPH % 7.7 %; LYMPH ABS # 1.39 K/uL (1.2-3.4); MONO % 5.7 %
[2016-12-01] MEDS: ENOXAPARIN 40 MG/0.4 ML SYR SQ SCH (05:53)
[2016-12-01] MEDS: ALBUT/IPRATROP 3MG/0.5MG NEB 3 ML VIAL INH SCH ×4 (06:58→18:55)
[2016-12-01] MEDS: INSULIN HUMAN REGULAR SC SCH ×4 (07:00→20:51)
[2016-12-01] MEDS: RASPBERRY SYRUP 5 ML UDP PO SCH ×4 (08:42→20:35)
[2016-12-01] MEDS: VANCOMYCIN HCL 125 MG/2.5ML SOLN PO SCH ×4 (08:42→20:35)
[2016-12-01] MEDS: SENNA 8.8 MG/5 ML UDP PO SCH (08:43)
[2016-12-01] MEDS: POT PHOSPHATE MONOBASIC W/ SOD TAB PO SCH ×2 (08:43→20:36)
[2016-12-01] MEDS: DILTIAZEM HCL 60 MG TAB PO SCH ×4 (08:43→20:35)
[2016-12-01] MEDS: PRAZOSIN HCL 1 MG CAP PO SCH ×2 (08:44→20:36)
[2016-12-01] MEDS: INSULIN GLARGINE SOLOSTAR 100 UNITS/ML 3 ML PEN SC SCH (08:47)
--- NOTE | 2016-12-01 10:02 | Progress Note ---
Internal Med Progress Note Date of Service: Dec 01, 2016. Provider Documentation: SUBJECTIVE: Seen and examined at bedside. States feeling much better today Saturating well on 2L NC Denies SOB, chest pain, Abd pain No family at bedside OBJECTIVE: Vital Signs-as noted below Physical Exam: General Appearance:Moderately built and nourished, No distress Head: normocephalic, Atraumatic Eyes: normal inspection, Anicteric Respiratory/Chest: Decreased breath sounds, CTA Cardiovascular: S1, S2, No murmur Abdomen/GI:Non tender, Bowel sounds present Extremities/Musculoskelatal:normal inspection, +2 b/l edema Neurologic/Psych:Grossly no focal deficits Skin: normal color, warm Lab data as noted below. ASSESSMENT & PLAN: Acute on chronic hypoxic and hypercapnic respiratory failure H/O Steroid dependent COPD Bronchiectasis H/O QUOC follows with as outpatient (Treated with zithromycin and ethambutol) S/P wedge resection of R middle, upper and lower lobes by Dr. Andreas Estrella on 01/02/16 S/P Bronchoscopy on 11/25/16 S/P extubation on 11/28/16 CTA: negative for PE. Showed multiple b/l lung cysts and pulmonary nodules likely infectious process Continue Duonebs S/P IV solu-medrol >>> PO prednisone day # 2, taper over 2 weeks IV antibiotics:Primaxin 08/24, Vanco Zyvox discontinued Bronchial washings studies: Multiple organisms:E.coli, Strep.Pneumo, Staph, Achromobacter Blood/Urine culture: No growth to date AFB pending Leukocytosis stable MRSA screen negative Follows with Dr. 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 diff colitis second occurrence diagnosed 11/12: On vancomycin taper as outpatient Continue PO vanco IV flagyl discontinued Appreciate ID Input withholding QUOC therapy pending bronchoscopy results DM II A1C: 9.3 07/2016 SSI, Lantus, Accu checks Also on Metformin HTN NSVT Amiodarone ggt discontinued Cardizem ggt>>> PO Cardizem On Prazosin On metoprolol at home monitor Hypokalemia Replace and Monitor DVT Px: SQ Lovenox Code Status: DNR PROCEDURES: CTA: 1. No evidence of acute pulmonary embolism 2. Multiple bilateral lung cysts, slightly progressive when compared the prior study 3. Scattered bilateral pulmonary nodules. These are statistically inflammatory/infectious. A 1-2 month follow-up study subsequent to antibiotic therapy is recommended. ECHO: * The left ventricular wall motion is normal. * Left ventricular systolic function is normal. * The LV Ejection Fraction = 55-60%. * The right ventricle is mildly dilated. * The right ventricular systolic function is mild to moderately reduced. * Dilated inferior vena cava with reduced collapsability with sniff indicates an elevated right atrial pressure of 15 mmHg * There is no significant tricuspid regurgitation, and therefore the pulmonary artery systolic pressure cannot be calculated. * The aortic valve was not visualized sufficiently to determine the number of cusps. * The prior echocardiogram report dated 10/05/10, described possible bicuspid AV. * There is no significant aortic regurgitation. * Aortic stenosis is absent. Vital Signs: Date Time Temp Pulse Resp B/P (MAP) Pulse Ox O2 Delivery O2 Flow Rate FiO2 12/01/16 08:02 36.9 86 19 140/85 (103) 95 Nasal Cannula 2.0 12/01/16 07:03 81 18 97 Mask 3.0 12/01/16 04:00 Oxymask 3.0 12/01/16 03:58 36.7 89 20 138/79 (98) 96 Oxymask 2.0 12/01/16 00:02 Oxymask 3.0 12/01/16 00:00 36.8 82 18 124/78 (93) 97 Oxymask 2.0 11/30/16 20:34 36.8 89 24 137/74 (95) 96 Oxymask 2.0 11/30/16 20:00 Oxymask 3.0 11/30/16 18:56 83 18 96 Mask 3.0 11/30/16 16:23 92 Mask 2.0 11/30/16 15:57 91 18 92 Mask 2.0 11/30/16 15:49 36.4 93 22 133/77 (95) 93 Oxymask 2.0 11/30/16 12:20 36.7 100 18 134/55 (81) 91 Oxymask 2.0 11/30/16 11:30 36.8 81 18 97 5.0 11/30/16 11:30 81 18 97 Mask 5.0 11/30/16 11:10 Oxymask 5.0 11/30/16 11:01 92 13 133/68 (89) 94 11/30/16 11:00 93 20 94 11/30/16 10:30 100 21 95 Lab Results:
[2016-12-01] MEDS ORDERED: POTASSIUM CHLORIDE 20 MEQ/15 ML UDC PO ONE (10:45)
--- NOTE | 2016-12-01 10:50 | Pharmacy Progress Note ---
Glycemic Control Progress Note Date of Service Dec 01, 2016. Scope Glycemic Pharmacist consulted for glycemic control to write orders per [facility] inpatient glycemic control protocol. Objective Accuchecks BSG (last 24hrs): Test 11/30/16 11:04 11/30/16 16:18 11/30/16 20:37 12/01/16 03:58 Bedside Glucose 199 mg/dl (70-99) 147 mg/dl (70-99) 169 mg/dl (70-99) Random Glucose 86 mg/dl (70-99) Test 12/01/16 06:34 Bedside Glucose 79 mg/dl (70-99) HbA1c: Test 11/27/16 05:39 Hemoglobin A1c 7.3 % (4.5-5.6) H Recent Pertinent Medications The patient is currently receiving: * Basal insulin: Lantus SQ BID; 5 units if BSG less than 140, 10 units if BSG 140 or greater * Correctional Insulin: Novolog Correction per scale ACHS Goal Range: Low 110 mg/dL - High 140 mg/dL Correction Factor: 30 mg/dL/unit * Prandial insulin: Per carb ratio of 1 unit per 10 grams CHO consumed * Oral Agents: None currently Outpatient Anti-Diabetic Meds Glipizide 5mg PO daily Metformin 1gm PO BID Assessment & Plan ASSESSMENT: 12/01/16 * Glycemic control has been quite good over the last 24 hours, BSGs have ranged 79-199, only one of which was above 180 * Fasting AM BSG 79 this AM with 15 units of basal insulin on board, will reduce the basal insulin dose and begin to titrate the dose so that it is given once daily in the AM to allow for some wearing off of effects overnight to coincide w/ prednisone effects * PO intake appears to be poor at this time, will need to be vigilant of post- prandial hyperglycemia while on prednisone. Will follow BSG pattern closely today should PO intake improve. PLAN FOR INPATIENT GLYCEMIC CONTROL: * Changing Lantus to 12 units SQ BID daily in the AM, will give 6 units with dinner this evening * Continuing correction factor of 30 mg/dl/unit * Continuing carb ratio of 1 unit per 10 grams CHO consumed * Continuing goal range of Low 110 mg/dL - High 140 mg/dL RECOMMENDATIONS FOR DISCHARGE: * * Please note that the plan above was derived based on current level of insulin resistance and hospital stress. These recommendations are appropriate for inpatient admission only. Plan of care upon discharge will need to be reassessed to avoid potential outpatient hypo/hyperglycemia. Thank you.
--- NOTE | 2016-12-01 14:21 | Infectious Disease Progress Nt ---
Progress Note Date of Service Dec 01, 2016. Subjective Pt evaluation today including: conversation w/ patient, physical exam, chart review, lab review, review of studies, conversation w/ sediment remediation consultant, review of inpatient medication list Events reviewed. Extubated successfully, appears in no distress. remains afebrile. tolerating antibiotics. All Other Systems: Reviewed and Negative Medications Current Inpatient Medications Medications (Trade) Dose Ordered Sig/Abigail Route Start Time Stop Time Status Last Admin Dose Admin Enoxaparin Sodium (Lovenox Inj) 40 mg Q24H SQ 11/26/16 06:00 12/26/16 05:59 12/01/16 05:53 40 MG Vancomycin HCl (Vancomycin Oral Soln) 125 mg QID PO 11/25/16 22:00 12/09/16 21:59 12/01/16 12:41 125 MG Glucose (Glucose 40% Gel) 15-30 GRAMS 15 GRAMS... UD PRN PO 11/26/16 01:00 12/26/16 00:59 Glucose (Glucose Chew Tab) 4-8 Tablets 4 Tabl... UD PRN PO 11/26/16 01:00 12/26/16 00:59 Dextrose (Dextrose 50% 50ML Syringe) 25-50ML OF 50% DW IV FOR... UD PRN IV 11/26/16 01:00 12/26/16 00:59 Glucagon (Glucagon Inj) 1 mg UD PRN SQ 11/26/16 01:00 12/26/16 00:59 Miscellaneous Information (Consult Glycemic Management Pharmacy) 1 ea UD PRN N/A 11/26/16 01:23 12/26/16 01:22 Heparin Sodium (Porcine) (Heparin 10 Unit/ ml 5 ml Flush) 5 ml PRN PRN FLUSH 11/26/16 13:00 12/26/16 12:59 Imipenem/ Cilastatin Sodium 500 mg/Dextrose 110 ml @ 100 mls/hr Q6H IV 11/27/16 18:00 12/11/16 17:59 12/01/16 11:57 100 MLS/HR Senna (Senokot Syrup) 8.8 mg QAM PO 11/28/16 09:00 12/28/16 08:59 11/30/16 17:02 8.8 MG Albuterol/ Ipratropium (Duoneb) 3 ml QIDR INH 11/28/16 16:00 12/28/16 15:59 12/01/16 11:14 3 ML Albuterol/ Ipratropium (Duoneb) 3 ml Q2R PRN INH 11/28/16 14:00 12/28/16 13:59 Fentanyl Citrate (Fentanyl Inj) 25 mcg Q1H PRN IV 11/28/16 16:15 12/10/16 02:14 11/28/16 15:34 25 MCG Potassium/ Phosphorus/Sodium (Phospha 250 Neutral 155-852-130 Mg) 2 tab BID PO 11/29/16 09:00 12/29/16 08:59 12/01/16 08:43 2 TAB Prednisone (PredniSONE TAB) 40 mg DAILY PO 11/30/16 09:00 12/30/16 08:59 12/01/16 08:43 40 MG Diltiazem HCl (Cardizem Tab) 60 mg QID PO 11/29/16 21:00 12/29/16 20:59 12/01/16 12:41 60 MG Raspberry (Raspberry Syrup 5ml Cup) 5 ml QID PO 11/30/16 09:00 12/09/16 21:59 12/01/16 12:41 5 ML Insulin Human Regular (novoLIN-R) SLIDING SCALE ACHS SC 11/30/16 11:00 12/29/16 11:59 12/01/16 12:03 4 UNITS Prazosin HCl (Prazosin) 1 mg BID PO 11/30/16 21:00 12/30/16 08:59 12/01/16 08:44 1 MG Insulin Glargine (Lantus Solostar Pen) SEE PROTOCOL TODAY@1615 ONCE SC 12/01/16 16:15 12/01/16 16:16 Insulin Glargine (Lantus Solostar Pen) 12 units QAM SC 12/02/16 09:00 01/01/17 08:59 Objective Vital Signs Date Time Temp Pulse Resp B/P (MAP) Pulse Ox O2 Delivery O2 Flow Rate FiO2 12/01/16 12:00 Nasal Cannula 3.0 Mask 12/01/16 11:40 36.6 91 19 123/74 (90) 94 Nasal Cannula 2.0 12/01/16 11:16 91 18 93 Nasal Cannula 3.0 12/01/16 08:02 36.9 86 19 140/85 (103) 95 Nasal Cannula 2.0 12/01/16 08:00 Nasal Cannula 3.0 Mask 12/01/16 07:03 81 18 97 Mask 3.0 12/01/16 04:00 Oxymask 3.0 12/01/16 03:58 36.7 89 20 138/79 (98) 96 Oxymask 2.0 12/01/16 00:02 Oxymask 3.0 12/01/16 00:00 36.8 82 18 124/78 (93) 97 Oxymask 2.0 11/30/16 20:34 36.8 89 24 137/74 (95) 96 Oxymask 2.0 11/30/16 20:00 Oxymask 3.0 11/30/16 18:56 83 18 96 Mask 3.0 11/30/16 16:23 92 Mask 2.0 11/30/16 15:57 91 18 92 Mask 2.0 11/30/16 15:49 36.4 93 22 133/77 (95) 93 Oxymask 2.0 Physical Exam General Appearance: WD/WN, no apparent distress Eyes: normal inspection, sclerae normal ENT: normal ENT inspection, pharynx normal Neck: supple, no adenopathy, trachea midline Respiratory/Chest: chest non-tender, no respiratory distress, no accessory muscle use, + wheezing Cardiovascular: regular rate, rhythm, no gallop, no murmur Abdomen: normal bowel sounds, non tender, soft, no organomegaly Extremities: non-tender, no calf tenderness Neurologic/Psychiatric: alert, oriented x 3 Skin: normal color, no rash Lymphatic: no adenopathy Laboratory Results RUN DATE: 11/29/16 [facility] LAB PAGE 1 RUN TIME: 835 Specimen Inquiry PATIENT: FRANCISCO CHAN LOC: [facility] U # : [id number] AGE/SX: 51/M ROOM: E110 REG : 11/25/[address]: Dominic Garcia MD : 1965 BED: 1 DIS : STATUS: ADM IN TLOC: SPEC #: [id number] ALLAN: 11/25/16 STATUS: COMP REQ #: [id number] RECD: 11/25/16 [facility] DR: Jere Richards , D.OUna SOURCE: [facility] WASH ENTR: 11/25/16-[address]: Rush Panda M.D. SPDESC: RT LOW LOB Idalia Garland ., Cj Kilgore M.D.(ZINA) Dominic Garcia MD ORDERED: [facility] CUL/SM Procedure Result Verified Site GRAM STAIN Final 11/26/16-0749 RESULT MANY POLYS MODERATE GRAM POSITIVE COCCI BRONCH WASH CULTURE Final 11/29/16-835 Organism 1 ESCHERICHIA COLI QUANITY MODERATE SENS NO SENSITIVITY TO FOLLOW NORMAL JENNIFER LIGHT NORMAL JENNIFER Organism 2 STAPHYLOCOCCUS AUREUS QUANITY MODERATE SENS SENSITIVITY TO FOLLOW Organism 3 STREP. PNEUMO - PENIC SUSCEPT QUANITY MODERATE SENS NO SENSITIVITY TO FOLLOW Organism 4 ACHROMOBACTER XYLOSOXIDANS QUANITY MODERATE SENS SENSITIVITY TO FOLLOW SENSITIVITY RESULT INDICATES A MULTIPLY - RESISTANT ORGANISM. PHONED TO JUWAN STRONG(RN) ON 11/29/16 AT 0820 BY Maria R Hayward. Results were verbalized back to SOLIS. RESULTS WERE ALSO CALLED TO [facility] INFECTION CONTROL ANSWERING MACHINE ON 11/29/16 BY SOLIS. PLEASE SEE CULTURE NUMBER [id number] FOR SENSITIVITIES. CONTINUED ON NEXT PAGE RUN DATE: 11/29/16 [facility] LAB PAGE 2 RUN TIME: 835 Specimen Inquiry SPEC: [id number] PATIENT: FRANCISCO CHAN [id number] ( Continued) Procedure Result Verified Site BRONCH WASH CULTURE Final (continued) 11/29/16-835 STAPJae AUR ACHROMOBAC M.I.C. RX M.I.C. RX --------- ------ --------- ------ TRIMET/SULFA <=0.5/9.5 S <=2/38 S * OXACILLIN 0.5 S CEFTAZIDIME 16 I CEFEPIME >16 R IMIPENEM <=1 S AZTREONAM >16 R VANCOMYCIN 2 S GENTAMICIN >8 R TOBRAMYCIN >8 R ERYTHROMYCIN >4 R TETRACYCLINE <=4 S AMIKACIN >32 R CIPROFLOXACIN >2 R LEVOFLOXACIN 4 I CLINDAMYCIN <=0.5 R PIP/TAZO <=16 S 2. STAPHYLOCOCCUS AUREUS Target Route Dose RX AB Cost M.I.C. IQ ------ ----- ------ -- ------ -------- - ------ TRIMET/SULFA S <=0.5/ 9.5 * OXACILLIN S 0.5 VANCOMYCIN S 2 ERYTHROMYCIN R >4 TETRACYCLINE S <=4 CLINDAMYCIN R <=0.5 4. ACHROMOBACTER XYLOSOXIDANS Target Route Dose RX AB Cost M.I.C. IQ ------ ----- ------ -- ------ -------- - ------ TRIMET/SULFA S <=2/38 CEFTAZIDIME I 16 CEFEPIME R >16 IMIPENEM S <=1 AZTREONAM R >16 GENTAMICIN R >8 TOBRAMYCIN R >8 AMIKACIN R >32 CIPROFLOXACIN R >2 LEVOFLOXACIN I 4 PIP/TAZO S <=16 S = SENSITIVE I = INTERMEDIATE R = RESISTANT END OF REPORT Last 24 Hours Test 11/30/16 16:18 11/30/16 20:37 12/01/16 03:58 12/01/16 06:34 Bedside Glucose 147 mg/dl 169 mg/dl 79 mg/dl White Blood Count 18.14 K/uL Red Blood Count 4.49 M/uL Hemoglobin 12.9 g/dL Hematocrit 39.6 % Mean Corpuscular Volume 88.2 fL Mean Corpuscular Hemoglobin 28.7 pg Mean Corpuscular Hemoglobin Concent 32.6 g/dl Platelet Count 199 K/uL Mean Platelet Volume 8.7 fL Neutrophils (%) (Auto) 86.0 % Lymphocytes (%) (Auto) 7.7 % Monocytes (%) (Auto) 5.7 % Eosinophils (%) (Auto) 0.2 % Basophils (%) (Auto) 0.1 % Neutrophils # (Auto) 15.62 K/uL Lymphocytes # (Auto) 1.39 K/uL Monocytes # (Auto) 1.03 K/uL Eosinophils # (Auto) 0.03 K/uL Basophils # (Auto) 0.01 K/uL RDW Standard Deviation 45.3 fL RDW Coefficient of Variation 14.0 % Immature Granulocyte % (Auto) 0.3 % Immature Granulocyte # (Auto) 0.06 K/uL Sodium Level 141 mmol/L Potassium Level 3.3 mmol/L Chloride Level 103 mmol/L Carbon Dioxide Level 35 mmol/L Anion Gap 3.0 mmol/L Blood Urea Nitrogen 15 mg/dl Creatinine 0.46 mg/dl Est Creatinine Clear Calc Drug Dose 179.7 ml/min Estimated GFR () 148.4 Estimated GFR (Non- 128.0 BUN/Creatinine Ratio 32.1 Random Glucose 86 mg/dl Calcium Level 7.7 mg/dl Procalcitonin 0.24 ng/ml Test 12/01/16 11:08 Bedside Glucose 107 mg/dl Patient Name: FRANCISCO CHAN Unit Number: [id number] Dictated: 11/28/16712 Transcribed: 11/28/16712 MS Printed Date/Time: [~ rep prt dt]/[~ rep prt tm] [~ rep ct labl] - [~ rep ct ivnm] [facility] [place] [address] Dictated: 11/28/16712 Transcribed: 11/28/16712 MS Printed Date/Time: [~ rep prt dt]/[~ rep prt tm] [~ rep ct labl] - [~ rep ct ivnm] [~ rep ct add3]] CHEST ONE VIEW PORTABLE CLINICAL HISTORY: intubated tube position COMPARISON STUDY: 11/27/2016 FINDINGS: Endotracheal tube 5 cm above the td. Nasogastric tube within the stomach. Pulmonary vasculature remains prominent but slightly improved from the prior date. Mild mid to superior mediastinal fullness is again noted and appears stable. IMPRESSION: Endotracheal tube 5 cm above the td. Some improved pulmonary vasculature. Nasogastric tube within the stomach. The above report was generated using voice recognition software. It may contain grammatical, syntax or spelling errors. Electronically signed by: Neal Bledsoe M.D. 11/28/2016 7:14 AM Dictated Date/Time: 11/28/2016 7:13 AM The status of this report is Signed. Draft = Not yet reviewed or approved by Radiologist. Signed = Reviewed and approved by Radiologist. <AttendingPhy>Dominic Garcia MD</AttendingPhy> <FamilyPhy>Cj Butt M.D.(ZINA)</FamilyPhy> <PrimaryPhy>Cj Butt M.D.(ZINA)</ PrimaryPhy> <UnitNumber>[id number]</UnitNumber> <VisitNumber>[id number]</ VisitNumber> <PatientName>FRANCISCO CHAN</PatientName> <DateOfBirth>1965</ DateOfBirth> <Location>[facility]</Location> <ServiceDate>11/25/16</ServiceDate> < MNE>ESINDI</MNE> <OrderingPhy>Pat Mcbride PA-C</OrderingPhy> <OrderingPhyMNE> f rep ord dr cole</OrderingPhyMNE> <DictatingPhyMNE>f rep dict dr cole</ DictatingPhyMNE> <CCListMNE>f rep ct mne</CCListMNE> <AdmittingPhyMNE>f pt admit dr cole</AdmittingPhyMNE> <AttendingPhyMNE>f pt attend dr cole</ AttendingPhyMNE> <ConsultingPhyMNE>f pt consult dr cole</ConsultingPhyMNE> <FamilyPhyMNE>f pt fam dr cole</FamilyPhyMNE> <OtherPhyMNE>f pt other dr cole</OtherPhyMNE> < PrimaryPhyMNE>f pt prim care dr cole</PrimaryPhyMNE> <ReferringPhyMNE>f pt referring dr cole</ReferringPhyMNE> Assessment and Plan (1) Respiratory distress Status: Acute (2) Compensated respiratory acidosis Status: Acute (3) QUOC (mycobacterium avium-intracellulare) Status: Chronic (4) DM2 (diabetes mellitus, type 2) Status: Chronic (5) C. difficile diarrhea Status: Chronic (6) COPD, very severe Status: Chronic (7) GERD (gastroesophageal reflux disease) Status: Chronic (8) HTN (hypertension) Status: Chronic (9) Depressive disorder Status: Chronic Onset: 02/11/2011 acute respiratory failure in patient with longstanding steroid dependent COPD as well as chronic QUOC infection, With cultures now growing resistant E coli, Staph, Achromobacter and pneumococcus. Agree with the use of imipenem as outlined. Await AFB cultures.
--- NOTE | 2016-12-01 14:32 | Progress Note ---
Post ICU Progress Note Date & Time Dec 01, 2016 at 14:16 Vital Signs Vital Signs Past 12 Hours Date Time Temp Pulse Resp B/P (MAP) Pulse Ox O2 Delivery O2 Flow Rate FiO2 12/01/16 12:00 Nasal Cannula 3.0 Mask 12/01/16 11:40 36.6 91 19 123/74 (90) 94 Nasal Cannula 2.0 12/01/16 11:16 91 18 93 Nasal Cannula 3.0 12/01/16 08:02 36.9 86 19 140/85 (103) 95 Nasal Cannula 2.0 12/01/16 08:00 Nasal Cannula 3.0 Mask 12/01/16 07:03 81 18 97 Mask 3.0 12/01/16 04:00 Oxymask 3.0 12/01/16 03:58 36.7 89 20 138/79 (98) 96 Oxymask 2.0 Notes Mental Status: alert / awake, participated in evaluation Nausea / Vomiting: adequately controlled Pain: adequately controlled Airway Patency, RR, SpO2: stable & adequate BP & HR: stable & adequate Patient is a 51-year-old male who was initially admitted to the ICU for acute hypercapnic respiratory failure. The patient was thankfully successfully extubated. He has progressively improved throughout his stay. He is currently saturating well on 4 L nasal cannula. He reports that "this is the best that I felt and months". He reportedly has not used his medications as prescribed in the recent past. He is adamant that he will continue to follow up with [facility]. He reports that he has actually made some significant changes in his life already including contacting an auctioneer to sell off his possessions. He is debating on moving to [place] with his daughter and closer to his transplant team. Consider outpatient follow up in 1 to 2 weeks with: Dr. Miranda, [facility] Transplant Team Repeat imaging needed: Per Primary Team Follow up cultures: Continue to follow from priors. Reviewed progress notes, labs, and inpatient medication list Continue current management Additional recommendations: None at this time. Please feel free to reconsult as needed. Critical Care Team will sign off at this point. Consults & Procedures Consultants: Dr. Villanueva - Pulmonology Dr. Lobo - Infectious Disease Procedures: PICC - LUE Rad Art Line - RUE CORESAFE and A line dislodged in place.
[2016-12-01] MEDS ORDERED: INSULIN GLARGINE SOLOSTAR 100 UNITS/ML 3 ML PEN SC ONE (16:15)
[2016-12-02] VITALS (13 sets, daily range): BP systolic 128–151; BP diastolic 78–89; PULSE 77–107; TEMP 36.8–37.3; O2SAT 90–96
[2016-12-02] MEDS: IMIPENEM/CILASTATIN IV 500 MG in DEXTROSE 5% 100ML 100 ML IV SCH ×4 (00:02→17:26)
[2016-12-02 04:45] LABS: BASO % 0.1 %; BASO ABS # 0.01 K/uL (0-0.2); COMPLETE YES; EOS % 1.6 %; HEMATOCRIT 40.3 % (42-52); IG% 0.9 %; LYMPH % 10.4 %; LYMPH ABS # 1.71 K/uL (1.2-3.4); MEAN CELL VOLUME 88.2 fL (80-100); MEAN CORPUSCULAR HEMOGLOBIN 28.9 pg (25-34); MEAN CORPUSCULAR HGB CONC 32.8 g/dl (32-36); MEAN PLATELET VOLUME 8.7 fL (7.4-10.4); MONO % 4.4 %; NEUT % 82.6 %; PLATELET COUNT 200 K/uL (130-400); RED BLOOD COUNT 4.57 M/uL (4.7-6.1); WHITE BLOOD COUNT 16.37 K/uL (4.8-10.8)
[2016-12-02 05:11] LABS: BUN/CREATININE RATIO 21.5 (10-20); CREATININE 0.57 mg/dl (0.60-1.40); MAGNESIUM 1.8 mg/dl (1.8-2.4); POTASSIUM 3.2 mmol/L (3.5-5.1)
[2016-12-02 05:13] LABS: PHOSPHORUS 2.9 mg/dl (2.5-4.9)
[2016-12-02] MEDS: ENOXAPARIN 40 MG/0.4 ML SYR SQ SCH (05:51)
[2016-12-02] MEDS: ALBUT/IPRATROP 3MG/0.5MG NEB 3 ML VIAL INH SCH ×4 (07:28→18:59)
[2016-12-02] MEDS: VANCOMYCIN HCL 125 MG/2.5ML SOLN PO SCH ×4 (08:04→20:51)
[2016-12-02] MEDS: RASPBERRY SYRUP 5 ML UDP PO SCH ×4 (08:04→20:51)
[2016-12-02] MEDS: POT PHOSPHATE MONOBASIC W/ SOD TAB PO SCH ×2 (08:04→20:52)
[2016-12-02] MEDS: DILTIAZEM HCL 60 MG TAB PO SCH ×4 (08:05→20:52)
[2016-12-02] MEDS: INSULIN GLARGINE SOLOSTAR 100 UNITS/ML 3 ML PEN SC SCH (08:06)
[2016-12-02] MEDS: SENNA 8.8 MG/5 ML UDP PO SCH (08:06)
[2016-12-02] MEDS: PRAZOSIN HCL 1 MG CAP PO SCH ×2 (08:06→20:53)
[2016-12-02] MEDS: INSULIN HUMAN REGULAR SC SCH ×4 (08:12→21:02)
[2016-12-02] MEDS ORDERED: POTASSIUM CHLORIDE 10 MEQ TABCR PO STA (09:09)
[2016-12-02] MEDS ORDERED: INSULIN GLARGINE SOLOSTAR 100 UNITS/ML 3 ML PEN SC SCH (11:00)
--- NOTE | 2016-12-02 12:01 | Progress Note ---
Internal Med Progress Note Date of Service: Dec 02, 2016. Provider Documentation: SUBJECTIVE: The patient was seen and examined Feels a lot better today Ambulating well Denies any symptoms OBJECTIVE: Vital Signs-as noted below Exam: General-No distress at rest Eyes-normal ENT-normal Neck-supple Lungs-Decreased breath sound bilaterally Minimal to no wheezing Heart-Regular,no murmur appreciated Abdomen-Benign,no masses,bowel sound present Extremities-No edema Neuro-AAOx3 No focal neuro deficit Lab data as noted below. ASSESSMENT & PLAN: Acute on chronic hypoxic and hypercapnic respiratory failure;Secondary to infective COPD and Bronchiectasis H/O Severe COPD , Steroid and Oxygen dependent Has Bronchiectasis H/O QUOC follows with as outpatient (Treated with Zithromax and Ethambutol) S/P wedge resection of R middle, upper and lower lobes by Dr. Andreas Estrella on 01/02/16-No malignancy but Emphysema S/P Bronchoscopy on 11/25/16-AFB culture pending S/P extubation on 11/28/16 CTA: negative for PE. Showed multiple b/l lung cysts and pulmonary nodules likely infectious process-needs follow up as an OP Continue Duonebs ,IV solu-medrol >>> PO prednisone day # 3, taper over 2 weeks as an OP Has been on IV antibiotics:Primaxin /, Vanco ,Zyvox discontinued Bronchial washings studies: Multiple organisms:E.coli, Strep.Pneumo, Staph, Achromobacter Blood/Urine culture: No growth to date MRSA screen negative Follows with Dr. Miranda and [facility] for transplant evaluation Appreciate Production Team Member, Pulmonology, ID Input Needs reevaluation at [facility], for possible lung transplantation upon discharge Palliative care consulted to identify goals of care Clinically much better Discussed with Dr Lobo and can be discharged on Oral Bactrim for 7 days QUOC-ongoing treatment C. diff colitis -second occurrence diagnosed 11/12: On vancomycin taper as outpatient IV Flagyl discontinued Appreciate ID Input withholding QUOC therapy pending bronchoscopy results will need OP appointment with ID in 1 week Hypokalemia Replace K and Mag Will monitor DM II A1C: 9.3 07/2016 SSI, Lantus, Accu checks Also on Metformin HTN NSVT Amiodarone ggt discontinued Cardizem ggt>>> PO Cardizem On Prazosin On metoprolol at home ECHO:: * The left ventricular wall motion is normal. * Left ventricular systolic function is normal. * The LV Ejection Fraction = 55-60%. * The right ventricle is mildly dilated. * The right ventricular systolic function is mild to moderately reduced. * Dilated inferior vena cava with reduced collapsability with sniff indicates an elevated right atrial pressure of 15 mmHg * There is no significant tricuspid regurgitation, and therefore the pulmonary artery systolic pressure cannot be calculated. * The aortic valve was not visualized sufficiently to determine the number of cusps. * The prior echocardiogram report dated 10/05/10, described possible bicuspid AV. * There is no significant aortic regurgitation. * Aortic stenosis is absent. DVT Px: SQ Lovenox Code Status: DNR Likely discharge tomorrow Vital Signs: Date Time Temp Pulse Resp B/P (MAP) Pulse Ox O2 Delivery O2 Flow Rate FiO2 12/02/16 11:29 77 16 93 Nasal Cannula 2.0 12/02/16 08:00 Nasal Cannula 3.0 Mask 12/02/16 07:39 36.8 84 20 149/87 (107) 95 Nasal Cannula 2.0 12/02/16 07:28 85 16 96 Nasal Cannula 1.0 12/02/16 04:00 92 Nasal Cannula 3.0 12/02/16 04:00 36.8 87 151/83 (105) 93 Nasal Cannula 3.0 12/02/16 00:00 36.8 102 128/85 (99) 92 Nasal Cannula 3.0 12/02/16 00:00 92 Nasal Cannula 3.0 12/01/16 19:15 Nasal Cannula 2.0 12/01/16 19:10 37.2 87 22 131/91 (104) 97 Nasal Cannula 2.0 12/01/16 18:56 86 16 96 Nasal Cannula 3.0 12/01/16 15:38 36.8 84 22 137/76 (96) 96 Nasal Cannula 3.0 12/01/16 15:27 92 18 95 Nasal Cannula 3.0 12/01/16 15:15 Nasal Cannula 3.0 12/01/16 12:00 Nasal Cannula 3.0 Mask Lab Results: Results Past 24 Hours Test 12/01/16 16:11 12/01/16 20:19 12/02/16 04:22 8/22/17 06:18 Range/Units Bedside Glucose 197 183 87 70-99 mg/dl White Blood Count 16.37 4.8-10.8 K/uL Red Blood Count 4.57 4.7-6.1 M/uL Hemoglobin 13.2 14.0-18.0 g/dL Hematocrit 40.3 42-52 % Mean Corpuscular Volume 88.2 80-100 fL Mean Corpuscular Hemoglobin 28.9 25-34 pg Mean Corpuscular Hemoglobin Concent 32.8 32-36 g/dl Platelet Count 200 130-400 K/uL Mean Platelet Volume 8.7 7.4-10.4 fL Neutrophils (%) (Auto) 82.6 % Lymphocytes (%) (Auto) 10.4 % Monocytes (%) (Auto) 4.4 % Eosinophils (%) (Auto) 1.6 % Basophils (%) (Auto) 0.1 % Neutrophils # (Auto) 13.51 1.4-6.5 K/uL Lymphocytes # (Auto) 1.71 1.2-3.4 K/uL Monocytes # (Auto) 0.72 0.11-0.59 K/uL Eosinophils # (Auto) 0.27 0-0.5 K/uL Basophils # (Auto) 0.01 0-0.2 K/uL RDW Standard Deviation 44.7 36.4-46.3 fL RDW Coefficient of Variation 13.8 11.5-14.5 % Immature Granulocyte % (Auto) 0.9 % Immature Granulocyte # (Auto) 0.15 0.00-0.02 K/uL Sodium Level 139 136-145 mmol/L Potassium Level 3.2 3.5-5.1 mmol/L Chloride Level 101 98-107 mmol/L Carbon Dioxide Level 34 21-32 mmol/L Anion Gap 4.0 3-11 mmol/L Blood Urea Nitrogen 12 7-18 mg/dl Creatinine 0.57 0.60-1.40 mg/dl Est Creatinine Clear Calc Drug Dose 145.0 ml/min Estimated GFR () 135.9 Estimated GFR (Non- 117.2 BUN/Creatinine Ratio 21.5 10-20 Random Glucose 93 70-99 mg/dl Calcium Level 8.0 8.5-10.1 mg/dl Phosphorus Level 2.9 2.5-4.9 mg/dl Magnesium Level 1.8 1.8-2.4 mg/dl Test 12/02/16 11:14 Range/Units Bedside Glucose 91 70-99 mg/dl
--- NOTE | 2016-12-02 12:29 | Pharmacy Progress Note ---
Glycemic Control Progress Note Date of Service Dec 02, 2016. Scope Glycemic Pharmacist consulted for glycemic control to write orders per [facility] inpatient glycemic control protocol. Objective Accuchecks BSG (last 24hrs): Test 12/01/16 16:11 12/01/16 20:19 12/02/16 04:22 12/02/16 06:18 Bedside Glucose 197 mg/dl (70-99) 183 mg/dl (70-99) 87 mg/dl (70-99) Random Glucose 93 mg/dl (70-99) Test 12/02/16 11:14 Bedside Glucose 91 mg/dl (70-99) HbA1c: Test 11/27/16 05:39 Hemoglobin A1c 7.3 % (4.5-5.6) H Recent Pertinent Medications The patient is currently receiving: * Basal insulin: Lantus SQ Q AM; 0 units if BSG less than 120, 12 units if BSG 120 or greater * Correctional Insulin: Novolog Correction per scale ACHS Goal Range: Low 110 mg/dL - High 140 mg/dL Correction Factor: 30 mg/dL/unit * Prandial insulin: Per carb ratio of 1 unit per 10 grams CHO consumed * Oral Agents: None currently Outpatient Anti-Diabetic Meds Glipizide 5mg PO daily Metformin 1gm PO BID A1c 7.3% 11/27/16 Assessment & Plan ASSESSMENT: 12/01/16 * Glycemic control has been quite good over the last 24 hours, BSGs have ranged 79-199, only one of which was above 180 * Fasting AM BSG 79 this AM with 15 units of basal insulin on board, will reduce the basal insulin dose and begin to titrate the dose so that it is given once daily in the AM to allow for some wearing off of effects overnight to coincide w/ prednisone effects * PO intake appears to be poor at this time, will need to be vigilant of post- prandial hyperglycemia while on prednisone. Will follow BSG pattern closely today should PO intake improve. 12/02/16 * BSGs have ranged 87-197 over the last 24 hours - acceptable control overall given erratic eating habits at this time * Fasting BSG 87 with 11 units Lantus on board (5 units in AM + 6 units w/ dinner) - Plan to continue once daily Lantus in the AM to coincide with once daily Prednisone * Post-prandial BSGs did climb following lunch and dinner yesterday, however did receive a split-dose of Lantus yesterday. Will trial once daily Lantus in AM today rather than adjusting CR at this time - however this would be the next step if no improvement observed PLAN FOR INPATIENT GLYCEMIC CONTROL: * Continue Lantus 12 units SQ daily in the AM * Continuing correction factor of 30 mg/dl/unit * Continuing carb ratio of 1 unit per 10 grams CHO consumed * Continuing goal range of Low 110 mg/dL - High 140 mg/dL * Reevaluate insulin dose with each step down in steroid dose RECOMMENDATIONS FOR DISCHARGE: * Given A1c of 7.3 would recommend he resume his out-pt regimen of glipizide + metformin on discharge, however a Novolog scale may be necessary if discharged on steroids (again this will depend upon the steroid dose) * Please note that the plan above was derived based on current level of insulin resistance and hospital stress. These recommendations are appropriate for inpatient admission only. Plan of care upon discharge will need to be reassessed to avoid potential outpatient hypo/hyperglycemia. Thank you.
--- NOTE | 2016-12-02 14:59 | Infectious Disease Progress Nt ---
Progress Note Date of Service Dec 02, 2016. Subjective Pt evaluation today including: conversation w/ patient, physical exam, chart review, lab review, review of studies, conversation w/ payroll consultant, review of inpatient medication list Feeling better today. Less cough and shortness of breath. No other new complaints. No fever. All Other Systems: Reviewed and Negative Medications Current Inpatient Medications Medications (Trade) Dose Ordered Sig/Abigail Route Start Time Stop Time Status Last Admin Dose Admin Enoxaparin Sodium (Lovenox Inj) 40 mg Q24H SQ 11/26/16 06:00 12/26/16 05:59 12/01/16 05:53 40 MG Vancomycin HCl (Vancomycin Oral Soln) 125 mg QID PO 11/25/16 22:00 12/09/16 21:59 12/02/16 13:40 125 MG Glucose (Glucose 40% Gel) 15-30 GRAMS 15 GRAMS... UD PRN PO 11/26/16 01:00 12/26/16 00:59 Glucose (Glucose Chew Tab) 4-8 Tablets 4 Tabl... UD PRN PO 11/26/16 01:00 12/26/16 00:59 Dextrose (Dextrose 50% 50ML Syringe) 25-50ML OF 50% DW IV FOR... UD PRN IV 11/26/16 01:00 12/26/16 00:59 Glucagon (Glucagon Inj) 1 mg UD PRN SQ 11/26/16 01:00 12/26/16 00:59 Miscellaneous Information (Consult Glycemic Management Pharmacy) 1 ea UD PRN N/A 11/26/16 01:23 12/26/16 01:22 Heparin Sodium (Porcine) (Heparin 10 Unit/ ml 5 ml Flush) 5 ml PRN PRN FLUSH 11/26/16 13:00 12/26/16 12:59 12/02/16 04:44 5 ML Imipenem/ Cilastatin Sodium 500 mg/Dextrose 110 ml @ 100 mls/hr Q6H IV 11/27/16 18:00 12/11/16 17:59 12/02/16 11:59 100 MLS/HR Senna (Senokot Syrup) 8.8 mg QAM PO 11/28/16 09:00 12/28/16 08:59 11/30/16 17:02 8.8 MG Albuterol/ Ipratropium (Duoneb) 3 ml QIDR INH 11/28/16 16:00 12/28/16 15:59 12/02/16 11:29 3 ML Albuterol/ Ipratropium (Duoneb) 3 ml Q2R PRN INH 11/28/16 14:00 12/28/16 13:59 Fentanyl Citrate (Fentanyl Inj) 25 mcg Q1H PRN IV 11/28/16 16:15 12/10/16 02:14 11/28/16 15:34 25 MCG Potassium/ Phosphorus/Sodium (Phospha 250 Neutral 155-852-130 Mg) 2 tab BID PO 11/29/16 09:00 12/29/16 08:59 12/02/16 08:04 2 TAB Prednisone (PredniSONE TAB) 40 mg DAILY PO 11/30/16 09:00 12/30/16 08:59 12/02/16 08:05 40 MG Diltiazem HCl (Cardizem Tab) 60 mg QID PO 11/29/16 21:00 12/29/16 20:59 12/02/16 13:40 60 MG Raspberry (Raspberry Syrup 5ml Cup) 5 ml QID PO 11/30/16 09:00 12/09/16 21:59 12/02/16 13:40 5 ML Insulin Human Regular (novoLIN-R) SLIDING SCALE ACHS SC 11/30/16 11:00 12/29/16 11:59 12/02/16 12:02 3 UNITS Prazosin HCl (Prazosin) 1 mg BID PO 11/30/16 21:00 12/30/16 08:59 12/02/16 08:06 1 MG Insulin Glargine (Lantus Solostar Pen) 12 units QAM SC 12/02/16 09:00 01/01/17 08:59 Potassium Chloride (Klor-Con M10) 40 meq ONE ONCE PO 12/02/16 15:00 12/02/16 15:01 Objective Vital Signs Date Time Temp Pulse Resp B/P (MAP) Pulse Ox O2 Delivery O2 Flow Rate FiO2 12/02/16 12:00 Nasal Cannula 3.0 Mask 12/02/16 11:50 37.3 107 20 132/78 (96) 91 Nasal Cannula 2.0 12/02/16 11:29 77 16 93 Nasal Cannula 2.0 12/02/16 08:00 Nasal Cannula 3.0 Mask 12/02/16 07:39 36.8 84 20 149/87 (107) 95 Nasal Cannula 2.0 12/02/16 07:28 85 16 96 Nasal Cannula 1.0 12/02/16 04:00 92 Nasal Cannula 3.0 12/02/16 04:00 36.8 87 151/83 (105) 93 Nasal Cannula 3.0 12/02/16 00:00 36.8 102 128/85 (99) 92 Nasal Cannula 3.0 12/02/16 00:00 92 Nasal Cannula 3.0 12/01/16 19:15 Nasal Cannula 2.0 12/01/16 19:10 37.2 87 22 131/91 (104) 97 Nasal Cannula 2.0 12/01/16 18:56 86 16 96 Nasal Cannula 3.0 12/01/16 15:38 36.8 84 22 137/76 (96) 96 Nasal Cannula 3.0 12/01/16 15:27 92 18 95 Nasal Cannula 3.0 12/01/16 15:15 Nasal Cannula 3.0 Physical Exam General Appearance: WD/WN, no apparent distress Eyes: normal inspection, sclerae normal ENT: normal ENT inspection, pharynx normal Neck: supple, no adenopathy, trachea midline Respiratory/Chest: chest non-tender, no respiratory distress, no accessory muscle use, + wheezing Cardiovascular: regular rate, rhythm, no gallop, no murmur Abdomen: normal bowel sounds, non tender, soft, no organomegaly Extremities: non-tender, no calf tenderness Neurologic/Psychiatric: alert, oriented x 3 Skin: normal color, no rash Lymphatic: no adenopathy Laboratory Results Last 24 Hours Test 12/01/16 16:11 12/01/16 20:19 12/02/16 04:22 12/02/16 06:18 Bedside Glucose 197 mg/dl 183 mg/dl 87 mg/dl White Blood Count 16.37 K/uL Red Blood Count 4.57 M/uL Hemoglobin 13.2 g/dL Hematocrit 40.3 % Mean Corpuscular Volume 88.2 fL Mean Corpuscular Hemoglobin 28.9 pg Mean Corpuscular Hemoglobin Concent 32.8 g/dl Platelet Count 200 K/uL Mean Platelet Volume 8.7 fL Neutrophils (%) (Auto) 82.6 % Lymphocytes (%) (Auto) 10.4 % Monocytes (%) (Auto) 4.4 % Eosinophils (%) (Auto) 1.6 % Basophils (%) (Auto) 0.1 % Neutrophils # (Auto) 13.51 K/uL Lymphocytes # (Auto) 1.71 K/uL Monocytes # (Auto) 0.72 K/uL Eosinophils # (Auto) 0.27 K/uL Basophils # (Auto) 0.01 K/uL RDW Standard Deviation 44.7 fL RDW Coefficient of Variation 13.8 % Immature Granulocyte % (Auto) 0.9 % Immature Granulocyte # (Auto) 0.15 K/uL Sodium Level 139 mmol/L Potassium Level 3.2 mmol/L Chloride Level 101 mmol/L Carbon Dioxide Level 34 mmol/L Anion Gap 4.0 mmol/L Blood Urea Nitrogen 12 mg/dl Creatinine 0.57 mg/dl Est Creatinine Clear Calc Drug Dose 145.0 ml/min Estimated GFR () 135.9 Estimated GFR (Non- 117.2 BUN/Creatinine Ratio 21.5 Random Glucose 93 mg/dl Calcium Level 8.0 mg/dl Phosphorus Level 2.9 mg/dl Magnesium Level 1.8 mg/dl Test 12/02/16 11:14 Bedside Glucose 91 mg/dl Assessment and Plan (1) Respiratory distress Status: Acute (2) Compensated respiratory acidosis Status: Acute (3) QUOC (mycobacterium avium-intracellulare) Status: Chronic (4) DM2 (diabetes mellitus, type 2) Status: Chronic (5) C. difficile diarrhea Status: Chronic (6) COPD, very severe Status: Chronic (7) GERD (gastroesophageal reflux disease) Status: Chronic (8) HTN (hypertension) Status: Chronic (9) Depressive disorder Status: Chronic Onset: 02/11/2011 acute respiratory failure in patient with longstanding steroid dependent COPD as well as chronic QUOC infection, With cultures now growing resistant E coli, Staph, Achromobacter and pneumococcus. Patient to complete course of imipenem, QUOC therapy to be withheld pending final AFB culture results.
[2016-12-02] MEDS ORDERED: POTASSIUM CHLORIDE 10 MEQ TABCR PO ONE (15:00)
[2016-12-03] VITALS (11 sets, daily range): BP systolic 119–154; BP diastolic 60–93; PULSE 78–102; TEMP 36.7–36.9; O2SAT 92–99
[2016-12-03] MEDS: IMIPENEM/CILASTATIN IV 500 MG in DEXTROSE 5% 100ML 100 ML IV SCH ×4 (00:13→18:00)
[2016-12-03 05:40] LABS: BUN/CREATININE RATIO 18.9 (10-20); CALCIUM 7.7 mg/dl (8.5-10.1); CREATININE 0.51 mg/dl (0.60-1.40); MAGNESIUM 1.8 mg/dl (1.8-2.4)
[2016-12-03 05:41] LABS: PHOSPHORUS 3.2 mg/dl (2.5-4.9)
[2016-12-03] MEDS: ENOXAPARIN 40 MG/0.4 ML SYR SQ SCH (06:00)
[2016-12-03] MEDS: ALBUT/IPRATROP 3MG/0.5MG NEB 3 ML VIAL INH SCH ×4 (07:00→19:45)
[2016-12-03] MEDS: PRAZOSIN HCL 1 MG CAP PO SCH ×2 (07:36→20:48)
[2016-12-03] MEDS: POT PHOSPHATE MONOBASIC W/ SOD TAB PO SCH ×2 (07:37→20:47)
[2016-12-03] MEDS: DILTIAZEM HCL 60 MG TAB PO SCH ×4 (07:37→20:48)
[2016-12-03] MEDS: RASPBERRY SYRUP 5 ML UDP PO SCH ×4 (07:37→20:48)
[2016-12-03] MEDS: VANCOMYCIN HCL 125 MG/2.5ML SOLN PO SCH ×4 (07:37→20:57)
[2016-12-03] MEDS: INSULIN GLARGINE SOLOSTAR 100 UNITS/ML 3 ML PEN SC SCH (07:38)
[2016-12-03] MEDS: INSULIN HUMAN REGULAR SC SCH ×4 (07:40→20:54)
[2016-12-03] MEDS: SENNA 8.8 MG/5 ML UDP PO SCH (07:57)
[2016-12-03] MEDS ORDERED: CALCIUM 600MG + VIT D 400 IU TAB PO ONE (08:40)
[2016-12-03] MEDS: POTASSIUM CHLR 10 MEQ / WTR 10 MEQ in PREMIXED WATER 100 ML IV SCH ×2 (09:25→10:31)
[2016-12-03] MEDS ORDERED: INSULIN HUMAN NPH SC ONE (13:15)
--- NOTE | 2016-12-03 13:41 | Progress Note ---
Internal Med Progress Note Date of Service: Dec 03, 2016. Provider Documentation: SUBJECTIVE: The patient was seen and examined Ambulating well and willing to go home tomorrow Denies any symptoms at rets OBJECTIVE: Vital Signs-as noted below Exam: General-No distress at rest Eyes-normal ENT-normal Neck-supple Lungs-Decreased breath sound bilaterally Minimal to no wheezing Heart-Regular,no murmur appreciated Abdomen-Benign,no masses,bowel sound present Extremities-No edema Neuro-AAOx3 No focal neuro deficit Lab data as noted below. ASSESSMENT & PLAN: Acute on chronic hypoxic and hypercapnic respiratory failure;Secondary to infective COPD and Bronchiectasis H/O Severe COPD , Steroid and Oxygen dependent H/O QUOC follows with as outpatient (Treated with Zithromax and Ethambutol) S/P wedge resection of R middle, upper and lower lobes by Dr. Andreas Estrella on 01/02/16-No malignancy but Emphysema S/P Bronchoscopy on 11/25/16-AFB culture pending S/P extubation on 11/28/16 CTA: negative for PE. Showed multiple b/l lung cysts and pulmonary nodules likely infectious process-needs follow up as an OP Continue Duonebs ,IV solu-medrol >>> PO prednisone day # 3, taper over 2 weeks as an OP Has been on IV antibiotics:Primaxin , Vanco ,Zyvox discontinued Bronchial washings studies: Multiple organisms:E.coli, Strep.Pneumo, Staph, Achromobacter Blood/Urine culture: No growth to date MRSA screen negative Follows with Dr. Miranda and [facility] for transplant evaluation Appreciate Water Purifier Operator, Pulmonology, ID Input Needs reevaluation at [facility], for possible lung transplantation upon discharge Palliative care consulted to identify goals of care Discussed with Dr Lobo and can be discharged on Oral Bactrim for 7 days Remains stable and ambulating reasonably Likely to be discharged tomorrow QUOC-ongoing treatment C. diff colitis -second occurrence diagnosed 11/12: On vancomycin taper as outpatient IV Flagyl discontinued Appreciate ID Input withholding QUOC therapy pending bronchoscopy results will need OP appointment with ID in 1 week Hypokalemia Replace K and Mag Still low -supplemented DM II A1C: 9.3 07/2016 SSI, Lantus, Accu checks Also on Metformin HTN NSVT Amiodarone ggt discontinued Cardizem ggt>>> PO Cardizem On Prazosin On metoprolol at home ECHO:: * The left ventricular wall motion is normal. * Left ventricular systolic function is normal. * The LV Ejection Fraction = 55-60%. * The right ventricle is mildly dilated. * The right ventricular systolic function is mild to moderately reduced. * Dilated inferior vena cava with reduced collapsability with sniff indicates an elevated right atrial pressure of 15 mmHg * There is no significant tricuspid regurgitation, and therefore the pulmonary artery systolic pressure cannot be calculated. * The aortic valve was not visualized sufficiently to determine the number of cusps. * The prior echocardiogram report dated 10/05/10, described possible bicuspid AV. * There is no significant aortic regurgitation. * Aortic stenosis is absent. DVT Px: SQ Lovenox Code Status: DNR Likely discharge in a day or two Vital Signs: Date Time Temp Pulse Resp B/P (MAP) Pulse Ox O2 Delivery O2 Flow Rate FiO2 12/03/16 12:10 36.8 98 18 146/60 (88) 99 12/03/16 11:16 84 14 95 Nasal Cannula 2.0 12/03/16 08:19 36.8 102 18 154/69 (97) 96 12/03/16 08:00 Nasal Cannula 3.0 Mask 12/03/16 06:56 81 18 94 Nasal Cannula 2.0 12/03/16 04:00 36.9 78 18 151/85 (107) 95 Nasal Cannula 2.0 12/03/16 04:00 Nasal Cannula 2.0 12/03/16 00:13 36.7 89 18 151/93 (112) 92 Nasal Cannula 2.0 12/02/16 23:59 Nasal Cannula 2.0 12/02/16 20:00 96 Nasal Cannula 2.0 12/02/16 19:42 37.0 100 20 139/85 (103) 96 Nasal Cannula 2.0 12/02/16 18:59 96 18 96 Nasal Cannula 2.0 12/02/16 16:00 94 Nasal Cannula 3.0 12/02/16 15:27 37.0 91 22 141/89 (106) 94 Nasal Cannula 2.0 12/02/16 15:05 94 18 94 Nasal Cannula 2.0 12/02/16 13:45 90 Lab Results: Results Past 24 Hours Test 12/02/16 16:07 12/02/16 20:28 12/03/16 04:04 12/03/16 06:36 Range/Units Bedside Glucose 219 180 86 70-99 mg/dl Sodium Level 141 136-145 mmol/L Potassium Level 3.0 3.5-5.1 mmol/L Chloride Level 102 98-107 mmol/L Carbon Dioxide Level 33 21-32 mmol/L Anion Gap 6.0 3-11 mmol/L Blood Urea Nitrogen 10 7-18 mg/dl Creatinine 0.51 0.60-1.40 mg/dl Est Creatinine Clear Calc Drug Dose 162.1 ml/min Estimated GFR () 142.2 Estimated GFR (Non- 122.7 BUN/Creatinine Ratio 18.9 10-20 Random Glucose 88 70-99 mg/dl Calcium Level 7.7 8.5-10.1 mg/dl Phosphorus Level 3.2 2.5-4.9 mg/dl Magnesium Level 1.8 1.8-2.4 mg/dl
--- NOTE | 2016-12-03 14:23 | Pharmacy Progress Note ---
Glycemic Control Progress Note Date of Service Dec 03, 2016. Scope Glycemic Pharmacist consulted for glycemic control to write orders per [facility] inpatient glycemic control protocol. Objective Accuchecks BSG (last 24hrs): Test 12/02/16 16:07 12/02/16 20:28 12/03/16 04:04 12/03/16 06:36 Bedside Glucose 219 mg/dl (70-99) 180 mg/dl (70-99) 86 mg/dl (70-99) Random Glucose 88 mg/dl (70-99) HbA1c: Test 11/27/16 05:39 Hemoglobin A1c 7.3 % (4.5-5.6) H Recent Pertinent Medications The patient is currently receiving: * Basal insulin: Lantus SQ Q AM; 0 units if BSG less than 120, 12 units if BSG 120 or greater * Correctional Insulin: Novolog Correction per scale ACHS Goal Range: Low 110 mg/dL - High 140 mg/dL Correction Factor: 30 mg/dL/unit * Prandial insulin: Per carb ratio of 1 unit per 10 grams CHO consumed * Oral Agents: None currently Outpatient Anti-Diabetic Meds Glipizide 5mg PO Daily Metformin 1gm PO BID A1c 7.3% 11/27/16 Assessment & Plan ASSESSMENT: 12/01/16 * Glycemic control has been quite good over the last 24 hours, BSGs have ranged 79-199, only one of which was above 180 * Fasting AM BSG 79 this AM with 15 units of basal insulin on board, will reduce the basal insulin dose and begin to titrate the dose so that it is given once daily in the AM to allow for some wearing off of effects overnight to coincide w/ prednisone effects * PO intake appears to be poor at this time, will need to be vigilant of post- prandial hyperglycemia while on prednisone. Will follow BSG pattern closely today should PO intake improve. 12/02/16 * BSGs have ranged 87-197 over the last 24 hours - acceptable control overall given erratic eating habits at this time * Fasting BSG 87 with 11 units Lantus on board (5 units in AM + 6 units w/ dinner) - Plan to continue once daily Lantus in the AM to coincide with once daily Prednisone * Post-prandial BSGs did climb following lunch and dinner yesterday, however did receive a split-dose of Lantus yesterday. Will trial once daily Lantus in AM today rather than adjusting CR at this time - however this would be the next step if no improvement observed 12/03/16 * BSGs have ranged 86-219 over the last 24 hours; all BSGs at goal with the exception of pre-dinner BSG * Post-prandial BSG are routinely elevated at dinner-time and at bedtime while receiving Prednisone once daily in the AM. Will change the basal insulin dose to NPH given once daily w/ dinner to coincide with the increased insulin resistance seen at this time of day * The current CF and CR will be kept the same secondary to the change in basal insulin as NPH is not a peak-less insulin PLAN FOR INPATIENT GLYCEMIC CONTROL: * D/C Lantus * Begin NPH 12 units SQ once daily w/ lunch * Continuing correction factor of 30 mg/dl/unit * Continuing carb ratio of 1 unit per 10 grams CHO consumed * Continuing goal range of Low 110 mg/dL - High 140 mg/dL * Reevaluate insulin dose with each step down in steroid dose RECOMMENDATIONS FOR DISCHARGE: * Given A1c of 7.3 would recommend he resume his out-pt regimen of glipizide + metformin on discharge, however a Novolog scale may be necessary if discharged on steroids (again this will depend upon the steroid dose) * Please note that the plan above was derived based on current level of insulin resistance and hospital stress. These recommendations are appropriate for inpatient admission only. Plan of care upon discharge will need to be reassessed to avoid potential outpatient hypo/hyperglycemia. Thank you.
[2016-12-03] MEDS ORDERED: FUROSEMIDE INJ 40 MG in SYRINGE 0 ML IV SCH (16:00)
[2016-12-03] MEDS: CALCIUM 600MG + VIT D 400 IU TAB PO SCH (20:47)
[2016-12-04] VITALS: BP 125/76; PULSE 90; TEMP 36.7; O2SAT 95
[2016-12-04 04:33] VITALS: BP 132/79; PULSE 72; TEMP 36.7; O2SAT 97
[2016-12-04] MEDS: ENOXAPARIN 40 MG/0.4 ML SYR SQ SCH (06:00)
[2016-12-04] MEDS: IMIPENEM/CILASTATIN IV 500 MG in DEXTROSE 5% 100ML 100 ML IV SCH ×4 (06:24→11:37)
[2016-12-04 06:47] LABS: HEMATOCRIT 40.9 % (42-52); MEAN CELL VOLUME 89.1 fL (80-100); MEAN CORPUSCULAR HEMOGLOBIN 27.9 pg (25-34); MEAN CORPUSCULAR HGB CONC 31.3 g/dl (32-36); MEAN PLATELET VOLUME 8.9 fL (7.4-10.4); PLATELET COUNT 227 K/uL (130-400); RED BLOOD COUNT 4.59 M/uL (4.7-6.1); WHITE BLOOD COUNT 16.91 K/uL (4.8-10.8)
[2016-12-04 07:06] VITALS: BP 125/79; PULSE 78; TEMP 36.3; O2SAT 95
[2016-12-04] MEDS: ALBUT/IPRATROP 3MG/0.5MG NEB 3 ML VIAL INH SCH ×2 (07:19→11:07)
[2016-12-04 07:24] VITALS: PULSE 102; O2SAT 98
[2016-12-04 07:27] LABS: CALCIUM 8.1 mg/dl (8.5-10.1); CREATININE 0.5 mg/dl (0.60-1.40)
[2016-12-04] MEDS: CALCIUM 600MG + VIT D 400 IU TAB PO SCH (07:31)
[2016-12-04] MEDS: POT PHOSPHATE MONOBASIC W/ SOD TAB PO SCH (07:31)
[2016-12-04] MEDS: PRAZOSIN HCL 1 MG CAP PO SCH (07:31)
[2016-12-04] MEDS: SENNA 8.8 MG/5 ML UDP PO SCH (07:32)
[2016-12-04] MEDS: VANCOMYCIN HCL 125 MG/2.5ML SOLN PO SCH (07:32)
[2016-12-04] MEDS: RASPBERRY SYRUP 5 ML UDP PO SCH (07:32)
[2016-12-04] MEDS: DILTIAZEM HCL 60 MG TAB PO SCH (07:32)
[2016-12-04] MEDS: INSULIN HUMAN REGULAR SC SCH ×2 (07:38→11:48)
[2016-12-04] MEDS ORDERED: NURSING VERBAL MED ORDER ONE (08:15)
[2016-12-04] MEDS ORDERED: POTASSIUM CHLORIDE 10 MEQ TABCR PO ONE (09:00)
--- NOTE | 2016-12-04 09:28 | Progress Note ---
Internal Med Progress Note Date of Service: Dec 04, 2016. Provider Documentation: SUBJECTIVE: The patient was seen and examined Ambulating well and willing to go home tomorrow Denies any other symptoms Ready to be discharged OBJECTIVE: Vital Signs-as noted below Exam: General-Minimal distress at rest Eyes-normal ENT-normal Neck-supple Lungs-Decreased breath sound bilaterally Minimal to no wheezing Heart-Regular,no murmur appreciated Abdomen-Benign,no masses,bowel sound present Extremities-trace edma bilaterally Neuro-AAOx3 No focal neuro deficit Lab data as noted below. ASSESSMENT & PLAN: Acute on chronic hypoxic and hypercapnic respiratory failure;Secondary to infective COPD and Bronchiectasis H/O Severe COPD , Steroid and Oxygen dependent H/O QUOC follows with as outpatient (Treated with Zithromax and Ethambutol) S/P wedge resection of R middle, upper and lower lobes by Dr. Andreas Estrella on 01/02/16-No malignancy but Emphysema S/P Bronchoscopy on 11/25/16-AFB culture pending S/P extubation on 11/28/16 CTA: negative for PE. Showed multiple b/l lung cysts and pulmonary nodules likely infectious process-needs follow up as an OP Continue Duonebs ,IV solu-medrol >>> PO prednisone day # 3, taper over 2 weeks as an OP Has been on IV antibiotics:Primaxin , Vanco ,Zyvox discontinued Bronchial washings studies: Multiple organisms:E.coli, Strep.Pneumo, Staph, Achromobacter Blood/Urine culture: No growth to date MRSA screen negative Follows with Dr. Miranda and [facility] for transplant evaluation Appreciate Assistant [employer], Pulmonology, ID Input Needs reevaluation at [facility], for possible lung transplantation upon discharge Palliative care consulted to identify goals of care Discussed with Dr Lobo and can be discharged on Oral Bactrim for 5 days Remains stable and ambulating reasonably Discharge home today on oral Bactrim and Tapering dose of Steroid QUOC-ongoing treatment C. diff colitis -second occurrence diagnosed 11/12: On vancomycin taper as outpatient IV Flagyl discontinued Appreciate ID Input withholding QUOC therapy pending bronchoscopy results will need OP appointment with ID in 1 week Hypokalemia Replace K and Mag Still low -supplemented Dietary advice is given to improve potassium DM II A1C: 9.3 07/2016 SSI, Lantus, Accu checks Also on Metformin Continue OP medications HTN NSVT Amiodarone ggt discontinued Cardizem ggt>>> PO Cardizem On Prazosin On metoprolol at home ECHO:: * The left ventricular wall motion is normal. * Left ventricular systolic function is normal. * The LV Ejection Fraction = 55-60%. * The right ventricle is mildly dilated. * The right ventricular systolic function is mild to moderately reduced. * Dilated inferior vena cava with reduced collapsability with sniff indicates an elevated right atrial pressure of 15 mmHg * There is no significant tricuspid regurgitation, and therefore the pulmonary artery systolic pressure cannot be calculated. * The aortic valve was not visualized sufficiently to determine the number of cusps. * The prior echocardiogram report dated 10/05/10, described possible bicuspid AV. * There is no significant aortic regurgitation. * Aortic stenosis is absent. DVT Px: SQ Lovenox Code Status: DNR Disposition Discharge home today Vital Signs: Date Time Temp Pulse Resp B/P (MAP) Pulse Ox O2 Delivery O2 Flow Rate FiO2 12/04/16 07:24 102 16 98 Nasal Cannula 3.0 12/04/16 07:06 36.3 78 20 125/79 (94) 95 Nasal Cannula 3.0 12/04/16 04:33 36.7 72 16 132/79 (96) 97 Nasal Cannula 3.0 12/04/16 04:00 Nasal Cannula 3.0 12/04/16 00:00 36.7 90 20 125/76 (92) 95 Nasal Cannula 2.0 12/03/16 23:59 Nasal Cannula 3.0 12/03/16 20:00 Nasal Cannula 3.0 12/03/16 19:45 96 18 92 Nasal Cannula 2.0 12/03/16 19:29 36.8 95 18 119/75 (90) 96 Nasal Cannula 3.0 12/03/16 16:00 94 Nasal Cannula 2.0 12/03/16 15:31 95 14 94 Nasal Cannula 2.0 12/03/16 15:20 36.8 94 18 137/92 (107) 96 Nasal Cannula 3.0 12/03/16 12:10 36.8 98 18 146/60 (88) 99 12/03/16 12:00 Nasal Cannula 3.0 Mask 12/03/16 11:16 84 14 95 Nasal Cannula 2.0 Lab Results: Results Past 24 Hours Test 12/03/16 11:23 12/03/16 16:42 12/03/16 20:38 12/04/16 06:21 Range/Units Bedside Glucose 111 190 142 70-99 mg/dl White Blood Count 16.91 4.8-10.8 K/uL Red Blood Count 4.59 4.7-6.1 M/uL Hemoglobin 12.8 14.0-18.0 g/dL Hematocrit 40.9 42-52 % Mean Corpuscular Volume 89.1 80-100 fL Mean Corpuscular Hemoglobin 27.9 25-34 pg Mean Corpuscular Hemoglobin Concent 31.3 32-36 g/dl RDW Standard Deviation 45.9 36.4-46.3 fL RDW Coefficient of Variation 14.2 11.5-14.5 % Platelet Count 227 130-400 K/uL Mean Platelet Volume 8.9 7.4-10.4 fL Test 12/04/16 06:24 12/04/16 06:54 Range/Units Sodium Level 142 136-145 mmol/L Potassium Level 3.0 3.5-5.1 mmol/L Chloride Level 101 98-107 mmol/L Carbon Dioxide Level 35 21-32 mmol/L Anion Gap 6.0 3-11 mmol/L Blood Urea Nitrogen 13 7-18 mg/dl Creatinine 0.50 0.60-1.40 mg/dl Est Creatinine Clear Calc Drug Dose 165.3 ml/min Estimated GFR () 143.4 Estimated GFR (Non- 123.7 BUN/Creatinine Ratio 25.0 10-20 Random Glucose 82 70-99 mg/dl Calcium Level 8.1 8.5-10.1 mg/dl Bedside Glucose 101 70-99 mg/dl
[2016-12-04] MEDS ORDERED: POTTAB2 PO (09:38)
[2016-12-04] MEDS ORDERED: SULF-183 PO (09:38)
[2016-12-04] MEDS ORDERED: CRD60 PO (09:38)
[2016-12-04] MEDS ORDERED: PRZ1 PO (09:38)
[2016-12-04] MEDS ORDERED: CALCTAB7 PO (09:38)
--- NOTE | 2016-12-04 09:43 | Discharge Instructions ---
Discharge Instructions Date of Service Dec 04, 2016. Admission Reason for Admission: Respiratory Failure Discharge Discharge Diagnosis / Problem: Acute on Chronic Respiratory failure,Severe COPD Discharge Goals Goal(s): Prevent Disease Progression Activity Recommendations Activity Limitations: resume your previous activity Continue Oxygen all the time . Instructions / Follow-Up Instructions / Follow-Up Dr Butt on 12/09/16 at 11:25 AM. Please make an appointment with Dr Lobo/Yanira (ID) and Dr Miranda ( pulmonary) in 1 -2 weeks Current Hospital Diet Patient's current hospital diet: Diabetes Type 2 Diet Discharge Diet Recommended Diet: Diabetes Type 2 Diet Pending Studies Studies pending at discharge: no Laboratory Results Hemoglobin A1c Test 11/27/16 05:39 Range/Units Estimated Average Glucose 163 mg/dl Hemoglobin A1c 7.3 H 4.5-5.6 % Medical Emergencies . Who to Call and When: Medical Emergencies: If at any time you feel your situation is an emergency, please call 911 immediately. . Non-Emergent Contact Non-Emergency issues call your: Primary Care Provider . Past History Medical & Surgical History: (1) DM2 (diabetes mellitus, type 2) (2) COPD, very severe (3) HTN (hypertension) (4) QUOC (mycobacterium avium-intracellulare) (5) C. difficile diarrhea (6) History of nasal surgery (7) H/O adenoidectomy . "Provider Documentation" section prepared by Stephan Mendes. . VTE Core Measure Inpt VTE Proph given/why not?: Enoxaparin (Lovenox)SQ
[2016-12-04] MEDS ORDERED: MCRK20 PO (09:44)
[2016-12-04] MEDS ORDERED: FURO-85 PO (09:44)
[2016-12-04] MEDS ORDERED: OXGN (09:47)
[2016-12-04] MEDS ORDERED: SULFAMETHOXAZOLE/TRIMETHOPRIM DS 800/160MG TAB PO ONE (10:00)
[2016-12-04] MEDS ORDERED: INSULIN HUMAN NPH SC SCH (11:00)
[2016-12-04 11:05] VITALS: PULSE 90; O2SAT 94
[2016-12-04 11:16] VITALS: BP 125/79; PULSE 102; TEMP 36.3; O2SAT 98
[2016-12-04] MEDS ORDERED: SULFAMETHOXAZOLE/TRIMETHOPRIM DS 800/160MG TAB PO SCH (21:00)
--- NOTE | 2016-12-05 08:06 | Discharge Summary ---
Discharge Summary Date of Service Dec 05, 2016. Discharge Summary Admission Date: Nov 25, 2016 at 17:42 Discharge Date: Dec 04, 2016 Discharge Disposition: Home with services Principal Diagnosis: Acute on Chronic Respiratory failure,Severe COPD Secondary Diagnoses/Problems: Please see H&P and Hospital Progress notes Procedures: Bronchoscopy Consultations: Job Tracer,Pulmonary and ID Medication Reconciliation New Medications: Furosemide (Lasix) 20 Mg Tab 20 MG PO DAILY, #30 TAB Home O2 Therapy (Oxygen) Gas 2 LITERS NA CONTINOUS, #1 Use as before 2-3 liters Potassium Chloride (Klor-Con M20) 20 Meq Tabcr 20 MEQ PO DAILY, #30 Calcium Carbonate-Vitamin D W/ (Caltrate 600 Plus) 1 Tab Tab 1 TAB PO BID for 30 Days, #60 TAB Diltiazem HCl (Diltiazem HCl) 60 Mg Tab 60 MG PO QID for 30 Days, #120 TAB Pot Phosphate Monobasic W/ Sod (Phospha 250 Neutral) 1 Tab Tab 2 TAB PO BID for 30 Days, #120 TAB Prazosin HCl (Prazosin HCl) 1 Mg Cap 1 MG PO BID for 30 Days, #60 CAP Sulfamethoxazole-Trimethoprim (Smz-Tmp Ds) 1 Tab Tab 1 TAB PO Q12 for 5 Days, #10 TAB Continued Medications: Albuterol Hfa (Ventolin Hfa) 200 Puffs/54134 Mcg Aers 2-4 PUFFS INH Q6H, INHALER Docusate Sodium (Docusate Sodium) 100 Mg Cap 100 MG PO BID, #30 CAP over the counter while taking narcotic pain medications Fluticasone Propionate (Nasal) (Flonase Allergy Relief) 50 Mcg/Act Spr 2 SPRAYS MELISSA QAM Glipizide (Glucotrol) 5 Mg Tab 10 MG PO QAM, TAB TAKE THIS MEDICATION WITH FOOD Ipratropium-Albuterol (Duoneb) 3 Ml Nebu 1 TREATMENT INH QID PRN for Severe Dyspnea, INHA Metformin Hcl (Glucophage) 500 Mg Tab 1000 MG PO BID, #120 Prednisone (Prednisone) 20 Mg Tab 20 MG PO UD, TAB 1 and a 1/2 pills daily for 1 week and then 1 pill daily to continue Vancomycin Hcl (Vancomycin) 125 Mg Cap 1 TAB PO DIRECTED, #88 TAB Take 1 tab; QID 2 wks, BID 1 wk, 1 daily for 1 wk, 1 every other day 1 wk, 1 every 3rd day 2 wks. Zolpidem Tartrate (Zolpidem Tartrate) 10 Mg Tab 10 MG PO HS PRN for Sleep, TAB TAKE THIS MEDICATION 30-60 MINUTES BEFORE SLEEP Discontinued Medications: Metoprolol Succ (Toprol Xl) (Toprol-Xl) 25 Mg Tabcr 25 MG PO DAILY, TAB Oxycodone HCl (Oxycodone HCl) 5 Mg Tab 5 MG PO Q6 PRN for Pain, #30 TAB Admission Information HPI (per Admitting provider): 51 year old male who presented to the ER with shortness of breath. History is limited since patient is currently intubated and sedated. Information obtained from ED documentation and review of outpatient records. Patient has history of very severe COPD, currently being followed at [facility] for possible lung transplant. Also history of QUOC lung infection, unclear if patient is taking antibiotics. Patient was diagnosed with C. Diff a couple of weeks ago, currently on vancomycin. Patient presenting today with worsening shortness of breath x 3 days. In the ED, was in severe respiratory distress requiring intubation. Past Medical/Surgical History Medical Problems: (1) C. difficile diarrhea Status: Chronic (2) COPD, very severe Status: Chronic (3) Depressive disorder Status: Chronic (4) DM2 (diabetes mellitus, type 2) Status: Chronic (5) GERD (gastroesophageal reflux disease) Status: Chronic (6) HTN (hypertension) Status: Chronic (7) QUOC (mycobacterium avium-intracellulare) Status: Chronic (8) Pneumothorax of right lung after biopsy Status: Chronic Surgical Problems: (1) H/O adenoidectomy Status: Chronic (2) History of nasal surgery Status: Chronic Family History CVA GRANDFATHER FH: myocardial infarction GRANDFATHER Social History Smoking Status: Unknown if Ever Smoked Alcohol Use: unknown Immunizations History of Influenza Vaccine: Yes Influenza Vaccine Date: Feb 12, 2012 History of Tetanus Vaccine?: Yes Tetanus Immunization Date: Feb 25, 2008 History of Pneumococcal: Yes Pneumococcal Date: Jan 22, 2011 History of Hepatitis B Vaccine: No Multi-Drug Resistant Organisms History of MDRO: No Allergies Coded Allergies: Omeprazole (Verified Allergy, Unknown, TOLERATES PROTONIX, 11/25/16) Paroxetine (Verified Adverse Reaction, Mild, GI UPSET, 11/25/16) Home Medications Scheduled Albuterol Hfa (Ventolin Hfa), 2-4 PUFFS INH Q6H Docusate Sodium (Docusate Sodium), 100 MG PO BID Fluticasone Propionate (Nasal) (Flonase Allergy Relief), 2 SPRAYS MELISSA QAM Glipizide (Glucotrol), 5 MG PO QAM Metformin Hcl (Glucophage), 1,000 MG PO BID Metoprolol Succ (Toprol Xl) (Toprol-Xl), 25 MG PO DAILY Prednisone (Prednisone), 20 MG PO DAILY Vancomycin Hcl (Vancomycin), 1 TAB PO DIRECTED Scheduled PRN Ipratropium-Albuterol (Duoneb), 1 TREATMENT INH QID PRN for Severe Dyspnea Oxycodone HCl (Oxycodone HCl), 5 MG PO Q6 PRN for Pain Zolpidem Tartrate (Zolpidem Tartrate), 10 MG PO HS PRN for Sleep Review of Systems unable to be completed with patient due to sedation Physical Ex - H&P Physical Exam Vital Signs Date Time Temp Pulse Resp B/P (MAP) Pulse Ox O2 Delivery O2 Flow Rate FiO2 11/25/16 18:25 90 28 102/77 100 11/25/16 17:59 93 28 110/80 100 Mechanical Ventilator 50 11/25/16 17:00 101 26 140/76 100 Mechanical Ventilator 50 11/25/16 16:57 101 26 98/73 99 Mechanical Ventilator 50 11/25/16 16:27 112/75 11/25/16 16:05 104/71 11/25/16 16:00 111 102/69 97 Mechanical Ventilator 50 11/25/16 15:55 118/78 11/25/16 15:50 50 11/25/16 15:50 124/77 11/25/16 15:45 110 135/87 99 11/25/16 15:43 129/88 11/25/16 15:40 124/97 11/25/16 15:35 158/108 11/25/16 15:30 128 20 50 BiPAP/CPAP 11/25/16 15:30 128 98 50 11/25/16 15:30 120 196/119 99 11/25/16 15:25 155/97 11/25/16 15:21 155/101 11/25/16 15:15 126 100 11/25/16 15:14 157/104 11/25/16 15:11 157/133 11/25/16 15:00 130 99 11/25/16 14:52 128 38 151/97 99 BiPAP 40 11/25/16 14:48 128 38 99 BiPAP 40 11/25/16 14:47 BiPAP 11/25/16 14:47 BiPAP 11/25/16 14:13 96 Non-Rebreather 4.0 11/25/16 14:11 88 11/25/16 14:11 36.4 122 38 159/99 88 Nasal Cannula 11/25/16 14:08 133 11/25/16 14:06 132 General Appearance: + pertinent finding (resting in bed, currently intubated and sedated) Head: normocephalic Eyes: normal inspection Neck: supple, no JVD Respiratory/Chest: + crackles (BL bases), + wheezing (expiratory), + pertinent finding (intubated; PS 34, TV 250, 50%FiO2, 15 PEEP) Cardiovascular: regular rate, rhythm, + pertinent finding (+2 pitting edema BLLE) Abdomen/GI: normal bowel sounds, non tender, soft, + distended Genitourinary - Male: + pertinent finding (hsu in place draining dark yellow urine) Extremities/Musculoskelatal: normal inspection, no calf tenderness Neurologic/Psych: + pertinent finding (sedated) Skin: normal color, warm/dry Diagnostics - H&P Diagnostics Laboratory Results Results Past 24 Hours Test 11/25/16 14:52 11/25/16 14:54 11/25/16 16:33 11/25/16 16:38 Range/Units White Blood Count 28.63 4.8-10.8 K/uL Red Blood Count 5.42 4.7-6.1 M/uL Hemoglobin 15.8 14.0-18.0 g/dL Hematocrit 49.0 42-52 % Mean Corpuscular Volume 90.4 80-100 fL Mean Corpuscular Hemoglobin 29.2 25-34 pg Mean Corpuscular Hemoglobin Concent 32.2 32-36 g/dl Platelet Count 357 130-400 K/uL Mean Platelet Volume 9.0 7.4-10.4 fL Neutrophils (%) (Auto) 83.0 % Lymphocytes (%) (Auto) 8.2 % Monocytes (%) (Auto) 4.0 % Eosinophils (%) (Auto) 3.4 % Basophils (%) (Auto) 0.4 % Neutrophils # (Auto) 23.77 1.4-6.5 K/uL Lymphocytes # (Auto) 2.36 1.2-3.4 K/uL Monocytes # (Auto) 1.14 0.11-0.59 K/uL Eosinophils # (Auto) 0.96 0-0.5 K/uL Basophils # (Auto) 0.11 0-0.2 K/uL RDW Standard Deviation 45.3 36.4-46.3 fL RDW Coefficient of Variation 13.8 11.5-14.5 % Immature Granulocyte % (Auto) 1.0 % Immature Granulocyte # (Auto) 0.29 0.00-0.02 K/uL Red Blood Cell Morphology Unremarkable Sodium Level 137 136-145 mmol/L Potassium Level 3.5 3.5-5.1 mmol/L Chloride Level 97 98-107 mmol/L Carbon Dioxide Level 31 21-32 mmol/L Anion Gap 9.0 3-11 mmol/L Blood Urea Nitrogen 14 7-18 mg/dl Creatinine 0.82 0.60-1.40 mg/dl Est Creatinine Clear Calc Drug Dose 100.8 ml/min Estimated GFR () 117.0 Estimated GFR (Non- 101.0 BUN/Creatinine Ratio 17.1 10-20 Random Glucose 212 70-99 mg/dl Calcium Level 8.7 8.5-10.1 mg/dl Magnesium Level 1.7 1.8-2.4 mg/dl Total Bilirubin 0.6 0.2-1 mg/dl Aspartate Amino Transf (AST/SGOT) 33 15-37 U/L Alanine Aminotransferase (ALT/SGPT) 38 12-78 U/L Alkaline Phosphatase 112 45-117 U/L Total Creatine Kinase 289 39-308 U/L Creatine Kinase MB 9.5 0.5-3.6 ng/ml Creatine Kinase MB Ratio 3.3 0-3.0 Troponin I 0.072 0-0.045 ng/ml Pro-B-Type Natriuretic Peptide 192 0-900 pg/ml Total Protein 6.7 6.4-8.2 gm/dl Albumin 3.0 3.4-5.0 gm/dl Globulin 3.7 2.5-4.0 gm/dl Albumin/Globulin Ratio 0.8 0.9-2 Bedside Blood Gas pH (LAB) 7.23 7.21 7.35-7.45 Bedside Blood Gas pCO2 (LAB) 83 82 35-46 mmHg Bedside Blood Gas pO2 (LAB) 109 109 80-95 mmHg Bedside Blood Gas HCO3 (LAB) 35 33 19-24 meq/L Bedside Blood Gas Total CO2 37 35 24-31 mEq/l Bedside Blood Gas Base Excess (LAB) 7.0 5.0 -9-1.8 meq/L Bedside Blood Gas O2 Saturation 97.0 97.0 90-95 % Urine Color DK YELLOW Urine Appearance CLOUDY CLEAR Urine pH 5.0 4.5-7.5 Urine Specific [place] 1.045 1.000-1.030 Urine Protein 2+ NEG Urine Glucose (UA) 1+ NEG Urine Ketones 1+ NEG Urine Occult Blood TRACE NEG Urine Nitrite NEG NEG Urine Bilirubin NEG NEG Urine Urobilinogen NEG NEG Urine Leukocyte Esterase NEG NEG Urine WBC (Auto) 5-10 0-5 /hpf Urine RBC (Auto) 0-4 0-4 /hpf Urine Hyaline Casts (Auto) >30 0-5 /lpf Urine Epithelial Cells (Auto) >30 0-5 /lpf Urine Bacteria (Auto) 1+ NEG Urine Renal Epithelial Cells 0-5 /lpf Urine Pathogenic Casts 0-3 GRANULAR CASTS 0 /lpf Urine Mucus PRESENT NONE PRSENT Test 11/25/16 17:42 11/25/16 19:00 Range/Units Bedside Blood Gas pH (LAB) 7.18 7.35-7.45 Bedside Blood Gas pCO2 (LAB) 85 35-46 mmHg Bedside Blood Gas pO2 (LAB) 222 80-95 mmHg Bedside Blood Gas HCO3 (LAB) 31 19-24 meq/L Bedside Blood Gas Total CO2 34 24-31 mEq/l Bedside Blood Gas Base Excess (LAB) 3.0 -9-1.8 meq/L Bedside Blood Gas O2 Saturation 100.0 90-95 % Microbiology Results 11/25/16 Blood Culture, Received Pending 11/25/16 Blood Culture, Received Pending 11/25/16 MRSA DNA Surveillance Screen, Received Pending 11/25/16 Urine Culture, Received Pending Diagnostic Radiology CXR IMPRESSION: Right midlung zone scarring. Interstitial thickening likely chronic. No evidence of acute lobar consolidation. CXR IMPRESSION: Interval insertion of an endotracheal tube 52 mm above the td. CTA CHEST IMPRESSION: 1. No evidence of acute pulmonary embolism 2. Multiple bilateral lung cysts, slightly progressive when compared the prior study 3. Scattered bilateral pulmonary nodules. These are statistically inflammatory/infectious. A 1-2 month follow-up study subsequent to antibiotic therapy is recommended. Impression - H&P Impression Assessment and Plan RESPIRATORY FAILURE, SEVERE COPD, HX QUOC INFECTION - admit to ICU - patient presenting with 3 days of worsening shortness of breath; in severe respiratory distress in the ED requiring intubation, ABG demonstrates respiratory acidosis - management as per web site admin - noted hx of QUOC infection - patient had been on azithromycin and ethambutol in the past - unclear when the last doses were; follows with Dr. Doyle - follows with Dr. Miranda and [facility] for transplant evaluation C. DIFF - second occurrence diagnosed 11/12 - currently on vanco taper - vanco via NG vs. IV Flagyl as per web site admin DM - hgb a1c 9.3 07/2016 - hold oral agents and utilize SSI HTN - on metoprolol - BP stable DVT PROPHYLAXIS - SQ Lovenox DISPO - In my clinical judgment this beneficiary meets acute admission criteria, established by [facility], that includes being hospitalized through two midnights. VTE Prophylaxis VTE Risk Assessment Done? Y/N: Yes Risk Level: Moderate Given or contraindicated: Enoxaparin (Lovenox)SQ Note ATTENDING ADDENDUM Record reviewed. Patient examined in ED. Care coordinated with RYAN Serrano. Please refer to her documentation for patient's history. Briefly, 51 YO male with severe steroid-dependent COPD, QUOC, currently being treated for C diff. Presented to ED with respiratory distress and required intubation + mechanical ventilation EXAM: General- sedated, appears to be comfortable VS- as noted HEENT- PERRL, EOMI, anicteric; oral ETT Neck- supple; + JVD Lungs- diffuse wheezing Heart- RRR Abdomen- soft, nontender Extremities- 2+ pretibial edema Neuro- sedated DATA: Item Value Date Time Bedside Blood Gas pO2 (LAB) 109 mmHg H 11/25/16 1454 Bedside Blood Gas pCO2 (LAB) 83 mmHg H 11/25/16 1454 Bedside Blood Gas HCO3 (LAB) 35 meq/L H 11/25/16 1454 Bedside Blood Gas pH (LAB) 7.23 L 11/25/16 1454 Other lab studies as noted. CXR- no acute infiltrates, no pneumothorax. CTA chest- (1) negative for PE, (2) progressive cystic disease, (3) scattered bilateral pulmonary nodules. ASSESSMENT AND PLAN: Acute on chronic hypoxic and hypercapnic respiratory failure. Hx of QUOC. No apparent infiltrates on chest x-ray. Intubated in ED. Received IV steroids and antibiotics. Critical Care Medicine consulted and evaluated patient in ED. Please refer to BURT Garland's documentation for discussion of other issues. Rush Panda MD . Physical Exam (per Admitting): General Appearance: + pertinent finding (resting in bed, currently intubated and sedated) Head: normocephalic Eyes: normal inspection Neck: supple, no JVD Respiratory/Chest: + crackles (BL bases), + wheezing (expiratory), + pertinent finding (intubated; PS 34, TV 250, 50%FiO2, 15 PEEP) Cardiovascular: regular rate, rhythm, + pertinent finding (+2 pitting edema BLLE) Abdomen/GI: normal bowel sounds, non tender, soft, + distended Genitourinary - Male: + pertinent finding (hsu in place draining dark yellow urine) Extremities/Musculoskelatal: normal inspection, no calf tenderness Neurologic/Psych: + pertinent finding (sedated) Skin: normal color, warm/dry Hospital Course Acute on chronic hypoxic and hypercapnic respiratory failure;Secondary to infective COPD and Bronchiectasis H/O Severe COPD , Steroid and Oxygen dependent H/O QUOC follows with as outpatient (Treated with Zithromax and Ethambutol) S/P wedge resection of R middle, upper and lower lobes by Dr. Andreas Estrella on 01/02/16-No malignancy but Emphysema S/P Bronchoscopy on 11/25/16-AFB culture pending S/P extubation on 11/28/16 CTA: negative for PE. Showed multiple b/l lung cysts and pulmonary nodules likely infectious process-needs follow up as an OP Continue Duonebs ,IV solu-medrol >>> PO prednisone day # 3, taper over 2 weeks as an OP Has been on IV antibiotics:Primaxin , Vanco ,Zyvox discontinued Bronchial washings studies: Multiple organisms:E.coli, Strep.Pneumo, Staph, Achromobacter Blood/Urine culture: No growth to date MRSA screen negative Follows with Dr. Miranda and [facility] for transplant evaluation Appreciate Job Tracer, Pulmonology, ID Input Needs reevaluation at [facility], for possible lung transplantation upon discharge Palliative care consulted to identify goals of care Discussed with Dr Lobo and can be discharged on Oral Bactrim for 5 days Remains stable and ambulating reasonably Discharge home today on oral Bactrim and Tapering dose of Steroid QUOC-ongoing treatment C. diff colitis -second occurrence diagnosed 11/12: On vancomycin taper as outpatient IV Flagyl discontinued Appreciate ID Input withholding QUOC therapy pending bronchoscopy results will need OP appointment with ID in 1 week Hypokalemia Replace K and Mag Still low -supplemented Dietary advice is given to improve potassium DM II A1C: 9.3 07/2016 SSI, Lantus, Accu checks Also on Metformin Continue OP medications HTN NSVT Amiodarone ggt discontinued Cardizem ggt>>> PO Cardizem On Prazosin On metoprolol at home ECHO:: * The left ventricular wall motion is normal. * Left ventricular systolic function is normal. * The LV Ejection Fraction = 55-60%. * The right ventricle is mildly dilated. * The right ventricular systolic function is mild to moderately reduced. * Dilated inferior vena cava with reduced collapsability with sniff indicates an elevated right atrial pressure of 15 mmHg * There is no significant tricuspid regurgitation, and therefore the pulmonary artery systolic pressure cannot be calculated. * The aortic valve was not visualized sufficiently to determine the number of cusps. * The prior echocardiogram report dated 10/05/10, described possible bicuspid AV. * There is no significant aortic regurgitation. * Aortic stenosis is absent. DVT Px: SQ Lovenox Code Status: DNR Disposition Discharge home today Total time spent on discharge = 35 minutes This includes examination of the patient, discharge planning, medication reconciliation, and communication with other providers. Discharge Instructions Date of Service Dec 04, 2016. Admission Reason for Admission: Respiratory Failure Discharge Discharge Diagnosis / Problem: Acute on Chronic Respiratory failure,Severe COPD Discharge Goals Goal(s): Prevent Disease Progression Activity Recommendations Activity Limitations: resume your previous activity Continue Oxygen all the time . Instructions / Follow-Up Instructions / Follow-Up Dr Butt on 12/09/16 at 11:25 AM. Please make an appointment with Dr Lobo/Yanira (ID) and Dr Miranda ( pulmonary) in 1 -2 weeks Current Hospital Diet Patient's current hospital diet: Diabetes Type 2 Diet Discharge Diet Recommended Diet: Diabetes Type 2 Diet Pending Studies Studies pending at discharge: no Laboratory Results Hemoglobin A1c Test 11/27/16 05:39 Range/Units Estimated Average Glucose 163 mg/dl Hemoglobin A1c 7.3 H 4.5-5.6 % Medical Emergencies . Who to Call and When: Medical Emergencies: If at any time you feel your situation is an emergency, please call 911 immediately. . Non-Emergent Contact Non-Emergency issues call your: Primary Care Provider . Past History Medical & Surgical History: (1) DM2 (diabetes mellitus, type 2) (2) COPD, very severe (3) HTN (hypertension) (4) QOUC (mycobacterium avium-intracellulare) (5) C. difficile diarrhea (6) History of nasal surgery (7) H/O adenoidectomy . "Provider Documentation" section prepared by Stephan Mendes. . VTE Core Measure Inpt VTE Proph given/why not?: Enoxaparin (Lovenox)SQ <Electronically signed by Stephan Mendes M.D.> Additional Copies To Cj Butt M.D.(ZINA)
== END 2016-12-04 12:15 | disposition home health service (06) | DRG 167 ==
LOC: EDBD 13:58 → C.EDB 13:59 → C.MSICU 17:42 → UNDOADMIN 17:42 → ENRESERV 17:53 → C.MSICU 11-30 11:37 → C.2E 11-30 11:37
PROVIDERS: ADMIT Hospitalist; ATTEND Internal Medicine
PROC: 5A1945Z Respiratory Ventilation, 24-96 Consecutive Hours (ICD-10-PCS; principal; 2016-11-25)
PROC: 0BH17EZ Insertion of Endotracheal Airway into Trachea, Via Natural or Artificial Opening (ICD-10-PCS; principal; 2016-11-25)
PROC: 0B9D8ZX Drainage of Right Middle Lung Lobe, Via Natural or Artificial Opening Endoscopic, Diagnostic (ICD-10-PCS; 2016-11-25)
PROC: 0B9F8ZX Drainage of Right Lower Lung Lobe, Via Natural or Artificial Opening Endoscopic, Diagnostic (ICD-10-PCS; 2016-11-25)
PROC: 03HY32Z Insertion of Monitoring Device into Upper Artery, Percutaneous Approach (ICD-10-PCS; 2016-11-25)
PROC: 02HV33Z Insertion of Infusion Device into Superior Vena Cava, Percutaneous Approach (ICD-10-PCS; 2016-11-26)
DX: J96.01 Acute respiratory failure with hypoxia (principal); A04.7 Enterocolitis due to Clostridium difficile; E87.2 Acidosis; A31.0 Pulmonary mycobacterial infection; J96.02 Acute respiratory failure with hypercapnia; J44.9 Chronic obstructive pulmonary disease, unspecified; I10 Essential (primary) hypertension; Z66 Do not resuscitate; F32.9 Major depressive disorder, single episode, unspecified; E11.9 Type 2 diabetes mellitus without complications; E83.42 Hypomagnesemia; E87.6 Hypokalemia; F17.210 Nicotine dependence, cigarettes, uncomplicated; B96.20 Unspecified Escherichia coli [E. coli] as the cause of diseases classified elsewhere; B95.8 Unspecified staphylococcus as the cause of diseases classified elsewhere; B96.89 Other specified bacterial agents as the cause of diseases classified elsewhere; R91.8 Other nonspecific abnormal finding of lung field; J98.4 Other disorders of lung; K21.9 Gastro-esophageal reflux disease without esophagitis; Z16.30 Resistance to unspecified antimicrobial drugs; Z99.81 Dependence on supplemental oxygen; Z79.84 Long term (current) use of oral hypoglycemic drugs; Z79.899 Other long term (current) drug therapy; Z79.891 Long term (current) use of opiate analgesic

== ENCOUNTER 2016-12-24 13:38 | Emergency (ER) | payer OTHER ==
[~2016-12-24] VITALS: Ht 172.7 cm; Wt 69.5 kg
[~2016-12-24 13:38] MED LIST changes: +CALCTAB7 PO; +CRD60 PO; -ETOMIDATE 2 MG/ML 20 ML VIAL IV ONE; +FURO-85 PO; +MCRK20 PO; -METO25TA3 PO; -MIDAZOLAM HCL 5 MG/ML 1 ML VIAL IV ONE; +OXGN; +POTTAB2 PO; +PRZ1 PO; -RXC5 PO; -SUCCINYLCHOLINE CHLORIDE 20 MG/ML 10 ML VIAL IV ONE; +SULF-183 PO
[2016-12-24 13:41] VITALS: Ht 172.7 cm; Wt 69.5 kg
[2016-12-24] MEDS ORDERED: ALBUT/IPRATROP 3MG/0.5MG NEB 3 ML VIAL INH STA ×3 (13:46→22:27)
[2016-12-24] MEDS ORDERED: CALC-354 PO (14:09)
--- NOTE | 2016-12-24 14:10 | DIAGNOSTIC IMAGING REPORT ---
CHEST ONE VIEW PORTABLE CLINICAL HISTORY: 51 years-old Male presenting with sob. TECHNIQUE: AP view of the chest was obtained. COMPARISON: 11/28/2016. FINDINGS: There has been interval extubation. Cardia mediastinal silhouette normal. Suture margin is noted in the right mid and lower lung. Lungs and pleural spaces clear. Osseous structures normal. Upper abdomen normal. IMPRESSION: 1. Interval extubation. No evidence of acute cardiopulmonary disease. Electronically signed by: Andres Giles M.D. 12/24/2016 2:09 PM Dictated Date/Time: 12/24/2016 2:08 PM
[2016-12-24] MEDS ORDERED: DILT1TAB62 PO (14:11)
[2016-12-24] MEDS ORDERED: FURO-85 PO (14:13)
[2016-12-24] MEDS ORDERED: POTA20TA16 PO (14:21)
[2016-12-24] MEDS ORDERED: POTTAB2 PO (14:21)
[2016-12-24] MEDS ORDERED: PRAZ1CAP10 PO (14:21)
[2016-12-24] MEDS ORDERED: SULF800T23 PO (15:25)
[2016-12-24] MEDS ORDERED: SULFAMETHOXAZOLE/TRIMETHOPRIM DS 800/160MG TAB PO STA (15:26)
--- NOTE | 2016-12-24 15:26 | EMERGENCY ROOM VISIT NOTE ---
History Report prepared by Nickie: Ashley Fiore Under the Supervision of: Dr. Sukhdev Vallecillo D.O. First contact with patient: 13:45 Chief Complaint: SHORTNESS OF BREATH Stated Complaint: SOB History of Present Illness The patient is a 51 year old male who presents to the Emergency Room with complaints of increased shortness of breath that began yesterday. He currently rates his discomfort as a 5/10 in severity. The patient reports wearing 2 liters of supplemental nasal cannula oxygen at home. He states that yesterday he developed a nonproductive cough, increased shortness of breath, and chest tightness. The patient states that his symptoms are worsened with exertion. He states that he can only walk short distances without becoming short of breath. He denies ever being a smoker. Source of History: patient Onset: yesterday Position: other (global) Symptom Intensity: 5/10 Quality: other (shortness of breath) Timing: other (increased) Modifying Factors (Worsening): exertion Associated Symptoms: + cough (nonproductive), + chest pain (tightness) Review of Systems See HPI for pertinent positives & negatives. A total of 10 systems reviewed and were otherwise negative. Past Medical & Surgical Medical Problems: (1) C. difficile diarrhea (2) COPD, very severe (3) Depressive disorder (4) DM2 (diabetes mellitus, type 2) (5) GERD (gastroesophageal reflux disease) (6) HTN (hypertension) (7) QUOC (mycobacterium avium-intracellulare) (8) Pneumothorax of right lung after biopsy Surgical Problems: (1) H/O adenoidectomy (2) History of nasal surgery Family History CVA GRANDFATHER FH: myocardial infarction GRANDFATHER Social History Smoking Status: Never Smoker Alcohol Use: none Housing Status: lives with significant other Current/Historical Medications Scheduled Albuterol Hfa (Ventolin Hfa), 2-4 PUFFS INH Q6H Calcium Carbonate-Cholecalcife (Caltrate 600+D), 1 TAB PO BID Fluticasone Propionate (Nasal) (Flonase Allergy Relief), 2 SPRAYS MELISSA QAM Furosemide (Lasix), 20 MG PO QAM Glipizide (Glucotrol), 10 MG PO QAM Home O2 Therapy (Oxygen), 2 LITERS NA CONTINOUS Metformin Hcl (Glucophage), 1,000 MG PO BID Prazosin Hcl (Prazosin), 1 MG PO BID Prednisone (Prednisone), 20 MG PO QAM Vancomycin Hcl (Vancomycin), 1 TAB PO DIRECTED Scheduled PRN Ipratropium-Albuterol (Duoneb), 1 TREATMENT INH QID PRN for Severe Dyspnea Allergies Coded Allergies: Omeprazole (Verified Allergy, Unknown, TOLERATES PROTONIX, 12/24/16) Paroxetine (Verified Adverse Reaction, Mild, GI UPSET, 12/24/16) Physical Exam Vital Signs Date Time Temp Pulse Resp B/P (MAP) Pulse Ox O2 Delivery O2 Flow Rate FiO2 12/24/16 14:56 102 20 179/86 94 Nasal Cannula 2.0 12/24/16 14:04 96 Nasal Cannula 2.0 12/24/16 13:57 109 12/24/16 13:57 96 Nasal Cannula 2.0 12/24/16 13:53 96 Nasal Cannula 2.0 12/24/16 13:41 36.7 86 24 160/83 98 Nasal Cannula Physical Exam CONSTITUTIONAL/VITAL SIGNS: Reviewed / noted above. GENERAL: Non-toxic in appearance. INTEGUMENTARY: Warm, dry, and Toppers. HEAD: Normocephalic. EYES: without scleral icterus or trauma. ENT/OROPHARYNX: clear and moist. LYMPHADENOPATHY/NECK: Is supple without lymphadenopathy or meningismus. RESPIRATORY: Diminished breath sounds bilaterally. No acute respiratory distress. CARDIOVASCULAR: Regular rate and rhythm. GI/ABDOMEN: Soft and nontender. No organomegaly or pulsatile mass. No rebound or guarding. Normal bowel sounds. EXTREMITIES: Warm and well perfused. BACK: No CVA tenderness. NEUROLOGICAL: Intact without focal deficits. PSYCHIATRIC: normal affect. MUSCULOSKELETAL: Normally developed with good muscle tone. Medical Decision & Procedures ER Provider Diagnostic Interpretation: X ray results and stated below per my interpretation and radiology interpretation. CHEST ONE VIEW PORTABLE CLINICAL HISTORY: 51 years-old Male presenting with sob. TECHNIQUE: AP view of the chest was obtained. COMPARISON: 11/28/2016. FINDINGS: There has been interval extubation. Cardia mediastinal silhouette normal. Suture margin is noted in the right mid and lower lung. Lungs and pleural spaces clear. Osseous structures normal. Upper abdomen normal. IMPRESSION: 1. Interval extubation. No evidence of acute cardiopulmonary disease. Electronically signed by: Andres Giles M.D. 12/24/2016 2:09 PM Dictated Date/Time: 12/24/2016 2:08 PM Laboratory Results Test 12/24/16 14:15 Troponin I < 0.015 ng/ml (0-0.045) Laboratory results as stated above per my review. Medications Administered Medications (Trade) Dose Ordered Sig/Abigail Route Start Time Stop Time Status Last Admin Dose Admin Albuterol/ Ipratropium (Duoneb) 3 ml NOW STAT INH 12/24/16 13:46 12/24/16 13:50 DC 12/24/16 13:46 3 ML ECG Indication: SOB/dyspnea Rate (beats per minute): 105 Rhythm: sinus tachycardia Findings: no acute ischemic change, no ectopy ED Course 1346: Ordered DuoNeb 3 ml INH. 1351: Previous medical records were reviewed. The patient was evaluated in room A3. A complete history and physical examination was performed. 1500: I reevaluated the patient and he is doing well. I discussed the exam findings with him and I discussed the treatment plan. He verbalized complete understanding and agreement. He is ready to go home. Medical Decision Differentials considered include acute myocardial infarction, acute coronary syndrome, myocarditis, pericarditis, pericardial effusions /tamponade, esophageal perforation, pulmonary embolism, pneumonia, pneumothorax, cardiomyopathy, congestive heart, anemia, and COPD/asthma exacerbation. This is a 51-year-old male who presents to the ED with a chief complaint shortness of breath. He states that he has some exertional shortness of breath that is chronic but slightly worse than his baseline. He also states that his chest feels tight. He has chronic lung disease and is chronically on home oxygen. His SATURATIONS on 2 L is 95-96 percent. The patient's vital signs are otherwise stable. His physical exam reveals diminished breath sounds but he is in no distress. Chest x-ray did not show any acute lung disease. Blood work was unremarkable. He is not anemic. Troponin was negative. EKG shows a sinus rhythm. The patient was told results the test. He was given a DuoNeb treatment. He states that he has been using his DuoNeb treatments every 6 hours at home. He was advised to use these every 4 hours as needed. He is currently on prednisone. He was prescribed Bactrim based on previous Johansen cultures. He is felt to be stable for discharge and outpatient follow-up. He was advised to return for worsening. Medication Reconcilliation Current Medication List: was personally reviewed by me Blood Pressure Screening Patient's blood pressure: Elevated blood pressure Blood pressure disposition: Elevated BP felt to be situational Impression Primary Impression: Chronic obstructive pulmonary disease Scribe Attestation The scribe's documentation has been prepared under my direction and personally reviewed by me in its entirety. I confirm that the note above accurately reflects all work, treatment, procedures, and medical decision making performed by me. Departure Information Dispostion Home / Self-Care Prescriptions Sulfa/Trimethoprim (Bactrim Ds 800MG/160MG) Tab 1 TAB PO BID, #14 TAB Prov: Sukhdev Vallecillo D.O. 12/24/16 Referrals No Doctor, Assigned (PCP) Patient Instructions My [facility] Additional Instructions Bactrim as prescribed. Use albuterol at home every 2-4 hours as needed for shortness of breath. Follow-up with your doctor for further care and evaluation in 1-2 days. Return to the emergency department for worsening or new symptoms or any concerns. You have been examined and treated today on an emergency basis only. This is not a substitute for, or an effort to provide, complete comprehensive medical care. It is impossible to recognize and treat all injuries or illnesses in a single emergency department visit. It is therefore important that you follow up closely with your doctor. Call as soon as possible for an appointment.
[2016-12-24 16:42] LABS: ISTAT CREATININE 0.6 mg/dl (0.6-1.3); ISTAT IONIZED CALCIUM 1.08 mmol/l (1.12-1.32)
[2016-12-24 16:53] VITALS: O2SAT 94
[2016-12-24 17:11] VITALS: TEMP 36.5
[2016-12-24 17:15] LABS: BASO % 0.2 %; BASO ABS # 0.02 K/uL (0-0.2); COMPLETE YES; EOS % 0.1 %; HEMATOCRIT 44.3 % (42-52); IG% 1.8 %; LYMPH % 2.3 %; MEAN CELL VOLUME 90.2 fL (80-100); MEAN CORPUSCULAR HEMOGLOBIN 28.1 pg (25-34); MEAN CORPUSCULAR HGB CONC 31.2 g/dl (32-36); MEAN PLATELET VOLUME 8.9 fL (7.4-10.4); NEUT % 93.6 %; PLATELET COUNT 304 K/uL (130-400); RED BLOOD COUNT 4.91 M/uL (4.7-6.1); WHITE BLOOD COUNT 13.06 K/uL (4.8-10.8)
[2016-12-24 18:26] LABS: ALT/SGPT 30 U/L (12-78); AST/SGOT 13 U/L (15-37); BLOOD UREA NITROGEN 7 mg/dl (7-18); BUN/CREATININE RATIO 10.1 (10-20); CALCIUM 8.7 mg/dl (8.5-10.1); CARBON DIOXIDE 33 mmol/L (21-32); CHLORIDE 101 mmol/L (98-107); CREATININE 0.67 mg/dl (0.60-1.40); GLUCOSE 129 mg/dl (70-99); POTASSIUM 4.3 mmol/L (3.5-5.1); SODIUM 140 mmol/L (136-145)
[2016-12-24 18:32] LABS: ALB/GLOB RATIO 0.9 (0.9-2); ALKALINE PHOSPHATASE 84 U/L (45-117); CKMB/CK RATIO 5.6 (0-3.0)
--- NOTE | 2016-12-24 18:40 | EMERGENCY ROOM VISIT NOTE ---
History Report prepared by Nickie: Maria Luisa Puentes Under the Supervision of: Gallo GayO. First contact with patient: 16:03 Chief Complaint: SHORTNESS OF BREATH Stated Complaint: SOB Nursing Triage Summary: Increased "tightness" in his chest. Symptoms began yesterday. He relates that he has poor lungs but cannot specify why his lungs are bad. Denies smoking. 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 The patient has a history of significant lung problems and is currently on a transplant list. In mid-November the patient was admitted to the ICU and intubated for 3 days. He was doing well after that and was discharged home where he continued to do well. Currently the patient is experiencing chest tightness and increased shortness of breath that is worse with exertion and movement. He states that he gets short of breath even just sitting up in bed. He also notes a non-productive cough and some swelling in his legs. He has been using his breathing treatments without any relief. He is on 2L of O2. The patient denies fevers, chills, chest pain, nausea, vomiting, diarrhea, and abdominal pain. He was prescribed Lasix but stopped taking them because he did not realize he needed to take them every day. 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 A total of 10 systems reviewed and were otherwise negative. Past Medical & Surgical Medical Problems: (1) C. difficile diarrhea (2) COPD, very severe (3) Depressive disorder (4) DM2 (diabetes mellitus, type 2) (5) GERD (gastroesophageal reflux disease) (6) HTN (hypertension) (7) QUOC (mycobacterium avium-intracellulare) (8) Pneumothorax of right lung after biopsy Surgical Problems: (1) H/O adenoidectomy (2) History of nasal surgery Family History CVA GRANDFATHER FH: myocardial infarction GRANDFATHER Social History Smoking Status: Never Smoker Alcohol Use: none Housing Status: lives with significant other Current/Historical Medications Scheduled Albuterol Hfa (Ventolin Hfa), 2-4 PUFFS INH Q6H Calcium Carbonate-Cholecalcife (Caltrate 600+D), 1 TAB PO BID Fluticasone Propionate (Nasal) (Flonase Allergy Relief), 2 SPRAYS MELISSA QAM Furosemide (Lasix), 20 MG PO QAM Glipizide (Glucotrol), 10 MG PO QAM Home O2 Therapy (Oxygen), 2 LITERS NA CONTINOUS Metformin Hcl (Glucophage), 1,000 MG PO BID Prazosin Hcl (Prazosin), 1 MG PO BID Prednisone (Prednisone), 20 MG PO QAM Sulfa/Trimethoprim (Bactrim Ds 800MG/160MG), 1 TAB PO BID Vancomycin Hcl (Vancomycin), 1 TAB PO DIRECTED Scheduled PRN Ipratropium-Albuterol (Duoneb), 1 TREATMENT INH QID PRN for Severe Dyspnea Allergies Coded Allergies: Omeprazole (Verified Allergy, Unknown, TOLERATES PROTONIX, 12/24/16) Paroxetine (Verified Adverse Reaction, Mild, GI UPSET, 12/24/16) Physical Exam Vital Signs Date Time Temp Pulse Resp B/P (MAP) Pulse Ox O2 Delivery O2 Flow Rate FiO2 12/24/16 22:45 111 20 154/97 98 Nasal Cannula 2.0 12/24/16 21:28 125 27 155/109 93 Nasal Cannula 2.0 12/24/16 21:02 130 89 Nasal Cannula 2.0 12/24/16 19:20 82 24 172/103 95 Nasal Cannula 2.0 12/24/16 18:05 124 26 175/98 92 Nasal Cannula 2.0 12/24/16 17:11 36.5 96 18 154/96 96 Nasal Cannula 2.0 12/24/16 16:53 94 Nasal Cannula 2.0 12/24/16 14:56 102 20 179/86 94 Nasal Cannula 2.0 12/24/16 14:04 96 Nasal Cannula 2.0 12/24/16 13:57 109 12/24/16 13:57 96 Nasal Cannula 2.0 12/24/16 13:53 96 Nasal Cannula 2.0 12/24/16 13:41 36.7 86 24 160/83 98 Nasal Cannula Physical Exam GENERAL: Patient is awake, alert, and in no acute distress. Patient is resting comfortably and showing no signs of anxiety EYES: The conjunctivae are clear. The pupils are round and reactive. EARS, NOSE, MOUTH AND THROAT: The nose is without any evidence of any deformity. Mucous membranes are moist tongue is midline NECK: The neck is nontender and supple. RESPIRATORY: Lung sounds diminished throughout. There was poor air movement noted. No conversational dyspnea noted. CARDIOVASCULAR: Tachycardic rate and regular rhythm noted there no murmurs rubs or gallops normal S1 normal S2 GASTROINTESTINAL: The abdomen is soft. Bowel sounds are present in all quadrants. Abdomen is nontender MUSCULOSKELETAL/EXTREMITIES: There is no evidence of gross deformity full range of motion is noted in the hips and shoulders SKIN: There is no obvious evidence of any rash. There are no petechiae, pallor or cyanosis noted. Pedal edema bilaterally. NEUROLOGIC: Patient is awake alert and oriented x3 Medical Decision & Procedures ER Provider Diagnostic Interpretation: Repeat ECG reveals sinus tachycardia at 102, no ectopy, no acute ST changes. No change from earlier tracing. Radiology results as stated below per my review and radiologist interpretation: CHEST ONE VIEW PORTABLE CLINICAL HISTORY: 51 years-old Male presenting with sob. TECHNIQUE: AP view of the chest was obtained. COMPARISON: 11/28/2016. FINDINGS: There has been interval extubation. Cardia mediastinal silhouette normal. Suture margin is noted in the right mid and lower lung. Lungs and pleural spaces clear. Osseous structures normal. Upper abdomen normal. IMPRESSION: 1. Interval extubation. No evidence of acute cardiopulmonary disease. Electronically signed by: Andres Giles M.D. 12/24/2016 2:09 PM Dictated Date/Time: 12/24/2016 2:08 PM (CHEST FOR PE) ANGIO WITH CT DOSE: 451.27 mGy.cm HISTORY: Chest pain dyspnea TECHNIQUE: Multiaxial CT images of the chest were performed following the intravenous administration of contrast to evaluate the pulmonary arteries. Maximal intensity projection images were also obtained. A dose lowering technique was utilized adhering to the principles of ALARA. COMPARISON STUDY: 11/25/2016 FINDINGS: There is a normal caliber thoracic aorta with no evidence for dissection. There is no evidence for pulmonary embolus. No pleural effusions. No pneumothorax. The liver and spleen are unremarkable. No mediastinal or hilar lymphadenopathy. The central airways are patent. Lungs demonstrate improving cystic and nodular change. Moderate residual persists. There are several old right rib fractures. IMPRESSION: 1. No evidence for pulmonary most. 2. Improving parenchymal nodularity and cystic change. 3. Moderate residual. 4. No evidence for new or interval process. The above report was generated using voice recognition software. It may contain grammatical, syntax or spelling errors. Electronically signed by: Neal Bledsoe M.D. 12/24/2016 8:49 PM Dictated Date/Time: 12/24/2016 8:46 PM VENOUS DOPPLER LW EXT BILAT HISTORY: Pain. Edema. swelling COMPARISON STUDY: 12/30/2015 FINDINGS: There is normal compressibility, flow, and augmentation within the bilateral lower extremity deep venous systems. IMPRESSION: No DVT within the right or left lower extremity. The above report was generated using voice recognition software. It may contain grammatical, syntax or spelling errors. Electronically signed by: Neal Bledsoe M.D. 12/24/2016 7:43 PM Dictated Date/Time: 12/24/2016 7:42 PM Laboratory Results 12/24/16 14:15 Red Blood Count 4.91, Mean Corpuscular Volume 90.2, Mean Corpuscular Hemoglobin 28.1, Mean Corpuscular Hemoglobin Concent 31.2, Mean Platelet Volume 8.9, Neutrophils (%) (Auto) 93.6, Lymphocytes (%) (Auto) 2.3, Monocytes (%) (Auto) 2.0, Eosinophils (%) (Auto) 0.1, Basophils (%) (Auto) 0.2, Neutrophils # (Auto) 12.24, Lymphocytes # (Auto) 0.30, Monocytes # (Auto) 0.26, Eosinophils # (Auto) 0.01, Basophils # (Auto) 0.02 12/24/16 17:30 Test 12/24/16 14:15 12/24/16 14:24 12/24/16 17:30 12/24/16 18:10 White Blood Count 13.06 K/uL (4.8-10.8) Red Blood Count 4.91 M/uL (4.7-6.1) Hemoglobin 13.8 g/dL (14.0-18.0) Hematocrit 44.3 % (42-52) Mean Corpuscular Volume 90.2 fL (80-100) Mean Corpuscular Hemoglobin 28.1 pg (25-34) Mean Corpuscular Hemoglobin Concent 31.2 g/dl (32-36) Platelet Count 304 K/uL (130-400) Mean Platelet Volume 8.9 fL (7.4-10.4) Neutrophils (%) (Auto) 93.6 % Lymphocytes (%) (Auto) 2.3 % Monocytes (%) (Auto) 2.0 % Eosinophils (%) (Auto) 0.1 % Basophils (%) (Auto) 0.2 % Neutrophils # (Auto) 12.24 K/uL (1.4-6.5) Lymphocytes # (Auto) 0.30 K/uL (1.2-3.4) Monocytes # (Auto) 0.26 K/uL (0.11-0.59) Eosinophils # (Auto) 0.01 K/uL (0-0.5) Basophils # (Auto) 0.02 K/uL (0-0.2) RDW Standard Deviation 47.7 fL (36.4-46.3) RDW Coefficient of Variation 14.6 % (11.5-14.5) Immature Granulocyte % (Auto) 1.8 % Immature Granulocyte # (Auto) 0.23 K/uL (0.00-0.02) Bedside Hemoglobin 15.0 g/dl (14.0-18.0) Bedside Hematocrit 44 % (42-52) Bedside Sodium 137 mEq/L (135-144) Bedside Potassium 5.2 mEq/L (3.3-5.0) Bedside Chloride 97 mEq/L (101-112) Bedside Total CO2 33 mEq/l (24-31) Bedside Blood Urea Nitrogen 8 mg/dl (7-18) Bedside Creatinine 0.6 mg/dl (0.6-1.3) Bedside Glucose (other) 229 mg/dl (70-99) Bedside Ionized Calcium (Em) 1.08 mmol/l (1.12-1.32) Prothrombin Time 9.9 SECONDS (9.0-12.0) Prothromb Time International Ratio 0.9 (0.9-1.1) Activated Partial Thromboplast Time 24.1 SECONDS (21.0-31.0) Partial Thromboplastin Ratio 0.9 Anion Gap 6.0 mmol/L (3-11) Est Creatinine Clear Calc Drug Dose 123.3 ml/min Estimated GFR () 127.1 Estimated GFR (Non- 109.7 BUN/Creatinine Ratio 10.1 (10-20) Calcium Level 8.7 mg/dl (8.5-10.1) Total Bilirubin 0.2 mg/dl (0.2-1) Aspartate Amino Transf (AST/SGOT) 13 U/L (15-37) Alanine Aminotransferase (ALT/SGPT) 30 U/L (12-78) Alkaline Phosphatase 84 U/L (45-117) Total Creatine Kinase 39 U/L (39-308) Creatine Kinase MB 2.2 ng/ml (0.5-3.6) Creatine Kinase MB Ratio 5.6 (0-3.0) Troponin I < 0.015 ng/ml (0-0.045) Pro-B-Type Natriuretic Peptide 62 pg/ml (0-900) Total Protein 6.6 gm/dl (6.4-8.2) Albumin 3.2 gm/dl (3.4-5.0) Globulin 3.4 gm/dl (2.5-4.0) Albumin/Globulin Ratio 0.9 (0.9-2) Bedside D-Dimer > 450 ng/mlFEU (0-450) Laboratory results per my review. Medications Administered Medications (Trade) Dose Ordered Sig/Abigail Route Start Time Stop Time Status Last Admin Dose Admin Albuterol/ Ipratropium (Duoneb) 3 ml NOW STAT INH 12/24/16 13:46 12/24/16 13:50 DC 12/24/16 13:46 3 ML Trimethoprim/ Sulfamethoxazole (Septra Ds 800/ 160MG Tab) 1 tab NOW STAT PO 12/24/16 15:26 12/24/16 15:27 DC 12/24/16 15:32 1 TAB Albuterol/ Ipratropium (Duoneb) 3 ml NOW STAT INH 12/24/16 16:46 12/24/16 16:47 DC 12/24/16 16:46 3 ML Albuterol/ Ipratropium (Duoneb) 3 ml NOW STAT INH 12/24/16 22:27 12/24/16 22:28 DC 12/24/16 22:40 3 ML Trimethoprim/ Sulfamethoxazole (Septra Ds 800/ 160MG Tab) 1 tab NOW ONCE PO 12/24/16 22:30 12/24/16 22:31 DC 12/24/16 22:40 1 TAB Trimethoprim/ Sulfamethoxazole (Sulfameth/ Trimeth Ds 800/ 160MG Home Pack) 1 homepack UD ONCE PO 12/24/16 22:30 12/24/16 22:31 DC 12/24/16 22:38 1 HOMEPACK ECG Indication: SOB/dyspnea Rate (beats per minute): 105 Rhythm: sinus tachycardia Findings: no acute ischemic change, no ectopy Comparison ECG Date: 11/29/2016 Change: Increased rate otherwise no change. ED Course 1603: The patient was evaluated in room A3. A complete history and physical examination were performed. 1646: DuoNeb 3 ml INH 1650: I reevaluated the patient at this time. 2156: I reassessed the patient at this time. He is still not feeling well and does not feel like he can go home. I discussed the results and treatment plan with the patient. I answered all pertaining questions that he had. He expressed understanding and verbalized agreement. 2204: I discussed the patient's case with Dr. Hairston. [facility] Medical Decision Differential diagnosis: Etiologies such as infections, reactive airway disease, pneumonia, pneumothorax , COPD, CHF, cardiac ischemia, pulmonary embolism, musculoskeletal, gastrointestinal, as well as others were entertained. Nursing notes reviewed. The patient is a 51-year-old male who presented to emergency department for evaluation of chest pain and cough. Initially the patient was seen by Dr. Vallecillo. Please see his note for initial history and physical. The patient was discharged before he left his room felt as though his symptoms were worsening. I was asked by the nursing staff to evaluate the patient. The patient had a repeat EKG as well as a repeat troponin. These did not show any acute ischemic changes. The patient was treated with bronchodilator therapy. Initially when he was seen by Dr. Vallecillo he was felt to have bronchitis and was ordered an antibiotic. The patient was given a dose of antibiotic in the emergency department. I discussed the patient's laboratory and radiographic studies with him and his family member. The patient was still unsure and asked if he could be evaluated by the hospitals. I discussed his case with the on-call [facility] with the patient decided that he was feeling better and wished to be discharged home. He was encouraged to rest and avoid any strenuous activity. He was also encouraged to follow-up with his family doctor this week for reevaluation but return to the emergency department immediately if symptoms change worsen or the need arises. Medication Reconcilliation Current Medication List: was personally reviewed by me Blood Pressure Screening Patient's blood pressure: Elevated blood pressure Blood pressure disposition: Elevated BP felt to be situational Consults Time Called: 2200 Consulting Physician: Dr. Hairston Returned Call: 2204 I discussed the patient's case with Dr. Hairston. The patient will be evaluated by the [facility] for further management. Impression Primary Impression: SOB (shortness of breath) Additional Impressions: COPD (chronic obstructive pulmonary disease) Hypoxia Scribe Attestation The scribe's documentation has been prepared under my direction and personally reviewed by me in its entirety. I confirm that the note above accurately reflects all work, treatment, procedures, and medical decision making performed by me. Departure Information Dispostion Being Evaluated By Hospitalist Prescriptions Sulfa/Trimethoprim (Bactrim Ds 800MG/160MG) Tab 1 TAB PO BID, #14 TAB Prov: Sukhdev Vallecillo D.O. 12/24/16 Referrals No Doctor, Assigned Forms HOME CARE DOCUMENTATION FORM, IMPORTANT VISIT INFORMATION Patient Instructions My [facility] Problem Qualifiers Additional Impressions: COPD (chronic obstructive pulmonary disease) COPD type: unspecified COPD Qualified Codes: J44.9 - Chronic obstructive pulmonary disease, unspecified
[2016-12-24] MEDS ORDERED: OPTIRAY 320 IV PRN (18:45)
--- NOTE | 2016-12-24 19:44 | DIAGNOSTIC IMAGING REPORT ---
VENOUS DOPPLER LW EXT BILAT HISTORY: Pain. Edema. swelling COMPARISON STUDY: 12/30/2015 FINDINGS: There is normal compressibility, flow, and augmentation within the bilateral lower extremity deep venous systems. IMPRESSION: No DVT within the right or left lower extremity. The above report was generated using voice recognition software. It may contain grammatical, syntax or spelling errors. Electronically signed by: Neal Bledsoe M.D. 12/24/2016 7:43 PM Dictated Date/Time: 12/24/2016 7:42 PM
--- NOTE | 2016-12-24 20:51 | DIAGNOSTIC IMAGING REPORT ---
(CHEST FOR PE) ANGIO WITH CT DOSE: 451.27 mGy.cm HISTORY: Chest pain dyspnea TECHNIQUE: Multiaxial CT images of the chest were performed following the intravenous administration of contrast to evaluate the pulmonary arteries. Maximal intensity projection images were also obtained. A dose lowering technique was utilized adhering to the principles of ALARA. COMPARISON STUDY: 11/25/2016 FINDINGS: There is a normal caliber thoracic aorta with no evidence for dissection. There is no evidence for pulmonary embolus. No pleural effusions. No pneumothorax. The liver and spleen are unremarkable. No mediastinal or hilar lymphadenopathy. The central airways are patent. Lungs demonstrate improving cystic and nodular change. Moderate residual persists. There are several old right rib fractures. IMPRESSION: 1. No evidence for pulmonary most. 2. Improving parenchymal nodularity and cystic change. 3. Moderate residual. 4. No evidence for new or interval process. The above report was generated using voice recognition software. It may contain grammatical, syntax or spelling errors. Electronically signed by: Neal Bledsoe M.D. 12/24/2016 8:49 PM Dictated Date/Time: 12/24/2016 8:46 PM
[2016-12-24] MEDS ORDERED: SULFAMETHOXAZOLE/TRIMETHOPRIM DS 800/160MG TAB PO ONE (22:30)
[2016-12-24] MEDS ORDERED: SEPTRA DS HOME PACK 1 EA VIAL PO ONE (22:30)
[2016-12-24 22:45] VITALS: BP 154/97; PULSE 111; O2SAT 98
[2016-12-24 23:07] LABS: INR 0.9 (0.9-1.1); PARTIAL THROMBOPLASTIN RATIO 0.9; PROTHROMBIN TIME (PATIENT) 9.9 SECONDS (9.0-12.0)
== END 2016-12-24 23:04 | disposition home or self-care (01) ==
LOC: C.EDB 13:43 → C.EDA 23:04
DX: J44.9 Chronic obstructive pulmonary disease, unspecified (principal); Z99.81 Dependence on supplemental oxygen; F32.9 Major depressive disorder, single episode, unspecified; E11.9 Type 2 diabetes mellitus without complications; K21.9 Gastro-esophageal reflux disease without esophagitis; I10 Essential (primary) hypertension; Z82.49 Family history of ischemic heart disease and other diseases of the circulatory system; Z82.3 Family history of stroke; Z79.899 Other long term (current) drug therapy